=== PATIENT | male | born 1965 | race Caucasian/White ===

== ENCOUNTER 2021-03-10 23:58 | Inpatient (IN) ==
[2021-03-11] MEDS ORDERED: NOREPINEPHRINE 4 MG/4 ML VIAL IV ONE (00:10)
[2021-03-11] MEDS: fentaNYL INJ 2,500 MCG in SODIUM CHLORIDE 0.9% 75 ML IV PRN ×2 (00:15→15:50)
[2021-03-11] MEDS: NOREPINEPHRINE 8 MG in SODIUM CHLORIDE 0.9% 242 ML IV PRN ×4 (00:15→21:15)
[2021-03-11] MEDS: MIDAZOLAM 100 MG in SODIUM CHLORIDE 0.9% 80 ML IV PRN ×2 (00:15→21:20)
[2021-03-11 01:26] LABS: Albumin 3.1 G/DL (3.4-5.0); Basophils # 0.1 10*3/uL (0.0-0.2); Basophils % 0.2 % (0.0-0.8); Bilirubin,Total 0.7 MG/DL (0.20-1.00); Calcium 8.5 MG/DL (8.5-10.1); Hematocrit 46.8 VOL% (42.0-52.0); Hemoglobin 15.8 GM/DL (14.0-18.0); Immature Granulocytes % 1.6 %; Immature Granulocytes Absolute 0.63 #; Lymphocytes # 1.3 10*3/uL (1.4-4.0); Lymphocytes % 3.3 % (21.2-54.2); Mean Corpuscular HGB Conc 33.8 GM/DL (32-36); Mean Corpuscular Volume 88.6 FL (87-102); Mean Platelet Volume 9.8 FL (9.6-12.0); Monocytes % 8.3 % (1.7-12.7); Neutrophils % 86.6 % (38.7-73.9); Osmolality,Calculated 290.2 MOS/KG (273-304); Platelet Count 369 T/CUMM (130-400); Potassium 5.1 MMOL/L (3.5-5.1); Red Blood Count 5.28 MC/CUMM (3.8-5.5); Red Cell Distribution Width 12.5 % (9.3-17.3); Total Protein 6.3 G/DL (6.4-8.2); White Blood Count 38.6 T/CUMM (4-12)
[2021-03-11 02:20] LABS: Band Neutrophils 2 % (0-10); Lymphocytes 3 % (20-55); Segmented Neutrophils 84 % (50-85); Total Cells Counted 100
[2021-03-11 02:22] LABS: Platelet Estimate Normal
[2021-03-11 02:23] LABS: Reactive Lymphocytes 1+
[2021-03-11] MEDS ORDERED: SODIUM CHLORIDE 0.9% 2,700 ML IV ONE (02:25)
[2021-03-11] MEDS ORDERED: VANCOMYCIN INJ 1,250 MG in SODIUM CHLORIDE 0.9% 250 ML IV SCH (02:30)
[2021-03-11] MEDS ORDERED: VANCOMYCIN INJ 2,250 MG in SODIUM CHLORIDE 0.9% 500 ML IV ONE (03:00)
[2021-03-11] MEDS: PIPERACILLIN/TAZOBACTAM 3,375 MG in SODIUM CHLORIDE 0.9% 100 ML IV SCH ×3 (03:25→17:33)
[2021-03-11 04:48] LABS: ABG HCO3 18.9 MMOL/L (20-26); ABG Oxygen Saturation 91.5 % (95-100); ABG PCO2 35.5 MM HG (35-48); ABG PH 7.345 (7.35-7.45); ABG PO2 69.4 MM HG (80-95)
[2021-03-11 04:50] LABS: Bilirubin,Urine Negative (Negative); Blood, Urine Moderate mg/dL (Negative); Glucose,Urine (UA) Negative (Negative); Hyaline Casts,Urine 130 /LPF (0-3); Ketones,Urine Negative (Negative); Mucus,Urine Many /LPF (Occasional); Nitrite,Urine Negative (Negative); Protein,Urine 30 MG/DL; RBC,Urine 9 /HPF (0-4); Urine Appearance CLOUDY (Clear); Urine Color Amber (Yellow); Urine Urobilinogen < 2.0 EU/DL (0.2-1.0)
[2021-03-11] MEDS ORDERED: SODIUM CHLORIDE 0.9% 1,000 ML IV SCH (05:30)
[2021-03-11] MEDS ORDERED: DOCUSATE SODIUM 100 MG CAPSULE PO PRN (05:30)
[2021-03-11 06:09] LABS: INR 1.2; PT Patient Result 12.9 SECS (10.5-12.0)
[2021-03-11 06:28] LABS: Ferritin 2750.6 ng/mL (26-388)
[2021-03-11] MEDS: FAMOTIDINE 20 MG/2 ML VIAL IV SCH ×2 (06:32→17:35)
[2021-03-11] MEDS: DEXAMETHASONE 4 MG/1 ML VIAL IV SCH (08:45)
[2021-03-11] MEDS: ASCORBIC ACID 500 MG TABLET PO SCH ×2 (11:27→21:48)
[2021-03-11] MEDS: ZINC GLUCONATE 50 MG TABLET PO SCH (11:27)
[2021-03-11] MEDS: CHOLECALCIFEROL 1,000 UNIT TABLET PO SCH (11:27)
[2021-03-11] MEDS: VANCOMYCIN INJ 1,250 MG in SODIUM CHLORIDE 0.9% 250 ML IV SCH (16:18)
[2021-03-11] MEDS ORDERED: SODIUM CHLORIDE 0.9% 1,000 ML IV ONE (21:13)
[2021-03-11] MEDS ORDERED: SODIUM BICARBONATE 50 MEQ/50 ML VIAL IV ONE (21:13)
[2021-03-12] MEDS: PIPERACILLIN/TAZOBACTAM 3,375 MG in SODIUM CHLORIDE 0.9% 100 ML IV SCH (03:03)
[2021-03-12 04:45] LABS: ABG Base Excess -1.8 MMOL/L (-2.5-2.5); ABG HCO3 22.9 MMOL/L (20-26); ABG Oxygen Saturation 99.1 % (95-100); ABG PCO2 45.2 MM HG (35-48); ABG PH 7.337 (7.35-7.45); ABG TCO2 21.7 MMOL/L (23-27)
[2021-03-12] MEDS: fentaNYL INJ 2,500 MCG in SODIUM CHLORIDE 0.9% 75 ML IV PRN ×2 (04:45→15:39)
[2021-03-12] MEDS: NOREPINEPHRINE 8 MG in SODIUM CHLORIDE 0.9% 242 ML IV PRN ×5 (05:05→20:10)
[2021-03-12] MEDS: VANCOMYCIN INJ 1,250 MG in SODIUM CHLORIDE 0.9% 250 ML IV SCH (05:07)
[2021-03-12 05:10] LABS: INR 1.1; PT Patient Result 12.4 SECS (10.5-12.0)
[2021-03-12 05:20] LABS: Albumin 2.3 G/DL (3.4-5.0); Bilirubin,Total 0.8 MG/DL (0.20-1.00); Calcium 7.7 MG/DL (8.5-10.1); Osmolality,Calculated 299.3 MOS/KG (273-304); Potassium 4.6 MMOL/L (3.5-5.1)
[2021-03-12 05:30] LABS: Basophils # 0.1 10*3/uL (0.0-0.2); Basophils % 0.2 % (0.0-0.8); Immature Granulocytes % 2.1 %; Immature Granulocytes Absolute 0.53 #; Lymphocytes # 1.6 10*3/uL (1.4-4.0); Lymphocytes % 6.2 % (21.2-54.2); Mean Corpuscular HGB Conc 34.2 GM/DL (32-36); Mean Corpuscular Volume 89.2 FL (87-102); Mean Platelet Volume 10.4 FL (9.6-12.0); Monocytes % 9.4 % (1.7-12.7); Neutrophils % 82.1 % (38.7-73.9); Red Cell Distribution Width 12.8 % (9.3-17.3)
[2021-03-12 05:32] LABS: Hemoglobin 11.3 GM/DL (14.0-18.0); White Blood Count 25.8 T/CUMM (4-12)
[2021-03-12 05:33] LABS: Ferritin 2046.8 ng/mL (26-388); Platelet Count 215 T/CUMM (130-400)
[2021-03-12 05:35] LABS: Band Neutrophils 1 % (0-10); Lymphocytes 4 % (20-55); Platelet Estimate Adequate; Segmented Neutrophils 88 % (50-85); Total Cells Counted 100
[2021-03-12] MEDS: FAMOTIDINE 20 MG/2 ML VIAL IV SCH ×2 (05:50→17:30)
[2021-03-12] MEDS: ASCORBIC ACID 500 MG TABLET PO SCH ×2 (10:20→21:06)
[2021-03-12] MEDS: CHOLECALCIFEROL 1,000 UNIT TABLET PO SCH (10:20)
[2021-03-12] MEDS: ZINC GLUCONATE 50 MG TABLET PO SCH (10:20)
[2021-03-12] MEDS: DEXAMETHASONE 4 MG/1 ML VIAL IV SCH (10:21)
[2021-03-12] MEDS: MEROPENEM 500 MG in SODIUM CHLORIDE 0.9% 100 ML IV SCH ×3 (16:21→22:05)
[2021-03-12] MEDS: INSULIN REGULAR 100 UNIT/ML SUBCUT SCH ×2 (18:27→20:22)
[2021-03-12] MEDS: ACETAMINOPHEN 325 MG TABLET PO PRN (21:06)
[2021-03-12] MEDS: MIDAZOLAM 100 MG in SODIUM CHLORIDE 0.9% 80 ML IV PRN (21:06)
[2021-03-13] MEDS ORDERED: SODIUM CHLORIDE 0.9% 250 ML IV ONE (00:42)
[2021-03-13] MEDS ORDERED: KETOROLAC 30 MG/1 ML VIAL IV ONE (00:44)
[2021-03-13] MEDS: INSULIN REGULAR 100 UNIT/ML SUBCUT SCH ×4 (01:30→18:23)
[2021-03-13] MEDS: SODIUM CHLORIDE 0.9% 1,000 ML IV SCH ×2 (01:31→17:48)
[2021-03-13] MEDS: fentaNYL INJ 2,500 MCG in SODIUM CHLORIDE 0.9% 75 ML IV PRN ×3 (03:20→17:17)
[2021-03-13 03:32] LABS: ABG Base Excess 1.4 MMOL/L (-2.5-2.5); ABG HCO3 25.7 MMOL/L (20-26); ABG Oxygen Saturation 99.4 % (95-100); ABG PH 7.375 (7.35-7.45); ABG TCO2 24.8 MMOL/L (23-27)
[2021-03-13 04:32] LABS: Basophils % 0.1 % (0.0-0.8); Eosinophils % 0.1 % (0.00-10.9); Hematocrit 26.7 VOL% (42.0-52.0); Immature Granulocytes Absolute 0.38 #; Lymphocytes # 1.5 10*3/uL (1.4-4.0); Lymphocytes % 8.1 % (21.2-54.2); Mean Corpuscular Volume 92.7 FL (87-102); Mean Platelet Volume 10.3 FL (9.6-12.0); Monocytes % 8.5 % (1.7-12.7); NRBC # 0.02 10*3/uL; Neutrophils % 81.2 % (38.7-73.9); White Blood Count 18.6 T/CUMM (4-12)
[2021-03-13 04:34] LABS: Hemoglobin 8.8 GM/DL (14.0-18.0); Red Blood Count 2.88 MC/CUMM (3.8-5.5)
[2021-03-13 04:35] LABS: Platelet Count 120 T/CUMM (130-400)
[2021-03-13 04:37] LABS: INR 1.1; PT Patient Result 12.6 SECS (10.5-12.0)
[2021-03-13] MEDS: MEROPENEM 500 MG in SODIUM CHLORIDE 0.9% 100 ML IV SCH ×4 (04:45→21:39)
[2021-03-13 04:59] LABS: Albumin 2.1 G/DL (3.4-5.0); Bilirubin,Total 0.5 MG/DL (0.20-1.00); Calcium 7.8 MG/DL (8.5-10.1); Ferritin 1093.6 ng/mL (26-388); Osmolality,Calculated 307.8 MOS/KG (273-304); Potassium 4.7 MMOL/L (3.5-5.1); Total Protein 4.9 G/DL (6.4-8.2)
[2021-03-13] MEDS: FAMOTIDINE 20 MG/2 ML VIAL IV SCH ×2 (06:29→17:48)
[2021-03-13] MEDS: DEXAMETHASONE 4 MG/1 ML VIAL IV SCH (08:28)
[2021-03-13] MEDS: ASCORBIC ACID 500 MG TABLET PO SCH ×2 (08:29→21:17)
[2021-03-13] MEDS: ZINC GLUCONATE 50 MG TABLET PO SCH (08:29)
[2021-03-13] MEDS: CHOLECALCIFEROL 1,000 UNIT TABLET PO SCH (08:29)
[2021-03-13] MEDS ORDERED: DOCUSATE SODIUM 100 MG/10 ML UDCUP PO PRN (09:30)
[2021-03-13] MEDS: MIDAZOLAM 100 MG in SODIUM CHLORIDE 0.9% 80 ML IV PRN (21:10)
[2021-03-14] MEDS: INSULIN REGULAR 100 UNIT/ML SUBCUT SCH ×4 (00:01→18:19)
[2021-03-14] MEDS: fentaNYL INJ 2,500 MCG in SODIUM CHLORIDE 0.9% 75 ML IV PRN ×2 (01:33→14:13)
[2021-03-14 03:33] LABS: Basophils % 0.2 % (0.0-0.8); Hemoglobin 7.4 GM/DL (14.0-18.0); Immature Granulocytes % 2.8 %; Immature Granulocytes Absolute 0.35 #; Lymphocytes # 0.9 10*3/uL (1.4-4.0); Lymphocytes % 7.3 % (21.2-54.2); Mean Corpuscular HGB Conc 32.2 GM/DL (32-36); Mean Corpuscular Volume 93.1 FL (87-102); Mean Platelet Volume 11.3 FL (9.6-12.0); Monocytes % 5.5 % (1.7-12.7); NRBC # 0.04 10*3/uL; Neutrophils % 84.2 % (38.7-73.9); Platelet Count 104 T/CUMM (130-400); Red Blood Count 2.47 MC/CUMM (3.8-5.5); Red Cell Distribution Width 13.2 % (9.3-17.3); White Blood Count 12.7 T/CUMM (4-12)
[2021-03-14] MEDS: MEROPENEM 500 MG in SODIUM CHLORIDE 0.9% 100 ML IV SCH ×4 (03:33→22:13)
[2021-03-14 03:36] LABS: ABG Base Excess -0.5 MMOL/L (-2.5-2.5); ABG Oxygen Saturation 97.4 % (95-100); ABG PCO2 40.2 MM HG (35-48); ABG PH 7.391 (7.35-7.45); ABG PO2 90.1 MM HG (80-95); ABG TCO2 23.1 MMOL/L (23-27)
[2021-03-14 03:42] LABS: PT Patient Result 11.5 SECS (10.5-12.0)
[2021-03-14 03:58] LABS: Bilirubin,Total 0.5 MG/DL (0.20-1.00); Calcium 8.2 MG/DL (8.5-10.1); Ferritin 777.3 ng/mL (26-388); Osmolality,Calculated 310.6 MOS/KG (273-304); Potassium 5.1 MMOL/L (3.5-5.1); Total Protein 4.8 G/DL (6.4-8.2)
[2021-03-14] MEDS: FAMOTIDINE 20 MG/2 ML VIAL IV SCH (04:39)
[2021-03-14] MEDS: ZINC GLUCONATE 50 MG TABLET PO SCH (08:10)
[2021-03-14] MEDS: CHOLECALCIFEROL 1,000 UNIT TABLET PO SCH (08:10)
[2021-03-14] MEDS: DEXAMETHASONE 4 MG/1 ML VIAL IV SCH (08:10)
[2021-03-14] MEDS: ASCORBIC ACID 500 MG TABLET PO SCH ×2 (08:10→20:00)
[2021-03-14] MEDS: MIDAZOLAM 100 MG in SODIUM CHLORIDE 0.9% 80 ML IV PRN (14:30)
[2021-03-15] MEDS: INSULIN REGULAR 100 UNIT/ML SUBCUT SCH ×4 (00:19→18:10)
[2021-03-15] MEDS: fentaNYL INJ 2,500 MCG in SODIUM CHLORIDE 0.9% 75 ML IV PRN ×3 (00:19→18:23)
[2021-03-15] MEDS: MEROPENEM 500 MG in SODIUM CHLORIDE 0.9% 100 ML IV SCH ×4 (03:50→22:00)
[2021-03-15 05:25] LABS: ABG Base Excess 6.6 MMOL/L (-2.5-2.5); ABG HCO3 30.3 MMOL/L (20-26); ABG Oxygen Saturation 91.5 % (95-100); ABG PH 7.444 (7.35-7.45); ABG PO2 60.6 MM HG (80-95); ABG TCO2 28.5 MMOL/L (23-27); Basophils % 0.1 % (0.0-0.8); Hematocrit 21.5 VOL% (42.0-52.0); Immature Granulocytes % 5.3 %; Immature Granulocytes Absolute 0.59 #; Lymphocytes # 0.6 10*3/uL (1.4-4.0); Lymphocytes % 5.6 % (21.2-54.2); Mean Corpuscular HGB Conc 32.6 GM/DL (32-36); Mean Corpuscular Volume 93.1 FL (87-102); Mean Platelet Volume 10.8 FL (9.6-12.0); Monocytes % 5.2 % (1.7-12.7); NRBC # 0.06 10*3/uL; Neutrophils % 83.8 % (38.7-73.9); Platelet Count 101 T/CUMM (130-400); Red Blood Count 2.31 MC/CUMM (3.8-5.5); Red Cell Distribution Width 13.4 % (9.3-17.3)
[2021-03-15 05:45] LABS: Band Neutrophils 1 % (0-10); Hypochromia 1+; Lymphocytes 5 % (20-55); Microcytosis 1+; Nucleated Red Blood Cells 1 (0-5); Platelet Estimate Decreased; Segmented Neutrophils 92 % (50-85); Total Cells Counted 100
[2021-03-15 05:48] LABS: Calcium 8.3 MG/DL (8.5-10.1); Osmolality,Calculated 311.4 MOS/KG (273-304); Potassium 4.6 MMOL/L (3.5-5.1)
[2021-03-15] MEDS: ASCORBIC ACID 500 MG TABLET PO SCH ×2 (09:20→21:50)
[2021-03-15] MEDS: DEXAMETHASONE 4 MG/1 ML VIAL IV SCH (09:20)
[2021-03-15] MEDS: CHOLECALCIFEROL 1,000 UNIT TABLET PO SCH (09:20)
[2021-03-15] MEDS: FUROSEMIDE 40 MG/4 ML VIAL IV SCH ×2 (09:20→17:10)
[2021-03-15] MEDS: PANTOPRAZOLE 40 MG VIAL IV SCH (09:20)
[2021-03-15] MEDS: ZINC GLUCONATE 50 MG TABLET PO SCH (09:21)
[2021-03-15] MEDS ORDERED: MORPHINE 2 MG/1 ML SYRINGE ONE (11:25)
[2021-03-15] MEDS ORDERED: MORPHINE 2 MG/1 ML SYRINGE IV ONE (11:35)
[2021-03-15] MEDS: MIDAZOLAM 100 MG in SODIUM CHLORIDE 0.9% 80 ML IV PRN (11:44)
[2021-03-16] MEDS: INSULIN REGULAR 100 UNIT/ML SUBCUT SCH ×4 (00:19→17:17)
[2021-03-16 03:12] LABS: ABG HCO3 36.1 MMOL/L (20-26); ABG Oxygen Saturation 91.9 % (95-100); ABG PCO2 50.5 MM HG (35-48); ABG PH 7.472 (7.35-7.45); ABG PO2 61.6 MM HG (80-95); ABG TCO2 37.6 MMOL/L (23-27)
[2021-03-16 04:53] LABS: Basophils % 0.3 % (0.0-0.8); Hematocrit 30.2 VOL% (42.0-52.0); Immature Granulocytes % 5.3 %; Immature Granulocytes Absolute 0.62 #; Lymphocytes # 0.6 10*3/uL (1.4-4.0); Lymphocytes % 5.3 % (21.2-54.2); Mean Corpuscular HGB Conc 32.1 GM/DL (32-36); Mean Corpuscular Volume 90.7 FL (87-102); Mean Platelet Volume 10.8 FL (9.6-12.0); NRBC # 0.12 10*3/uL; Neutrophils % 84.1 % (38.7-73.9); Red Cell Distribution Width 14.6 % (9.3-17.3); White Blood Count 11.7 T/CUMM (4-12)
[2021-03-16 04:58] LABS: Hemoglobin 9.7 GM/DL (14.0-18.0); Platelet Count 97 T/CUMM (130-400); Red Blood Count 3.33 MC/CUMM (3.8-5.5)
[2021-03-16 05:15] LABS: Calcium 8.6 MG/DL (8.5-10.1); Osmolality,Calculated 304.1 MOS/KG (273-304); Potassium 4.5 MMOL/L (3.5-5.1)
[2021-03-16 05:19] LABS: Band Neutrophils 2 % (0-10); Lymphocytes 5 % (20-55); Platelet Estimate Decreased; Segmented Neutrophils 90 % (50-85); Total Cells Counted 100
[2021-03-16] MEDS: MEROPENEM 500 MG in SODIUM CHLORIDE 0.9% 100 ML IV SCH ×4 (05:28→23:18)
[2021-03-16] MEDS: fentaNYL INJ 2,500 MCG in SODIUM CHLORIDE 0.9% 75 ML IV PRN ×3 (06:13→23:49)
[2021-03-16] MEDS: MIDAZOLAM 100 MG in SODIUM CHLORIDE 0.9% 80 ML IV PRN (06:58)
[2021-03-16] MEDS: ZINC GLUCONATE 50 MG TABLET PO SCH (08:55)
[2021-03-16] MEDS: CHOLECALCIFEROL 1,000 UNIT TABLET PO SCH (08:55)
[2021-03-16] MEDS: ASCORBIC ACID 500 MG TABLET PO SCH ×2 (08:55→21:22)
[2021-03-16] MEDS: DEXAMETHASONE 4 MG/1 ML VIAL IV SCH (08:57)
[2021-03-16] MEDS: PANTOPRAZOLE 40 MG VIAL IV SCH (08:59)
[2021-03-16] MEDS: FUROSEMIDE 40 MG/4 ML VIAL IV SCH (09:01)
[2021-03-16] MEDS: INSULIN GLARGINE 100 UNIT/ML SUBCUT SCH (12:36)
[2021-03-17] MEDS: INSULIN REGULAR 100 UNIT/ML SUBCUT SCH ×5 (00:37→19:39)
[2021-03-17] MEDS: MIDAZOLAM 100 MG in SODIUM CHLORIDE 0.9% 80 ML IV PRN ×2 (03:32→18:05)
[2021-03-17] MEDS: MEROPENEM 500 MG in SODIUM CHLORIDE 0.9% 100 ML IV SCH ×4 (04:31→22:15)
[2021-03-17 04:54] LABS: ABG Base Excess 6.3 MMOL/L (-2.5-2.5); ABG HCO3 30.1 MMOL/L (20-26); ABG Oxygen Saturation 96.6 % (95-100); ABG PCO2 53.3 MM HG (35-48); ABG PH 7.393 (7.35-7.45); ABG PO2 88.4 MM HG (80-95); ABG TCO2 29.5 MMOL/L (23-27); Basophils % 0.3 % (0.0-0.8); Hematocrit 29.9 VOL% (42.0-52.0); Immature Granulocytes % 5.1 %; Immature Granulocytes Absolute 0.57 #; Lymphocytes # 0.5 10*3/uL (1.4-4.0); Lymphocytes % 4.4 % (21.2-54.2); Mean Corpuscular HGB Conc 33.4 GM/DL (32-36); Mean Corpuscular Volume 90.3 FL (87-102); Mean Platelet Volume 10.8 FL (9.6-12.0); Monocytes % 4.5 % (1.7-12.7); NRBC # 0.08 10*3/uL; Neutrophils % 85.7 % (38.7-73.9); Platelet Count 109 T/CUMM (130-400); Red Blood Count 3.31 MC/CUMM (3.8-5.5); Red Cell Distribution Width 14.4 % (9.3-17.3); White Blood Count 11.3 T/CUMM (4-12)
[2021-03-17 05:07] LABS: Calcium 8.3 MG/DL (8.5-10.1); Osmolality,Calculated 294.4 MOS/KG (273-304); Potassium 3.9 MMOL/L (3.5-5.1)
[2021-03-17 07:07] LABS: Hypochromia Slight; Lymphocytes 7 % (20-55); Platelet Estimate Adequate; Segmented Neutrophils 91 % (50-85); Total Cells Counted 100
[2021-03-17] MEDS: ZINC GLUCONATE 50 MG TABLET PO SCH (08:58)
[2021-03-17] MEDS: ASCORBIC ACID 500 MG TABLET PO SCH ×2 (08:58→21:54)
[2021-03-17] MEDS: INSULIN GLARGINE 100 UNIT/ML SUBCUT SCH (08:58)
[2021-03-17] MEDS: PANTOPRAZOLE 40 MG VIAL IV SCH (09:01)
[2021-03-17] MEDS: DEXAMETHASONE 4 MG/1 ML VIAL IV SCH (09:03)
[2021-03-17] MEDS: CHOLECALCIFEROL 1,000 UNIT TABLET PO SCH (09:11)
[2021-03-17] MEDS: fentaNYL INJ 2,500 MCG in SODIUM CHLORIDE 0.9% 75 ML IV PRN ×2 (09:46→18:06)
[2021-03-17] MEDS: HEPARIN/NACL 0.9% 2 UNITS/ML 1,000 UNIT/500 ML BAG IV SCH (11:10)
[2021-03-18] MEDS: INSULIN REGULAR 100 UNIT/ML SUBCUT SCH ×4 (00:09→18:50)
[2021-03-18] MEDS: fentaNYL INJ 2,500 MCG in SODIUM CHLORIDE 0.9% 75 ML IV PRN ×4 (02:04→23:16)
[2021-03-18] MEDS: MEROPENEM 500 MG in SODIUM CHLORIDE 0.9% 100 ML IV SCH ×4 (04:54→23:17)
[2021-03-18 04:56] LABS: Basophils % 0.3 % (0.0-0.8); Hemoglobin 10.4 GM/DL (14.0-18.0); Immature Granulocytes % 2.5 %; Immature Granulocytes Absolute 0.25 #; Lymphocytes # 0.4 10*3/uL (1.4-4.0); Lymphocytes % 3.7 % (21.2-54.2); Mean Corpuscular HGB Conc 32.5 GM/DL (32-36); Mean Corpuscular Volume 92.5 FL (87-102); Mean Platelet Volume 10.2 FL (9.6-12.0); Monocytes % 3.7 % (1.7-12.7); NRBC # 0.04 10*3/uL; Neutrophils % 89.8 % (38.7-73.9); Platelet Count 116 T/CUMM (130-400); Red Blood Count 3.46 MC/CUMM (3.8-5.5); Red Cell Distribution Width 14.4 % (9.3-17.3); White Blood Count 10.2 T/CUMM (4-12)
[2021-03-18 05:17] LABS: Calcium 8.3 MG/DL (8.5-10.1); Osmolality,Calculated 284.4 MOS/KG (273-304); Potassium 4.2 MMOL/L (3.5-5.1)
[2021-03-18 05:31] LABS: Lymphocytes 7 % (20-55); Platelet Estimate Normal; Segmented Neutrophils 89 % (50-85); Total Cells Counted 100
[2021-03-18 07:51] LABS: ABG Base Excess 3.9 MMOL/L (-2.5-2.5); ABG HCO3 27.9 MMOL/L (20-26); ABG Oxygen Saturation 99.2 % (95-100); ABG PCO2 55.8 MM HG (35-48); ABG PH 7.349 (7.35-7.45); Allen Test Positive; Pt O2 Delivery Device Ventilator
[2021-03-18] MEDS ORDERED: INSULIN GLARGINE 100 UNIT/ML SUBCUT SCH (09:00)
[2021-03-18] MEDS: MIDAZOLAM 100 MG in SODIUM CHLORIDE 0.9% 80 ML IV PRN ×2 (09:24→23:26)
[2021-03-18] MEDS: ASCORBIC ACID 500 MG TABLET PO SCH ×2 (10:00→21:00)
[2021-03-18] MEDS: ZINC GLUCONATE 50 MG TABLET PO SCH (10:00)
[2021-03-18] MEDS: CHOLECALCIFEROL 1,000 UNIT TABLET PO SCH (10:01)
[2021-03-18] MEDS: PANTOPRAZOLE 40 MG VIAL IV SCH (10:03)
[2021-03-18] MEDS: DEXAMETHASONE 4 MG/1 ML VIAL IV SCH (10:05)
[2021-03-18] MEDS: HEPARIN/NACL 0.9% 2 UNITS/ML 1,000 UNIT/500 ML BAG IV SCH (12:53)
[2021-03-19] MEDS: INSULIN REGULAR 100 UNIT/ML SUBCUT SCH ×4 (00:58→17:39)
[2021-03-19 03:49] LABS: ABG Base Excess 4.7 MMOL/L (-2.5-2.5); ABG HCO3 28.7 MMOL/L (20-26); ABG Oxygen Saturation 97.1 % (95-100); ABG PCO2 52.9 MM HG (35-48); ABG PH 7.376 (7.35-7.45); ABG TCO2 28.3 MMOL/L (23-27)
[2021-03-19] MEDS: MEROPENEM 500 MG in SODIUM CHLORIDE 0.9% 100 ML IV SCH ×4 (04:30→22:10)
[2021-03-19 04:33] LABS: Basophils % 0.1 % (0.0-0.8); Hematocrit 32.2 VOL% (42.0-52.0); Hemoglobin 10.5 GM/DL (14.0-18.0); Immature Granulocytes % 2.1 %; Immature Granulocytes Absolute 0.19 #; Lymphocytes # 0.4 10*3/uL (1.4-4.0); Lymphocytes % 4.8 % (21.2-54.2); Mean Corpuscular HGB Conc 32.6 GM/DL (32-36); Mean Corpuscular Volume 90.4 FL (87-102); Mean Platelet Volume 10.6 FL (9.6-12.0); Monocytes % 5.8 % (1.7-12.7); NRBC # 0.04 10*3/uL; Neutrophils % 87.2 % (38.7-73.9); Platelet Count 136 T/CUMM (130-400); Red Blood Count 3.56 MC/CUMM (3.8-5.5); Red Cell Distribution Width 14.4 % (9.3-17.3)
[2021-03-19 04:51] LABS: Calcium 8.4 MG/DL (8.5-10.1); Osmolality,Calculated 288.4 MOS/KG (273-304)
[2021-03-19 05:34] LABS: Lymphocytes 7 % (20-55); Segmented Neutrophils 89 % (50-85); Total Cells Counted 100
[2021-03-19 05:35] LABS: Microcytosis 1+; Ovalocytes Slight; Platelet Estimate Adequate; Tear Drop Cells Slight
[2021-03-19] MEDS: ASCORBIC ACID 500 MG TABLET PO SCH ×2 (08:37→21:12)
[2021-03-19] MEDS: INSULIN GLARGINE 100 UNIT/ML SUBCUT SCH (08:37)
[2021-03-19] MEDS: CHOLECALCIFEROL 1,000 UNIT TABLET PO SCH (08:37)
[2021-03-19] MEDS: ZINC GLUCONATE 50 MG TABLET PO SCH (08:37)
[2021-03-19] MEDS: PANTOPRAZOLE 40 MG VIAL IV SCH (08:38)
[2021-03-19] MEDS: DEXAMETHASONE 4 MG/1 ML VIAL IV SCH (08:38)
[2021-03-19] MEDS: fentaNYL INJ 2,500 MCG in SODIUM CHLORIDE 0.9% 75 ML IV PRN (09:29)
[2021-03-19] MEDS: fentaNYL INJ 5,000 MCG in SODIUM CHLORIDE 0.9% 150 ML IV PRN (17:10)
[2021-03-19] MEDS: MIDAZOLAM 100 MG in SODIUM CHLORIDE 0.9% 80 ML IV PRN (17:11)
[2021-03-19] MEDS: FAMOTIDINE 20 MG TABLET PO SCH (21:12)
[2021-03-20] MEDS: INSULIN REGULAR 100 UNIT/ML SUBCUT SCH ×4 (00:38→17:13)
[2021-03-20] MEDS: fentaNYL INJ 5,000 MCG in SODIUM CHLORIDE 0.9% 150 ML IV PRN ×3 (01:57→21:55)
[2021-03-20 03:04] LABS: ABG Base Excess 5.2 MMOL/L (-2.5-2.5); ABG HCO3 29.1 MMOL/L (20-26); ABG Oxygen Saturation 98.3 % (95-100); ABG PCO2 51.4 MM HG (35-48); ABG PH 7.392 (7.35-7.45); ABG TCO2 28.3 MMOL/L (23-27)
[2021-03-20 04:57] LABS: Basophils % 0.1 % (0.0-0.8); Eosinophils % 0.3 % (0.00-10.9); Hematocrit 32.4 VOL% (42.0-52.0); Hemoglobin 10.5 GM/DL (14.0-18.0); Immature Granulocytes % 0.8 %; Immature Granulocytes Absolute 0.06 #; Lymphocytes # 0.5 10*3/uL (1.4-4.0); Lymphocytes % 6.5 % (21.2-54.2); Mean Corpuscular HGB Conc 32.4 GM/DL (32-36); Mean Corpuscular Volume 91.3 FL (87-102); Mean Platelet Volume 10.3 FL (9.6-12.0); Monocytes % 7.1 % (1.7-12.7); NRBC # 0.02 10*3/uL; Neutrophils % 85.2 % (38.7-73.9); Platelet Count 160 T/CUMM (130-400); Red Blood Count 3.55 MC/CUMM (3.8-5.5); Red Cell Distribution Width 14.3 % (9.3-17.3); White Blood Count 7.1 T/CUMM (4-12)
[2021-03-20 05:16] LABS: Calcium 8.2 MG/DL (8.5-10.1); Osmolality,Calculated 287.1 MOS/KG (273-304); Potassium 3.7 MMOL/L (3.5-5.1)
[2021-03-20] MEDS: MEROPENEM 500 MG in SODIUM CHLORIDE 0.9% 100 ML IV SCH ×4 (05:30→22:05)
[2021-03-20] MEDS: MIDAZOLAM 100 MG in SODIUM CHLORIDE 0.9% 80 ML IV PRN (06:40)
[2021-03-20] MEDS: INSULIN GLARGINE 100 UNIT/ML SUBCUT SCH (08:01)
[2021-03-20] MEDS: ZINC GLUCONATE 50 MG TABLET PO SCH (08:02)
[2021-03-20] MEDS: CHOLECALCIFEROL 1,000 UNIT TABLET PO SCH (08:02)
[2021-03-20] MEDS: ASCORBIC ACID 500 MG TABLET PO SCH ×2 (08:02→21:23)
[2021-03-20] MEDS: FAMOTIDINE 20 MG TABLET PO SCH ×2 (08:03→21:22)
[2021-03-20] MEDS: DEXAMETHASONE 4 MG/1 ML VIAL IV SCH (08:03)
[2021-03-20] MEDS: methylPREDNISolone SOD SUC 40 MG/1 ML VIAL IV SCH (15:17)
[2021-03-20] MEDS ORDERED: LORazepam 2 MG/1 ML VIAL ONE (16:59)
[2021-03-20] MEDS: LORazepam 2 MG/1 ML VIAL IV PRN (17:05)
[2021-03-21] MEDS: INSULIN REGULAR 100 UNIT/ML SUBCUT SCH ×5 (00:13→23:59)
[2021-03-21] MEDS: methylPREDNISolone SOD SUC 40 MG/1 ML VIAL IV SCH ×2 (03:55→14:55)
[2021-03-21] MEDS: fentaNYL INJ 5,000 MCG in SODIUM CHLORIDE 0.9% 150 ML IV PRN ×4 (03:57→22:21)
[2021-03-21] MEDS: MEROPENEM 500 MG in SODIUM CHLORIDE 0.9% 100 ML IV SCH ×4 (03:58→23:59)
[2021-03-21 04:01] LABS: ABG Base Excess 5.1 MMOL/L (-2.5-2.5); ABG HCO3 32.7 MMOL/L (20-26); ABG Oxygen Saturation 63.5 % (95-100); ABG PCO2 64.1 MM HG (35-48); ABG PH 7.326 (7.35-7.45); ABG TCO2 34.7 MMOL/L (23-27)
[2021-03-21 04:04] LABS: ABG PO2 34.4 MM HG (80-95)
[2021-03-21 04:29] LABS: ABG Base Excess 5.2 MMOL/L (-2.5-2.5); ABG Oxygen Saturation 96.1 % (95-100); ABG PCO2 49.2 MM HG (35-48); ABG PH 7.406 (7.35-7.45); ABG TCO2 27.5 MMOL/L (23-27)
[2021-03-21 04:52] LABS: Eosinophils % 0.1 % (0.00-10.9); Hematocrit 34.5 VOL% (42.0-52.0); Hemoglobin 11.3 GM/DL (14.0-18.0); Immature Granulocytes Absolute 0.07 #; Lymphocytes # 0.5 10*3/uL (1.4-4.0); Lymphocytes % 7.4 % (21.2-54.2); Mean Corpuscular HGB Conc 32.8 GM/DL (32-36); Mean Corpuscular Volume 89.6 FL (87-102); Mean Platelet Volume 10.1 FL (9.6-12.0); Monocytes % 7.5 % (1.7-12.7); Platelet Count 184 T/CUMM (130-400); Red Blood Count 3.85 MC/CUMM (3.8-5.5); Red Cell Distribution Width 14.5 % (9.3-17.3); White Blood Count 6.9 T/CUMM (4-12)
[2021-03-21 05:06] LABS: Calcium 8.1 MG/DL (8.5-10.1); Osmolality,Calculated 290.1 MOS/KG (273-304); Potassium 4.2 MMOL/L (3.5-5.1)
[2021-03-21] MEDS: FAMOTIDINE 20 MG TABLET PO SCH ×2 (08:16→20:09)
[2021-03-21] MEDS: CHOLECALCIFEROL 1,000 UNIT TABLET PO SCH (08:16)
[2021-03-21] MEDS: ZINC GLUCONATE 50 MG TABLET PO SCH (08:16)
[2021-03-21] MEDS: ASCORBIC ACID 500 MG TABLET PO SCH ×2 (08:16→20:10)
[2021-03-21] MEDS: INSULIN GLARGINE 100 UNIT/ML SUBCUT SCH (08:18)
[2021-03-21] MEDS: MIDAZOLAM 100 MG in SODIUM CHLORIDE 0.9% 80 ML IV PRN (12:26)
[2021-03-21] MEDS ORDERED: FUROSEMIDE 20 MG/2 ML VIAL IV ONE (15:54)
[2021-03-22 02:47] LABS: ABG Base Excess 9.1 MMOL/L (-2.5-2.5); ABG HCO3 32.9 MMOL/L (20-26); ABG Oxygen Saturation 99.5 % (95-100); ABG PCO2 60.3 MM HG (35-48); ABG PH 7.388 (7.35-7.45); ABG TCO2 32.4 MMOL/L (23-27)
[2021-03-22] MEDS: methylPREDNISolone SOD SUC 40 MG/1 ML VIAL IV SCH ×2 (04:00→15:06)
[2021-03-22] MEDS: fentaNYL INJ 5,000 MCG in SODIUM CHLORIDE 0.9% 150 ML IV PRN ×2 (04:01→18:29)
[2021-03-22 04:34] LABS: Basophils % 0.1 % (0.0-0.8); Eosinophils % 0.1 % (0.00-10.9); Hematocrit 35.2 VOL% (42.0-52.0); Hemoglobin 11.1 GM/DL (14.0-18.0); Immature Granulocytes % 0.5 %; Immature Granulocytes Absolute 0.05 #; Lymphocytes # 0.8 10*3/uL (1.4-4.0); Lymphocytes % 8.7 % (21.2-54.2); Mean Corpuscular HGB Conc 31.5 GM/DL (32-36); Mean Corpuscular Volume 91.2 FL (87-102); Mean Platelet Volume 9.7 FL (9.6-12.0); Monocytes % 8.4 % (1.7-12.7); Neutrophils % 82.2 % (38.7-73.9); Platelet Count 199 T/CUMM (130-400); Red Blood Count 3.86 MC/CUMM (3.8-5.5); Red Cell Distribution Width 14.5 % (9.3-17.3); White Blood Count 9.7 T/CUMM (4-12)
[2021-03-22 04:47] LABS: Osmolality,Calculated 287.3 MOS/KG (273-304); Potassium 4.3 MMOL/L (3.5-5.1)
[2021-03-22] MEDS: MEROPENEM 500 MG in SODIUM CHLORIDE 0.9% 100 ML IV SCH ×2 (04:48→10:23)
[2021-03-22] MEDS: MIDAZOLAM 100 MG in SODIUM CHLORIDE 0.9% 80 ML IV PRN (05:15)
[2021-03-22] MEDS: INSULIN REGULAR 100 UNIT/ML SUBCUT SCH ×3 (05:55→17:46)
[2021-03-22] MEDS: FAMOTIDINE 20 MG TABLET PO SCH ×2 (08:56→20:06)
[2021-03-22] MEDS: PANTOPRAZOLE 40 MG VIAL IV SCH (08:56)
[2021-03-22] MEDS: INSULIN GLARGINE 100 UNIT/ML SUBCUT SCH (08:56)
[2021-03-22] MEDS: CHOLECALCIFEROL 1,000 UNIT TABLET PO SCH (08:56)
[2021-03-22] MEDS: ASCORBIC ACID 500 MG TABLET PO SCH ×2 (08:56→20:06)
[2021-03-22] MEDS: ZINC GLUCONATE 50 MG TABLET PO SCH (08:56)
[2021-03-22] MEDS ORDERED: DEXMEDETOMIDINE 200 MCG in SODIUM CHLORIDE 0.9% 48 ML IV PRN (09:00)
[2021-03-22] MEDS: hydrALAZINE 20 MG/1 ML VIAL IV PRN (09:36)
[2021-03-22] MEDS: LORazepam 2 MG/1 ML VIAL IV PRN ×3 (10:23→21:41)
[2021-03-22] MEDS ORDERED: METOCLOPRAMIDE 10 MG/2 ML VIAL IV SCH (10:30)
[2021-03-22] MEDS: DEXMEDETOMIDINE 400 MCG in SODIUM CHLORIDE 0.9% 96 ML IV PRN (12:20)
[2021-03-22] MEDS ORDERED: MORPHINE 2 MG/1 ML SYRINGE IV ONE (12:56)
[2021-03-22] MEDS ORDERED: LABETALOL 20 MG/4 ML SYRINGE IV ONE ×2 (13:27→15:20)
[2021-03-22] MEDS: METOCLOPRAMIDE 10 MG/2 ML VIAL IV SCH ×2 (13:47→21:08)
[2021-03-22] MEDS: fentaNYL 100 MCG/HR PATCH TRANSDERM SCH (14:00)
[2021-03-22] MEDS: ENOXAPARIN 40 MG/0.4 ML SYRINGE SUBCUT SCH (17:47)
[2021-03-22] MEDS: METOPROLOL TARTRATE 25 MG TABLET PO SCH (21:08)
[2021-03-23] MEDS: INSULIN REGULAR 100 UNIT/ML SUBCUT SCH ×4 (00:13→17:45)
[2021-03-23] MEDS: fentaNYL INJ 5,000 MCG in SODIUM CHLORIDE 0.9% 150 ML IV PRN ×3 (00:45→18:56)
[2021-03-23] MEDS: DEXMEDETOMIDINE 400 MCG in SODIUM CHLORIDE 0.9% 96 ML IV PRN ×4 (00:48→21:15)
[2021-03-23] MEDS: methylPREDNISolone SOD SUC 40 MG/1 ML VIAL IV SCH ×2 (03:12→14:56)
[2021-03-23 03:53] LABS: Basophils % 0.2 % (0.0-0.8); Eosinophils % 0.2 % (0.00-10.9); Hematocrit 33.6 VOL% (42.0-52.0); Hemoglobin 10.8 GM/DL (14.0-18.0); Immature Granulocytes % 0.9 %; Immature Granulocytes Absolute 0.09 #; Lymphocytes # 0.7 10*3/uL (1.4-4.0); Lymphocytes % 6.8 % (21.2-54.2); Mean Corpuscular HGB Conc 32.1 GM/DL (32-36); Mean Corpuscular Volume 88.7 FL (87-102); Mean Platelet Volume 9.3 FL (9.6-12.0); Monocytes % 6.7 % (1.7-12.7); Neutrophils % 85.2 % (38.7-73.9); Platelet Count 208 T/CUMM (130-400); Red Blood Count 3.79 MC/CUMM (3.8-5.5); Red Cell Distribution Width 14.5 % (9.3-17.3); White Blood Count 9.8 T/CUMM (4-12)
[2021-03-23 04:10] LABS: Calcium 7.7 MG/DL (8.5-10.1); Osmolality,Calculated 282.5 MOS/KG (273-304); Potassium 4.4 MMOL/L (3.5-5.1)
[2021-03-23] MEDS: LORazepam 2 MG/1 ML VIAL IV PRN ×5 (04:19→21:43)
[2021-03-23 04:25] LABS: ABG Base Excess 10.3 MMOL/L (-2.5-2.5); ABG HCO3 35.7 MMOL/L (20-26); ABG Oxygen Saturation 97.2 % (95-100); ABG PCO2 51.4 MM HG (35-48); ABG PH 7.459 (7.35-7.45); ABG PO2 97.3 MM HG (80-95); ABG TCO2 37.2 MMOL/L (23-27)
[2021-03-23] MEDS: METOCLOPRAMIDE 10 MG/2 ML VIAL IV SCH ×3 (05:57→21:14)
[2021-03-23] MEDS: INSULIN GLARGINE 100 UNIT/ML SUBCUT SCH (08:58)
[2021-03-23] MEDS: METOPROLOL TARTRATE 25 MG TABLET PO SCH ×2 (08:59→21:15)
[2021-03-23] MEDS: CHOLECALCIFEROL 1,000 UNIT TABLET PO SCH (08:59)
[2021-03-23] MEDS: FAMOTIDINE 20 MG TABLET PO SCH ×2 (08:59→21:14)
[2021-03-23] MEDS: ASCORBIC ACID 500 MG TABLET PO SCH ×2 (08:59→21:15)
[2021-03-23] MEDS: ZINC GLUCONATE 50 MG TABLET PO SCH (08:59)
[2021-03-23] MEDS: PANTOPRAZOLE 40 MG VIAL IV SCH (08:59)
[2021-03-23] MEDS: ENOXAPARIN 40 MG/0.4 ML SYRINGE SUBCUT SCH (17:36)
[2021-03-24] MEDS: INSULIN REGULAR 100 UNIT/ML SUBCUT SCH ×5 (00:10→23:40)
[2021-03-24] MEDS: methylPREDNISolone SOD SUC 40 MG/1 ML VIAL IV SCH ×3 (03:30→16:16)
[2021-03-24 03:42] LABS: Basophils % 0.1 % (0.0-0.8); Eosinophils % 0.2 % (0.00-10.9); Hematocrit 34.9 VOL% (42.0-52.0); Hemoglobin 11.4 GM/DL (14.0-18.0); Immature Granulocytes % 0.9 %; Immature Granulocytes Absolute 0.09 #; Lymphocytes % 9.5 % (21.2-54.2); Mean Corpuscular HGB Conc 32.7 GM/DL (32-36); Mean Corpuscular Volume 87.3 FL (87-102); Mean Platelet Volume 9.2 FL (9.6-12.0); Monocytes % 7.5 % (1.7-12.7); Neutrophils % 81.8 % (38.7-73.9); Platelet Count 231 T/CUMM (130-400); Red Cell Distribution Width 14.3 % (9.3-17.3); White Blood Count 10.4 T/CUMM (4-12)
[2021-03-24 03:56] LABS: Calcium 8.1 MG/DL (8.5-10.1); Osmolality,Calculated 272.1 MOS/KG (273-304); Potassium 3.6 MMOL/L (3.5-5.1)
[2021-03-24] MEDS: DEXMEDETOMIDINE 400 MCG in SODIUM CHLORIDE 0.9% 96 ML IV PRN ×3 (04:15→20:10)
[2021-03-24 04:33] LABS: ABG Base Excess 3.8 MMOL/L (-2.5-2.5); ABG HCO3 27.7 MMOL/L (20-26); ABG Oxygen Saturation 95.7 % (95-100); ABG PCO2 44.1 MM HG (35-48); ABG PH 7.422 (7.35-7.45); ABG PO2 77.6 MM HG (80-95); ABG TCO2 25.2 MMOL/L (23-27)
[2021-03-24] MEDS: LORazepam 2 MG/1 ML VIAL IV PRN ×2 (05:55→11:10)
[2021-03-24] MEDS: METOCLOPRAMIDE 10 MG/2 ML VIAL IV SCH ×3 (06:00→21:24)
[2021-03-24] MEDS: fentaNYL INJ 5,000 MCG in SODIUM CHLORIDE 0.9% 150 ML IV PRN ×2 (07:30→21:45)
[2021-03-24] MEDS: METOPROLOL TARTRATE 25 MG TABLET PO SCH ×2 (10:02→21:24)
[2021-03-24] MEDS: POTASSIUM PHOS/SOD PHOS POWDER 250 MG PACK PO SCH ×4 (10:02→21:24)
[2021-03-24] MEDS: INSULIN GLARGINE 100 UNIT/ML SUBCUT SCH (10:02)
[2021-03-24] MEDS: PANTOPRAZOLE 40 MG VIAL IV SCH (10:03)
[2021-03-24] MEDS: FAMOTIDINE 20 MG TABLET PO SCH ×2 (10:03→21:24)
[2021-03-24] MEDS: CHOLECALCIFEROL 1,000 UNIT TABLET PO SCH (10:04)
[2021-03-24] MEDS: ASCORBIC ACID 500 MG TABLET PO SCH ×2 (10:04→21:24)
[2021-03-24] MEDS: ZINC GLUCONATE 50 MG TABLET PO SCH (10:04)
[2021-03-24] MEDS ORDERED: FLUCONAZOLE INJ 200 MG/100 ML PREMIX IV ONE (14:59)
[2021-03-24] MEDS: ENOXAPARIN 40 MG/0.4 ML SYRINGE SUBCUT SCH (18:22)
[2021-03-25] MEDS: methylPREDNISolone SOD SUC 40 MG/1 ML VIAL IV SCH ×2 (02:10→15:50)
[2021-03-25] MEDS: DEXMEDETOMIDINE 400 MCG in SODIUM CHLORIDE 0.9% 96 ML IV PRN ×3 (03:02→18:37)
[2021-03-25] MEDS: LORazepam 2 MG/1 ML VIAL IV PRN ×4 (03:30→22:30)
[2021-03-25 03:48] LABS: Basophils % 0.1 % (0.0-0.8); Hematocrit 35.5 VOL% (42.0-52.0); Hemoglobin 11.9 GM/DL (14.0-18.0); Immature Granulocytes % 1.1 %; Lymphocytes # 0.4 10*3/uL (1.4-4.0); Lymphocytes % 4.1 % (21.2-54.2); Mean Corpuscular HGB Conc 33.5 GM/DL (32-36); Mean Corpuscular Volume 85.5 FL (87-102); Mean Platelet Volume 9.1 FL (9.6-12.0); Monocytes % 4.7 % (1.7-12.7); Platelet Count 263 T/CUMM (130-400); Red Blood Count 4.15 MC/CUMM (3.8-5.5); Red Cell Distribution Width 14.4 % (9.3-17.3); White Blood Count 9.4 T/CUMM (4-12)
[2021-03-25 04:04] LABS: Calcium 7.8 MG/DL (8.5-10.1); Osmolality,Calculated 272.4 MOS/KG (273-304); Potassium 4.2 MMOL/L (3.5-5.1)
[2021-03-25 04:08] LABS: Alanine Aminotransferase 81 U/L (16-61); Albumin 2.6 G/DL (3.4-5.0); Alkaline Phosphatase 70 U/L (45-117); Aspartate Amino Transferase 26 U/L (0-37); Bilirubin,Indirect 1.3 MG/DL (0.0-1.0); Ferritin 519.5 ng/mL (26-388)
[2021-03-25 04:36] LABS: ABG Base Excess 5.5 MMOL/L (-2.5-2.5); ABG HCO3 29.3 MMOL/L (20-26); ABG Oxygen Saturation 96.8 % (95-100); ABG PCO2 41.9 MM HG (35-48); ABG PO2 83.5 MM HG (80-95); ABG TCO2 26.6 MMOL/L (23-27); Allen Test Positive; Pt O2 Delivery Device Ventilator
[2021-03-25 04:42] LABS: Lymphocytes 4 % (20-55); Segmented Neutrophils 93 % (50-85); Total Cells Counted 100
[2021-03-25 04:43] LABS: Microcytosis 1+; Platelet Estimate Normal
[2021-03-25 04:45] LABS: Ovalocytes Slight; Tear Drop Cells Slight
[2021-03-25] MEDS: METOCLOPRAMIDE 10 MG/2 ML VIAL IV SCH ×3 (06:15→22:27)
[2021-03-25] MEDS: INSULIN REGULAR 100 UNIT/ML SUBCUT SCH ×3 (06:33→18:03)
[2021-03-25] MEDS: FAMOTIDINE 20 MG TABLET PO SCH ×2 (08:18→20:42)
[2021-03-25] MEDS: ZINC GLUCONATE 50 MG TABLET PO SCH (08:18)
[2021-03-25] MEDS: INSULIN GLARGINE 100 UNIT/ML SUBCUT SCH (08:18)
[2021-03-25] MEDS: CHOLECALCIFEROL 1,000 UNIT TABLET PO SCH (08:18)
[2021-03-25] MEDS: ASCORBIC ACID 500 MG TABLET PO SCH ×2 (08:19→20:42)
[2021-03-25] MEDS: POTASSIUM PHOS/SOD PHOS POWDER 250 MG PACK PO SCH ×3 (08:19→20:41)
[2021-03-25] MEDS: PANTOPRAZOLE 40 MG VIAL IV SCH (08:20)
[2021-03-25] MEDS: METOPROLOL TARTRATE 25 MG TABLET PO SCH ×2 (08:20→20:41)
[2021-03-25] MEDS: hydrALAZINE 20 MG/1 ML VIAL IV PRN (11:15)
[2021-03-25] MEDS: fentaNYL 100 MCG/HR PATCH TRANSDERM SCH (11:40)
[2021-03-25] MEDS: fentaNYL INJ 5,000 MCG in SODIUM CHLORIDE 0.9% 150 ML IV PRN (14:30)
[2021-03-25] MEDS ORDERED: ALBUMIN 25% 25 GM/100 ML VIAL IV ONE (16:17)
[2021-03-25] MEDS ORDERED: SODIUM CHLORIDE 0.9% 1,000 ML IV ONE (16:35)
[2021-03-25] MEDS: ENOXAPARIN 40 MG/0.4 ML SYRINGE SUBCUT SCH (18:39)
[2021-03-26] MEDS: INSULIN REGULAR 100 UNIT/ML SUBCUT SCH ×4 (00:50→17:43)
[2021-03-26] MEDS: DEXMEDETOMIDINE 400 MCG in SODIUM CHLORIDE 0.9% 96 ML IV PRN ×4 (00:50→23:10)
[2021-03-26] MEDS: methylPREDNISolone SOD SUC 40 MG/1 ML VIAL IV SCH ×2 (03:58→15:02)
[2021-03-26 04:09] LABS: ABG Base Excess 6.8 MMOL/L (-2.5-2.5); ABG HCO3 30.3 MMOL/L (20-26); ABG Oxygen Saturation 96.8 % (95-100); ABG PCO2 38.6 MM HG (35-48); ABG PH 7.512 (7.35-7.45); ABG PO2 86.3 MM HG (80-95); ABG TCO2 31.4 MMOL/L (23-27)
[2021-03-26 05:14] LABS: Albumin 2.8 G/DL (3.4-5.0); Bilirubin,Direct 0.28 MG/DL (0.0-0.20); Bilirubin,Indirect 0.6 MG/DL (0.0-1.0); Bilirubin,Total 0.9 MG/DL (0.20-1.00); Calcium 7.9 MG/DL (8.5-10.1); Ferritin 539.2 ng/mL (26-388); Osmolality,Calculated 266.5 MOS/KG (273-304); Potassium 3.7 MMOL/L (3.5-5.1); Total Protein 5.6 G/DL (6.4-8.2)
[2021-03-26] MEDS: LORazepam 2 MG/1 ML VIAL IV PRN ×3 (06:10→19:40)
[2021-03-26] MEDS: METOCLOPRAMIDE 10 MG/2 ML VIAL IV SCH ×3 (06:16→21:37)
[2021-03-26] MEDS: CHOLECALCIFEROL 1,000 UNIT TABLET PO SCH (09:28)
[2021-03-26] MEDS: ZINC GLUCONATE 50 MG TABLET PO SCH (09:28)
[2021-03-26] MEDS: ASCORBIC ACID 500 MG TABLET PO SCH ×2 (09:29→21:38)
[2021-03-26] MEDS: FAMOTIDINE 20 MG TABLET PO SCH ×2 (09:29→21:38)
[2021-03-26] MEDS: METOPROLOL TARTRATE 25 MG TABLET PO SCH ×2 (09:32→21:38)
[2021-03-26] MEDS: PANTOPRAZOLE 40 MG VIAL IV SCH (09:33)
[2021-03-26] MEDS: INSULIN GLARGINE 100 UNIT/ML SUBCUT SCH (09:34)
[2021-03-26] MEDS: FUROSEMIDE 40 MG/4 ML VIAL IV SCH (15:51)
[2021-03-26] MEDS: ENOXAPARIN 40 MG/0.4 ML SYRINGE SUBCUT SCH (17:43)
[2021-03-26] MEDS ORDERED: SODIUM CHLORIDE 0.9% 500 ML IV ONE ×2 (21:18→22:55)
[2021-03-26 23:43] LABS: Basophils % 0.1 % (0.0-0.8); Eosinophils % 0.1 % (0.00-10.9); Hematocrit 30.9 VOL% (42.0-52.0); Hemoglobin 10.3 GM/DL (14.0-18.0); Lymphocytes # 0.7 10*3/uL (1.4-4.0); Lymphocytes % 6.8 % (21.2-54.2); Mean Corpuscular HGB Conc 33.3 GM/DL (32-36); Mean Corpuscular Volume 86.6 FL (87-102); Mean Platelet Volume 8.7 FL (9.6-12.0); Monocytes % 6.4 % (1.7-12.7); Neutrophils % 85.6 % (38.7-73.9); Platelet Count 173 T/CUMM (130-400); Red Blood Count 3.57 MC/CUMM (3.8-5.5); Red Cell Distribution Width 14.6 % (9.3-17.3); White Blood Count 10.2 T/CUMM (4-12)
[2021-03-27 00:27] LABS: Albumin 2.6 G/DL (3.4-5.0); Bilirubin,Total 0.7 MG/DL (0.20-1.00); Calcium 7.5 MG/DL (8.5-10.1); Osmolality,Calculated 268.4 MOS/KG (273-304); Potassium 3.6 MMOL/L (3.5-5.1); Total Protein 5.4 G/DL (6.4-8.2)
[2021-03-27] MEDS: LORazepam 2 MG/1 ML VIAL IV PRN ×3 (00:50→12:44)
[2021-03-27] MEDS: INSULIN REGULAR 100 UNIT/ML SUBCUT SCH ×4 (01:07→18:05)
[2021-03-27] MEDS ORDERED: SODIUM CHLORIDE 0.9% 500 ML IV ONE (02:47)
[2021-03-27] MEDS: methylPREDNISolone SOD SUC 40 MG/1 ML VIAL IV SCH ×2 (03:15→15:09)
[2021-03-27 03:56] LABS: ABG Base Excess 5.8 MMOL/L (-2.5-2.5); ABG HCO3 29.7 MMOL/L (20-26); ABG Oxygen Saturation 98.5 % (95-100); ABG PCO2 42.6 MM HG (35-48); ABG PH 7.459 (7.35-7.45); ABG TCO2 27.3 MMOL/L (23-27)
[2021-03-27 04:14] LABS: Basophils % 0.1 % (0.0-0.8); Eosinophils % 0.2 % (0.00-10.9); Hematocrit 29.9 VOL% (42.0-52.0); Hemoglobin 9.8 GM/DL (14.0-18.0); Immature Granulocytes % 0.8 %; Immature Granulocytes Absolute 0.08 #; Lymphocytes # 0.8 10*3/uL (1.4-4.0); Lymphocytes % 8.2 % (21.2-54.2); Mean Corpuscular HGB Conc 32.8 GM/DL (32-36); Mean Corpuscular Volume 87.9 FL (87-102); Mean Platelet Volume 9.4 FL (9.6-12.0); Monocytes % 6.8 % (1.7-12.7); Neutrophils % 83.9 % (38.7-73.9); Platelet Count 189 T/CUMM (130-400); Red Cell Distribution Width 14.6 % (9.3-17.3); White Blood Count 10.2 T/CUMM (4-12)
[2021-03-27 04:37] LABS: Calcium 7.4 MG/DL (8.5-10.1); Osmolality,Calculated 273.1 MOS/KG (273-304); Potassium 3.6 MMOL/L (3.5-5.1)
[2021-03-27] MEDS: DEXMEDETOMIDINE 400 MCG in SODIUM CHLORIDE 0.9% 96 ML IV PRN ×3 (06:15→20:02)
[2021-03-27] MEDS: METOCLOPRAMIDE 10 MG/2 ML VIAL IV SCH ×3 (06:20→21:39)
[2021-03-27] MEDS: FUROSEMIDE 40 MG/4 ML VIAL IV SCH ×2 (08:41→08:43)
[2021-03-27] MEDS: LEVOFLOXACIN INJ 750 MG/150 ML PREMIX IV SCH (08:43)
[2021-03-27] MEDS: ZINC GLUCONATE 50 MG TABLET PO SCH (09:30)
[2021-03-27] MEDS: CHOLECALCIFEROL 1,000 UNIT TABLET PO SCH (09:30)
[2021-03-27] MEDS: INSULIN GLARGINE 100 UNIT/ML SUBCUT SCH (09:30)
[2021-03-27] MEDS: ASCORBIC ACID 500 MG TABLET PO SCH ×2 (09:30→20:28)
[2021-03-27] MEDS: PANTOPRAZOLE 40 MG VIAL IV SCH (09:32)
[2021-03-27] MEDS: METOPROLOL TARTRATE 25 MG TABLET PO SCH ×2 (10:59→20:28)
[2021-03-27] MEDS ORDERED: DIAZEPAM 10 MG/2 ML SYRINGE IV PRN (16:50)
[2021-03-27] MEDS: DIAZEPAM 10 MG/2 ML SYRINGE IV PRN (17:00)
[2021-03-27] MEDS: ENOXAPARIN 40 MG/0.4 ML SYRINGE SUBCUT SCH (17:20)
[2021-03-28] MEDS: INSULIN REGULAR 100 UNIT/ML SUBCUT SCH ×5 (00:59→23:34)
[2021-03-28] MEDS: DEXMEDETOMIDINE 400 MCG in SODIUM CHLORIDE 0.9% 96 ML IV PRN ×3 (02:40→22:40)
[2021-03-28] MEDS: fentaNYL INJ 5,000 MCG in SODIUM CHLORIDE 0.9% 150 ML IV PRN (02:45)
[2021-03-28 02:50] LABS: ABG Base Excess 7.4 MMOL/L (-2.5-2.5); ABG HCO3 31.1 MMOL/L (20-26); ABG Oxygen Saturation 94.4 % (95-100); ABG PCO2 40.3 MM HG (35-48); ABG PH 7.497 (7.35-7.45); ABG TCO2 27.9 MMOL/L (23-27)
[2021-03-28] MEDS: methylPREDNISolone SOD SUC 40 MG/1 ML VIAL IV SCH ×2 (03:55→14:52)
[2021-03-28 04:07] LABS: Basophils % 0.1 % (0.0-0.8); Eosinophils % 0.5 % (0.00-10.9); Hematocrit 32.4 VOL% (42.0-52.0); Hemoglobin 10.8 GM/DL (14.0-18.0); Immature Granulocytes Absolute 0.09 #; Lymphocytes # 0.9 10*3/uL (1.4-4.0); Lymphocytes % 9.7 % (21.2-54.2); Mean Corpuscular HGB Conc 33.3 GM/DL (32-36); Mean Corpuscular Volume 87.1 FL (87-102); Mean Platelet Volume 9.2 FL (9.6-12.0); Monocytes % 5.9 % (1.7-12.7); Neutrophils % 82.8 % (38.7-73.9); Platelet Count 182 T/CUMM (130-400); Red Blood Count 3.72 MC/CUMM (3.8-5.5); Red Cell Distribution Width 14.8 % (9.3-17.3); White Blood Count 8.8 T/CUMM (4-12)
[2021-03-28 04:20] LABS: Osmolality,Calculated 272.1 MOS/KG (273-304); Potassium 3.9 MMOL/L (3.5-5.1)
[2021-03-28 05:39] LABS: ABG Base Excess 8.2 MMOL/L (-2.5-2.5); ABG Oxygen Saturation 97.6 % (95-100); ABG PCO2 44.2 MM HG (35-48); ABG PH 7.478 (7.35-7.45); ABG PO2 91.2 MM HG (80-95); ABG TCO2 29.3 MMOL/L (23-27)
[2021-03-28] MEDS: METOCLOPRAMIDE 10 MG/2 ML VIAL IV SCH ×3 (05:50→21:39)
[2021-03-28] MEDS: METOPROLOL TARTRATE 25 MG TABLET PO SCH ×2 (08:25→20:24)
[2021-03-28] MEDS: INSULIN GLARGINE 100 UNIT/ML SUBCUT SCH (08:25)
[2021-03-28] MEDS: LEVOFLOXACIN INJ 750 MG/150 ML PREMIX IV SCH (08:25)
[2021-03-28] MEDS: ASCORBIC ACID 500 MG TABLET PO SCH ×2 (08:25→20:24)
[2021-03-28] MEDS: CHOLECALCIFEROL 1,000 UNIT TABLET PO SCH (08:25)
[2021-03-28] MEDS: ZINC GLUCONATE 50 MG TABLET PO SCH (08:25)
[2021-03-28] MEDS: FUROSEMIDE 40 MG/4 ML VIAL IV SCH (08:26)
[2021-03-28] MEDS: PANTOPRAZOLE 40 MG VIAL IV SCH (08:28)
[2021-03-28] MEDS: fentaNYL 100 MCG/HR PATCH TRANSDERM SCH (13:31)
[2021-03-28] MEDS: DEXTROSE 50% 25 GM/50 ML VIAL IV PRN ×2 (18:15→23:35)
[2021-03-28] MEDS: ENOXAPARIN 40 MG/0.4 ML SYRINGE SUBCUT SCH (18:24)
[2021-03-29] MEDS: ALBUTEROL 2.5 MG/3 ML NEB RESP TX PRN (01:20)
[2021-03-29] MEDS: methylPREDNISolone SOD SUC 40 MG/1 ML VIAL IV SCH ×2 (03:51→18:41)
[2021-03-29 04:34] LABS: Basophils % 0.1 % (0.0-0.8); Eosinophils # 0.1 10*3/uL (0.0-0.87); Eosinophils % 0.3 % (0.00-10.9); Hemoglobin 12.5 GM/DL (14.0-18.0); Immature Granulocytes % 1.4 %; Immature Granulocytes Absolute 0.22 #; Lymphocytes # 1.2 10*3/uL (1.4-4.0); Lymphocytes % 7.5 % (21.2-54.2); Mean Corpuscular HGB Conc 32.9 GM/DL (32-36); Mean Platelet Volume 9.3 FL (9.6-12.0); Monocytes % 6.5 % (1.7-12.7); Neutrophils % 84.2 % (38.7-73.9); Platelet Count 245 T/CUMM (130-400); Red Blood Count 4.32 MC/CUMM (3.8-5.5); Red Cell Distribution Width 14.8 % (9.3-17.3); White Blood Count 16.1 T/CUMM (4-12)
[2021-03-29 04:45] LABS: Calcium 8.8 MG/DL (8.5-10.1); Osmolality,Calculated 273.8 MOS/KG (273-304); Potassium 3.3 MMOL/L (3.5-5.1)
[2021-03-29] MEDS: DEXTROSE 50% 25 GM/50 ML VIAL IV PRN (04:53)
[2021-03-29 05:05] LABS: ABG Base Excess 8.9 MMOL/L (-2.5-2.5); ABG HCO3 32.7 MMOL/L (20-26); ABG Oxygen Saturation 97.9 % (95-100); ABG PCO2 48.4 MM HG (35-48); ABG PH 7.459 (7.35-7.45); ABG TCO2 29.9 MMOL/L (23-27)
[2021-03-29] MEDS: INSULIN REGULAR 100 UNIT/ML SUBCUT SCH ×4 (05:10→23:34)
[2021-03-29] MEDS: METOCLOPRAMIDE 10 MG/2 ML VIAL IV SCH (06:01)
[2021-03-29] MEDS: INSULIN GLARGINE 100 UNIT/ML SUBCUT SCH (08:01)
[2021-03-29] MEDS: CHOLECALCIFEROL 1,000 UNIT TABLET PO SCH (08:57)
[2021-03-29] MEDS: ASCORBIC ACID 500 MG TABLET PO SCH ×2 (08:57→21:19)
[2021-03-29] MEDS: ZINC GLUCONATE 50 MG TABLET PO SCH (08:57)
[2021-03-29] MEDS: LEVOFLOXACIN INJ 750 MG/150 ML PREMIX IV SCH (09:20)
[2021-03-29] MEDS: PANTOPRAZOLE 40 MG VIAL IV SCH (09:21)
[2021-03-29] MEDS: METOPROLOL TARTRATE 25 MG TABLET PO SCH ×2 (09:21→21:11)
[2021-03-29] MEDS: POTASSIUM CHLORIDE 20 MEQ TABLET PO SCH ×3 (12:10→21:14)
[2021-03-29] MEDS: hydrALAZINE 20 MG/1 ML VIAL IV PRN (16:10)
[2021-03-29] MEDS: DIAZEPAM 10 MG/2 ML SYRINGE IV PRN (16:35)
[2021-03-29] MEDS ORDERED: DEXMEDETOMIDINE 200 MCG in SODIUM CHLORIDE 0.9% 48 ML IV PRN (16:39)
[2021-03-29] MEDS ORDERED: MORPHINE 2 MG/1 ML SYRINGE ONE (17:03)
[2021-03-29] MEDS: MORPHINE 2 MG/1 ML SYRINGE IV PRN (17:05)
[2021-03-29] MEDS: DEXMEDETOMIDINE 400 MCG in SODIUM CHLORIDE 0.9% 96 ML IV PRN ×2 (17:17→22:46)
[2021-03-29] MEDS ORDERED: ETOMIDATE 20 MG/10 ML VIAL IV ONE ×2 (17:19→17:38)
[2021-03-29] MEDS ORDERED: SUCCINYLCHOLINE 200 MG/10 ML VIAL ONE (17:20)
[2021-03-29] MEDS ORDERED: SUCCINYLCHOLINE 200 MG/10 ML VIAL IV ONE (17:39)
[2021-03-29] MEDS ORDERED: OLANZapine 10 MG VIAL IM ONE (18:26)
[2021-03-29] MEDS ORDERED: fentaNYL INJ 1,250 MCG in SODIUM CHLORIDE 0.9% 225 ML IV PRN (18:29)
[2021-03-29] MEDS ORDERED: LACTATED RINGERS 500 ML IV ONE (18:33)
[2021-03-29] MEDS ORDERED: PHENYLEPHRINE DRIP 40 MG/250 ML PREMIX IV ONE (18:42)
[2021-03-29] MEDS: PHENYLEPHRINE DRIP 40 MG/250 ML PREMIX IV PRN ×2 (18:45→23:47)
[2021-03-29] MEDS: ENOXAPARIN 40 MG/0.4 ML SYRINGE SUBCUT SCH (18:50)
[2021-03-29 19:33] LABS: ABG Base Excess 4.4 MMOL/L (-2.5-2.5); ABG HCO3 28.4 MMOL/L (20-26); ABG Oxygen Saturation 98.8 % (95-100); ABG PCO2 49.5 MM HG (35-48); ABG PH 7.396 (7.35-7.45); ABG TCO2 26.5 MMOL/L (23-27)
[2021-03-29] MEDS ORDERED: POTASSIUM CHLORIDE 20 MEQ TABLET PO ONE (21:14)
[2021-03-30] MEDS: MORPHINE 2 MG/1 ML SYRINGE IV PRN ×3 (01:21→15:01)
[2021-03-30] MEDS: methylPREDNISolone SOD SUC 40 MG/1 ML VIAL IV SCH ×3 (03:31→18:35)
[2021-03-30 04:49] LABS: ABG Base Excess 5.2 MMOL/L (-2.5-2.5); ABG HCO3 29.1 MMOL/L (20-26); ABG Oxygen Saturation 98.9 % (95-100); ABG PH 7.443 (7.35-7.45); ABG TCO2 26.2 MMOL/L (23-27)
[2021-03-30 05:03] LABS: Basophils # 0.1 10*3/uL (0.0-0.2); Basophils % 0.3 % (0.0-0.8); Eosinophils # 0.1 10*3/uL (0.0-0.87); Eosinophils % 0.3 % (0.00-10.9); Hematocrit 38.2 VOL% (42.0-52.0); Hemoglobin 12.5 GM/DL (14.0-18.0); Immature Granulocytes Absolute 0.18 #; Lymphocytes # 1.8 10*3/uL (1.4-4.0); Lymphocytes % 10.2 % (21.2-54.2); Mean Corpuscular HGB Conc 32.7 GM/DL (32-36); Mean Corpuscular Volume 88.4 FL (87-102); Neutrophils % 82.2 % (38.7-73.9); Platelet Count 258 T/CUMM (130-400); Red Blood Count 4.32 MC/CUMM (3.8-5.5); Red Cell Distribution Width 14.8 % (9.3-17.3); White Blood Count 17.4 T/CUMM (4-12)
[2021-03-30] MEDS: DEXMEDETOMIDINE 400 MCG in SODIUM CHLORIDE 0.9% 96 ML IV PRN ×3 (05:23→18:45)
[2021-03-30 05:28] LABS: Calcium 8.9 MG/DL (8.5-10.1); Osmolality,Calculated 277.7 MOS/KG (273-304); Potassium 4.1 MMOL/L (3.5-5.1)
[2021-03-30] MEDS: INSULIN REGULAR 100 UNIT/ML SUBCUT SCH ×3 (05:39→18:35)
[2021-03-30] MEDS: LEVOFLOXACIN INJ 750 MG/150 ML PREMIX IV SCH (07:34)
[2021-03-30] MEDS: INSULIN GLARGINE 100 UNIT/ML SUBCUT SCH (08:30)
[2021-03-30] MEDS: METOPROLOL TARTRATE 25 MG TABLET PO SCH ×2 (08:40→20:47)
[2021-03-30] MEDS: PANTOPRAZOLE 40 MG VIAL IV SCH (08:42)
[2021-03-30] MEDS: ASCORBIC ACID 500 MG TABLET PO SCH ×2 (08:42→20:55)
[2021-03-30] MEDS: ZINC GLUCONATE 50 MG TABLET PO SCH (08:43)
[2021-03-30] MEDS: CHOLECALCIFEROL 1,000 UNIT TABLET PO SCH (08:43)
[2021-03-30] MEDS: PHENYLEPHRINE DRIP 40 MG/250 ML PREMIX IV PRN ×2 (09:15→19:13)
[2021-03-30] MEDS: ENOXAPARIN 40 MG/0.4 ML SYRINGE SUBCUT SCH (17:25)
[2021-03-31] MEDS: INSULIN REGULAR 100 UNIT/ML SUBCUT SCH ×5 (00:13→23:51)
[2021-03-31] MEDS: MORPHINE 2 MG/1 ML SYRINGE IV PRN ×2 (00:36→06:39)
[2021-03-31] MEDS: DEXMEDETOMIDINE 400 MCG in SODIUM CHLORIDE 0.9% 96 ML IV PRN ×5 (01:23→23:41)
[2021-03-31] MEDS: methylPREDNISolone SOD SUC 40 MG/1 ML VIAL IV SCH ×3 (03:20→18:15)
[2021-03-31 03:58] LABS: Calcium 8.9 MG/DL (8.5-10.1); Osmolality,Calculated 282.8 MOS/KG (273-304)
[2021-03-31 03:58] LABS: ABG Base Excess 4.7 MMOL/L (-2.5-2.5); ABG HCO3 28.6 MMOL/L (20-26); ABG Oxygen Saturation 98.7 % (95-100); ABG PCO2 45.9 MM HG (35-48); ABG PH 7.422 (7.35-7.45); ABG TCO2 26.4 MMOL/L (23-27); Allen Test Positive; Pt O2 Delivery Device Ventilator
[2021-03-31 04:04] LABS: Basophils % 0.2 % (0.0-0.8); Hematocrit 36.7 VOL% (42.0-52.0); Hemoglobin 11.7 GM/DL (14.0-18.0); Immature Granulocytes % 1.5 %; Immature Granulocytes Absolute 0.16 #; Lymphocytes # 1.1 10*3/uL (1.4-4.0); Lymphocytes % 9.8 % (21.2-54.2); Mean Corpuscular HGB Conc 31.9 GM/DL (32-36); Mean Corpuscular Volume 88.9 FL (87-102); Mean Platelet Volume 9.5 FL (9.6-12.0); Monocytes % 5.3 % (1.7-12.7); Neutrophils % 83.2 % (38.7-73.9); Platelet Count 268 T/CUMM (130-400); Red Blood Count 4.13 MC/CUMM (3.8-5.5); Red Cell Distribution Width 14.6 % (9.3-17.3); White Blood Count 10.7 T/CUMM (4-12)
[2021-03-31] MEDS: PHENYLEPHRINE DRIP 40 MG/250 ML PREMIX IV PRN ×2 (05:55→17:05)
[2021-03-31] MEDS: INSULIN GLARGINE 100 UNIT/ML SUBCUT SCH (08:40)
[2021-03-31] MEDS: LEVOFLOXACIN INJ 750 MG/150 ML PREMIX IV SCH (08:40)
[2021-03-31] MEDS: PANTOPRAZOLE 40 MG VIAL IV SCH (08:40)
[2021-03-31] MEDS: CHOLECALCIFEROL 1,000 UNIT TABLET PO SCH (08:45)
[2021-03-31] MEDS: ZINC GLUCONATE 50 MG TABLET PO SCH (08:45)
[2021-03-31] MEDS: ASCORBIC ACID 500 MG TABLET PO SCH ×2 (08:45→20:49)
[2021-03-31] MEDS: METOPROLOL TARTRATE 25 MG TABLET PO SCH ×2 (09:00→20:31)
[2021-03-31] MEDS: fentaNYL 100 MCG/HR PATCH TRANSDERM SCH (14:00)
[2021-03-31] MEDS: ENOXAPARIN 40 MG/0.4 ML SYRINGE SUBCUT SCH (17:15)
[2021-04-01] MEDS: methylPREDNISolone SOD SUC 40 MG/1 ML VIAL IV SCH ×3 (02:52→18:36)
[2021-04-01 02:57] LABS: ABG Base Excess 5.6 MMOL/L (-2.5-2.5); ABG HCO3 29.5 MMOL/L (20-26); ABG Oxygen Saturation 99.4 % (95-100); ABG PCO2 47.4 MM HG (35-48); ABG PH 7.423 (7.35-7.45); ABG TCO2 27.6 MMOL/L (23-27)
[2021-04-01 04:51] LABS: Basophils % 0.2 % (0.0-0.8); Hematocrit 33.3 VOL% (42.0-52.0); Hemoglobin 10.8 GM/DL (14.0-18.0); Immature Granulocytes % 2.2 %; Immature Granulocytes Absolute 0.23 #; Lymphocytes % 9.6 % (21.2-54.2); Mean Corpuscular HGB Conc 32.4 GM/DL (32-36); Mean Platelet Volume 8.8 FL (9.6-12.0); Monocytes % 5.7 % (1.7-12.7); Neutrophils % 82.3 % (38.7-73.9); Platelet Count 228 T/CUMM (130-400); Red Cell Distribution Width 14.6 % (9.3-17.3); White Blood Count 10.3 T/CUMM (4-12)
[2021-04-01 05:16] LABS: Calcium 8.4 MG/DL (8.5-10.1); Osmolality,Calculated 282.7 MOS/KG (273-304); Potassium 4.2 MMOL/L (3.5-5.1)
[2021-04-01] MEDS: INSULIN REGULAR 100 UNIT/ML SUBCUT SCH ×3 (05:38→18:37)
[2021-04-01] MEDS: DEXMEDETOMIDINE 400 MCG in SODIUM CHLORIDE 0.9% 96 ML IV PRN ×3 (06:01→18:49)
[2021-04-01 06:06] LABS: Hypochromia 1+; Lymphocytes 6 % (20-55); Microcytosis 1+; Platelet Estimate Adequate; Segmented Neutrophils 85 % (50-85); Total Cells Counted 100
[2021-04-01] MEDS: METOPROLOL TARTRATE 25 MG TABLET PO SCH ×2 (08:46→21:02)
[2021-04-01] MEDS: CHOLECALCIFEROL 1,000 UNIT TABLET PO SCH (08:46)
[2021-04-01] MEDS: ASCORBIC ACID 500 MG TABLET PO SCH ×2 (08:46→21:05)
[2021-04-01] MEDS: ZINC GLUCONATE 50 MG TABLET PO SCH (08:46)
[2021-04-01] MEDS: LEVOFLOXACIN INJ 750 MG/150 ML PREMIX IV SCH (08:46)
[2021-04-01] MEDS: INSULIN GLARGINE 100 UNIT/ML SUBCUT SCH (08:47)
[2021-04-01] MEDS: PANTOPRAZOLE 40 MG VIAL IV SCH (08:49)
[2021-04-01] MEDS: PHENYLEPHRINE DRIP 40 MG/250 ML PREMIX IV PRN (13:54)
[2021-04-01] MEDS: ENOXAPARIN 40 MG/0.4 ML SYRINGE SUBCUT SCH (16:47)
[2021-04-02] MEDS: INSULIN REGULAR 100 UNIT/ML SUBCUT SCH ×5 (01:10→23:33)
[2021-04-02] MEDS: DEXMEDETOMIDINE 400 MCG in SODIUM CHLORIDE 0.9% 96 ML IV PRN ×4 (01:11→22:24)
[2021-04-02] MEDS: methylPREDNISolone SOD SUC 40 MG/1 ML VIAL IV SCH ×3 (03:32→19:52)
[2021-04-02 03:41] LABS: ABG Base Excess 8.1 MMOL/L (-2.5-2.5); ABG HCO3 33.2 MMOL/L (20-26); ABG Oxygen Saturation 97.9 % (95-100); ABG PCO2 48.9 MM HG (35-48); ABG TCO2 34.7 MMOL/L (23-27)
[2021-04-02 04:18] LABS: Basophils % 0.2 % (0.0-0.8); Eosinophils % 0.1 % (0.00-10.9); Hematocrit 35.2 VOL% (42.0-52.0); Hemoglobin 11.3 GM/DL (14.0-18.0); Immature Granulocytes % 4.1 %; Lymphocytes # 1.2 10*3/uL (1.4-4.0); Lymphocytes % 12.7 % (21.2-54.2); Mean Corpuscular HGB Conc 32.1 GM/DL (32-36); Mean Corpuscular Volume 90.3 FL (87-102); Mean Platelet Volume 9.1 FL (9.6-12.0); Monocytes % 7.5 % (1.7-12.7); Neutrophils % 75.4 % (38.7-73.9); Platelet Count 249 T/CUMM (130-400); Red Cell Distribution Width 14.6 % (9.3-17.3); White Blood Count 9.7 T/CUMM (4-12)
[2021-04-02 04:41] LABS: Calcium 8.6 MG/DL (8.5-10.1); Osmolality,Calculated 282.4 MOS/KG (273-304); Potassium 4.1 MMOL/L (3.5-5.1)
[2021-04-02] MEDS ORDERED: SODIUM CHLORIDE 0.9% 1,000 ML IV ONE (06:05)
[2021-04-02] MEDS: LEVOFLOXACIN INJ 750 MG/150 ML PREMIX IV SCH (08:03)
[2021-04-02] MEDS: MORPHINE 2 MG/1 ML SYRINGE IV PRN (08:04)
[2021-04-02] MEDS: PANTOPRAZOLE 40 MG VIAL IV SCH (08:04)
[2021-04-02] MEDS: INSULIN GLARGINE 100 UNIT/ML SUBCUT SCH (08:05)
[2021-04-02] MEDS: ASCORBIC ACID 500 MG TABLET PO SCH ×2 (08:06→20:01)
[2021-04-02] MEDS: METOPROLOL TARTRATE 25 MG TABLET PO SCH ×2 (08:06→20:00)
[2021-04-02] MEDS: ZINC GLUCONATE 50 MG TABLET PO SCH (08:06)
[2021-04-02] MEDS: CHOLECALCIFEROL 1,000 UNIT TABLET PO SCH (08:06)
[2021-04-02] MEDS: DIAZEPAM 10 MG/2 ML SYRINGE IV PRN (09:53)
[2021-04-02] MEDS: PHENYLEPHRINE DRIP 40 MG/250 ML PREMIX IV PRN (16:11)
[2021-04-02] MEDS: ENOXAPARIN 40 MG/0.4 ML SYRINGE SUBCUT SCH (17:20)
[2021-04-02] MEDS: ALBUTEROL/IPRATROPIUM 3 ML NEB RESP TX SCH ×2 (19:11→23:55)
[2021-04-03] MEDS: ALBUTEROL/IPRATROPIUM 3 ML NEB RESP TX SCH ×6 (02:30→23:20)
[2021-04-03] MEDS: methylPREDNISolone SOD SUC 40 MG/1 ML VIAL IV SCH ×3 (03:48→18:02)
[2021-04-03 04:07] LABS: Basophils % 0.3 % (0.0-0.8); Hematocrit 35.1 VOL% (42.0-52.0); Hemoglobin 11.3 GM/DL (14.0-18.0); Immature Granulocytes % 4.9 %; Immature Granulocytes Absolute 0.45 #; Lymphocytes % 10.7 % (21.2-54.2); Mean Corpuscular HGB Conc 32.2 GM/DL (32-36); Mean Corpuscular Volume 89.8 FL (87-102); Mean Platelet Volume 9.4 FL (9.6-12.0); Monocytes % 6.7 % (1.7-12.7); Neutrophils % 77.4 % (38.7-73.9); Platelet Count 225 T/CUMM (130-400); Red Blood Count 3.91 MC/CUMM (3.8-5.5); Red Cell Distribution Width 14.8 % (9.3-17.3); White Blood Count 9.1 T/CUMM (4-12)
[2021-04-03 04:23] LABS: Calcium 8.3 MG/DL (8.5-10.1); Osmolality,Calculated 280.8 MOS/KG (273-304); Potassium 4.4 MMOL/L (3.5-5.1)
[2021-04-03 05:17] LABS: Allen Test Positive; Pt O2 Delivery Device Ventilator
[2021-04-03 05:21] LABS: ABG Base Excess 7.5 MMOL/L (-2.5-2.5); ABG HCO3 31.3 MMOL/L (20-26); ABG Oxygen Saturation 96.9 % (95-100); ABG PCO2 42.1 MM HG (35-48); ABG PH 7.485 (7.35-7.45); ABG PO2 79.6 MM HG (80-95)
[2021-04-03] MEDS: INSULIN REGULAR 100 UNIT/ML SUBCUT SCH ×4 (05:41→23:51)
[2021-04-03] MEDS: DEXMEDETOMIDINE 400 MCG in SODIUM CHLORIDE 0.9% 96 ML IV PRN ×3 (05:42→18:15)
[2021-04-03] MEDS: DIAZEPAM 10 MG/2 ML SYRINGE IV PRN (07:50)
[2021-04-03] MEDS: ASCORBIC ACID 500 MG TABLET PO SCH ×2 (09:55→21:10)
[2021-04-03] MEDS: LEVOFLOXACIN INJ 750 MG/150 ML PREMIX IV SCH (09:55)
[2021-04-03] MEDS: CHOLECALCIFEROL 1,000 UNIT TABLET PO SCH (09:55)
[2021-04-03] MEDS: ZINC GLUCONATE 50 MG TABLET PO SCH (09:55)
[2021-04-03] MEDS: INSULIN GLARGINE 100 UNIT/ML SUBCUT SCH (09:56)
[2021-04-03] MEDS: guaiFENesin 200 MG/10 ML UDCUP PER TUBE SCH ×3 (09:58→21:09)
[2021-04-03] MEDS: OLANZapine 5 MG TABLET PO PRN (10:06)
[2021-04-03] MEDS: PANTOPRAZOLE 40 MG VIAL IV SCH (10:32)
[2021-04-03] MEDS: METOPROLOL TARTRATE 25 MG TABLET PO SCH ×2 (12:27→21:10)
[2021-04-03] MEDS: HALOPERIDOL 5 MG/ML AMP IM PRN (12:29)
[2021-04-03] MEDS: fentaNYL 100 MCG/HR PATCH TRANSDERM SCH (13:53)
[2021-04-03] MEDS: ENOXAPARIN 40 MG/0.4 ML SYRINGE SUBCUT SCH (17:58)
[2021-04-04] MEDS: DEXMEDETOMIDINE 400 MCG in SODIUM CHLORIDE 0.9% 96 ML IV PRN ×3 (01:23→16:50)
[2021-04-04] MEDS: ALBUTEROL/IPRATROPIUM 3 ML NEB RESP TX SCH ×6 (03:47→22:15)
[2021-04-04] MEDS: methylPREDNISolone SOD SUC 40 MG/1 ML VIAL IV SCH ×3 (03:54→18:55)
[2021-04-04 04:24] LABS: Basophils % 0.2 % (0.0-0.8); Eosinophils % 0.4 % (0.00-10.9); Hemoglobin 10.5 GM/DL (14.0-18.0); Immature Granulocytes % 11.3 %; Immature Granulocytes Absolute 1.08 #; Lymphocytes # 1.6 10*3/uL (1.4-4.0); Lymphocytes % 16.8 % (21.2-54.2); Mean Corpuscular HGB Conc 31.8 GM/DL (32-36); Mean Corpuscular Volume 91.9 FL (87-102); Mean Platelet Volume 9.4 FL (9.6-12.0); Monocytes % 7.9 % (1.7-12.7); Neutrophils % 63.4 % (38.7-73.9); Platelet Count 249 T/CUMM (130-400); Red Blood Count 3.59 MC/CUMM (3.8-5.5); Red Cell Distribution Width 14.8 % (9.3-17.3); White Blood Count 9.6 T/CUMM (4-12)
[2021-04-04 04:24] LABS: ABG Base Excess 8.8 MMOL/L (-2.5-2.5); ABG HCO3 34.4 MMOL/L (20-26); ABG Oxygen Saturation 96.7 % (95-100); ABG PCO2 52.1 MM HG (35-48); ABG PH 7.437 (7.35-7.45); ABG PO2 93.7 MM HG (80-95); Allen Test Positive; Pt O2 Delivery Device Ventilator
[2021-04-04 04:48] LABS: Atypical Lymphocytes Few; Band Neutrophils 1 % (0-10); Hypochromia 1+; Lymphocytes 17 % (20-55); Microcytosis 1+; Ovalocytes Slight; Promyelocytes 1 %; Segmented Neutrophils 75 % (50-85); Total Cells Counted 100
[2021-04-04 04:49] LABS: Platelet Estimate Normal
[2021-04-04 04:56] LABS: Calcium 8.4 MG/DL (8.5-10.1); Osmolality,Calculated 285.4 MOS/KG (273-304); Potassium 4.4 MMOL/L (3.5-5.1)
[2021-04-04] MEDS: INSULIN REGULAR 100 UNIT/ML SUBCUT SCH ×3 (05:27→18:00)
[2021-04-04] MEDS: guaiFENesin 200 MG/10 ML UDCUP PER TUBE SCH ×3 (08:35→20:27)
[2021-04-04] MEDS: CHOLECALCIFEROL 1,000 UNIT TABLET PO SCH (08:35)
[2021-04-04] MEDS: METOPROLOL TARTRATE 25 MG TABLET PO SCH ×2 (08:35→20:26)
[2021-04-04] MEDS: ASCORBIC ACID 500 MG TABLET PO SCH ×2 (08:35→20:27)
[2021-04-04] MEDS: ZINC GLUCONATE 50 MG TABLET PO SCH (08:35)
[2021-04-04] MEDS: INSULIN GLARGINE 100 UNIT/ML SUBCUT SCH (08:35)
[2021-04-04] MEDS: PANTOPRAZOLE 40 MG VIAL IV SCH (08:40)
[2021-04-04] MEDS: MORPHINE 2 MG/1 ML SYRINGE IV PRN (13:10)
[2021-04-04] MEDS: OLANZapine 5 MG TABLET PO PRN (13:10)
[2021-04-04] MEDS: ENOXAPARIN 40 MG/0.4 ML SYRINGE SUBCUT SCH (16:20)
[2021-04-04] MEDS: HALOPERIDOL 5 MG/ML AMP IM PRN (17:25)
[2021-04-04] MEDS: LORazepam 2 MG/1 ML VIAL IV PRN (18:05)
[2021-04-04] MEDS ORDERED: LABETALOL 20 MG/4 ML SYRINGE IV ONE (19:03)
[2021-04-04] MEDS ORDERED: QUEtiapine 25 MG TABLET PO SCH (21:00)
[2021-04-05] MEDS: DEXMEDETOMIDINE 400 MCG in SODIUM CHLORIDE 0.9% 96 ML IV PRN ×3 (00:22→17:45)
[2021-04-05] MEDS: INSULIN REGULAR 100 UNIT/ML SUBCUT SCH ×4 (00:26→18:00)
[2021-04-05] MEDS: PHENYLEPHRINE DRIP 40 MG/250 ML PREMIX IV PRN (02:40)
[2021-04-05] MEDS: ALBUTEROL/IPRATROPIUM 3 ML NEB RESP TX SCH ×6 (03:30→23:42)
[2021-04-05] MEDS: methylPREDNISolone SOD SUC 40 MG/1 ML VIAL IV SCH ×3 (03:48→17:45)
[2021-04-05 04:27] LABS: ABG Base Excess 3.9 MMOL/L (-2.5-2.5); ABG HCO3 27.9 MMOL/L (20-26); ABG Oxygen Saturation 98.3 % (95-100); ABG PCO2 49.8 MM HG (35-48); ABG PH 7.386 (7.35-7.45); ABG TCO2 26.8 MMOL/L (23-27)
[2021-04-05 04:44] LABS: Basophils # 0.1 10*3/uL (0.0-0.2); Basophils % 0.4 % (0.0-0.8); Hematocrit 35.1 VOL% (42.0-52.0); Hemoglobin 10.9 GM/DL (14.0-18.0); Immature Granulocytes % 4.5 %; Immature Granulocytes Absolute 0.77 #; Lymphocytes # 1.8 10*3/uL (1.4-4.0); Lymphocytes % 10.2 % (21.2-54.2); Mean Corpuscular HGB Conc 31.1 GM/DL (32-36); Mean Corpuscular Volume 91.9 FL (87-102); Mean Platelet Volume 9.4 FL (9.6-12.0); Monocytes % 4.5 % (1.7-12.7); Neutrophils % 80.4 % (38.7-73.9); Platelet Count 328 T/CUMM (130-400); Red Blood Count 3.82 MC/CUMM (3.8-5.5); Red Cell Distribution Width 15.1 % (9.3-17.3); White Blood Count 17.2 T/CUMM (4-12)
[2021-04-05 05:02] LABS: Calcium 8.6 MG/DL (8.5-10.1); Osmolality,Calculated 298.4 MOS/KG (273-304); Potassium 4.2 MMOL/L (3.5-5.1)
[2021-04-05 05:27] LABS: Lymphocytes 6 % (20-55); Platelet Estimate Normal; Segmented Neutrophils 93 % (50-85); Total Cells Counted 100
[2021-04-05] MEDS: QUEtiapine 25 MG TABLET PO SCH ×2 (06:00→22:00)
[2021-04-05] MEDS: LORazepam 2 MG/1 ML VIAL IV PRN ×2 (06:04→20:40)
[2021-04-05] MEDS: PANTOPRAZOLE 40 MG VIAL IV SCH (08:35)
[2021-04-05] MEDS: ZINC GLUCONATE 50 MG TABLET PO SCH (09:00)
[2021-04-05] MEDS: METOPROLOL TARTRATE 25 MG TABLET PO SCH ×2 (09:00→20:40)
[2021-04-05] MEDS: CHOLECALCIFEROL 1,000 UNIT TABLET PO SCH (09:00)
[2021-04-05] MEDS: ASCORBIC ACID 500 MG TABLET PO SCH ×2 (09:00→20:40)
[2021-04-05] MEDS: guaiFENesin 200 MG/10 ML UDCUP PER TUBE SCH ×3 (09:00→20:40)
[2021-04-05] MEDS: INSULIN GLARGINE 100 UNIT/ML SUBCUT SCH (09:00)
[2021-04-05] MEDS: LACTATED RINGERS 1,000 ML IV SCH ×2 (10:35→22:02)
[2021-04-05] MEDS: ENOXAPARIN 40 MG/0.4 ML SYRINGE SUBCUT SCH (17:45)
[2021-04-06] MEDS: INSULIN REGULAR 100 UNIT/ML SUBCUT SCH ×4 (00:30→17:57)
[2021-04-06] MEDS: DEXMEDETOMIDINE 400 MCG in SODIUM CHLORIDE 0.9% 96 ML IV PRN ×3 (01:38→16:21)
[2021-04-06 03:15] LABS: ABG Base Excess 2.8 MMOL/L (-2.5-2.5); ABG HCO3 26.9 MMOL/L (20-26); ABG Oxygen Saturation 95.3 % (95-100); ABG PCO2 41.9 MM HG (35-48); ABG PH 7.425 (7.35-7.45); ABG PO2 79.4 MM HG (80-95); ABG TCO2 24.8 MMOL/L (23-27)
[2021-04-06] MEDS: ALBUTEROL/IPRATROPIUM 3 ML NEB RESP TX SCH ×6 (03:17→23:40)
[2021-04-06] MEDS: methylPREDNISolone SOD SUC 40 MG/1 ML VIAL IV SCH ×3 (03:42→18:19)
[2021-04-06 03:59] LABS: Basophils # 0.1 10*3/uL (0.0-0.2); Basophils % 0.5 % (0.0-0.8); Eosinophils % 0.1 % (0.00-10.9); Hematocrit 33.2 VOL% (42.0-52.0); Hemoglobin 10.6 GM/DL (14.0-18.0); Immature Granulocytes % 4.9 %; Immature Granulocytes Absolute 0.51 #; Lymphocytes # 1.2 10*3/uL (1.4-4.0); Lymphocytes % 11.9 % (21.2-54.2); Mean Corpuscular HGB Conc 31.9 GM/DL (32-36); Mean Platelet Volume 9.3 FL (9.6-12.0); Monocytes % 4.7 % (1.7-12.7); Neutrophils % 77.9 % (38.7-73.9); Platelet Count 266 T/CUMM (130-400); Red Blood Count 3.65 MC/CUMM (3.8-5.5); Red Cell Distribution Width 14.8 % (9.3-17.3); White Blood Count 10.3 T/CUMM (4-12)
[2021-04-06 04:03] LABS: Calcium 8.7 MG/DL (8.5-10.1); Osmolality,Calculated 285.5 MOS/KG (273-304); Potassium 3.5 MMOL/L (3.5-5.1)
[2021-04-06 04:43] LABS: Hypochromia 1+; Lymphocytes 7 % (20-55); Microcytosis 1+; Ovalocytes Slight; Segmented Neutrophils 83 % (50-85); Tear Drop Cells Slight; Total Cells Counted 100
[2021-04-06] MEDS: LACTATED RINGERS 1,000 ML IV SCH ×3 (05:42→15:03)
[2021-04-06] MEDS: LORazepam 2 MG/1 ML VIAL IV PRN ×2 (06:31→06:48)
[2021-04-06 08:25] LABS: ABG Base Excess 2.6 MMOL/L (-2.5-2.5); ABG Oxygen Saturation 88.1 % (95-100); ABG PH 7.477 (7.35-7.45); ABG PO2 53.4 MM HG (80-95); ABG TCO2 27.1 MMOL/L (23-27)
[2021-04-06] MEDS ORDERED: FUROSEMIDE 40 MG/4 ML VIAL IV ONE (09:05)
[2021-04-06] MEDS: PANTOPRAZOLE 40 MG VIAL IV SCH (09:27)
[2021-04-06] MEDS: INSULIN GLARGINE 100 UNIT/ML SUBCUT SCH (09:27)
[2021-04-06] MEDS: ASCORBIC ACID 500 MG TABLET PO SCH ×2 (09:40→22:18)
[2021-04-06] MEDS: METOPROLOL TARTRATE 25 MG TABLET PO SCH ×2 (09:40→22:17)
[2021-04-06] MEDS: CHOLECALCIFEROL 1,000 UNIT TABLET PO SCH (09:40)
[2021-04-06] MEDS: ZINC GLUCONATE 50 MG TABLET PO SCH (09:40)
[2021-04-06] MEDS: guaiFENesin 200 MG/10 ML UDCUP PER TUBE SCH ×3 (09:40→22:17)
[2021-04-06] MEDS: QUEtiapine 25 MG TABLET PO SCH ×2 (09:40→22:18)
[2021-04-06] MEDS: POTASSIUM CHLORIDE RIDER 20 MEQ/100 ML PREMIX IV PRN (11:50)
[2021-04-06] MEDS ORDERED: METOPROLOL TARTRATE 5 MG/5 ML VIAL IV ONE ×2 (13:10→13:13)
[2021-04-06] MEDS: POTASSIUM CHLORIDE RIDER 10 MEQ/100 ML PREMIX IV PRN (13:55)
[2021-04-06 15:05] LABS: ABG Base Excess 2.7 MMOL/L (-2.5-2.5); ABG HCO3 26.8 MMOL/L (20-26); ABG Oxygen Saturation 97.1 % (95-100); ABG PCO2 37.5 MM HG (35-48); ABG PH 7.457 (7.35-7.45); ABG PO2 92.8 MM HG (80-95); ABG TCO2 23.2 MMOL/L (23-27)
[2021-04-06] MEDS: DEXTROSE 50% 25 GM/50 ML VIAL IV PRN (17:50)
[2021-04-06] MEDS: ENOXAPARIN 40 MG/0.4 ML SYRINGE SUBCUT SCH (18:19)
[2021-04-06] MEDS: MORPHINE 2 MG/1 ML SYRINGE IV PRN (20:15)
[2021-04-07] MEDS: DEXTROSE 50% 25 GM/50 ML VIAL IV PRN ×3 (00:17→08:17)
[2021-04-07] MEDS: MORPHINE 2 MG/1 ML SYRINGE IV PRN ×2 (00:19→20:08)
[2021-04-07] MEDS: INSULIN REGULAR 100 UNIT/ML SUBCUT SCH ×4 (00:35→17:41)
[2021-04-07] MEDS: DEXMEDETOMIDINE 400 MCG in SODIUM CHLORIDE 0.9% 96 ML IV PRN ×4 (01:09→22:30)
[2021-04-07] MEDS: methylPREDNISolone SOD SUC 40 MG/1 ML VIAL IV SCH ×3 (01:56→18:10)
[2021-04-07] MEDS: ALBUTEROL/IPRATROPIUM 3 ML NEB RESP TX SCH ×6 (03:03→23:55)
[2021-04-07 03:49] LABS: ABG Base Excess 2.1 MMOL/L (-2.5-2.5); ABG HCO3 26.2 MMOL/L (20-26); ABG Oxygen Saturation 95.9 % (95-100); ABG PCO2 41.9 MM HG (35-48); ABG PH 7.415 (7.35-7.45); ABG PO2 85.3 MM HG (80-95); ABG TCO2 23.7 MMOL/L (23-27)
[2021-04-07 03:49] LABS: Basophils % 0.3 % (0.0-0.8); Eosinophils % 0.1 % (0.00-10.9); Hematocrit 35.6 VOL% (42.0-52.0); Hemoglobin 11.6 GM/DL (14.0-18.0); Immature Granulocytes % 4.4 %; Immature Granulocytes Absolute 0.52 #; Lymphocytes % 8.4 % (21.2-54.2); Mean Corpuscular HGB Conc 32.6 GM/DL (32-36); Mean Corpuscular Volume 88.3 FL (87-102); Mean Platelet Volume 8.8 FL (9.6-12.0); Monocytes % 4.8 % (1.7-12.7); Platelet Count 300 T/CUMM (130-400); Red Blood Count 4.03 MC/CUMM (3.8-5.5); Red Cell Distribution Width 14.7 % (9.3-17.3); White Blood Count 11.8 T/CUMM (4-12)
[2021-04-07 04:07] LABS: Calcium 8.4 MG/DL (8.5-10.1); Osmolality,Calculated 280.5 MOS/KG (273-304); Potassium 3.2 MMOL/L (3.5-5.1)
[2021-04-07] MEDS: POTASSIUM CHLORIDE RIDER 20 MEQ/100 ML PREMIX IV PRN ×2 (04:23→06:25)
[2021-04-07 07:11] LABS: Anisocytosis 1+; Band Neutrophils 11 % (0-10); Lymphocytes 13 % (20-55); Myelocytes 1 %; Platelet Estimate Normal; Segmented Neutrophils 71 % (50-85); Smudge Cells Few; Spherocytes Few; Total Cells Counted 100
[2021-04-07 07:12] LABS: Ovalocytes Few; Tear Drop Cells Few
[2021-04-07] MEDS: INSULIN GLARGINE 100 UNIT/ML SUBCUT SCH (08:35)
[2021-04-07] MEDS: METOPROLOL TARTRATE 25 MG TABLET PO SCH ×2 (08:35→22:52)
[2021-04-07] MEDS: ZINC GLUCONATE 50 MG TABLET PO SCH (08:36)
[2021-04-07] MEDS: QUEtiapine 25 MG TABLET PO SCH ×2 (08:36→22:52)
[2021-04-07] MEDS: ASCORBIC ACID 500 MG TABLET PO SCH ×2 (08:36→22:52)
[2021-04-07] MEDS: guaiFENesin 200 MG/10 ML UDCUP PER TUBE SCH ×3 (08:36→22:52)
[2021-04-07] MEDS: CHOLECALCIFEROL 1,000 UNIT TABLET PO SCH (08:36)
[2021-04-07] MEDS: PANTOPRAZOLE 40 MG VIAL IV SCH (09:24)
[2021-04-07] MEDS: DEXTROSE 5% 1,000 ML IV SCH (12:46)
[2021-04-07] MEDS ORDERED: LIDOCAINE 1% 20 ML VIAL RESP TX ONE (14:09)
[2021-04-07] MEDS ORDERED: AMINO ACIDS/DEXT/LYTES 5-20% 2,000 ML IV SCH (18:00)
[2021-04-07] MEDS: ENOXAPARIN 40 MG/0.4 ML SYRINGE SUBCUT SCH (18:10)
[2021-04-07] MEDS: DEXT IV SCH (20:07)
[2021-04-07] MEDS: AMINO ACIDS IV SCH (20:07)
[2021-04-07] MEDS: LYTES IV SCH (20:07)
[2021-04-08] MEDS: ALBUTEROL/IPRATROPIUM 3 ML NEB RESP TX SCH ×6 (00:48→23:07)
[2021-04-08] MEDS: INSULIN REGULAR 100 UNIT/ML SUBCUT SCH ×2 (01:05→05:27)
[2021-04-08] MEDS: DEXTROSE 5% 1,000 ML IV SCH (03:05)
[2021-04-08] MEDS: methylPREDNISolone SOD SUC 40 MG/1 ML VIAL IV SCH ×3 (03:10→18:12)
[2021-04-08 03:41] LABS: Basophils % 0.5 % (0.0-0.8); Eosinophils % 0.1 % (0.00-10.9); Hematocrit 30.7 VOL% (42.0-52.0); Hemoglobin 9.9 GM/DL (14.0-18.0); Immature Granulocytes % 5.2 %; Immature Granulocytes Absolute 0.39 #; Lymphocytes % 12.7 % (21.2-54.2); Mean Corpuscular HGB Conc 32.2 GM/DL (32-36); Mean Corpuscular Volume 89.5 FL (87-102); Neutrophils % 76.5 % (38.7-73.9); Platelet Count 268 T/CUMM (130-400); Red Blood Count 3.43 MC/CUMM (3.8-5.5); Red Cell Distribution Width 14.6 % (9.3-17.3); White Blood Count 7.6 T/CUMM (4-12)
[2021-04-08 03:55] LABS: Calcium 8.2 MG/DL (8.5-10.1); Potassium 3.7 MMOL/L (3.5-5.1)
[2021-04-08 03:58] LABS: ABG Base Excess 1.7 MMOL/L (-2.5-2.5); ABG Oxygen Saturation 99.7 % (95-100); ABG PCO2 44.2 MM HG (35-48); ABG PH 7.393 (7.35-7.45); ABG TCO2 24.2 MMOL/L (23-27)
[2021-04-08 04:08] LABS: Anisocytosis 2+; Band Neutrophils 10 % (0-10); Lymphocytes 11 % (20-55); Metamyelocytes 2 %; Platelet Estimate Normal; Segmented Neutrophils 71 % (50-85); Tear Drop Cells Few; Total Cells Counted 100
[2021-04-08 04:09] LABS: Burr Cells Few
[2021-04-08] MEDS: DEXMEDETOMIDINE 400 MCG in SODIUM CHLORIDE 0.9% 96 ML IV PRN ×3 (04:55→20:59)
[2021-04-08] MEDS: POTASSIUM CHLORIDE RIDER 20 MEQ/100 ML PREMIX IV PRN (06:30)
[2021-04-08] MEDS ORDERED: LACTATED RINGERS 1,000 ML IV SCH (07:30)
[2021-04-08] MEDS ORDERED: INSULIN REGULAR 100 UNIT/ML SUBCUT SCH (08:30)
[2021-04-08] MEDS: QUEtiapine 25 MG TABLET PO SCH ×2 (09:00→21:00)
[2021-04-08] MEDS: METOPROLOL TARTRATE 25 MG TABLET PO SCH ×2 (09:00→22:17)
[2021-04-08] MEDS: ZINC GLUCONATE 50 MG TABLET PO SCH (09:00)
[2021-04-08] MEDS: ASCORBIC ACID 500 MG TABLET PO SCH ×2 (09:00→22:17)
[2021-04-08] MEDS: guaiFENesin 200 MG/10 ML UDCUP PER TUBE SCH ×3 (09:00→22:17)
[2021-04-08] MEDS: CHOLECALCIFEROL 1,000 UNIT TABLET PO SCH (09:00)
[2021-04-08] MEDS: PANTOPRAZOLE 40 MG VIAL IV SCH (09:45)
[2021-04-08] MEDS: INSULIN GLARGINE 100 UNIT/ML SUBCUT SCH (09:45)
[2021-04-08] MEDS: MORPHINE 2 MG/1 ML SYRINGE IV PRN ×2 (11:11→22:57)
[2021-04-08] MEDS ORDERED: METOPROLOL TARTRATE 5 MG/5 ML VIAL IV ONE (11:54)
[2021-04-08] MEDS: METOPROLOL TARTRATE 5 MG/5 ML VIAL IV SCH ×2 (11:56→18:12)
[2021-04-08] MEDS ORDERED: FUROSEMIDE 40 MG/4 ML VIAL ONE (12:58)
[2021-04-08] MEDS ORDERED: FUROSEMIDE 40 MG/4 ML VIAL IV ONE (13:04)
[2021-04-08] MEDS: INSULIN LISPRO 100 UNIT/ML SUBCUT SCH ×3 (13:04→20:59)
[2021-04-08] MEDS: ENOXAPARIN 40 MG/0.4 ML SYRINGE SUBCUT SCH (16:31)
[2021-04-08] MEDS: DEXT IV SCH (18:13)
[2021-04-08] MEDS: LYTES IV SCH (18:13)
[2021-04-08] MEDS: AMINO ACIDS IV SCH (18:13)
[2021-04-08] MEDS: LORazepam 2 MG/1 ML VIAL IV PRN (21:00)
[2021-04-09] MEDS: INSULIN LISPRO 100 UNIT/ML SUBCUT SCH ×6 (00:11→20:50)
[2021-04-09] MEDS: METOPROLOL TARTRATE 5 MG/5 ML VIAL IV SCH ×5 (00:23→18:03)
[2021-04-09] MEDS: methylPREDNISolone SOD SUC 40 MG/1 ML VIAL IV SCH ×3 (02:10→17:58)
[2021-04-09] MEDS: DEXMEDETOMIDINE 400 MCG in SODIUM CHLORIDE 0.9% 96 ML IV PRN ×4 (02:45→22:10)
[2021-04-09] MEDS: ALBUTEROL/IPRATROPIUM 3 ML NEB RESP TX SCH ×6 (03:07→23:28)
[2021-04-09 04:09] LABS: ABG Base Excess 3.9 MMOL/L (-2.5-2.5); ABG HCO3 28.3 MMOL/L (20-26); ABG Oxygen Saturation 98.7 % (95-100); ABG PCO2 41.5 MM HG (35-48); ABG PH 7.451 (7.35-7.45); ABG PO2 167.5 MM HG (80-95); ABG TCO2 29.5 MMOL/L (23-27)
[2021-04-09 04:32] LABS: Basophils # 0.1 10*3/uL (0.0-0.2); Basophils % 0.5 % (0.0-0.8); Eosinophils % 0.1 % (0.00-10.9); Hematocrit 35.1 VOL% (42.0-52.0); Immature Granulocytes % 6.3 %; Immature Granulocytes Absolute 0.63 #; Lymphocytes # 0.9 10*3/uL (1.4-4.0); Lymphocytes % 8.8 % (21.2-54.2); Mean Corpuscular HGB Conc 31.3 GM/DL (32-36); Mean Corpuscular Volume 89.5 FL (87-102); Mean Platelet Volume 9.1 FL (9.6-12.0); Monocytes % 4.8 % (1.7-12.7); Neutrophils % 79.5 % (38.7-73.9); Platelet Count 340 T/CUMM (130-400); Red Blood Count 3.92 MC/CUMM (3.8-5.5)
[2021-04-09 04:54] LABS: Calcium 8.7 MG/DL (8.5-10.1); Osmolality,Calculated 291.5 MOS/KG (273-304); Potassium 3.4 MMOL/L (3.5-5.1)
[2021-04-09 04:57] LABS: Hypochromia Slight; Lymphocytes 7 % (20-55); Microcytosis Slight; Platelet Estimate Adequate; Segmented Neutrophils 87 % (50-85); Total Cells Counted 100
[2021-04-09] MEDS: POTASSIUM CHLORIDE RIDER 20 MEQ/100 ML PREMIX IV PRN (06:24)
[2021-04-09] MEDS: POTASSIUM CHLORIDE RIDER 10 MEQ/100 ML PREMIX IV PRN (08:36)
[2021-04-09] MEDS ORDERED: INSULIN GLARGINE 100 UNIT/ML SUBCUT SCH (09:02)
[2021-04-09] MEDS: METOPROLOL TARTRATE 25 MG TABLET PO SCH ×2 (09:07→21:52)
[2021-04-09] MEDS: INSULIN GLARGINE 100 UNIT/ML SUBCUT SCH (09:29)
[2021-04-09] MEDS: PANTOPRAZOLE 40 MG VIAL IV SCH (09:36)
[2021-04-09] MEDS: CHOLECALCIFEROL 1,000 UNIT TABLET PO SCH (10:38)
[2021-04-09] MEDS: guaiFENesin 200 MG/10 ML UDCUP PER TUBE SCH ×3 (10:38→21:52)
[2021-04-09] MEDS: ASCORBIC ACID 500 MG TABLET PO SCH ×2 (10:38→20:51)
[2021-04-09] MEDS: QUEtiapine 25 MG TABLET PO SCH ×2 (10:38→20:51)
[2021-04-09] MEDS: ZINC GLUCONATE 50 MG TABLET PO SCH (10:38)
[2021-04-09] MEDS: ACETAMINOPHEN 325 MG TABLET PO PRN (12:56)
[2021-04-09] MEDS: MENTHOL/ZINC OXIDE OINT 71 GM JAR TOP SCH ×2 (13:50→21:52)
[2021-04-09] MEDS ORDERED: DEXTROSE 10% 1,000 ML IV PRN (17:00)
[2021-04-09] MEDS: SELENIUM IV SCH (17:53)
[2021-04-09] MEDS: [UNRECOGNIZED DRUG - OTHER] IV SCH (17:53)
[2021-04-09] MEDS: COPPER IV SCH (17:53)
[2021-04-09] MEDS: MANGANESE IV SCH (17:53)
[2021-04-09] MEDS: INSULIN REGULAR IV SCH (17:53)
[2021-04-09] MEDS: MULTIVITAMIN IV SCH (17:53)
[2021-04-09] MEDS: ZINC IV SCH (17:53)
[2021-04-09] MEDS: ENOXAPARIN 40 MG/0.4 ML SYRINGE SUBCUT SCH (17:58)
[2021-04-10] MEDS: METOPROLOL TARTRATE 5 MG/5 ML VIAL IV SCH ×4 (00:22→17:03)
[2021-04-10] MEDS: INSULIN LISPRO 100 UNIT/ML SUBCUT SCH ×6 (00:27→20:48)
[2021-04-10] MEDS: methylPREDNISolone SOD SUC 40 MG/1 ML VIAL IV SCH ×3 (02:43→17:05)
[2021-04-10] MEDS: ALBUTEROL/IPRATROPIUM 3 ML NEB RESP TX SCH ×5 (03:49→18:11)
[2021-04-10 05:34] LABS: Basophils # 0.1 10*3/uL (0.0-0.2); Basophils % 1.1 % (0.0-0.8); Eosinophils % 0.1 % (0.00-10.9); Hematocrit 33.1 VOL% (42.0-52.0); Hemoglobin 10.5 GM/DL (14.0-18.0); Immature Granulocytes % 6.2 %; Immature Granulocytes Absolute 0.62 #; Lymphocytes # 0.9 10*3/uL (1.4-4.0); Lymphocytes % 8.7 % (21.2-54.2); Mean Corpuscular HGB Conc 31.7 GM/DL (32-36); Mean Corpuscular Volume 90.4 FL (87-102); Mean Platelet Volume 9.4 FL (9.6-12.0); Monocytes % 4.6 % (1.7-12.7); Neutrophils % 79.3 % (38.7-73.9); Platelet Count 298 T/CUMM (130-400); Red Blood Count 3.66 MC/CUMM (3.8-5.5); Red Cell Distribution Width 14.6 % (9.3-17.3)
[2021-04-10] MEDS: MORPHINE 2 MG/1 ML SYRINGE IV PRN ×2 (05:50→20:49)
[2021-04-10 05:57] LABS: Calcium 8.5 MG/DL (8.5-10.1); Osmolality,Calculated 287.5 MOS/KG (273-304); Potassium 3.7 MMOL/L (3.5-5.1)
[2021-04-10 06:05] LABS: Band Neutrophils 3 % (0-10); Hypochromia 1+; Lymphocytes 3 % (20-55); Microcytosis 1+; Ovalocytes Slight; Platelet Estimate Adequate; Segmented Neutrophils 89 % (50-85); Total Cells Counted 100
[2021-04-10] MEDS: DEXMEDETOMIDINE 400 MCG in SODIUM CHLORIDE 0.9% 96 ML IV PRN ×3 (06:10→19:45)
[2021-04-10] MEDS: guaiFENesin 200 MG/10 ML UDCUP PER TUBE SCH ×3 (08:58→21:29)
[2021-04-10] MEDS: ZINC GLUCONATE 50 MG TABLET PO SCH (08:59)
[2021-04-10] MEDS: ASCORBIC ACID 500 MG TABLET PO SCH ×2 (08:59→20:48)
[2021-04-10] MEDS: CHOLECALCIFEROL 1,000 UNIT TABLET PO SCH (08:59)
[2021-04-10] MEDS: METOPROLOL TARTRATE 25 MG TABLET PO SCH ×2 (09:00→21:29)
[2021-04-10] MEDS: QUEtiapine 25 MG TABLET PO SCH ×2 (09:00→20:48)
[2021-04-10] MEDS: PANTOPRAZOLE 40 MG VIAL IV SCH (09:11)
[2021-04-10] MEDS: POTASSIUM CHLORIDE RIDER 20 MEQ/100 ML PREMIX IV PRN (09:19)
[2021-04-10] MEDS: MENTHOL/ZINC OXIDE OINT 71 GM JAR TOP SCH ×2 (11:33→21:29)
[2021-04-10] MEDS: ACETAMINOPHEN 325 MG TABLET PO PRN (15:48)
[2021-04-10] MEDS: ENOXAPARIN 40 MG/0.4 ML SYRINGE SUBCUT SCH (16:58)
[2021-04-10] MEDS: ZINC IV SCH (17:21)
[2021-04-10] MEDS: MANGANESE IV SCH (17:21)
[2021-04-10] MEDS: [UNRECOGNIZED DRUG - OTHER] IV SCH (17:21)
[2021-04-10] MEDS: MULTIVITAMIN IV SCH (17:21)
[2021-04-10] MEDS: SELENIUM IV SCH (17:21)
[2021-04-10] MEDS: COPPER IV SCH (17:21)
[2021-04-10] MEDS: INSULIN REGULAR IV SCH (17:21)
[2021-04-10] MEDS: LORazepam 2 MG/1 ML VIAL IV PRN (20:49)
[2021-04-11] MEDS: ALBUTEROL/IPRATROPIUM 3 ML NEB RESP TX SCH ×6 (00:04→19:30)
[2021-04-11] MEDS: INSULIN LISPRO 100 UNIT/ML SUBCUT SCH ×6 (00:47→21:03)
[2021-04-11] MEDS: METOPROLOL TARTRATE 5 MG/5 ML VIAL IV SCH ×2 (00:48→06:46)
[2021-04-11] MEDS: DEXMEDETOMIDINE 400 MCG in SODIUM CHLORIDE 0.9% 96 ML IV PRN (02:26)
[2021-04-11] MEDS: methylPREDNISolone SOD SUC 40 MG/1 ML VIAL IV SCH ×3 (02:55→17:53)
[2021-04-11 04:06] LABS: Basophils # 0.1 10*3/uL (0.0-0.2); Basophils % 0.5 % (0.0-0.8); Eosinophils % 0.2 % (0.00-10.9); Hematocrit 32.3 VOL% (42.0-52.0); Hemoglobin 10.4 GM/DL (14.0-18.0); Immature Granulocytes % 7.2 %; Immature Granulocytes Absolute 0.98 #; Lymphocytes # 2.3 10*3/uL (1.4-4.0); Lymphocytes % 17.1 % (21.2-54.2); Mean Corpuscular HGB Conc 32.2 GM/DL (32-36); Mean Corpuscular Volume 91.5 FL (87-102); Mean Platelet Volume 9.1 FL (9.6-12.0); Monocytes % 5.8 % (1.7-12.7); Neutrophils % 69.2 % (38.7-73.9); Platelet Count 279 T/CUMM (130-400); Red Blood Count 3.53 MC/CUMM (3.8-5.5); Red Cell Distribution Width 15.2 % (9.3-17.3); White Blood Count 13.5 T/CUMM (4-12)
[2021-04-11 04:18] LABS: Calcium 8.4 MG/DL (8.5-10.1); Osmolality,Calculated 282.4 MOS/KG (273-304); Potassium 3.7 MMOL/L (3.5-5.1)
[2021-04-11 04:36] LABS: Band Neutrophils 1 % (0-10); Lymphocytes 12 % (20-55); Segmented Neutrophils 84 % (50-85); Total Cells Counted 100
[2021-04-11 04:37] LABS: Platelet Estimate Normal
[2021-04-11] MEDS ORDERED: INSULIN GLARGINE 100 UNIT/ML SUBCUT SCH (09:00)
[2021-04-11] MEDS: guaiFENesin 200 MG/10 ML UDCUP PO SCH ×3 (09:39→20:30)
[2021-04-11] MEDS: CHOLECALCIFEROL 1,000 UNIT TABLET PO SCH (09:39)
[2021-04-11] MEDS: acetaZOLAMIDE 250 MG TABLET PO SCH ×2 (09:39→20:30)
[2021-04-11] MEDS: PANTOPRAZOLE 40 MG VIAL IV SCH (09:40)
[2021-04-11] MEDS: ZINC GLUCONATE 50 MG TABLET PO SCH (09:40)
[2021-04-11] MEDS: METOPROLOL TARTRATE 50 MG TABLET PO SCH ×2 (09:40→20:30)
[2021-04-11] MEDS: ASCORBIC ACID 500 MG TABLET PO SCH ×2 (09:40→20:30)
[2021-04-11] MEDS: MENTHOL/ZINC OXIDE OINT 71 GM JAR TOP SCH ×2 (09:53→20:30)
[2021-04-11] MEDS: ACETAMINOPHEN 325 MG TABLET PO PRN (11:25)
[2021-04-11] MEDS ORDERED: FAT EMULSION 20% 250 ML IV SCH (14:00)
[2021-04-11] MEDS: OLANZapine 5 MG TABLET PO PRN (16:10)
[2021-04-11] MEDS: DEXTROSE 50% 25 GM/50 ML VIAL IV PRN ×2 (17:51→23:40)
[2021-04-11] MEDS: MORPHINE 2 MG/1 ML SYRINGE IV PRN (17:57)
[2021-04-11] MEDS: ENOXAPARIN 40 MG/0.4 ML SYRINGE SUBCUT SCH (17:57)
[2021-04-11] MEDS: DEXMEDETOMIDINE 200 MCG in SODIUM CHLORIDE 0.9% 48 ML IV PRN ×2 (18:36→21:30)
[2021-04-11] MEDS: QUEtiapine 25 MG TABLET PO SCH (20:30)
[2021-04-12] MEDS: ALBUTEROL/IPRATROPIUM 3 ML NEB RESP TX SCH ×7 (00:05→22:50)
[2021-04-12] MEDS: PHENYLEPHRINE DRIP 40 MG/250 ML PREMIX IV PRN ×3 (00:07→19:21)
[2021-04-12] MEDS ORDERED: diphenhydrAMINE CAP 25 MG CAPSULE PO PRN (01:36)
[2021-04-12 01:54] LABS: Bilirubin,Urine Negative (Negative); Blood, Urine Negative (Negative); Glucose,Urine (UA) 50 mg/dL (Negative); Ketones,Urine Negative (Negative); Nitrite,Urine Negative (Negative); Protein,Urine Negative; RBC,Urine 15 /HPF (0-4); Squamous Epithelial Cell,Urine Occasional /HPF (0-10); Urine Appearance CLEAR (Clear); Urine Color Yellow (Yellow); Urine Specific Gravity 1.014 (1.001-1.035)
[2021-04-12] MEDS: methylPREDNISolone SOD SUC 40 MG/1 ML VIAL IV SCH ×4 (03:45→20:20)
[2021-04-12 04:08] LABS: Basophils % 0.1 % (0.0-0.8); Eosinophils % 0.1 % (0.00-10.9); Hematocrit 36.5 VOL% (42.0-52.0); Hemoglobin 11.7 GM/DL (14.0-18.0); Immature Granulocytes Absolute 2.37 #; Lymphocytes # 3.9 10*3/uL (1.4-4.0); Lymphocytes % 11.5 % (21.2-54.2); Mean Corpuscular HGB Conc 32.1 GM/DL (32-36); Mean Corpuscular Volume 88.8 FL (87-102); Monocytes % 5.3 % (1.7-12.7); Platelet Count 467 T/CUMM (130-400); Red Blood Count 4.11 MC/CUMM (3.8-5.5); Red Cell Distribution Width 15.5 % (9.3-17.3); White Blood Count 33.7 T/CUMM (4-12)
[2021-04-12 04:24] LABS: Calcium 8.4 MG/DL (8.5-10.1); Potassium 3.5 MMOL/L (3.5-5.1)
[2021-04-12 04:28] LABS: Band Neutrophils 2 % (0-10); Hypochromia 1+; Lymphocytes 11 % (20-55); Microcytosis 1+; Ovalocytes Slight; Segmented Neutrophils 79 % (50-85); Total Cells Counted 100
[2021-04-12 04:29] LABS: Platelet Estimate Increased; Tear Drop Cells Slight
[2021-04-12] MEDS: DEXMEDETOMIDINE 200 MCG in SODIUM CHLORIDE 0.9% 48 ML IV PRN ×3 (04:42→20:03)
[2021-04-12] MEDS ORDERED: LORazepam 1 MG TABLET PO ONE (07:17)
[2021-04-12] MEDS: INSULIN LISPRO 100 UNIT/ML SUBCUT SCH ×4 (07:57→20:20)
[2021-04-12] MEDS ORDERED: TADALAFIL 5 MG PO SCH (09:00)
[2021-04-12 10:46] LABS: Bilirubin,Urine Negative (Negative); Blood, Urine Large mg/dL (Negative); Calcium Oxalate Crystals,Urine Moderate /HPF (Few); Glucose,Urine (UA) Negative (Negative); Ketones,Urine Negative (Negative); Mucus,Urine Many /LPF (Occasional); Nitrite,Urine Negative (Negative); Protein,Urine 30 MG/DL; RBC,Urine 402 /HPF (0-4); Urine Appearance CLOUDY (Clear); Urine Color Yellow (Yellow); Urine Specific Gravity 1.018 (1.001-1.035); Urine Urobilinogen < 2.0 EU/DL (0.2-1.0)
[2021-04-12] MEDS: acetaZOLAMIDE 250 MG TABLET PO SCH ×2 (11:13→20:17)
[2021-04-12] MEDS: CHOLECALCIFEROL 1,000 UNIT TABLET PO SCH (11:14)
[2021-04-12] MEDS: ROSUVASTATIN 20 MG TABLET PO SCH (11:14)
[2021-04-12] MEDS: METOPROLOL TARTRATE 50 MG TABLET PO SCH ×2 (11:14→20:18)
[2021-04-12] MEDS: ZINC GLUCONATE 50 MG TABLET PO SCH (11:14)
[2021-04-12] MEDS: OLANZapine 5 MG TABLET PO SCH ×2 (11:14→20:19)
[2021-04-12] MEDS: INSULIN GLARGINE 100 UNIT/ML SUBCUT SCH (11:15)
[2021-04-12] MEDS: guaiFENesin 200 MG/10 ML UDCUP PO SCH ×3 (11:15→20:20)
[2021-04-12] MEDS: MENTHOL/ZINC OXIDE OINT 71 GM JAR TOP SCH (11:16)
[2021-04-12] MEDS: PANTOPRAZOLE 40 MG VIAL IV SCH (11:16)
[2021-04-12] MEDS: TAMSULOSIN 0.4 MG CAPSULE PO SCH (11:20)
[2021-04-12] MEDS: ASCORBIC ACID 500 MG TABLET PO SCH ×2 (11:22→20:17)
[2021-04-12] MEDS: LORazepam 1 MG TABLET PO SCH ×3 (12:28→22:17)
[2021-04-12] MEDS: ENOXAPARIN 40 MG/0.4 ML SYRINGE SUBCUT SCH (17:10)
[2021-04-12] MEDS: ACETAMINOPHEN 325 MG TABLET PO PRN (18:03)
[2021-04-12] MEDS: QUEtiapine 25 MG TABLET PO SCH (20:19)
[2021-04-13] MEDS: DEXMEDETOMIDINE 400 MCG in SODIUM CHLORIDE 0.9% 96 ML IV PRN ×3 (02:52→20:29)
[2021-04-13] MEDS: ALBUTEROL/IPRATROPIUM 3 ML NEB RESP TX SCH ×5 (03:25→18:20)
[2021-04-13] MEDS: MENTHOL/ZINC OXIDE OINT 71 GM JAR TOP SCH ×3 (04:54→20:19)
[2021-04-13] MEDS: methylPREDNISolone SOD SUC 40 MG/1 ML VIAL IV SCH ×3 (04:56→20:19)
[2021-04-13] MEDS: PHENYLEPHRINE DRIP 40 MG/250 ML PREMIX IV PRN (04:56)
[2021-04-13 05:01] LABS: Calcium 8.7 MG/DL (8.5-10.1); Osmolality,Calculated 286.3 MOS/KG (273-304); Potassium 3.5 MMOL/L (3.5-5.1)
[2021-04-13] MEDS: INSULIN LISPRO 100 UNIT/ML SUBCUT SCH ×4 (07:35→20:19)
[2021-04-13] MEDS: FUROSEMIDE 40 MG TABLET PO SCH (09:56)
[2021-04-13] MEDS: LORazepam 1 MG TABLET PO SCH ×3 (09:56→20:19)
[2021-04-13] MEDS: ASCORBIC ACID 500 MG TABLET PO SCH ×2 (09:57→20:20)
[2021-04-13] MEDS: ROSUVASTATIN 20 MG TABLET PO SCH (09:57)
[2021-04-13] MEDS: OLANZapine 5 MG TABLET PO SCH ×2 (09:57→20:20)
[2021-04-13] MEDS: ZINC GLUCONATE 50 MG TABLET PO SCH (09:57)
[2021-04-13] MEDS: POTASSIUM CHLORIDE 20 MEQ TABLET PO SCH (09:57)
[2021-04-13] MEDS: METOPROLOL TARTRATE 50 MG TABLET PO SCH ×2 (09:57→20:20)
[2021-04-13] MEDS: TAMSULOSIN 0.4 MG CAPSULE PO SCH (09:57)
[2021-04-13] MEDS: CITALOPRAM 20 MG TABLET PO SCH (09:58)
[2021-04-13] MEDS: guaiFENesin 200 MG/10 ML UDCUP PO SCH ×3 (09:58→20:20)
[2021-04-13] MEDS: CHOLECALCIFEROL 1,000 UNIT TABLET PO SCH (09:58)
[2021-04-13] MEDS: acetaZOLAMIDE 250 MG TABLET PO SCH ×2 (09:58→20:19)
[2021-04-13] MEDS: INSULIN GLARGINE 100 UNIT/ML SUBCUT SCH (09:59)
[2021-04-13] MEDS: PANTOPRAZOLE 40 MG VIAL IV SCH (09:59)
[2021-04-13] MEDS: ACETAMINOPHEN 325 MG TABLET PO PRN (11:38)
[2021-04-13] MEDS: ENOXAPARIN 40 MG/0.4 ML SYRINGE SUBCUT SCH (17:31)
[2021-04-13] MEDS: MORPHINE 2 MG/1 ML SYRINGE IV PRN (19:01)
[2021-04-14] MEDS: ALBUTEROL/IPRATROPIUM 3 ML NEB RESP TX SCH ×7 (00:30→20:15)
[2021-04-14] MEDS: DEXMEDETOMIDINE 400 MCG in SODIUM CHLORIDE 0.9% 96 ML IV PRN ×3 (03:00→20:15)
[2021-04-14] MEDS: methylPREDNISolone SOD SUC 40 MG/1 ML VIAL IV SCH ×3 (03:22→21:15)
[2021-04-14 05:00] LABS: Calcium 8.9 MG/DL (8.5-10.1); Osmolality,Calculated 288.3 MOS/KG (273-304); Potassium 3.6 MMOL/L (3.5-5.1)
[2021-04-14] MEDS: MORPHINE 2 MG/1 ML SYRINGE IV PRN (07:59)
[2021-04-14] MEDS: INSULIN LISPRO 100 UNIT/ML SUBCUT SCH ×4 (08:01→21:15)
[2021-04-14] MEDS: INSULIN GLARGINE 100 UNIT/ML SUBCUT SCH (09:18)
[2021-04-14] MEDS: PANTOPRAZOLE 40 MG VIAL IV SCH (09:19)
[2021-04-14] MEDS: MEROPENEM 500 MG in SODIUM CHLORIDE 0.9% 100 ML IV SCH ×3 (09:37→21:15)
[2021-04-14] MEDS: LORazepam 1 MG TABLET PO SCH ×3 (10:56→21:29)
[2021-04-14] MEDS: FUROSEMIDE 40 MG TABLET PO SCH (10:58)
[2021-04-14] MEDS: guaiFENesin 200 MG/10 ML UDCUP PO SCH ×3 (10:58→21:30)
[2021-04-14] MEDS: CITALOPRAM 20 MG TABLET PO SCH (10:58)
[2021-04-14] MEDS: acetaZOLAMIDE 250 MG TABLET PO SCH ×2 (10:58→21:13)
[2021-04-14] MEDS: TAMSULOSIN 0.4 MG CAPSULE PO SCH (10:58)
[2021-04-14] MEDS: ASCORBIC ACID 500 MG TABLET PO SCH ×2 (10:58→21:14)
[2021-04-14] MEDS: MENTHOL/ZINC OXIDE OINT 71 GM JAR TOP SCH ×2 (10:58→21:29)
[2021-04-14] MEDS: METOPROLOL TARTRATE 50 MG TABLET PO SCH ×2 (10:58→21:14)
[2021-04-14] MEDS: POTASSIUM CHLORIDE 20 MEQ TABLET PO SCH (10:58)
[2021-04-14] MEDS: ROSUVASTATIN 20 MG TABLET PO SCH (10:58)
[2021-04-14] MEDS: CHOLECALCIFEROL 1,000 UNIT TABLET PO SCH (10:59)
[2021-04-14] MEDS: OLANZapine 5 MG TABLET PO SCH ×2 (10:59→21:13)
[2021-04-14] MEDS: ZINC GLUCONATE 50 MG TABLET PO SCH (10:59)
[2021-04-14] MEDS: ENOXAPARIN 40 MG/0.4 ML SYRINGE SUBCUT SCH (17:08)
[2021-04-15] MEDS: ALBUTEROL/IPRATROPIUM 3 ML NEB RESP TX SCH ×7 (00:15→23:30)
[2021-04-15] MEDS: MEROPENEM 500 MG in SODIUM CHLORIDE 0.9% 100 ML IV SCH ×4 (03:44→20:37)
[2021-04-15] MEDS: methylPREDNISolone SOD SUC 40 MG/1 ML VIAL IV SCH ×3 (03:44→22:24)
[2021-04-15 04:45] LABS: Basophils % 0.2 % (0.0-0.8); Hemoglobin 10.4 GM/DL (14.0-18.0); Immature Granulocytes % 1.5 %; Immature Granulocytes Absolute 0.17 #; Lymphocytes % 8.8 % (21.2-54.2); Mean Corpuscular HGB Conc 32.5 GM/DL (32-36); Mean Corpuscular Volume 88.4 FL (87-102); Mean Platelet Volume 9.8 FL (9.6-12.0); Monocytes % 1.8 % (1.7-12.7); Neutrophils % 87.7 % (38.7-73.9); Platelet Count 226 T/CUMM (130-400); Red Blood Count 3.62 MC/CUMM (3.8-5.5); Red Cell Distribution Width 15.5 % (9.3-17.3); White Blood Count 11.7 T/CUMM (4-12)
[2021-04-15 05:10] LABS: Calcium 9.3 MG/DL (8.5-10.1); Osmolality,Calculated 294.1 MOS/KG (273-304); Potassium 3.4 MMOL/L (3.5-5.1)
[2021-04-15 05:20] LABS: Band Neutrophils 4 % (0-10); Hypochromia 1+; Lymphocytes 6 % (20-55); Microcytosis 1+; Ovalocytes Slight; Segmented Neutrophils 87 % (50-85); Tear Drop Cells Slight; Total Cells Counted 100
[2021-04-15] MEDS: DEXMEDETOMIDINE 400 MCG in SODIUM CHLORIDE 0.9% 96 ML IV PRN ×2 (05:41→21:13)
[2021-04-15] MEDS: ZINC GLUCONATE 50 MG TABLET PO SCH (08:39)
[2021-04-15] MEDS: CHOLECALCIFEROL 1,000 UNIT TABLET PO SCH (08:39)
[2021-04-15] MEDS: ROSUVASTATIN 20 MG TABLET PO SCH (08:39)
[2021-04-15] MEDS: POTASSIUM CHLORIDE 20 MEQ TABLET PO SCH (08:40)
[2021-04-15] MEDS: acetaZOLAMIDE 250 MG TABLET PO SCH ×2 (08:40→20:42)
[2021-04-15] MEDS: guaiFENesin 200 MG/10 ML UDCUP PO SCH ×3 (08:40→21:14)
[2021-04-15] MEDS: CITALOPRAM 20 MG TABLET PO SCH (08:40)
[2021-04-15] MEDS: PANTOPRAZOLE 40 MG VIAL IV SCH (08:40)
[2021-04-15] MEDS: FUROSEMIDE 40 MG TABLET PO SCH (08:40)
[2021-04-15] MEDS: ASCORBIC ACID 500 MG TABLET PO SCH ×2 (08:40→20:42)
[2021-04-15] MEDS: MENTHOL/ZINC OXIDE OINT 71 GM JAR TOP SCH ×2 (08:41→21:12)
[2021-04-15] MEDS: INSULIN GLARGINE 100 UNIT/ML SUBCUT SCH (08:41)
[2021-04-15] MEDS: INSULIN LISPRO 100 UNIT/ML SUBCUT SCH ×4 (08:41→21:18)
[2021-04-15] MEDS: TAMSULOSIN 0.4 MG CAPSULE PO SCH (08:42)
[2021-04-15] MEDS: LORazepam 1 MG TABLET PO SCH ×3 (08:43→20:42)
[2021-04-15] MEDS: METOPROLOL TARTRATE 50 MG TABLET PO SCH ×2 (08:44→20:42)
[2021-04-15] MEDS: OLANZapine 5 MG TABLET PO SCH ×2 (08:44→20:42)
[2021-04-15] MEDS: ENOXAPARIN 40 MG/0.4 ML SYRINGE SUBCUT SCH (17:10)
[2021-04-15] MEDS: MORPHINE 2 MG/1 ML SYRINGE IV PRN ×2 (17:10→20:51)
[2021-04-16] MEDS ORDERED: SODIUM CHLORIDE 0.9% 500 ML IV ONE (01:14)
[2021-04-16] MEDS: ALBUTEROL/IPRATROPIUM 3 ML NEB RESP TX SCH ×6 (03:11→19:12)
[2021-04-16 05:44] LABS: Calcium 8.6 MG/DL (8.5-10.1); Osmolality,Calculated 303.8 MOS/KG (273-304); Potassium 3.5 MMOL/L (3.5-5.1)
[2021-04-16] MEDS: MEROPENEM 500 MG in SODIUM CHLORIDE 0.9% 100 ML IV SCH ×4 (06:35→20:30)
[2021-04-16] MEDS: INSULIN LISPRO 100 UNIT/ML SUBCUT SCH ×4 (08:27→22:39)
[2021-04-16] MEDS: LORazepam 1 MG TABLET PO SCH ×3 (09:33→20:24)
[2021-04-16] MEDS: guaiFENesin 200 MG/10 ML UDCUP PO SCH ×4 (09:33→20:26)
[2021-04-16] MEDS: OLANZapine 5 MG TABLET PO SCH ×2 (09:34→20:24)
[2021-04-16] MEDS: methylPREDNISolone SOD SUC 40 MG/1 ML VIAL IV SCH ×2 (09:40→22:48)
[2021-04-16] MEDS: PANTOPRAZOLE 40 MG VIAL IV SCH (09:41)
[2021-04-16] MEDS: acetaZOLAMIDE 250 MG TABLET PO SCH ×2 (09:41→20:24)
[2021-04-16] MEDS: INSULIN GLARGINE 100 UNIT/ML SUBCUT SCH (09:41)
[2021-04-16] MEDS: ROSUVASTATIN 20 MG TABLET PO SCH (09:41)
[2021-04-16] MEDS: ASCORBIC ACID 500 MG TABLET PO SCH ×2 (09:42→20:24)
[2021-04-16] MEDS: TAMSULOSIN 0.4 MG CAPSULE PO SCH (09:42)
[2021-04-16] MEDS: METOPROLOL TARTRATE 50 MG TABLET PO SCH ×2 (09:42→20:24)
[2021-04-16] MEDS: POTASSIUM CHLORIDE 20 MEQ TABLET PO SCH (09:42)
[2021-04-16] MEDS: CITALOPRAM 20 MG TABLET PO SCH (09:42)
[2021-04-16] MEDS: CHOLECALCIFEROL 1,000 UNIT TABLET PO SCH (09:42)
[2021-04-16] MEDS: ZINC GLUCONATE 50 MG TABLET PO SCH (09:42)
[2021-04-16] MEDS: MENTHOL/ZINC OXIDE OINT 71 GM JAR TOP SCH ×2 (09:43→20:56)
[2021-04-16] MEDS: FUROSEMIDE 40 MG TABLET PO SCH (09:45)
[2021-04-16] MEDS: DEXMEDETOMIDINE 400 MCG in SODIUM CHLORIDE 0.9% 96 ML IV PRN (12:34)
[2021-04-16] MEDS: DOCUSATE SODIUM 100 MG/10 ML UDCUP PO SCH ×2 (13:41→20:26)
[2021-04-16] MEDS: ENOXAPARIN 40 MG/0.4 ML SYRINGE SUBCUT SCH (16:27)
[2021-04-16] MEDS ORDERED: METOPROLOL TARTRATE 5 MG/5 ML VIAL IV ONE (17:39)
[2021-04-16] MEDS ORDERED: LORazepam 2 MG/1 ML VIAL IV ONE (18:45)
[2021-04-16] MEDS ORDERED: MORPHINE 2 MG/1 ML SYRINGE IV ONE (18:45)
[2021-04-16] MEDS ORDERED: LORazepam 2 MG/1 ML VIAL ONE (18:48)
[2021-04-17] MEDS: ALBUTEROL/IPRATROPIUM 3 ML NEB RESP TX SCH ×3 (00:08→09:31)
[2021-04-17] MEDS: MORPHINE 2 MG/1 ML SYRINGE IV PRN ×3 (02:05→17:24)
[2021-04-17] MEDS: MEROPENEM 500 MG in SODIUM CHLORIDE 0.9% 100 ML IV SCH ×4 (03:09→20:32)
[2021-04-17 04:28] LABS: Basophils % 0.2 % (0.0-0.8); Hematocrit 32.5 VOL% (42.0-52.0); Hemoglobin 10.5 GM/DL (14.0-18.0); Immature Granulocytes % 2.5 %; Immature Granulocytes Absolute 0.41 #; Lymphocytes # 0.8 10*3/uL (1.4-4.0); Mean Corpuscular HGB Conc 32.3 GM/DL (32-36); Mean Platelet Volume 9.8 FL (9.6-12.0); Monocytes % 2.4 % (1.7-12.7); Neutrophils % 89.9 % (38.7-73.9); Platelet Count 251 T/CUMM (130-400); Red Blood Count 3.65 MC/CUMM (3.8-5.5); Red Cell Distribution Width 15.8 % (9.3-17.3); White Blood Count 16.6 T/CUMM (4-12)
[2021-04-17 04:56] LABS: Calcium 8.8 MG/DL (8.5-10.1); Osmolality,Calculated 299.7 MOS/KG (273-304); Potassium 3.4 MMOL/L (3.5-5.1)
[2021-04-17] MEDS: INSULIN LISPRO 100 UNIT/ML SUBCUT SCH ×4 (08:00→21:10)
[2021-04-17] MEDS ORDERED: ALBUTEROL 2.5 MG/3 ML NEB RESP TX SCH (08:13)
[2021-04-17] MEDS ORDERED: LEVALBUTEROL 1.25 MG/3 ML NEB RESP TX ONE (08:13)
[2021-04-17] MEDS: LEVALBUTEROL 1.25 MG/3 ML NEB RESP TX SCH ×4 (08:16→20:03)
[2021-04-17] MEDS ORDERED: METOPROLOL TARTRATE 100 MG TABLET PO SCH (09:00)
[2021-04-17] MEDS ORDERED: POTASSIUM CHLORIDE 20 MEQ TABLET PO ONE (09:00)
[2021-04-17] MEDS: TAMSULOSIN 0.4 MG CAPSULE PO SCH (09:50)
[2021-04-17] MEDS: methylPREDNISolone SOD SUC 40 MG/1 ML VIAL IV SCH ×2 (09:51→21:42)
[2021-04-17] MEDS: fentaNYL 25 MCG/HR PATCH TRANSDERM SCH (09:51)
[2021-04-17] MEDS: INSULIN GLARGINE 100 UNIT/ML SUBCUT SCH (09:51)
[2021-04-17] MEDS: DOCUSATE SODIUM 100 MG/10 ML UDCUP PO SCH ×3 (09:51→20:27)
[2021-04-17] MEDS: POTASSIUM CHLORIDE 20 MEQ TABLET PO SCH (09:52)
[2021-04-17] MEDS: FUROSEMIDE 40 MG TABLET PO SCH (09:52)
[2021-04-17] MEDS: METOPROLOL TARTRATE 50 MG TABLET PO SCH ×2 (09:52→20:27)
[2021-04-17] MEDS: CHOLECALCIFEROL 1,000 UNIT TABLET PO SCH (09:52)
[2021-04-17] MEDS: ASCORBIC ACID 500 MG TABLET PO SCH ×2 (09:52→20:26)
[2021-04-17] MEDS: ZINC GLUCONATE 50 MG TABLET PO SCH (09:53)
[2021-04-17] MEDS: OLANZapine 5 MG TABLET PO SCH ×2 (09:53→21:13)
[2021-04-17] MEDS: ROSUVASTATIN 20 MG TABLET PO SCH (09:53)
[2021-04-17] MEDS: CITALOPRAM 20 MG TABLET PO SCH (09:53)
[2021-04-17] MEDS: PANTOPRAZOLE 40 MG TABLET PO SCH (09:53)
[2021-04-17] MEDS: acetaZOLAMIDE 250 MG TABLET PO SCH ×2 (09:53→20:27)
[2021-04-17] MEDS: LORazepam 1 MG TABLET PO SCH ×3 (09:53→20:27)
[2021-04-17] MEDS: MENTHOL/ZINC OXIDE OINT 71 GM JAR TOP SCH ×2 (09:54→20:28)
[2021-04-17] MEDS: guaiFENesin 200 MG/10 ML UDCUP PO SCH ×4 (09:54→21:11)
[2021-04-17] MEDS ORDERED: LEVALBUTEROL 1.25 MG/3 ML NEB RESP TX SCH ×2 (10:25→11:00)
[2021-04-17] MEDS: ENOXAPARIN 40 MG/0.4 ML SYRINGE SUBCUT SCH (16:30)
[2021-04-18] MEDS: LEVALBUTEROL 1.25 MG/3 ML NEB RESP TX SCH ×6 (00:26→19:50)
[2021-04-18] MEDS: MEROPENEM 500 MG in SODIUM CHLORIDE 0.9% 100 ML IV SCH ×4 (02:57→22:30)
[2021-04-18 04:16] LABS: ABG Base Excess 6.3 MMOL/L (-2.5-2.5); ABG HCO3 30.1 MMOL/L (20-26); ABG Oxygen Saturation 95.8 % (95-100); ABG PCO2 51.7 MM HG (35-48); ABG PH 7.405 (7.35-7.45); ABG PO2 81.5 MM HG (80-95); ABG TCO2 28.6 MMOL/L (23-27)
[2021-04-18 05:25] LABS: Basophils # 0.1 10*3/uL (0.0-0.2); Basophils % 0.2 % (0.0-0.8); Hematocrit 38.7 VOL% (42.0-52.0); Hemoglobin 12.3 GM/DL (14.0-18.0); Immature Granulocytes % 1.7 %; Immature Granulocytes Absolute 0.46 #; Lymphocytes # 1.9 10*3/uL (1.4-4.0); Lymphocytes % 6.7 % (21.2-54.2); Mean Corpuscular HGB Conc 31.8 GM/DL (32-36); Mean Corpuscular Volume 90.8 FL (87-102); Mean Platelet Volume 9.8 FL (9.6-12.0); Monocytes % 3.7 % (1.7-12.7); Neutrophils % 87.7 % (38.7-73.9); Platelet Count 288 T/CUMM (130-400); Red Blood Count 4.26 MC/CUMM (3.8-5.5); Red Cell Distribution Width 15.9 % (9.3-17.3); White Blood Count 27.7 T/CUMM (4-12)
[2021-04-18 05:37] LABS: Calcium 9.7 MG/DL (8.5-10.1); Potassium 3.8 MMOL/L (3.5-5.1)
[2021-04-18 05:53] LABS: Hypochromia 1+; Microcytosis 1+; Platelet Estimate Normal; Target Cells Slight
[2021-04-18] MEDS: MORPHINE 2 MG/1 ML SYRINGE IV PRN ×4 (08:08→22:15)
[2021-04-18] MEDS: FUROSEMIDE 40 MG TABLET PO SCH (08:20)
[2021-04-18] MEDS: ROSUVASTATIN 20 MG TABLET PO SCH (08:20)
[2021-04-18] MEDS: INSULIN LISPRO 100 UNIT/ML SUBCUT SCH ×4 (08:20→21:12)
[2021-04-18] MEDS: INSULIN GLARGINE 100 UNIT/ML SUBCUT SCH (08:20)
[2021-04-18] MEDS: CITALOPRAM 20 MG TABLET PO SCH (08:20)
[2021-04-18] MEDS: TAMSULOSIN 0.4 MG CAPSULE PO SCH (08:20)
[2021-04-18] MEDS: POTASSIUM CHLORIDE 20 MEQ TABLET PO SCH (08:20)
[2021-04-18] MEDS: acetaZOLAMIDE 250 MG TABLET PO SCH (08:20)
[2021-04-18] MEDS: PANTOPRAZOLE 40 MG TABLET PO SCH (08:21)
[2021-04-18] MEDS: ASCORBIC ACID 500 MG TABLET PO SCH ×2 (08:22→21:13)
[2021-04-18] MEDS: ZINC GLUCONATE 50 MG TABLET PO SCH (08:22)
[2021-04-18] MEDS: OLANZapine 5 MG TABLET PO SCH ×2 (08:22→21:13)
[2021-04-18] MEDS: CHOLECALCIFEROL 1,000 UNIT TABLET PO SCH (08:22)
[2021-04-18] MEDS: MENTHOL/ZINC OXIDE OINT 71 GM JAR TOP SCH ×2 (08:40→21:12)
[2021-04-18] MEDS: guaiFENesin 200 MG/10 ML UDCUP PO SCH ×3 (08:42→21:13)
[2021-04-18] MEDS ORDERED: DILTIAZEM 25 MG/5 ML VIAL IV ONE (09:00)
[2021-04-18] MEDS: METOPROLOL TARTRATE 50 MG TABLET PO SCH ×2 (09:21→21:12)
[2021-04-18] MEDS: DOCUSATE SODIUM 100 MG/10 ML UDCUP PO SCH ×2 (09:53→21:12)
[2021-04-18] MEDS: LORazepam 1 MG TABLET PO SCH ×3 (09:53→21:12)
[2021-04-18] MEDS: methylPREDNISolone SOD SUC 40 MG/1 ML VIAL IV SCH ×2 (10:51→22:30)
[2021-04-18] MEDS ORDERED: DIGOXIN 0.5 MG/2 ML AMP ONE (13:34)
[2021-04-18] MEDS ORDERED: DIGOXIN 0.5 MG/2 ML AMP IV ONE ×2 (13:37→18:45)
[2021-04-18] MEDS ORDERED: METOPROLOL TARTRATE 5 MG/5 ML VIAL IV ONE ×3 (14:47→20:49)
[2021-04-18] MEDS: ENOXAPARIN 40 MG/0.4 ML SYRINGE SUBCUT SCH (17:03)
[2021-04-18 22:40] LABS: ABG Base Excess 6.7 MMOL/L (-2.5-2.5); ABG HCO3 30.1 MMOL/L (20-26); ABG Oxygen Saturation 88.9 % (95-100); ABG PCO2 38.8 MM HG (35-48); ABG PH 7.508 (7.35-7.45); ABG PO2 52.2 MM HG (80-95); ABG TCO2 31.3 MMOL/L (23-27)
[2021-04-18] MEDS: ALBUTEROL 2.5 MG/3 ML NEB RESP TX PRN (23:20)
[2021-04-19] MEDS: LEVALBUTEROL 1.25 MG/3 ML NEB RESP TX SCH ×7 (01:00→23:30)
[2021-04-19] MEDS: MEROPENEM 500 MG in SODIUM CHLORIDE 0.9% 100 ML IV SCH ×4 (03:40→22:50)
[2021-04-19 03:41] LABS: Basophils % 0.2 % (0.0-0.8); Eosinophils % 0.1 % (0.00-10.9); Hematocrit 38.6 VOL% (42.0-52.0); Hemoglobin 12.2 GM/DL (14.0-18.0); Immature Granulocytes % 1.4 %; Immature Granulocytes Absolute 0.28 #; Lymphocytes % 4.9 % (21.2-54.2); Mean Corpuscular HGB Conc 31.6 GM/DL (32-36); Mean Corpuscular Volume 90.2 FL (87-102); Mean Platelet Volume 9.5 FL (9.6-12.0); Monocytes % 2.2 % (1.7-12.7); Neutrophils % 91.2 % (38.7-73.9); Platelet Count 230 T/CUMM (130-400); Red Blood Count 4.28 MC/CUMM (3.8-5.5); Red Cell Distribution Width 15.7 % (9.3-17.3); White Blood Count 20.7 T/CUMM (4-12)
[2021-04-19 03:47] LABS: ABG Base Excess 5.5 MMOL/L (-2.5-2.5); ABG HCO3 29.3 MMOL/L (20-26); ABG Oxygen Saturation 96.2 % (95-100); ABG PCO2 41.7 MM HG (35-48); ABG PH 7.462 (7.35-7.45); ABG PO2 81.6 MM HG (80-95); ABG TCO2 26.1 MMOL/L (23-27)
[2021-04-19 03:58] LABS: Osmolality,Calculated 298.8 MOS/KG (273-304); Potassium 3.5 MMOL/L (3.5-5.1)
[2021-04-19 04:03] LABS: Lymphocytes 7 % (20-55); Platelet Estimate Adequate; Segmented Neutrophils 92 % (50-85); Total Cells Counted 100
[2021-04-19 04:04] LABS: Hypochromia 1+; Microcytosis 1+
[2021-04-19] MEDS: INSULIN LISPRO 100 UNIT/ML SUBCUT SCH ×4 (07:30→21:00)
[2021-04-19] MEDS ORDERED: METOPROLOL TARTRATE 5 MG/5 ML VIAL IV ONE ×5 (08:12→21:29)
[2021-04-19] MEDS: OLANZapine 5 MG TABLET PO SCH ×2 (08:28→22:00)
[2021-04-19] MEDS: MENTHOL/ZINC OXIDE OINT 71 GM JAR TOP SCH ×2 (08:28→22:23)
[2021-04-19] MEDS: CHOLECALCIFEROL 1,000 UNIT TABLET PO SCH (08:28)
[2021-04-19] MEDS: DOCUSATE SODIUM 100 MG/10 ML UDCUP PO SCH ×2 (08:28→22:00)
[2021-04-19] MEDS: ZINC GLUCONATE 50 MG TABLET PO SCH (08:28)
[2021-04-19] MEDS: CITALOPRAM 20 MG TABLET PO SCH (08:28)
[2021-04-19] MEDS: TAMSULOSIN 0.4 MG CAPSULE PO SCH (08:28)
[2021-04-19] MEDS: POTASSIUM CHLORIDE 20 MEQ TABLET PO SCH (08:28)
[2021-04-19] MEDS: METOPROLOL TARTRATE 50 MG TABLET PO SCH ×2 (08:28→22:00)
[2021-04-19] MEDS: ROSUVASTATIN 20 MG TABLET PO SCH (08:28)
[2021-04-19] MEDS: LORazepam 1 MG TABLET PO SCH (08:28)
[2021-04-19] MEDS: ASCORBIC ACID 500 MG TABLET PO SCH ×2 (08:30→22:00)
[2021-04-19] MEDS: PANTOPRAZOLE 40 MG TABLET PO SCH (08:30)
[2021-04-19] MEDS: INSULIN GLARGINE 100 UNIT/ML SUBCUT SCH (08:33)
[2021-04-19] MEDS: FUROSEMIDE 40 MG TABLET PO SCH (08:43)
[2021-04-19] MEDS: guaiFENesin 200 MG/10 ML UDCUP PO SCH ×3 (08:45→22:00)
[2021-04-19] MEDS: methylPREDNISolone SOD SUC 40 MG/1 ML VIAL IV SCH ×2 (09:16→23:00)
[2021-04-19] MEDS ORDERED: LORazepam 1 MG TABLET PO PRN (09:30)
[2021-04-19] MEDS: DIGOXIN 0.125 MG TABLET PO SCH (13:28)
[2021-04-19] MEDS: ENOXAPARIN 40 MG/0.4 ML SYRINGE SUBCUT SCH (17:52)
[2021-04-19] MEDS: MORPHINE 2 MG/1 ML SYRINGE IV PRN (18:50)
[2021-04-19] MEDS: LORazepam 2 MG/1 ML VIAL IV ONE ×2 (20:05→22:00)
[2021-04-19] MEDS ORDERED: SUCCINYLCHOLINE 200 MG/10 ML VIAL ONE (20:24)
[2021-04-19] MEDS ORDERED: ETOMIDATE 20 MG/10 ML VIAL IV ONE ×3 (20:24→20:36)
[2021-04-19] MEDS ORDERED: SUCCINYLCHOLINE 200 MG/10 ML VIAL IV ONE (20:36)
[2021-04-19 22:24] LABS: ABG Base Excess 3.4 MMOL/L (-2.5-2.5); ABG HCO3 27.2 MMOL/L (20-26); ABG Oxygen Saturation 86.7 % (95-100); ABG PCO2 41.4 MM HG (35-48); ABG PH 7.437 (7.35-7.45); ABG PO2 55.3 MM HG (80-95); ABG TCO2 24.4 MMOL/L (23-27)
[2021-04-19] MEDS: PHENYLEPHRINE DRIP 40 MG/250 ML PREMIX IV PRN (22:37)
[2021-04-19] MEDS ORDERED: ENOXAPARIN 40 MG/0.4 ML SYRINGE SUBCUT ONE (23:20)
[2021-04-20] MEDS: LEVALBUTEROL 1.25 MG/3 ML NEB RESP TX SCH ×6 (02:54→23:30)
[2021-04-20] MEDS: MEROPENEM 500 MG in SODIUM CHLORIDE 0.9% 100 ML IV SCH ×4 (03:55→21:33)
[2021-04-20 04:02] LABS: Basophils # 0.1 10*3/uL (0.0-0.2); Basophils % 0.2 % (0.0-0.8); Hematocrit 38.3 VOL% (42.0-52.0); Hemoglobin 12.3 GM/DL (14.0-18.0); Immature Granulocytes % 4.3 %; Immature Granulocytes Absolute 1.18 #; Lymphocytes # 1.3 10*3/uL (1.4-4.0); Lymphocytes % 4.6 % (21.2-54.2); Mean Corpuscular HGB Conc 32.1 GM/DL (32-36); Mean Corpuscular Volume 88.9 FL (87-102); Mean Platelet Volume 10.1 FL (9.6-12.0); Monocytes % 2.4 % (1.7-12.7); Neutrophils % 88.5 % (38.7-73.9); Platelet Count 341 T/CUMM (130-400); Red Blood Count 4.31 MC/CUMM (3.8-5.5); Red Cell Distribution Width 15.7 % (9.3-17.3); White Blood Count 27.2 T/CUMM (4-12)
[2021-04-20 04:14] LABS: Calcium 9.6 MG/DL (8.5-10.1); Osmolality,Calculated 306.6 MOS/KG (273-304); Potassium 3.5 MMOL/L (3.5-5.1)
[2021-04-20 04:21] LABS: Band Neutrophils 2 % (0-10); Hypochromia 1+; Lymphocytes 2 % (20-55); Microcytosis 1+; Platelet Estimate Adequate; Segmented Neutrophils 94 % (50-85); Total Cells Counted 100
[2021-04-20 04:28] LABS: ABG Base Excess 4.3 MMOL/L (-2.5-2.5); ABG HCO3 28.2 MMOL/L (20-26); ABG Oxygen Saturation 96.5 % (95-100); ABG PCO2 36.4 MM HG (35-48); ABG PH 7.488 (7.35-7.45); ABG PO2 83.6 MM HG (80-95); ABG TCO2 24.2 MMOL/L (23-27)
[2021-04-20] MEDS: PHENYLEPHRINE DRIP 40 MG/250 ML PREMIX IV PRN ×2 (05:50→13:30)
[2021-04-20] MEDS: INSULIN LISPRO 100 UNIT/ML SUBCUT SCH ×4 (08:43→20:14)
[2021-04-20] MEDS: INSULIN GLARGINE 100 UNIT/ML SUBCUT SCH (08:44)
[2021-04-20] MEDS: MENTHOL/ZINC OXIDE OINT 71 GM JAR TOP SCH ×2 (08:44→22:17)
[2021-04-20] MEDS: CHOLECALCIFEROL 1,000 UNIT TABLET PO SCH (08:45)
[2021-04-20] MEDS: ASCORBIC ACID 500 MG TABLET PO SCH ×2 (08:46→20:12)
[2021-04-20] MEDS: ZINC GLUCONATE 50 MG TABLET PO SCH (08:46)
[2021-04-20] MEDS: OLANZapine 5 MG TABLET PO SCH ×2 (08:46→20:12)
[2021-04-20] MEDS: PANTOPRAZOLE 40 MG TABLET PO SCH (08:46)
[2021-04-20] MEDS: METOPROLOL TARTRATE 50 MG TABLET PO SCH ×2 (08:46→20:12)
[2021-04-20] MEDS: CITALOPRAM 20 MG TABLET PO SCH (08:46)
[2021-04-20] MEDS: TAMSULOSIN 0.4 MG CAPSULE PO SCH (08:47)
[2021-04-20] MEDS: DOCUSATE SODIUM 100 MG/10 ML UDCUP PO SCH ×2 (08:47→20:13)
[2021-04-20] MEDS: POTASSIUM CHLORIDE 20 MEQ TABLET PO SCH (08:47)
[2021-04-20] MEDS: ROSUVASTATIN 20 MG TABLET PO SCH (08:47)
[2021-04-20] MEDS: guaiFENesin 200 MG/10 ML UDCUP PO SCH ×3 (08:50→20:13)
[2021-04-20] MEDS: fentaNYL 25 MCG/HR PATCH TRANSDERM SCH (09:06)
[2021-04-20] MEDS: methylPREDNISolone SOD SUC 40 MG/1 ML VIAL IV SCH ×2 (09:30→21:34)
[2021-04-20] MEDS ORDERED: LACTATED RINGERS 1,000 ML IV ONE ×3 (09:30→13:12)
[2021-04-20] MEDS: DIGOXIN 0.125 MG TABLET PO SCH (12:10)
[2021-04-20] MEDS: ENOXAPARIN 40 MG/0.4 ML SYRINGE SUBCUT SCH (17:21)
[2021-04-21 00:15] LABS: Bilirubin,Total 0.7 MG/DL (0.20-1.00); Calcium 8.9 MG/DL (8.5-10.1); Potassium 3.3 MMOL/L (3.5-5.1); Total Protein 5.3 G/DL (6.4-8.2)
[2021-04-21] MEDS: PHENYLEPHRINE DRIP 40 MG/250 ML PREMIX IV PRN ×4 (00:45→22:38)
[2021-04-21] MEDS ORDERED: LACTATED RINGERS 1,000 ML IV ONE (01:13)
[2021-04-21] MEDS: MEROPENEM 500 MG in SODIUM CHLORIDE 0.9% 100 ML IV SCH ×3 (02:56→15:33)
[2021-04-21] MEDS: LEVALBUTEROL 1.25 MG/3 ML NEB RESP TX SCH ×5 (03:25→19:20)
[2021-04-21 03:47] LABS: ABG Base Excess 5.7 MMOL/L (-2.5-2.5); ABG HCO3 29.4 MMOL/L (20-26); ABG Oxygen Saturation 96.9 % (95-100); ABG PCO2 39.6 MM HG (35-48); ABG PH 7.489 (7.35-7.45); ABG PO2 91.3 MM HG (80-95); ABG TCO2 30.6 MMOL/L (23-27)
[2021-04-21 04:19] LABS: Basophils % 0.1 % (0.0-0.8); Eosinophils % 0.1 % (0.00-10.9); Hematocrit 28.4 VOL% (42.0-52.0); Immature Granulocytes Absolute 0.39 #; Lymphocytes # 0.7 10*3/uL (1.4-4.0); Lymphocytes % 3.8 % (21.2-54.2); Mean Corpuscular HGB Conc 31.7 GM/DL (32-36); Mean Platelet Volume 10.5 FL (9.6-12.0); Monocytes % 1.7 % (1.7-12.7); NRBC # 0.02 10*3/uL; Neutrophils % 92.3 % (38.7-73.9); Red Cell Distribution Width 15.9 % (9.3-17.3)
[2021-04-21 04:21] LABS: Calcium 8.7 MG/DL (8.5-10.1); Osmolality,Calculated 301.3 MOS/KG (273-304); Potassium 3.4 MMOL/L (3.5-5.1)
[2021-04-21 04:29] LABS: Platelet Count 234 T/CUMM (130-400); Red Blood Count 3.12 MC/CUMM (3.8-5.5)
[2021-04-21] MEDS ORDERED: MAGNESIUM SULF RIDER 2 GM/50 ML PREMIX IV ONE (08:22)
[2021-04-21] MEDS: DOCUSATE SODIUM 100 MG/10 ML UDCUP PO SCH ×2 (09:38→20:55)
[2021-04-21] MEDS: guaiFENesin 200 MG/10 ML UDCUP PO SCH ×3 (09:38→20:55)
[2021-04-21] MEDS: methylPREDNISolone SOD SUC 40 MG/1 ML VIAL IV SCH ×2 (09:38→22:26)
[2021-04-21] MEDS: INSULIN LISPRO 100 UNIT/ML SUBCUT SCH ×4 (09:39→20:56)
[2021-04-21] MEDS: POTASSIUM CHLORIDE 20 MEQ TABLET PO SCH (09:39)
[2021-04-21] MEDS: INSULIN GLARGINE 100 UNIT/ML SUBCUT SCH (09:39)
[2021-04-21] MEDS: ASCORBIC ACID 500 MG TABLET PO SCH ×2 (09:39→20:55)
[2021-04-21] MEDS: ROSUVASTATIN 20 MG TABLET PO SCH (09:40)
[2021-04-21] MEDS: METOPROLOL TARTRATE 50 MG TABLET PO SCH ×2 (09:40→22:23)
[2021-04-21] MEDS: CITALOPRAM 20 MG TABLET PO SCH (09:40)
[2021-04-21] MEDS: OLANZapine 5 MG TABLET PO SCH ×2 (09:40→20:55)
[2021-04-21] MEDS: TAMSULOSIN 0.4 MG CAPSULE PO SCH (09:40)
[2021-04-21] MEDS: ZINC GLUCONATE 50 MG TABLET PO SCH (09:40)
[2021-04-21] MEDS: CHOLECALCIFEROL 1,000 UNIT TABLET PO SCH (09:40)
[2021-04-21] MEDS: PANTOPRAZOLE 40 MG TABLET PO SCH (09:41)
[2021-04-21] MEDS: MENTHOL/ZINC OXIDE OINT 71 GM JAR TOP SCH ×2 (10:56→20:56)
[2021-04-21] MEDS: DIGOXIN 0.125 MG TABLET PO SCH (14:45)
[2021-04-21] MEDS: ENOXAPARIN 40 MG/0.4 ML SYRINGE SUBCUT SCH (18:11)
[2021-04-22] MEDS: LEVALBUTEROL 1.25 MG/3 ML NEB RESP TX SCH ×6 (00:20→19:15)
[2021-04-22 04:01] LABS: ABG HCO3 29.8 MMOL/L (20-26); ABG Oxygen Saturation 97.8 % (95-100); ABG PCO2 45.2 MM HG (35-48); ABG PH 7.437 (7.35-7.45); ABG PO2 111.1 MM HG (80-95); ABG TCO2 31.2 MMOL/L (23-27)
[2021-04-22 04:04] LABS: Basophils % 0.2 % (0.0-0.8); Eosinophils % 0.1 % (0.00-10.9); Hematocrit 25.7 VOL% (42.0-52.0); Hemoglobin 8.2 GM/DL (14.0-18.0); Immature Granulocytes Absolute 0.28 #; Lymphocytes # 0.4 10*3/uL (1.4-4.0); Mean Corpuscular HGB Conc 31.9 GM/DL (32-36); Mean Corpuscular Volume 91.5 FL (87-102); Monocytes % 1.8 % (1.7-12.7); NRBC # 0.02 10*3/uL; Neutrophils % 92.9 % (38.7-73.9); Platelet Count 169 T/CUMM (130-400); Red Blood Count 2.81 MC/CUMM (3.8-5.5); White Blood Count 14.2 T/CUMM (4-12)
[2021-04-22 04:26] LABS: Band Neutrophils 1 % (0-10); Hypochromia 1+; Lymphocytes 1 % (20-55); Microcytosis 1+; Platelet Estimate Adequate; Segmented Neutrophils 95 % (50-85); Total Cells Counted 100
[2021-04-22 04:29] LABS: Calcium 8.1 MG/DL (8.5-10.1); Osmolality,Calculated 288.5 MOS/KG (273-304); Potassium 4.4 MMOL/L (3.5-5.1)
[2021-04-22] MEDS: guaiFENesin 200 MG/10 ML UDCUP PO SCH ×3 (08:33→20:05)
[2021-04-22] MEDS: INSULIN LISPRO 100 UNIT/ML SUBCUT SCH ×4 (08:33→21:17)
[2021-04-22] MEDS: DOCUSATE SODIUM 100 MG/10 ML UDCUP PO SCH ×2 (08:33→20:05)
[2021-04-22] MEDS: methylPREDNISolone SOD SUC 40 MG/1 ML VIAL IV SCH ×3 (08:34→23:19)
[2021-04-22] MEDS: INSULIN GLARGINE 100 UNIT/ML SUBCUT SCH (08:34)
[2021-04-22] MEDS: CITALOPRAM 20 MG TABLET PO SCH (08:35)
[2021-04-22] MEDS: OLANZapine 5 MG TABLET PO SCH ×2 (08:35→20:06)
[2021-04-22] MEDS: ZINC GLUCONATE 50 MG TABLET PO SCH (08:35)
[2021-04-22] MEDS: CHOLECALCIFEROL 1,000 UNIT TABLET PO SCH (08:35)
[2021-04-22] MEDS: POTASSIUM CHLORIDE 20 MEQ TABLET PO SCH (08:35)
[2021-04-22] MEDS: ROSUVASTATIN 20 MG TABLET PO SCH (08:35)
[2021-04-22] MEDS: ASCORBIC ACID 500 MG TABLET PO SCH ×2 (08:35→20:05)
[2021-04-22] MEDS: METOPROLOL TARTRATE 50 MG TABLET PO SCH ×2 (08:35→20:06)
[2021-04-22] MEDS: MENTHOL/ZINC OXIDE OINT 71 GM JAR TOP SCH ×2 (08:36→21:17)
[2021-04-22] MEDS: PANTOPRAZOLE 40 MG TABLET PO SCH (08:36)
[2021-04-22] MEDS: TAMSULOSIN 0.4 MG CAPSULE PO SCH (08:36)
[2021-04-22] MEDS ORDERED: FUROSEMIDE 40 MG/4 ML VIAL IV ONE (08:46)
[2021-04-22] MEDS: DIGOXIN 0.125 MG TABLET PO SCH (12:45)
[2021-04-22] MEDS: ENOXAPARIN 40 MG/0.4 ML SYRINGE SUBCUT SCH (16:33)
[2021-04-23] MEDS: LEVALBUTEROL 1.25 MG/3 ML NEB RESP TX SCH ×7 (00:05→22:55)
[2021-04-23] MEDS: ACETAMINOPHEN 325 MG TABLET PO PRN (01:49)
[2021-04-23 02:57] LABS: ABG Base Excess 8.2 MMOL/L (-2.5-2.5); ABG HCO3 31.9 MMOL/L (20-26); ABG Oxygen Saturation 92.6 % (95-100); ABG PCO2 54.7 MM HG (35-48); ABG PH 7.408 (7.35-7.45); ABG PO2 67.4 MM HG (80-95); ABG TCO2 31.3 MMOL/L (23-27)
[2021-04-23 04:52] LABS: ABG Base Excess 8.3 MMOL/L (-2.5-2.5); ABG HCO3 31.9 MMOL/L (20-26); ABG Oxygen Saturation 93.6 % (95-100); ABG PCO2 52.6 MM HG (35-48); ABG PH 7.421 (7.35-7.45); ABG PO2 68.4 MM HG (80-95)
[2021-04-23] MEDS: guaiFENesin 200 MG/10 ML UDCUP PO SCH ×3 (09:07→20:44)
[2021-04-23] MEDS: DOCUSATE SODIUM 100 MG/10 ML UDCUP PO SCH ×2 (09:07→20:44)
[2021-04-23] MEDS: INSULIN LISPRO 100 UNIT/ML SUBCUT SCH ×4 (09:08→21:17)
[2021-04-23] MEDS: MENTHOL/ZINC OXIDE OINT 71 GM JAR TOP SCH ×2 (09:08→20:54)
[2021-04-23] MEDS: INSULIN GLARGINE 100 UNIT/ML SUBCUT SCH (09:08)
[2021-04-23] MEDS: METOPROLOL TARTRATE 50 MG TABLET PO SCH ×2 (09:09→23:36)
[2021-04-23] MEDS: OLANZapine 5 MG TABLET PO SCH ×2 (09:09→20:44)
[2021-04-23] MEDS: POTASSIUM CHLORIDE 20 MEQ TABLET PO SCH (09:10)
[2021-04-23] MEDS: CITALOPRAM 20 MG TABLET PO SCH (09:10)
[2021-04-23] MEDS: ROSUVASTATIN 20 MG TABLET PO SCH (09:10)
[2021-04-23] MEDS: CHOLECALCIFEROL 1,000 UNIT TABLET PO SCH (09:10)
[2021-04-23] MEDS: ZINC GLUCONATE 50 MG TABLET PO SCH (09:11)
[2021-04-23] MEDS: ASCORBIC ACID 500 MG TABLET PO SCH ×2 (09:11→20:44)
[2021-04-23] MEDS: PANTOPRAZOLE 40 MG VIAL IV SCH (09:11)
[2021-04-23] MEDS: TAMSULOSIN 0.4 MG CAPSULE PO SCH (09:11)
[2021-04-23] MEDS: fentaNYL 25 MCG/HR PATCH TRANSDERM SCH (09:52)
[2021-04-23] MEDS: methylPREDNISolone SOD SUC 40 MG/1 ML VIAL IV SCH ×2 (10:00→22:22)
[2021-04-23] MEDS: DIGOXIN 0.125 MG TABLET PO SCH (13:30)
[2021-04-23] MEDS: MEROPENEM 500 MG in SODIUM CHLORIDE 0.9% 100 ML IV SCH ×3 (13:31→23:41)
[2021-04-23] MEDS: MAGNESIUM HYDROXIDE SUSP 30 ML UDCUP PO PRN (16:20)
[2021-04-23] MEDS: ENOXAPARIN 40 MG/0.4 ML SYRINGE SUBCUT SCH (16:34)
[2021-04-23] MEDS: PHENYLEPHRINE DRIP 40 MG/250 ML PREMIX IV PRN (21:59)
[2021-04-24] MEDS: MORPHINE 2 MG/1 ML SYRINGE IV PRN (02:11)
[2021-04-24] MEDS ORDERED: fentaNYL 100 MCG/2 ML VIAL IV ONE (02:30)
[2021-04-24] MEDS ORDERED: METOPROLOL TARTRATE 5 MG/5 ML VIAL IV ONE (03:12)
[2021-04-24 03:51] LABS: ABG Base Excess 12.1 MMOL/L (-2.5-2.5); ABG Oxygen Saturation 94.3 % (95-100); ABG PCO2 65.4 MM HG (35-48); ABG PH 7.393 (7.35-7.45); ABG PO2 72.9 MM HG (80-95); Allen Test Positive; Pt O2 Delivery Device Ventilator
[2021-04-24] MEDS: LEVALBUTEROL 1.25 MG/3 ML NEB RESP TX SCH ×5 (04:17→18:29)
[2021-04-24 04:25] LABS: Calcium 8.6 MG/DL (8.5-10.1); Osmolality,Calculated 289.5 MOS/KG (273-304); Potassium 5.1 MMOL/L (3.5-5.1)
[2021-04-24] MEDS: MAGNESIUM HYDROXIDE SUSP 30 ML UDCUP PO PRN ×2 (05:08→17:34)
[2021-04-24] MEDS: MEROPENEM 500 MG in SODIUM CHLORIDE 0.9% 100 ML IV SCH ×4 (05:10→23:14)
[2021-04-24 05:35] LABS: Basophils % 0.2 % (0.0-0.8); Eosinophils % 0.1 % (0.00-10.9); Hematocrit 28.5 VOL% (42.0-52.0); Hemoglobin 8.8 GM/DL (14.0-18.0); Immature Granulocytes % 6.4 %; Immature Granulocytes Absolute 1.07 #; Lymphocytes # 0.6 10*3/uL (1.4-4.0); Lymphocytes % 3.4 % (21.2-54.2); Mean Corpuscular HGB Conc 30.9 GM/DL (32-36); Mean Corpuscular Volume 93.4 FL (87-102); Mean Platelet Volume 11.1 FL (9.6-12.0); Monocytes % 2.4 % (1.7-12.7); Neutrophils % 87.5 % (38.7-73.9); Platelet Count 144 T/CUMM (130-400); Red Blood Count 3.05 MC/CUMM (3.8-5.5); Red Cell Distribution Width 16.1 % (9.3-17.3); White Blood Count 16.7 T/CUMM (4-12)
[2021-04-24 05:55] LABS: Band Neutrophils 4 % (0-10); Hypochromia 1+; Lymphocytes 2 % (20-55); Microcytosis 1+; Platelet Estimate Adequate; Segmented Neutrophils 93 % (50-85); Total Cells Counted 100
[2021-04-24] MEDS: INSULIN GLARGINE 100 UNIT/ML SUBCUT SCH ×2 (08:06→09:25)
[2021-04-24] MEDS: PHENYLEPHRINE DRIP 40 MG/250 ML PREMIX IV PRN (08:06)
[2021-04-24] MEDS: INSULIN LISPRO 100 UNIT/ML SUBCUT SCH ×4 (08:06→20:49)
[2021-04-24] MEDS: OLANZapine 5 MG TABLET PO SCH (09:23)
[2021-04-24] MEDS: CITALOPRAM 20 MG TABLET PO SCH (09:23)
[2021-04-24] MEDS: ASCORBIC ACID 500 MG TABLET PO SCH ×2 (09:23→20:05)
[2021-04-24] MEDS: TAMSULOSIN 0.4 MG CAPSULE PO SCH (09:23)
[2021-04-24] MEDS: CHOLECALCIFEROL 1,000 UNIT TABLET PO SCH (09:23)
[2021-04-24] MEDS: POTASSIUM CHLORIDE 20 MEQ TABLET PO SCH (09:23)
[2021-04-24] MEDS: DOCUSATE SODIUM 100 MG/10 ML UDCUP PO SCH ×2 (09:24→20:05)
[2021-04-24] MEDS: MENTHOL/ZINC OXIDE OINT 71 GM JAR TOP SCH ×2 (09:24→20:06)
[2021-04-24] MEDS: METOPROLOL TARTRATE 50 MG TABLET PO SCH ×2 (09:24→20:05)
[2021-04-24] MEDS: ZINC GLUCONATE 50 MG TABLET PO SCH (09:24)
[2021-04-24] MEDS: ROSUVASTATIN 20 MG TABLET PO SCH (09:24)
[2021-04-24] MEDS: guaiFENesin 200 MG/10 ML UDCUP PO SCH ×3 (09:24→20:05)
[2021-04-24] MEDS: PANTOPRAZOLE 40 MG VIAL IV SCH (09:25)
[2021-04-24] MEDS ORDERED: QUEtiapine 100 MG TABLET PO SCH (10:21)
[2021-04-24] MEDS: methylPREDNISolone SOD SUC 40 MG/1 ML VIAL IV SCH ×2 (10:40→21:57)
[2021-04-24] MEDS: DIGOXIN 0.125 MG TABLET PO SCH (13:53)
[2021-04-24] MEDS: ENOXAPARIN 40 MG/0.4 ML SYRINGE SUBCUT SCH (16:30)
[2021-04-24] MEDS: QUEtiapine 100 MG TABLET PER TUBE SCH (20:05)
[2021-04-25] MEDS: LEVALBUTEROL 1.25 MG/3 ML NEB RESP TX SCH ×7 (00:01→23:35)
[2021-04-25 04:13] LABS: Basophils % 0.1 % (0.0-0.8); Eosinophils % 0.1 % (0.00-10.9); Hematocrit 26.5 VOL% (42.0-52.0); Hemoglobin 7.9 GM/DL (14.0-18.0); Immature Granulocytes % 8.3 %; Immature Granulocytes Absolute 1.11 #; Lymphocytes # 0.7 10*3/uL (1.4-4.0); Lymphocytes % 5.1 % (21.2-54.2); Mean Corpuscular HGB Conc 29.8 GM/DL (32-36); Mean Corpuscular Volume 95.3 FL (87-102); Mean Platelet Volume 10.7 FL (9.6-12.0); Monocytes % 2.7 % (1.7-12.7); NRBC # 0.02 10*3/uL; Neutrophils % 83.7 % (38.7-73.9); Platelet Count 136 T/CUMM (130-400); Red Blood Count 2.78 MC/CUMM (3.8-5.5); Red Cell Distribution Width 15.7 % (9.3-17.3); White Blood Count 13.4 T/CUMM (4-12)
[2021-04-25 04:31] LABS: Band Neutrophils 1 % (0-10); Lymphocytes 3 % (20-55); Segmented Neutrophils 91 % (50-85); Total Cells Counted 100
[2021-04-25 04:32] LABS: Hypochromia 1+; Microcytosis 1+; Platelet Estimate Normal
[2021-04-25 04:39] LABS: Calcium 8.2 MG/DL (8.5-10.1); Osmolality,Calculated 287.4 MOS/KG (273-304); Potassium 5.1 MMOL/L (3.5-5.1)
[2021-04-25] MEDS: MEROPENEM 500 MG in SODIUM CHLORIDE 0.9% 100 ML IV SCH ×3 (05:01→17:40)
[2021-04-25 05:11] LABS: ABG Base Excess 16.2 MMOL/L (-2.5-2.5); ABG HCO3 43.9 MMOL/L (20-26); ABG Oxygen Saturation 90.8 % (95-100); ABG PH 7.363 (7.35-7.45); ABG PO2 59.4 MM HG (80-95); ABG TCO2 46.4 MMOL/L (23-27)
[2021-04-25 05:38] LABS: ABG Base Excess 16.1 MMOL/L (-2.5-2.5); ABG Oxygen Saturation 91.7 % (95-100); ABG PH 7.359 (7.35-7.45); ABG PO2 61.8 MM HG (80-95); ABG TCO2 41.8 MMOL/L (23-27)
[2021-04-25 05:41] LABS: ABG PCO2 79.3 MM HG (35-48)
[2021-04-25] MEDS: MAGNESIUM HYDROXIDE SUSP 30 ML UDCUP PO PRN ×2 (05:55→17:10)
[2021-04-25] MEDS: INSULIN LISPRO 100 UNIT/ML SUBCUT SCH ×4 (08:53→20:26)
[2021-04-25] MEDS: INSULIN GLARGINE 100 UNIT/ML SUBCUT SCH (08:53)
[2021-04-25] MEDS: MENTHOL/ZINC OXIDE OINT 71 GM JAR TOP SCH ×2 (08:53→20:17)
[2021-04-25] MEDS: CITALOPRAM 20 MG TABLET PO SCH (08:54)
[2021-04-25] MEDS: DOCUSATE SODIUM 100 MG/10 ML UDCUP PO SCH ×2 (08:54→20:15)
[2021-04-25] MEDS: TAMSULOSIN 0.4 MG CAPSULE PO SCH (08:54)
[2021-04-25] MEDS: CHOLECALCIFEROL 1,000 UNIT TABLET PO SCH (08:54)
[2021-04-25] MEDS: QUEtiapine 100 MG TABLET PER TUBE SCH ×2 (08:54→20:16)
[2021-04-25] MEDS: guaiFENesin 200 MG/10 ML UDCUP PO SCH ×3 (08:54→20:15)
[2021-04-25] MEDS: ASCORBIC ACID 500 MG TABLET PO SCH ×2 (08:54→20:16)
[2021-04-25] MEDS: ROSUVASTATIN 20 MG TABLET PO SCH (08:54)
[2021-04-25] MEDS: METOPROLOL TARTRATE 50 MG TABLET PO SCH ×2 (08:55→20:16)
[2021-04-25] MEDS: ZINC GLUCONATE 50 MG TABLET PO SCH (08:55)
[2021-04-25] MEDS: POTASSIUM CHLORIDE 20 MEQ TABLET PO SCH (08:55)
[2021-04-25] MEDS: PANTOPRAZOLE 40 MG VIAL IV SCH (08:55)
[2021-04-25] MEDS: methylPREDNISolone SOD SUC 40 MG/1 ML VIAL IV SCH ×2 (10:40→21:25)
[2021-04-25] MEDS: MICAFUNGIN 100 MG in SODIUM CHLORIDE 0.9% 100 ML IV SCH (10:42)
[2021-04-25] MEDS: DIGOXIN 0.125 MG TABLET PO SCH (14:14)
[2021-04-25] MEDS: ENOXAPARIN 40 MG/0.4 ML SYRINGE SUBCUT SCH (17:09)
[2021-04-26] MEDS: MEROPENEM 500 MG in SODIUM CHLORIDE 0.9% 100 ML IV SCH ×5 (00:28→23:19)
[2021-04-26] MEDS: LEVALBUTEROL 1.25 MG/3 ML NEB RESP TX SCH ×6 (03:36→23:03)
[2021-04-26 03:38] LABS: ABG Base Excess 23.3 MMOL/L (-2.5-2.5); ABG Oxygen Saturation 98.2 % (95-100); ABG PCO2 63.6 MM HG (35-48); ABG PH 7.505 (7.35-7.45); ABG PO2 112.5 MM HG (80-95)
[2021-04-26 04:24] LABS: Basophils % 0.2 % (0.0-0.8); Eosinophils % 0.1 % (0.00-10.9); Hematocrit 24.9 VOL% (42.0-52.0); Hemoglobin 7.5 GM/DL (14.0-18.0); Immature Granulocytes % 8.3 %; Lymphocytes # 1.2 10*3/uL (1.4-4.0); Lymphocytes % 9.2 % (21.2-54.2); Mean Corpuscular HGB Conc 30.1 GM/DL (32-36); Mean Corpuscular Volume 94.7 FL (87-102); Monocytes % 3.2 % (1.7-12.7); NRBC # 0.03 10*3/uL; Platelet Count 150 T/CUMM (130-400); Red Blood Count 2.63 MC/CUMM (3.8-5.5); Red Cell Distribution Width 15.4 % (9.3-17.3); White Blood Count 13.3 T/CUMM (4-12)
[2021-04-26 04:53] LABS: Band Neutrophils 9 % (0-10); Lymphocytes 4 % (20-55); Platelet Estimate Adequate; Segmented Neutrophils 85 % (50-85); Total Cells Counted 100
[2021-04-26 04:54] LABS: Anisocytosis Slight; Elliptocytes Few; Hypochromia 2+
[2021-04-26 05:04] LABS: Blood Urea Nitrogen 22 MG/DL (7-18); Calcium 8.4 MG/DL (8.5-10.1); Estimated Glom Filtration Rate 203 ML/MIN; Glucose 92 MG/DL (74-106); Potassium 4.8 MMOL/L (3.5-5.1)
[2021-04-26 05:38] LABS: Carbon Dioxide 44 MMOL/L (21-32); Osmolality,Calculated 279.5 MOS/KG (273-304); Sodium 139 MMOL/L (136-145)
[2021-04-26] MEDS ORDERED: POTASSIUM PHOSPHATE 30 MMOL in SODIUM CHLORIDE 0.9% 250 ML IV ONE (08:00)
[2021-04-26] MEDS: INSULIN LISPRO 100 UNIT/ML SUBCUT SCH ×4 (08:18→20:49)
[2021-04-26] MEDS: MICAFUNGIN 100 MG in SODIUM CHLORIDE 0.9% 100 ML IV SCH (08:43)
[2021-04-26] MEDS: fentaNYL 25 MCG/HR PATCH TRANSDERM SCH (08:45)
[2021-04-26] MEDS: PANTOPRAZOLE 40 MG VIAL IV SCH (08:46)
[2021-04-26] MEDS: INSULIN GLARGINE 100 UNIT/ML SUBCUT SCH (08:47)
[2021-04-26] MEDS: DOCUSATE SODIUM 100 MG/10 ML UDCUP PO SCH ×2 (08:47→20:49)
[2021-04-26] MEDS: guaiFENesin 200 MG/10 ML UDCUP PO SCH ×3 (08:47→20:49)
[2021-04-26] MEDS: CHOLECALCIFEROL 1,000 UNIT TABLET PO SCH (08:48)
[2021-04-26] MEDS: ASCORBIC ACID 500 MG TABLET PO SCH ×2 (08:48→20:50)
[2021-04-26] MEDS: POTASSIUM CHLORIDE 20 MEQ TABLET PO SCH (08:48)
[2021-04-26] MEDS: ZINC GLUCONATE 50 MG TABLET PO SCH (08:48)
[2021-04-26] MEDS: ROSUVASTATIN 20 MG TABLET PO SCH (08:48)
[2021-04-26] MEDS: METOPROLOL TARTRATE 50 MG TABLET PO SCH (08:49)
[2021-04-26] MEDS: TAMSULOSIN 0.4 MG CAPSULE PO SCH (08:50)
[2021-04-26] MEDS: CITALOPRAM 20 MG TABLET PO SCH (08:50)
[2021-04-26] MEDS: QUEtiapine 100 MG TABLET PER TUBE SCH ×2 (08:50→20:51)
[2021-04-26] MEDS: MENTHOL/ZINC OXIDE OINT 71 GM JAR TOP SCH ×2 (09:23→20:51)
[2021-04-26] MEDS: methylPREDNISolone SOD SUC 40 MG/1 ML VIAL IV SCH ×2 (09:32→21:33)
[2021-04-26] MEDS: DIGOXIN 0.125 MG TABLET PO SCH (14:27)
[2021-04-26] MEDS: ENOXAPARIN 40 MG/0.4 ML SYRINGE SUBCUT SCH (18:30)
[2021-04-26] MEDS: METOPROLOL TARTRATE 25 MG TABLET PO SCH (20:51)
[2021-04-26] MEDS ORDERED: PHENYLEPHRINE INJ 160 MG in SODIUM CHLORIDE 0.9% 234 ML IV PRN (23:49)
[2021-04-27] MEDS: LEVALBUTEROL 1.25 MG/3 ML NEB RESP TX SCH ×6 (02:58→22:52)
[2021-04-27 04:04] LABS: ABG Base Excess 16.5 MMOL/L (-2.5-2.5); ABG HCO3 43.6 MMOL/L (20-26); ABG Oxygen Saturation 98.5 % (95-100); ABG PH 7.405 (7.35-7.45); ABG PO2 123.1 MM HG (80-95); ABG TCO2 45.7 MMOL/L (23-27)
[2021-04-27 04:52] LABS: Basophils # 0.1 10*3/uL (0.0-0.2); Basophils % 0.5 % (0.0-0.8); Eosinophils % 0.1 % (0.00-10.9); Hematocrit 27.7 VOL% (42.0-52.0); Hemoglobin 8.2 GM/DL (14.0-18.0); Immature Granulocytes % 9.5 %; Immature Granulocytes Absolute 1.62 #; Lymphocytes % 6.1 % (21.2-54.2); Mean Corpuscular HGB Conc 29.6 GM/DL (32-36); Mean Corpuscular Volume 95.5 FL (87-102); Mean Platelet Volume 10.5 FL (9.6-12.0); Monocytes % 2.8 % (1.7-12.7); NRBC # 0.09 10*3/uL; Platelet Count 172 T/CUMM (130-400); Red Cell Distribution Width 15.5 % (9.3-17.3)
[2021-04-27 05:09] LABS: Blood Urea Nitrogen 24 MG/DL (7-18); Calcium 8.4 MG/DL (8.5-10.1); Carbon Dioxide 43 MMOL/L (21-32); Estimated Glom Filtration Rate 206 ML/MIN; Glucose 88 MG/DL (74-106); Osmolality,Calculated 281.4 MOS/KG (273-304); Sodium 140 MMOL/L (136-145)
[2021-04-27 05:39] LABS: Band Neutrophils 12 % (0-10); Lymphocytes 8 % (20-55); Platelet Estimate Normal; Segmented Neutrophils 77 % (50-85); Smudge Cells Few; Total Cells Counted 100
[2021-04-27 05:40] LABS: Anisocytosis 1+; Basophilic Stippling Slight
[2021-04-27] MEDS: MEROPENEM 500 MG in SODIUM CHLORIDE 0.9% 100 ML IV SCH ×3 (06:13→18:51)
[2021-04-27] MEDS: INSULIN LISPRO 100 UNIT/ML SUBCUT SCH ×4 (08:44→20:58)
[2021-04-27] MEDS: guaiFENesin 200 MG/10 ML UDCUP PO SCH ×3 (09:04→20:56)
[2021-04-27] MEDS: DOCUSATE SODIUM 100 MG/10 ML UDCUP PO SCH ×2 (09:04→20:57)
[2021-04-27] MEDS: CHOLECALCIFEROL 1,000 UNIT TABLET PO SCH (09:04)
[2021-04-27] MEDS: POTASSIUM CHLORIDE 20 MEQ TABLET PO SCH (09:05)
[2021-04-27] MEDS: ROSUVASTATIN 20 MG TABLET PO SCH (09:05)
[2021-04-27] MEDS: ZINC GLUCONATE 50 MG TABLET PO SCH (09:05)
[2021-04-27] MEDS: QUEtiapine 100 MG TABLET PER TUBE SCH ×2 (09:05→20:55)
[2021-04-27] MEDS: ASCORBIC ACID 500 MG TABLET PO SCH ×2 (09:05→20:56)
[2021-04-27] MEDS: METOPROLOL TARTRATE 25 MG TABLET PO SCH ×2 (09:06→20:57)
[2021-04-27] MEDS: CITALOPRAM 20 MG TABLET PO SCH (09:06)
[2021-04-27] MEDS: TAMSULOSIN 0.4 MG CAPSULE PO SCH (09:06)
[2021-04-27] MEDS: PANTOPRAZOLE 40 MG VIAL IV SCH (09:07)
[2021-04-27] MEDS: INSULIN GLARGINE 100 UNIT/ML SUBCUT SCH (09:07)
[2021-04-27] MEDS: MENTHOL/ZINC OXIDE OINT 71 GM JAR TOP SCH (09:10)
[2021-04-27] MEDS: MICAFUNGIN 100 MG in SODIUM CHLORIDE 0.9% 100 ML IV SCH (10:37)
[2021-04-27] MEDS: methylPREDNISolone SOD SUC 40 MG/1 ML VIAL IV SCH ×2 (10:45→21:36)
[2021-04-27] MEDS: DIGOXIN 0.125 MG TABLET PO SCH (16:00)
[2021-04-27] MEDS: ENOXAPARIN 40 MG/0.4 ML SYRINGE SUBCUT SCH (18:51)
[2021-04-28] MEDS: MEROPENEM 500 MG in SODIUM CHLORIDE 0.9% 100 ML IV SCH ×4 (00:07→18:27)
[2021-04-28] MEDS: MENTHOL/ZINC OXIDE OINT 71 GM JAR TOP SCH ×2 (01:37→09:25)
[2021-04-28] MEDS: LEVALBUTEROL 1.25 MG/3 ML NEB RESP TX SCH ×6 (03:25→22:45)
[2021-04-28 03:54] LABS: ABG Base Excess 13.9 MMOL/L (-2.5-2.5); ABG HCO3 37.7 MMOL/L (20-26); ABG Oxygen Saturation 96.3 % (95-100); ABG PH 7.294 (7.35-7.45); ABG PO2 87.4 MM HG (80-95)
[2021-04-28 03:56] LABS: ABG PCO2 89.8 MM HG (35-48)
[2021-04-28 04:18] LABS: Basophils % 0.1 % (0.0-0.8); Hemoglobin 7.6 GM/DL (14.0-18.0); Immature Granulocytes % 5.4 %; Lymphocytes # 0.4 10*3/uL (1.4-4.0); Lymphocytes % 2.9 % (21.2-54.2); Mean Corpuscular HGB Conc 29.2 GM/DL (32-36); Mean Corpuscular Volume 97.7 FL (87-102); Mean Platelet Volume 10.7 FL (9.6-12.0); Monocytes % 1.8 % (1.7-12.7); NRBC # 0.04 10*3/uL; Neutrophils % 89.8 % (38.7-73.9); Platelet Count 144 T/CUMM (130-400); Red Blood Count 2.66 MC/CUMM (3.8-5.5); Red Cell Distribution Width 15.7 % (9.3-17.3); White Blood Count 14.8 T/CUMM (4-12)
[2021-04-28 04:35] LABS: Calcium 8.4 MG/DL (8.5-10.1); Osmolality,Calculated 295.7 MOS/KG (273-304); Potassium 4.4 MMOL/L (3.5-5.1)
[2021-04-28 04:38] LABS: Band Neutrophils 1 % (0-10); Hypochromia 2+; Lymphocytes 2 % (20-55); Microcytosis 1+; Nucleated Red Blood Cells 2 (0-5); Platelet Estimate Normal; Segmented Neutrophils 96 % (50-85); Total Cells Counted 100
[2021-04-28 05:43] LABS: ABG PCO2 71.1 MM HG (35-48)
[2021-04-28] MEDS: PANTOPRAZOLE 40 MG VIAL IV SCH (09:18)
[2021-04-28] MEDS: INSULIN LISPRO 100 UNIT/ML SUBCUT SCH ×4 (09:20→20:53)
[2021-04-28] MEDS: INSULIN GLARGINE 100 UNIT/ML SUBCUT SCH (09:20)
[2021-04-28] MEDS: MICAFUNGIN 100 MG in SODIUM CHLORIDE 0.9% 100 ML IV SCH (09:22)
[2021-04-28] MEDS: ASCORBIC ACID 500 MG TABLET PO SCH ×2 (09:23→20:52)
[2021-04-28] MEDS: CITALOPRAM 20 MG TABLET PO SCH (09:23)
[2021-04-28] MEDS: METOPROLOL TARTRATE 25 MG TABLET PO SCH ×2 (09:23→20:52)
[2021-04-28] MEDS: ZINC GLUCONATE 50 MG TABLET PO SCH (09:24)
[2021-04-28] MEDS: guaiFENesin 200 MG/10 ML UDCUP PO SCH ×3 (09:24→20:51)
[2021-04-28] MEDS: POTASSIUM CHLORIDE 20 MEQ TABLET PO SCH (09:24)
[2021-04-28] MEDS: CHOLECALCIFEROL 1,000 UNIT TABLET PO SCH (09:24)
[2021-04-28] MEDS: DOCUSATE SODIUM 100 MG/10 ML UDCUP PO SCH ×2 (09:24→20:51)
[2021-04-28] MEDS: TAMSULOSIN 0.4 MG CAPSULE PO SCH (09:24)
[2021-04-28] MEDS: QUEtiapine 100 MG TABLET PER TUBE SCH ×2 (09:24→20:52)
[2021-04-28] MEDS: ROSUVASTATIN 20 MG TABLET PO SCH (09:24)
[2021-04-28] MEDS: methylPREDNISolone SOD SUC 40 MG/1 ML VIAL IV SCH ×2 (10:48→21:38)
[2021-04-28] MEDS: DIGOXIN 0.125 MG TABLET PO SCH (13:01)
[2021-04-28] MEDS: ENOXAPARIN 40 MG/0.4 ML SYRINGE SUBCUT SCH (18:26)
[2021-04-29] MEDS: MEROPENEM 500 MG in SODIUM CHLORIDE 0.9% 100 ML IV SCH ×4 (00:48→18:19)
[2021-04-29] MEDS: LEVALBUTEROL 1.25 MG/3 ML NEB RESP TX SCH ×6 (03:10→22:45)
[2021-04-29 03:39] LABS: ABG Base Excess 14.3 MMOL/L (-2.5-2.5); ABG HCO3 43.3 MMOL/L (20-26); ABG PH 7.273 (7.35-7.45); ABG PO2 88.4 MM HG (80-95); ABG TCO2 46.3 MMOL/L (23-27)
[2021-04-29 03:40] LABS: ABG PCO2 95.9 MM HG (35-48)
[2021-04-29] MEDS: MENTHOL/ZINC OXIDE OINT 71 GM JAR TOP SCH ×3 (03:57→20:33)
[2021-04-29 04:39] LABS: Basophils % 0.2 % (0.0-0.8); Eosinophils % 0.1 % (0.00-10.9); Hematocrit 24.8 VOL% (42.0-52.0); Hemoglobin 7.2 GM/DL (14.0-18.0); Immature Granulocytes % 7.2 %; Lymphocytes # 0.4 10*3/uL (1.4-4.0); Mean Corpuscular Volume 98.8 FL (87-102); Mean Platelet Volume 10.6 FL (9.6-12.0); Monocytes % 2.6 % (1.7-12.7); NRBC # 0.07 10*3/uL; Neutrophils % 86.9 % (38.7-73.9); Platelet Count 143 T/CUMM (130-400); Red Blood Count 2.51 MC/CUMM (3.8-5.5); Red Cell Distribution Width 15.4 % (9.3-17.3); White Blood Count 12.5 T/CUMM (4-12)
[2021-04-29 04:58] LABS: Band Neutrophils 1 % (0-10); Lymphocytes 4 % (20-55); Nucleated Red Blood Cells 2 (0-5); Segmented Neutrophils 90 % (50-85); Total Cells Counted 100
[2021-04-29 04:59] LABS: Hypochromia 1+; Microcytosis 1+; Platelet Estimate Adequate
[2021-04-29 05:36] LABS: Calcium 8.8 MG/DL (8.5-10.1); Osmolality,Calculated 291.4 MOS/KG (273-304); Potassium 4.3 MMOL/L (3.5-5.1)
[2021-04-29] MEDS: ASCORBIC ACID 500 MG TABLET PO SCH ×2 (08:26→20:34)
[2021-04-29] MEDS: ZINC GLUCONATE 50 MG TABLET PO SCH (08:26)
[2021-04-29] MEDS: CITALOPRAM 20 MG TABLET PO SCH (08:26)
[2021-04-29] MEDS: POTASSIUM CHLORIDE 20 MEQ TABLET PO SCH (08:26)
[2021-04-29] MEDS: QUEtiapine 100 MG TABLET PER TUBE SCH ×2 (08:27→20:34)
[2021-04-29] MEDS: METOPROLOL TARTRATE 25 MG TABLET PO SCH ×2 (08:27→20:34)
[2021-04-29] MEDS: ROSUVASTATIN 20 MG TABLET PO SCH (08:27)
[2021-04-29] MEDS: CHOLECALCIFEROL 1,000 UNIT TABLET PO SCH (08:27)
[2021-04-29] MEDS: TAMSULOSIN 0.4 MG CAPSULE PO SCH (08:28)
[2021-04-29] MEDS: guaiFENesin 200 MG/10 ML UDCUP PO SCH ×3 (08:28→20:34)
[2021-04-29] MEDS: DOCUSATE SODIUM 100 MG/10 ML UDCUP PO SCH ×2 (08:28→20:33)
[2021-04-29] MEDS: fentaNYL 25 MCG/HR PATCH TRANSDERM SCH (08:29)
[2021-04-29] MEDS: PANTOPRAZOLE 40 MG VIAL IV SCH (08:29)
[2021-04-29] MEDS: INSULIN GLARGINE 100 UNIT/ML SUBCUT SCH (08:30)
[2021-04-29] MEDS: INSULIN LISPRO 100 UNIT/ML SUBCUT SCH ×4 (08:30→20:33)
[2021-04-29] MEDS: methylPREDNISolone SOD SUC 40 MG/1 ML VIAL IV SCH ×3 (08:34→21:01)
[2021-04-29] MEDS: MICAFUNGIN 100 MG in SODIUM CHLORIDE 0.9% 100 ML IV SCH (09:57)
[2021-04-29 11:08] LABS: ABG Base Excess 17.1 MMOL/L (-2.5-2.5); ABG Oxygen Saturation 93.4 % (95-100); ABG PH 7.242 (7.35-7.45); ABG PO2 70.6 MM HG (80-95); ABG TCO2 45.8 MMOL/L (23-27); Allen Test Positive; Pt O2 Delivery Device Ventilator
[2021-04-29] MEDS: DIGOXIN 0.125 MG TABLET PO SCH (12:01)
[2021-04-29] MEDS: ENOXAPARIN 40 MG/0.4 ML SYRINGE SUBCUT SCH (16:35)
[2021-04-30] MEDS: MEROPENEM 500 MG in SODIUM CHLORIDE 0.9% 100 ML IV SCH ×4 (02:32→17:34)
[2021-04-30] MEDS: LEVALBUTEROL 1.25 MG/3 ML NEB RESP TX SCH ×6 (02:52→23:30)
[2021-04-30 03:28] LABS: ABG Base Excess 20.8 MMOL/L (-2.5-2.5); ABG HCO3 45.1 MMOL/L (20-26); ABG Oxygen Saturation 95.5 % (95-100); ABG PH 7.241 (7.35-7.45); ABG PO2 82.5 MM HG (80-95); ABG TCO2 49.9 MMOL/L (23-27)
[2021-04-30 05:16] LABS: Basophils % 0.2 % (0.0-0.8); Eosinophils % 0.1 % (0.00-10.9); Hematocrit 24.5 VOL% (42.0-52.0); Hemoglobin 6.9 GM/DL (14.0-18.0); Immature Granulocytes % 5.9 %; Lymphocytes # 0.8 10*3/uL (1.4-4.0); Lymphocytes % 5.3 % (21.2-54.2); Mean Corpuscular HGB Conc 28.2 GM/DL (32-36); Mean Corpuscular Volume 101.2 FL (87-102); Mean Platelet Volume 11.1 FL (9.6-12.0); Monocytes % 3.3 % (1.7-12.7); NRBC # 0.09 10*3/uL; Neutrophils % 85.2 % (38.7-73.9); Platelet Count 157 T/CUMM (130-400); Red Blood Count 2.42 MC/CUMM (3.8-5.5); Red Cell Distribution Width 15.7 % (9.3-17.3); White Blood Count 15.1 T/CUMM (4-12)
[2021-04-30 05:42] LABS: Band Neutrophils 1 % (0-10); Hypochromia 1+; Lymphocytes 6 % (20-55); Microcytosis 1+; Polychromasia Slight; Promyelocytes 1 %; Segmented Neutrophils 90 % (50-85); Stomatocytes Few; Total Cells Counted 100
[2021-04-30 05:43] LABS: Platelet Estimate Adequate
[2021-04-30 08:02] LABS: Calcium 8.3 MG/DL (8.5-10.1)
[2021-04-30 08:20] LABS: Osmolality,Calculated 293.4 MOS/KG (273-304); Potassium 4.8 MMOL/L (3.5-5.1)
[2021-04-30] MEDS: PANTOPRAZOLE 40 MG VIAL IV SCH (09:32)
[2021-04-30] MEDS: methylPREDNISolone SOD SUC 40 MG/1 ML VIAL IV SCH ×2 (09:32→21:51)
[2021-04-30] MEDS: INSULIN GLARGINE 100 UNIT/ML SUBCUT SCH (09:32)
[2021-04-30] MEDS: CHOLECALCIFEROL 1,000 UNIT TABLET PO SCH (09:33)
[2021-04-30] MEDS: DOCUSATE SODIUM 100 MG/10 ML UDCUP PO SCH ×2 (09:33→20:02)
[2021-04-30] MEDS: QUEtiapine 100 MG TABLET PER TUBE SCH ×2 (09:33→20:02)
[2021-04-30] MEDS: ASCORBIC ACID 500 MG TABLET PO SCH ×2 (09:33→20:02)
[2021-04-30] MEDS: METOPROLOL TARTRATE 25 MG TABLET PO SCH ×2 (09:33→20:02)
[2021-04-30] MEDS: INSULIN LISPRO 100 UNIT/ML SUBCUT SCH ×4 (09:33→20:02)
[2021-04-30] MEDS: ZINC GLUCONATE 50 MG TABLET PO SCH (09:33)
[2021-04-30] MEDS: guaiFENesin 200 MG/10 ML UDCUP PO SCH ×3 (09:33→20:02)
[2021-04-30] MEDS: ROSUVASTATIN 20 MG TABLET PO SCH (09:34)
[2021-04-30] MEDS: MENTHOL/ZINC OXIDE OINT 71 GM JAR TOP SCH ×2 (09:35→21:52)
[2021-04-30] MEDS: MICAFUNGIN 100 MG in SODIUM CHLORIDE 0.9% 100 ML IV SCH (09:37)
[2021-04-30] MEDS: CITALOPRAM 20 MG TABLET PO SCH (09:42)
[2021-04-30] MEDS: TAMSULOSIN 0.4 MG CAPSULE PO SCH (09:42)
[2021-04-30] MEDS: POTASSIUM CHLORIDE 20 MEQ TABLET PO SCH (10:32)
[2021-04-30] MEDS ORDERED: SODIUM CHLORIDE 0.9% 1,000 ML IV PRN (12:01)
[2021-04-30] MEDS: DIGOXIN 0.125 MG TABLET PO SCH (12:25)
[2021-04-30] MEDS: ENOXAPARIN 40 MG/0.4 ML SYRINGE SUBCUT SCH (17:33)
[2021-05-01] MEDS: ACETAMINOPHEN 325 MG TABLET PO PRN (02:09)
[2021-05-01] MEDS: LEVALBUTEROL 1.25 MG/3 ML NEB RESP TX SCH ×4 (03:02→15:29)
[2021-05-01 03:51] LABS: Basophils # 0.1 10*3/uL (0.0-0.2); Basophils % 0.3 % (0.0-0.8); Eosinophils % 0.1 % (0.00-10.9); Hematocrit 29.8 VOL% (42.0-52.0); Immature Granulocytes % 6.1 %; Immature Granulocytes Absolute 0.89 #; Lymphocytes % 6.6 % (21.2-54.2); Mean Corpuscular HGB Conc 29.5 GM/DL (32-36); Mean Corpuscular Volume 97.4 FL (87-102); Mean Platelet Volume 10.7 FL (9.6-12.0); NRBC # 0.12 10*3/uL; Neutrophils % 83.9 % (38.7-73.9); Platelet Count 147 T/CUMM (130-400); Red Cell Distribution Width 15.3 % (9.3-17.3); White Blood Count 14.6 T/CUMM (4-12)
[2021-05-01 03:54] LABS: Hemoglobin 8.8 GM/DL (14.0-18.0); Red Blood Count 3.06 MC/CUMM (3.8-5.5)
[2021-05-01 04:11] LABS: Band Neutrophils 2 % (0-10); Hypochromia 1+; Lymphocytes 5 % (20-55); Microcytosis 1+; Platelet Estimate Adequate; Segmented Neutrophils 91 % (50-85); Total Cells Counted 100
[2021-05-01 05:04] LABS: ABG Base Excess 21.4 MMOL/L (-2.5-2.5); ABG HCO3 45.9 MMOL/L (20-26); ABG Oxygen Saturation 94.1 % (95-100); ABG PH 7.306 (7.35-7.45); ABG TCO2 48.7 MMOL/L (23-27)
[2021-05-01 06:13] LABS: Blood Urea Nitrogen 31 MG/DL (7-18); Calcium 8.2 MG/DL (8.5-10.1); Carbon Dioxide 51 MMOL/L (21-32); Estimated Glom Filtration Rate 207 ML/MIN; Glucose 194 MG/DL (74-106); Osmolality,Calculated 294.1 MOS/KG (273-304); Sodium 142 MMOL/L (136-145)
[2021-05-01 06:19] LABS: Potassium 4.6 MMOL/L (3.5-5.1)
[2021-05-01 08:29] LABS: ABG Base Excess 20.6 MMOL/L (-2.5-2.5); ABG Oxygen Saturation 91.3 % (95-100); ABG PH 7.387 (7.35-7.45); ABG PO2 58.5 MM HG (80-95); ABG TCO2 51.5 MMOL/L (23-27); Allen Test Positive; Pt O2 Delivery Device Ventilator
[2021-05-01 08:30] LABS: ABG PCO2 83.3 MM HG (35-48)
[2021-05-01] MEDS: METOPROLOL TARTRATE 25 MG TABLET PO SCH ×2 (09:10→20:14)
[2021-05-01] MEDS: ZINC GLUCONATE 50 MG TABLET PO SCH (09:11)
[2021-05-01] MEDS: QUEtiapine 100 MG TABLET PER TUBE SCH ×2 (09:11→20:13)
[2021-05-01] MEDS: CHOLECALCIFEROL 1,000 UNIT TABLET PO SCH (09:11)
[2021-05-01] MEDS: TAMSULOSIN 0.4 MG CAPSULE PO SCH (09:11)
[2021-05-01] MEDS: ROSUVASTATIN 20 MG TABLET PO SCH (09:11)
[2021-05-01] MEDS: ASCORBIC ACID 500 MG TABLET PO SCH ×2 (09:11→20:13)
[2021-05-01] MEDS: INSULIN GLARGINE 100 UNIT/ML SUBCUT SCH (09:12)
[2021-05-01] MEDS: CITALOPRAM 20 MG TABLET PO SCH (09:12)
[2021-05-01] MEDS: INSULIN LISPRO 100 UNIT/ML SUBCUT SCH ×4 (09:12→20:30)
[2021-05-01] MEDS: methylPREDNISolone SOD SUC 40 MG/1 ML VIAL IV SCH ×2 (09:13→22:28)
[2021-05-01] MEDS: guaiFENesin 200 MG/10 ML UDCUP PO SCH ×3 (09:13→20:13)
[2021-05-01] MEDS: DOCUSATE SODIUM 100 MG/10 ML UDCUP PO SCH ×2 (09:13→20:13)
[2021-05-01] MEDS: PANTOPRAZOLE 40 MG VIAL IV SCH (09:17)
[2021-05-01] MEDS: MENTHOL/ZINC OXIDE OINT 71 GM JAR TOP SCH ×2 (09:18→21:22)
[2021-05-01] MEDS: MICAFUNGIN 100 MG in SODIUM CHLORIDE 0.9% 100 ML IV SCH (10:10)
[2021-05-01] MEDS: DIGOXIN 0.125 MG TABLET PO SCH (12:55)
[2021-05-01] MEDS: ENOXAPARIN 40 MG/0.4 ML SYRINGE SUBCUT SCH (16:31)
[2021-05-01] MEDS: MAGNESIUM HYDROXIDE SUSP 30 ML UDCUP PO PRN (16:32)
[2021-05-02 03:38] LABS: ABG Base Excess 23.5 MMOL/L (-2.5-2.5); ABG HCO3 48.3 MMOL/L (20-26); ABG Oxygen Saturation 93.3 % (95-100); ABG PO2 66.5 MM HG (80-95); ABG TCO2 49.1 MMOL/L (23-27); Allen Test Positive; Pt O2 Delivery Device Ventilator
[2021-05-02 03:42] LABS: ABG PCO2 87.5 MM HG (35-48)
[2021-05-02 04:04] LABS: Basophils # 0.1 10*3/uL (0.0-0.2); Basophils % 0.4 % (0.0-0.8); Eosinophils % 0.2 % (0.00-10.9); Hematocrit 29.1 VOL% (42.0-52.0); Hemoglobin 8.5 GM/DL (14.0-18.0); Immature Granulocytes % 6.2 %; Immature Granulocytes Absolute 0.83 #; Lymphocytes # 0.9 10*3/uL (1.4-4.0); Lymphocytes % 6.3 % (21.2-54.2); Mean Corpuscular HGB Conc 29.2 GM/DL (32-36); Mean Corpuscular Volume 99.7 FL (87-102); Mean Platelet Volume 10.4 FL (9.6-12.0); Monocytes % 2.8 % (1.7-12.7); NRBC # 0.09 10*3/uL; Neutrophils % 84.1 % (38.7-73.9); Platelet Count 138 T/CUMM (130-400); Red Blood Count 2.92 MC/CUMM (3.8-5.5); Red Cell Distribution Width 15.9 % (9.3-17.3); White Blood Count 13.4 T/CUMM (4-12)
[2021-05-02 04:31] LABS: Band Neutrophils 1 % (0-10); Eosinophils 1 % (0-10); Hypochromia 1+; Lymphocytes 8 % (20-55); Microcytosis 1+; Platelet Estimate Normal; Segmented Neutrophils 88 % (50-85); Total Cells Counted 100
[2021-05-02 04:38] LABS: Alanine Aminotransferase 47 U/L (16-61); Albumin 1.9 G/DL (3.4-5.0); Alkaline Phosphatase 124 U/L (45-117); Aspartate Amino Transferase 32 U/L (0-37); Blood Urea Nitrogen 27 MG/DL (7-18); Calcium 8.1 MG/DL (8.5-10.1); Carbon Dioxide 64 MMOL/L (21-32); Estimated Glom Filtration Rate 233 ML/MIN; Glucose 182 MG/DL (74-106); Osmolality,Calculated 284.7 MOS/KG (273-304); Potassium 4.9 MMOL/L (3.5-5.1); Sodium 138 MMOL/L (136-145); Total Protein 5.3 G/DL (6.4-8.2)
[2021-05-02] MEDS: INSULIN LISPRO 100 UNIT/ML SUBCUT SCH ×3 (07:53→17:38)
[2021-05-02] MEDS: INSULIN GLARGINE 100 UNIT/ML SUBCUT SCH (09:28)
[2021-05-02] MEDS: ROSUVASTATIN 20 MG TABLET PO SCH (09:29)
[2021-05-02] MEDS: PANTOPRAZOLE 40 MG VIAL IV SCH (09:29)
[2021-05-02] MEDS: MAGNESIUM HYDROXIDE SUSP 30 ML UDCUP PO PRN (09:29)
[2021-05-02] MEDS: DOCUSATE SODIUM 100 MG/10 ML UDCUP PO SCH ×2 (09:29→20:53)
[2021-05-02] MEDS: methylPREDNISolone SOD SUC 40 MG/1 ML VIAL IV SCH ×2 (09:29→21:21)
[2021-05-02] MEDS: CHOLECALCIFEROL 1,000 UNIT TABLET PO SCH (09:30)
[2021-05-02] MEDS: ASCORBIC ACID 500 MG TABLET PO SCH ×2 (09:30→20:52)
[2021-05-02] MEDS: ZINC GLUCONATE 50 MG TABLET PO SCH (09:30)
[2021-05-02] MEDS: METOPROLOL TARTRATE 25 MG TABLET PO SCH ×2 (09:30→20:53)
[2021-05-02] MEDS: QUEtiapine 100 MG TABLET PER TUBE SCH ×2 (09:31→20:52)
[2021-05-02] MEDS: guaiFENesin 200 MG/10 ML UDCUP PO SCH ×3 (09:31→20:53)
[2021-05-02] MEDS: MENTHOL/ZINC OXIDE OINT 71 GM JAR TOP SCH ×2 (09:31→20:54)
[2021-05-02] MEDS: CITALOPRAM 20 MG TABLET PO SCH (09:31)
[2021-05-02] MEDS: fentaNYL 25 MCG/HR PATCH TRANSDERM SCH (09:31)
[2021-05-02] MEDS: TAMSULOSIN 0.4 MG CAPSULE PO SCH (09:31)
[2021-05-02] MEDS: METOCLOPRAMIDE 10 MG/2 ML VIAL IV SCH ×3 (10:44→21:25)
[2021-05-02] MEDS: MICAFUNGIN 100 MG in SODIUM CHLORIDE 0.9% 100 ML IV SCH (10:46)
[2021-05-02] MEDS: LEVOFLOXACIN INJ 750 MG/150 ML PREMIX IV SCH (10:48)
[2021-05-02 11:18] LABS: ABG Base Excess 23.4 MMOL/L (-2.5-2.5); ABG HCO3 48.1 MMOL/L (20-26); ABG Oxygen Saturation 93.6 % (95-100); ABG PH 7.381 (7.35-7.45); ABG PO2 68.1 MM HG (80-95); ABG TCO2 49.1 MMOL/L (23-27); Allen Test Positive; Pt O2 Delivery Device Ventilator
[2021-05-02 11:20] LABS: ABG PCO2 89.4 MM HG (35-48)
[2021-05-02] MEDS: DIGOXIN 0.125 MG TABLET PO SCH (12:40)
[2021-05-02] MEDS: ENOXAPARIN 40 MG/0.4 ML SYRINGE SUBCUT SCH (18:20)
[2021-05-03] MEDS: INSULIN LISPRO 100 UNIT/ML SUBCUT SCH ×4 (00:09→17:27)
[2021-05-03 03:45] LABS: ABG HCO3 51.2 MMOL/L (20-26); ABG Oxygen Saturation 94.9 % (95-100); ABG PH 7.448 (7.35-7.45); ABG PO2 71.4 MM HG (80-95); ABG TCO2 53.5 MMOL/L (23-27)
[2021-05-03 03:49] LABS: ABG PCO2 75.7 MM HG (35-48)
[2021-05-03 04:19] LABS: Basophils % 0.3 % (0.0-0.8); Eosinophils % 0.2 % (0.00-10.9); Hematocrit 27.6 VOL% (42.0-52.0); Hemoglobin 7.9 GM/DL (14.0-18.0); Immature Granulocytes % 6.6 %; Immature Granulocytes Absolute 0.72 #; Lymphocytes # 1.1 10*3/uL (1.4-4.0); Lymphocytes % 10.2 % (21.2-54.2); Mean Corpuscular HGB Conc 28.6 GM/DL (32-36); Mean Platelet Volume 10.4 FL (9.6-12.0); Monocytes % 3.8 % (1.7-12.7); NRBC # 0.09 10*3/uL; Neutrophils % 78.9 % (38.7-73.9); Platelet Count 136 T/CUMM (130-400); Red Blood Count 2.76 MC/CUMM (3.8-5.5); Red Cell Distribution Width 15.9 % (9.3-17.3)
[2021-05-03] MEDS: METOCLOPRAMIDE 10 MG/2 ML VIAL IV SCH ×4 (04:19→21:29)
[2021-05-03 05:00] LABS: Hypochromia 1+; Lymphocytes 3 % (20-55); Microcytosis 1+; Platelet Estimate Adequate; Segmented Neutrophils 96 % (50-85); Total Cells Counted 100
[2021-05-03 05:22] LABS: Blood Urea Nitrogen 24 MG/DL (7-18); Calcium 8.1 MG/DL (8.5-10.1); Carbon Dioxide 52 MMOL/L (21-32); Estimated Glom Filtration Rate 208 ML/MIN; Glucose 202 MG/DL (74-106); Osmolality,Calculated 288.4 MOS/KG (273-304); Potassium 4.6 MMOL/L (3.5-5.1); Sodium 140 MMOL/L (136-145)
[2021-05-03] MEDS: MENTHOL/ZINC OXIDE OINT 71 GM JAR TOP SCH ×2 (08:06→21:29)
[2021-05-03] MEDS: INSULIN GLARGINE 100 UNIT/ML SUBCUT SCH (08:06)
[2021-05-03] MEDS: PANTOPRAZOLE 40 MG VIAL IV SCH (08:06)
[2021-05-03] MEDS: CHOLECALCIFEROL 1,000 UNIT TABLET PO SCH (08:07)
[2021-05-03] MEDS: ASCORBIC ACID 500 MG TABLET PO SCH ×2 (08:07→21:27)
[2021-05-03] MEDS: ZINC GLUCONATE 50 MG TABLET PO SCH (08:07)
[2021-05-03] MEDS: CITALOPRAM 20 MG TABLET PO SCH (08:08)
[2021-05-03] MEDS: TAMSULOSIN 0.4 MG CAPSULE PO SCH (08:08)
[2021-05-03] MEDS: DOCUSATE SODIUM 100 MG/10 ML UDCUP PO SCH ×2 (08:08→21:28)
[2021-05-03] MEDS: QUEtiapine 100 MG TABLET PER TUBE SCH ×2 (08:08→21:28)
[2021-05-03] MEDS: guaiFENesin 200 MG/10 ML UDCUP PO SCH ×3 (08:08→21:28)
[2021-05-03] MEDS: METOPROLOL TARTRATE 25 MG TABLET PO SCH ×2 (08:08→21:27)
[2021-05-03] MEDS: LEVOFLOXACIN INJ 750 MG/150 ML PREMIX IV SCH (09:41)
[2021-05-03] MEDS: methylPREDNISolone SOD SUC 40 MG/1 ML VIAL IV SCH ×2 (09:41→21:33)
[2021-05-03] MEDS: DIGOXIN 0.125 MG TABLET PO SCH (13:17)
[2021-05-03] MEDS: ENOXAPARIN 40 MG/0.4 ML SYRINGE SUBCUT SCH (16:32)
[2021-05-04] MEDS: INSULIN LISPRO 100 UNIT/ML SUBCUT SCH ×4 (00:29→18:12)
[2021-05-04 03:15] LABS: ABG Base Excess 23.2 MMOL/L (-2.5-2.5); ABG Oxygen Saturation 99.2 % (95-100); ABG PH 7.383 (7.35-7.45); Allen Test Positive; Pt O2 Delivery Device Ventilator
[2021-05-04 03:17] LABS: ABG PCO2 88.3 MM HG (35-48)
[2021-05-04] MEDS: METOCLOPRAMIDE 10 MG/2 ML VIAL IV SCH ×4 (04:02→22:26)
[2021-05-04 04:33] LABS: Basophils % 0.2 % (0.0-0.8); Eosinophils % 0.3 % (0.00-10.9); Hematocrit 27.8 VOL% (42.0-52.0); Hemoglobin 8.2 GM/DL (14.0-18.0); Immature Granulocytes % 6.6 %; Immature Granulocytes Absolute 0.62 #; Mean Corpuscular HGB Conc 29.5 GM/DL (32-36); Mean Corpuscular Volume 98.9 FL (87-102); Mean Platelet Volume 9.9 FL (9.6-12.0); Monocytes % 3.6 % (1.7-12.7); NRBC # 0.04 10*3/uL; Neutrophils % 78.3 % (38.7-73.9); Platelet Count 127 T/CUMM (130-400); Red Blood Count 2.81 MC/CUMM (3.8-5.5); Red Cell Distribution Width 16.3 % (9.3-17.3); White Blood Count 9.3 T/CUMM (4-12)
[2021-05-04 04:53] LABS: Band Neutrophils 3 % (0-10); Lymphocytes 8 % (20-55); Nucleated Red Blood Cells 1 (0-5); Platelet Estimate Normal; Segmented Neutrophils 86 % (50-85); Total Cells Counted 100
[2021-05-04 05:38] LABS: Blood Urea Nitrogen 21 MG/DL (7-18); Calcium 8.2 MG/DL (8.5-10.1); Glucose 131 MG/DL (74-106); Potassium 4.5 MMOL/L (3.5-5.1)
[2021-05-04 05:43] LABS: Osmolality,Calculated 274.1 MOS/KG (273-304); Sodium 135 MMOL/L (136-145)
[2021-05-04 06:06] LABS: Carbon Dioxide 57 MMOL/L (21-32); Estimated Glom Filtration Rate 236 ML/MIN
[2021-05-04] MEDS: ZINC GLUCONATE 50 MG TABLET PO SCH (08:37)
[2021-05-04] MEDS: DOCUSATE SODIUM 100 MG/10 ML UDCUP PO SCH ×2 (08:37→21:05)
[2021-05-04] MEDS: guaiFENesin 200 MG/10 ML UDCUP PO SCH ×3 (08:37→21:05)
[2021-05-04] MEDS: METOPROLOL TARTRATE 25 MG TABLET PO SCH ×2 (08:38→21:05)
[2021-05-04] MEDS: CHOLECALCIFEROL 1,000 UNIT TABLET PO SCH (08:39)
[2021-05-04] MEDS: ASCORBIC ACID 500 MG TABLET PO SCH ×2 (08:39→21:05)
[2021-05-04] MEDS: TAMSULOSIN 0.4 MG CAPSULE PO SCH (08:42)
[2021-05-04] MEDS: MENTHOL/ZINC OXIDE OINT 71 GM JAR TOP SCH ×2 (08:43→21:41)
[2021-05-04] MEDS: QUEtiapine 100 MG TABLET PER TUBE SCH (08:43)
[2021-05-04] MEDS: INSULIN GLARGINE 100 UNIT/ML SUBCUT SCH (08:43)
[2021-05-04] MEDS: PANTOPRAZOLE 40 MG VIAL IV SCH (08:44)
[2021-05-04] MEDS: CITALOPRAM 20 MG TABLET PO SCH (08:44)
[2021-05-04] MEDS: ALBUTEROL/IPRATROPIUM 3 ML NEB RESP TX SCH ×4 (09:50→19:20)
[2021-05-04] MEDS ORDERED: MIDAZOLAM 10 MG/2 ML VIAL ONE (10:18)
[2021-05-04] MEDS: LEVOFLOXACIN INJ 750 MG/150 ML PREMIX IV SCH (11:44)
[2021-05-04] MEDS: methylPREDNISolone SOD SUC 40 MG/1 ML VIAL IV SCH ×2 (11:55→18:13)
[2021-05-04] MEDS: DIGOXIN 0.125 MG TABLET PO SCH (14:25)
[2021-05-04] MEDS: ENOXAPARIN 40 MG/0.4 ML SYRINGE SUBCUT SCH (18:12)
[2021-05-04] MEDS: QUEtiapine 25 MG TABLET PER TUBE SCH (21:05)
[2021-05-05] MEDS: ALBUTEROL/IPRATROPIUM 3 ML NEB RESP TX SCH ×4 (02:30→19:14)
[2021-05-05] MEDS: methylPREDNISolone SOD SUC 40 MG/1 ML VIAL IV SCH ×3 (03:06→16:45)
[2021-05-05] MEDS: INSULIN LISPRO 100 UNIT/ML SUBCUT SCH ×4 (03:11→18:11)
[2021-05-05] MEDS: METOCLOPRAMIDE 10 MG/2 ML VIAL IV SCH ×4 (03:47→22:39)
[2021-05-05 05:25] LABS: ABG Base Excess 15.8 MMOL/L (-2.5-2.5); ABG HCO3 39.8 MMOL/L (20-26); ABG Oxygen Saturation 99.6 % (95-100); ABG PH 7.348 (7.35-7.45); ABG TCO2 41.6 MMOL/L (23-27)
[2021-05-05 05:27] LABS: ABG PCO2 81.1 MM HG (35-48)
[2021-05-05 05:38] LABS: Basophils # 0.1 10*3/uL (0.0-0.2); Basophils % 0.6 % (0.0-0.8); Hematocrit 26.6 VOL% (42.0-52.0); Immature Granulocytes % 6.5 %; Immature Granulocytes Absolute 0.56 #; Lymphocytes # 0.6 10*3/uL (1.4-4.0); Lymphocytes % 7.5 % (21.2-54.2); Mean Corpuscular HGB Conc 30.1 GM/DL (32-36); Mean Corpuscular Volume 97.8 FL (87-102); Mean Platelet Volume 10.5 FL (9.6-12.0); Monocytes % 4.1 % (1.7-12.7); NRBC # 0.03 10*3/uL; Neutrophils % 81.3 % (38.7-73.9); Platelet Count 154 T/CUMM (130-400); Red Blood Count 2.72 MC/CUMM (3.8-5.5); Red Cell Distribution Width 16.2 % (9.3-17.3); White Blood Count 8.6 T/CUMM (4-12)
[2021-05-05 06:03] LABS: Alanine Aminotransferase 53 U/L (16-61); Alkaline Phosphatase 102 U/L (45-117); Aspartate Amino Transferase 27 U/L (0-37); Bilirubin,Indirect 0.6 MG/DL (0.0-1.0); Blood Urea Nitrogen 19 MG/DL (7-18); Calcium 8.5 MG/DL (8.5-10.1); Carbon Dioxide 43 MMOL/L (21-32); Estimated Glom Filtration Rate 235 ML/MIN; Glucose 107 MG/DL (74-106); Osmolality,Calculated 282.3 MOS/KG (273-304); Potassium 3.5 MMOL/L (3.5-5.1); Sodium 141 MMOL/L (136-145); Total Protein 5.4 G/DL (6.4-8.2)
[2021-05-05 06:20] LABS: Anisocytosis 1+; Band Neutrophils 17 % (0-10); Lymphocytes 10 % (20-55); Myelocytes 2 %; Platelet Estimate Normal; Segmented Neutrophils 68 % (50-85); Tear Drop Cells Few; Total Cells Counted 100
[2021-05-05 06:21] LABS: Basophilic Stippling 1+; Macrocytosis Slight; Polychromasia Slight
[2021-05-05] MEDS ORDERED: FUROSEMIDE 40 MG/4 ML VIAL IV ONE (08:56)
[2021-05-05] MEDS: PANTOPRAZOLE 40 MG VIAL IV SCH (09:02)
[2021-05-05] MEDS: DOCUSATE SODIUM 100 MG/10 ML UDCUP PO SCH ×2 (09:03→20:22)
[2021-05-05] MEDS: guaiFENesin 200 MG/10 ML UDCUP PO SCH ×3 (09:03→20:22)
[2021-05-05] MEDS: TAMSULOSIN 0.4 MG CAPSULE PO SCH (09:03)
[2021-05-05] MEDS: ZINC GLUCONATE 50 MG TABLET PO SCH (09:03)
[2021-05-05] MEDS: LEVOFLOXACIN INJ 750 MG/150 ML PREMIX IV SCH (09:03)
[2021-05-05] MEDS: QUEtiapine 25 MG TABLET PER TUBE SCH ×2 (09:03→20:22)
[2021-05-05] MEDS: METOPROLOL TARTRATE 25 MG TABLET PO SCH ×2 (09:04→20:22)
[2021-05-05] MEDS: CHOLECALCIFEROL 1,000 UNIT TABLET PO SCH (09:04)
[2021-05-05] MEDS: CITALOPRAM 20 MG TABLET PO SCH (09:04)
[2021-05-05] MEDS: INSULIN GLARGINE 100 UNIT/ML SUBCUT SCH (09:05)
[2021-05-05] MEDS: ASCORBIC ACID 500 MG TABLET PO SCH ×2 (09:05→20:22)
[2021-05-05] MEDS: MENTHOL/ZINC OXIDE OINT 71 GM JAR TOP SCH ×2 (09:06→20:22)
[2021-05-05] MEDS: fentaNYL 25 MCG/HR PATCH TRANSDERM SCH (09:59)
[2021-05-05] MEDS: MICAFUNGIN 100 MG, MICAFUNGIN 50 MG in SODIUM CHLORIDE 0.9% 100 ML IV SCH (11:11)
[2021-05-05] MEDS: DIGOXIN 0.125 MG TABLET PO SCH (13:25)
[2021-05-05] MEDS: ENOXAPARIN 40 MG/0.4 ML SYRINGE SUBCUT SCH (16:46)
[2021-05-06] MEDS: ALBUTEROL/IPRATROPIUM 3 ML NEB RESP TX SCH ×4 (00:55→19:17)
[2021-05-06] MEDS: INSULIN LISPRO 100 UNIT/ML SUBCUT SCH ×4 (01:35→17:46)
[2021-05-06] MEDS: methylPREDNISolone SOD SUC 40 MG/1 ML VIAL IV SCH ×3 (01:36→21:09)
[2021-05-06] MEDS: METOCLOPRAMIDE 10 MG/2 ML VIAL IV SCH ×4 (03:43→22:01)
[2021-05-06 03:54] LABS: ABG Base Excess 13.7 MMOL/L (-2.5-2.5); ABG HCO3 37.6 MMOL/L (20-26); ABG Oxygen Saturation 97.4 % (95-100); ABG PH 7.358 (7.35-7.45)
[2021-05-06 03:56] LABS: ABG PCO2 74.9 MM HG (35-48)
[2021-05-06 04:40] LABS: Basophils # 0.1 10*3/uL (0.0-0.2); Basophils % 0.6 % (0.0-0.8); Eosinophils % 0.4 % (0.00-10.9); Hemoglobin 8.7 GM/DL (14.0-18.0); Immature Granulocytes % 5.4 %; Immature Granulocytes Absolute 0.53 #; Lymphocytes % 9.7 % (21.2-54.2); Mean Platelet Volume 10.1 FL (9.6-12.0); Monocytes % 5.5 % (1.7-12.7); NRBC # 0.02 10*3/uL; Neutrophils % 78.4 % (38.7-73.9); Platelet Count 201 T/CUMM (130-400); Red Blood Count 2.96 MC/CUMM (3.8-5.5); Red Cell Distribution Width 16.5 % (9.3-17.3); White Blood Count 9.9 T/CUMM (4-12)
[2021-05-06 05:08] LABS: Blood Urea Nitrogen 20 MG/DL (7-18); Calcium 8.5 MG/DL (8.5-10.1); Glucose 59 MG/DL (74-106)
[2021-05-06 05:15] LABS: Osmolality,Calculated 279.4 MOS/KG (273-304); Potassium 3.4 MMOL/L (3.5-5.1); Sodium 140 MMOL/L (136-145)
[2021-05-06 05:18] LABS: Carbon Dioxide 40 MMOL/L (21-32)
[2021-05-06 05:32] LABS: Estimated Glom Filtration Rate 235 ML/MIN
[2021-05-06 06:33] LABS: Lymphocytes 4 % (20-55); Nucleated Red Blood Cells 1 (0-5); Platelet Estimate Normal; Polychromasia Few; Segmented Neutrophils 93 % (50-85); Total Cells Counted 100
[2021-05-06 06:34] LABS: Anisocytosis Slight; Basophilic Stippling 1+; Microcytosis Slight
[2021-05-06 06:35] LABS: Stomatocytes Slight
[2021-05-06] MEDS: CHOLECALCIFEROL 1,000 UNIT TABLET PO SCH (08:26)
[2021-05-06] MEDS: guaiFENesin 200 MG/10 ML UDCUP PO SCH ×3 (08:26→21:08)
[2021-05-06] MEDS: CITALOPRAM 20 MG TABLET PO SCH (08:26)
[2021-05-06] MEDS: ZINC GLUCONATE 50 MG TABLET PO SCH (08:26)
[2021-05-06] MEDS: QUEtiapine 25 MG TABLET PER TUBE SCH ×2 (08:26→21:08)
[2021-05-06] MEDS: DOCUSATE SODIUM 100 MG/10 ML UDCUP PO SCH ×2 (08:26→21:08)
[2021-05-06] MEDS: ASCORBIC ACID 500 MG TABLET PO SCH ×2 (08:27→21:08)
[2021-05-06] MEDS: TAMSULOSIN 0.4 MG CAPSULE PO SCH (08:27)
[2021-05-06] MEDS: METOPROLOL TARTRATE 25 MG TABLET PO SCH ×2 (08:27→21:08)
[2021-05-06] MEDS: ACETAMINOPHEN 325 MG TABLET PO PRN (08:27)
[2021-05-06] MEDS: PANTOPRAZOLE 40 MG VIAL IV SCH (08:28)
[2021-05-06] MEDS: INSULIN GLARGINE 100 UNIT/ML SUBCUT SCH (08:30)
[2021-05-06] MEDS: MENTHOL/ZINC OXIDE OINT 71 GM JAR TOP SCH ×2 (08:30→21:55)
[2021-05-06] MEDS: LEVOFLOXACIN INJ 750 MG/150 ML PREMIX IV SCH (09:06)
[2021-05-06] MEDS: MICAFUNGIN 100 MG, MICAFUNGIN 50 MG in SODIUM CHLORIDE 0.9% 100 ML IV SCH (10:54)
[2021-05-06] MEDS: DIGOXIN 0.125 MG TABLET PO SCH (14:10)
[2021-05-06] MEDS: ENOXAPARIN 40 MG/0.4 ML SYRINGE SUBCUT SCH (17:46)
[2021-05-07] MEDS: INSULIN LISPRO 100 UNIT/ML SUBCUT SCH ×4 (00:33→18:00)
[2021-05-07] MEDS: ALBUTEROL/IPRATROPIUM 3 ML NEB RESP TX SCH ×4 (00:45→19:33)
[2021-05-07] MEDS: METOCLOPRAMIDE 10 MG/2 ML VIAL IV SCH ×4 (03:57→22:39)
[2021-05-07 04:08] LABS: Basophils % 0.2 % (0.0-0.8); Eosinophils % 0.2 % (0.00-10.9); Hematocrit 29.9 VOL% (42.0-52.0); Hemoglobin 8.8 GM/DL (14.0-18.0); Immature Granulocytes % 5.6 %; Immature Granulocytes Absolute 0.54 #; Lymphocytes # 0.8 10*3/uL (1.4-4.0); Lymphocytes % 7.9 % (21.2-54.2); Mean Corpuscular HGB Conc 29.4 GM/DL (32-36); Mean Corpuscular Volume 97.7 FL (87-102); Mean Platelet Volume 9.5 FL (9.6-12.0); Monocytes % 5.9 % (1.7-12.7); NRBC # 0.03 10*3/uL; Neutrophils % 80.2 % (38.7-73.9); Platelet Count 207 T/CUMM (130-400); Red Blood Count 3.06 MC/CUMM (3.8-5.5); Red Cell Distribution Width 16.8 % (9.3-17.3); White Blood Count 9.7 T/CUMM (4-12)
[2021-05-07 04:30] LABS: Band Neutrophils 1 % (0-10); Hypochromia 1+; Lymphocytes 4 % (20-55); Segmented Neutrophils 89 % (50-85); Total Cells Counted 100
[2021-05-07 04:31] LABS: Microcytosis 1+
[2021-05-07 04:31] LABS: ABG Base Excess 10.2 MMOL/L (-2.5-2.5); ABG HCO3 38.4 MMOL/L (20-26); ABG Oxygen Saturation 94.9 % (95-100); ABG PH 7.316 (7.35-7.45); ABG PO2 78.4 MM HG (80-95); ABG TCO2 40.7 MMOL/L (23-27); Allen Test Positive; Pt O2 Delivery Device Ventilator
[2021-05-07 04:37] LABS: ABG PCO2 76.9 MM HG (35-48)
[2021-05-07 04:54] LABS: Albumin 2.4 G/DL (3.4-5.0); Bilirubin,Direct 0.14 MG/DL (0.0-0.20); Bilirubin,Indirect 0.4 MG/DL (0.0-1.0); Bilirubin,Total 0.5 MG/DL (0.20-1.00); Calcium 8.6 MG/DL (8.5-10.1); Total Protein 5.9 G/DL (6.4-8.2)
[2021-05-07 05:18] LABS: Osmolality,Calculated 285.8 MOS/KG (273-304)
[2021-05-07] MEDS: DOCUSATE SODIUM 100 MG/10 ML UDCUP PO SCH ×2 (09:01→22:39)
[2021-05-07] MEDS: PANTOPRAZOLE 40 MG VIAL IV SCH (09:02)
[2021-05-07] MEDS: methylPREDNISolone SOD SUC 40 MG/1 ML VIAL IV SCH ×2 (09:02→21:26)
[2021-05-07] MEDS: QUEtiapine 25 MG TABLET PER TUBE SCH ×2 (09:02→21:25)
[2021-05-07] MEDS: TAMSULOSIN 0.4 MG CAPSULE PO SCH (09:03)
[2021-05-07] MEDS: CITALOPRAM 20 MG TABLET PO SCH (09:03)
[2021-05-07] MEDS: ASCORBIC ACID 500 MG TABLET PO SCH ×2 (09:03→21:26)
[2021-05-07] MEDS: ZINC GLUCONATE 50 MG TABLET PO SCH (09:03)
[2021-05-07] MEDS: METOPROLOL TARTRATE 25 MG TABLET PO SCH ×2 (09:03→21:25)
[2021-05-07] MEDS: MENTHOL/ZINC OXIDE OINT 71 GM JAR TOP SCH ×2 (09:03→21:25)
[2021-05-07] MEDS: CHOLECALCIFEROL 1,000 UNIT TABLET PO SCH (09:03)
[2021-05-07] MEDS: LEVOFLOXACIN INJ 750 MG/150 ML PREMIX IV SCH (09:04)
[2021-05-07] MEDS: guaiFENesin 200 MG/10 ML UDCUP PO SCH ×3 (09:04→21:25)
[2021-05-07] MEDS: MICAFUNGIN 100 MG, MICAFUNGIN 50 MG in SODIUM CHLORIDE 0.9% 100 ML IV SCH (10:55)
[2021-05-07] MEDS: DIGOXIN 0.125 MG TABLET PO SCH (12:54)
[2021-05-07] MEDS: ENOXAPARIN 40 MG/0.4 ML SYRINGE SUBCUT SCH (17:06)
[2021-05-08] MEDS: INSULIN LISPRO 100 UNIT/ML SUBCUT SCH ×4 (00:14→17:45)
[2021-05-08] MEDS: ALBUTEROL/IPRATROPIUM 3 ML NEB RESP TX SCH ×4 (01:05→18:46)
[2021-05-08] MEDS: METOCLOPRAMIDE 10 MG/2 ML VIAL IV SCH ×4 (03:04→21:17)
[2021-05-08 03:43] LABS: ABG Base Excess 10.8 MMOL/L (-2.5-2.5); ABG Oxygen Saturation 96.4 % (95-100); ABG PH 7.274 (7.35-7.45); ABG TCO2 42.7 MMOL/L (23-27)
[2021-05-08 03:49] LABS: ABG PCO2 88.3 MM HG (35-48)
[2021-05-08 04:18] LABS: Basophils % 0.4 % (0.0-0.8); Eosinophils % 0.1 % (0.00-10.9); Hematocrit 30.2 VOL% (42.0-52.0); Hemoglobin 8.8 GM/DL (14.0-18.0); Immature Granulocytes % 6.7 %; Immature Granulocytes Absolute 0.71 #; Lymphocytes % 9.3 % (21.2-54.2); Mean Corpuscular HGB Conc 29.1 GM/DL (32-36); Mean Platelet Volume 9.6 FL (9.6-12.0); Monocytes % 4.3 % (1.7-12.7); Neutrophils % 79.2 % (38.7-73.9); Platelet Count 241 T/CUMM (130-400); Red Blood Count 3.05 MC/CUMM (3.8-5.5); Red Cell Distribution Width 16.8 % (9.3-17.3); White Blood Count 10.6 T/CUMM (4-12)
[2021-05-08 04:31] LABS: Calcium 8.5 MG/DL (8.5-10.1); Potassium 4.4 MMOL/L (3.5-5.1)
[2021-05-08 04:34] LABS: Osmolality,Calculated 284.8 MOS/KG (273-304)
[2021-05-08 05:11] LABS: Atypical Lymphocytes Few; Band Neutrophils 3 % (0-10); Hypochromia 1+; Lymphocytes 13 % (20-55); Microcytosis 1+; Myelocytes 1 %; Nucleated Red Blood Cells 1 (0-5); Segmented Neutrophils 74 % (50-85); Total Cells Counted 100
[2021-05-08 05:12] LABS: Polychromasia Slight
[2021-05-08] MEDS: DOCUSATE SODIUM 100 MG/10 ML UDCUP PO SCH ×2 (08:02→21:16)
[2021-05-08] MEDS: methylPREDNISolone SOD SUC 40 MG/1 ML VIAL IV SCH ×2 (08:02→21:16)
[2021-05-08] MEDS: PANTOPRAZOLE 40 MG VIAL IV SCH (08:02)
[2021-05-08] MEDS: ZINC GLUCONATE 50 MG TABLET PO SCH (08:02)
[2021-05-08] MEDS: CITALOPRAM 20 MG TABLET PO SCH (08:03)
[2021-05-08] MEDS: CHOLECALCIFEROL 1,000 UNIT TABLET PO SCH (08:03)
[2021-05-08] MEDS: METOPROLOL TARTRATE 25 MG TABLET PO SCH ×2 (08:03→21:16)
[2021-05-08] MEDS: TAMSULOSIN 0.4 MG CAPSULE PO SCH (08:03)
[2021-05-08] MEDS: ASCORBIC ACID 500 MG TABLET PO SCH ×2 (08:03→21:17)
[2021-05-08] MEDS: guaiFENesin 200 MG/10 ML UDCUP PO SCH ×3 (08:04→21:16)
[2021-05-08] MEDS: QUEtiapine 25 MG TABLET PER TUBE SCH ×2 (08:05→21:16)
[2021-05-08] MEDS: MENTHOL/ZINC OXIDE OINT 71 GM JAR TOP SCH ×2 (08:06→21:16)
[2021-05-08] MEDS: fentaNYL 25 MCG/HR PATCH TRANSDERM SCH (08:16)
[2021-05-08] MEDS: LEVOFLOXACIN INJ 750 MG/150 ML PREMIX IV SCH (09:08)
[2021-05-08] MEDS: MICAFUNGIN 100 MG, MICAFUNGIN 50 MG in SODIUM CHLORIDE 0.9% 100 ML IV SCH (10:17)
[2021-05-08] MEDS: DIGOXIN 0.125 MG TABLET PO SCH (12:21)
[2021-05-08] MEDS: ENOXAPARIN 40 MG/0.4 ML SYRINGE SUBCUT SCH (17:06)
[2021-05-09] MEDS: ALBUTEROL/IPRATROPIUM 3 ML NEB RESP TX SCH ×4 (00:35→19:20)
[2021-05-09] MEDS: INSULIN LISPRO 100 UNIT/ML SUBCUT SCH ×4 (01:17→17:39)
[2021-05-09 03:26] LABS: ABG Base Excess 9.8 MMOL/L (-2.5-2.5); ABG HCO3 33.5 MMOL/L (20-26); ABG Oxygen Saturation 97.2 % (95-100); ABG PCO2 66.7 MM HG (35-48); ABG PH 7.356 (7.35-7.45); ABG PO2 90.3 MM HG (80-95); ABG TCO2 34.7 MMOL/L (23-27)
[2021-05-09] MEDS: METOCLOPRAMIDE 10 MG/2 ML VIAL IV SCH ×4 (03:52→21:52)
[2021-05-09 04:21] LABS: Basophils % 0.3 % (0.0-0.8); Eosinophils % 0.1 % (0.00-10.9); Hematocrit 28.5 VOL% (42.0-52.0); Hemoglobin 8.4 GM/DL (14.0-18.0); Immature Granulocytes % 6.3 %; Lymphocytes # 1.4 10*3/uL (1.4-4.0); Lymphocytes % 12.1 % (21.2-54.2); Mean Corpuscular HGB Conc 29.5 GM/DL (32-36); Mean Corpuscular Volume 97.6 FL (87-102); Mean Platelet Volume 9.8 FL (9.6-12.0); Monocytes % 4.7 % (1.7-12.7); NRBC # 0.03 10*3/uL; Neutrophils % 76.5 % (38.7-73.9); Platelet Count 266 T/CUMM (130-400); Red Blood Count 2.92 MC/CUMM (3.8-5.5); Red Cell Distribution Width 16.9 % (9.3-17.3); White Blood Count 11.2 T/CUMM (4-12)
[2021-05-09 04:41] LABS: Blood Urea Nitrogen 19 MG/DL (7-18); Calcium 8.4 MG/DL (8.5-10.1); Carbon Dioxide 38 MMOL/L (21-32); Estimated Glom Filtration Rate 197 ML/MIN; Glucose 225 MG/DL (74-106); Osmolality,Calculated 287.4 MOS/KG (273-304); Potassium 3.9 MMOL/L (3.5-5.1); Sodium 140 MMOL/L (136-145)
[2021-05-09 04:50] LABS: Hypochromia 1+; Polychromasia Slight; Tear Drop Cells Slight
[2021-05-09 04:51] LABS: Microcytosis 1+; Platelet Estimate Normal
[2021-05-09] MEDS: ASCORBIC ACID 500 MG TABLET PO SCH ×2 (09:03→20:34)
[2021-05-09] MEDS: ZINC GLUCONATE 50 MG TABLET PO SCH (09:03)
[2021-05-09] MEDS: METOPROLOL TARTRATE 25 MG TABLET PO SCH ×2 (09:04→20:34)
[2021-05-09] MEDS: ACETAMINOPHEN 325 MG TABLET PO PRN (09:04)
[2021-05-09] MEDS: CHOLECALCIFEROL 1,000 UNIT TABLET PO SCH (09:04)
[2021-05-09] MEDS: TAMSULOSIN 0.4 MG CAPSULE PO SCH (09:05)
[2021-05-09] MEDS: CITALOPRAM 20 MG TABLET PO SCH (09:05)
[2021-05-09] MEDS: MAGNESIUM HYDROXIDE SUSP 30 ML UDCUP PO PRN (09:06)
[2021-05-09] MEDS: PANTOPRAZOLE 40 MG VIAL IV SCH (09:06)
[2021-05-09] MEDS: DOCUSATE SODIUM 100 MG/10 ML UDCUP PO SCH ×2 (09:06→20:33)
[2021-05-09] MEDS: guaiFENesin 200 MG/10 ML UDCUP PO SCH ×3 (09:06→20:34)
[2021-05-09] MEDS: methylPREDNISolone SOD SUC 40 MG/1 ML VIAL IV SCH ×2 (09:07→21:50)
[2021-05-09] MEDS: MENTHOL/ZINC OXIDE OINT 71 GM JAR TOP SCH ×2 (09:09→20:33)
[2021-05-09] MEDS: QUEtiapine 25 MG TABLET PER TUBE SCH ×2 (09:11→20:34)
[2021-05-09] MEDS: LEVOFLOXACIN INJ 750 MG/150 ML PREMIX IV SCH (09:12)
[2021-05-09] MEDS: DIGOXIN 0.125 MG TABLET PO SCH (12:13)
[2021-05-09] MEDS: MICAFUNGIN 100 MG, MICAFUNGIN 50 MG in SODIUM CHLORIDE 0.9% 100 ML IV SCH (12:17)
[2021-05-09] MEDS: ENOXAPARIN 40 MG/0.4 ML SYRINGE SUBCUT SCH (17:39)
[2021-05-10] MEDS: INSULIN LISPRO 100 UNIT/ML SUBCUT SCH ×4 (00:05→17:06)
[2021-05-10] MEDS: ALBUTEROL/IPRATROPIUM 3 ML NEB RESP TX SCH ×4 (00:54→18:58)
[2021-05-10 04:00] LABS: ABG Base Excess 8.9 MMOL/L (-2.5-2.5); ABG HCO3 32.6 MMOL/L (20-26); ABG Oxygen Saturation 97.2 % (95-100); ABG PCO2 60.7 MM HG (35-48); ABG PH 7.378 (7.35-7.45); ABG PO2 89.1 MM HG (80-95); ABG TCO2 33.2 MMOL/L (23-27)
[2021-05-10] MEDS: METOCLOPRAMIDE 10 MG/2 ML VIAL IV SCH ×4 (04:00→21:30)
[2021-05-10 04:12] LABS: Basophils % 0.3 % (0.0-0.8); Eosinophils % 0.2 % (0.00-10.9); Hematocrit 27.2 VOL% (42.0-52.0); Hemoglobin 8.1 GM/DL (14.0-18.0); Immature Granulocytes Absolute 0.91 #; Lymphocytes # 1.2 10*3/uL (1.4-4.0); Lymphocytes % 10.8 % (21.2-54.2); Mean Corpuscular HGB Conc 29.8 GM/DL (32-36); Mean Corpuscular Volume 97.8 FL (87-102); Mean Platelet Volume 9.5 FL (9.6-12.0); Monocytes % 4.2 % (1.7-12.7); NRBC # 0.05 10*3/uL; Neutrophils % 76.5 % (38.7-73.9); Platelet Count 274 T/CUMM (130-400); Red Blood Count 2.78 MC/CUMM (3.8-5.5); Red Cell Distribution Width 17.2 % (9.3-17.3); White Blood Count 11.3 T/CUMM (4-12)
[2021-05-10 04:23] LABS: Band Neutrophils 5 % (0-10); Lymphocytes 11 % (20-55); Metamyelocytes 4 %; Platelet Estimate Adequate; Segmented Neutrophils 76 % (50-85); Total Cells Counted 100
[2021-05-10 04:24] LABS: Anisocytosis Slight; Hypochromia 2+; Microcytosis 1+
[2021-05-10 04:33] LABS: Calcium 8.3 MG/DL (8.5-10.1); Potassium 4.1 MMOL/L (3.5-5.1)
[2021-05-10 04:41] LABS: Osmolality,Calculated 284.5 MOS/KG (273-304)
[2021-05-10] MEDS: MENTHOL/ZINC OXIDE OINT 71 GM JAR TOP SCH ×2 (09:53→20:22)
[2021-05-10] MEDS: ZINC GLUCONATE 50 MG TABLET PO SCH (09:54)
[2021-05-10] MEDS: ASCORBIC ACID 500 MG TABLET PO SCH ×2 (09:54→20:22)
[2021-05-10] MEDS: CHOLECALCIFEROL 1,000 UNIT TABLET PO SCH (09:54)
[2021-05-10] MEDS: METOPROLOL TARTRATE 25 MG TABLET PO SCH ×2 (09:55→20:22)
[2021-05-10] MEDS: DOCUSATE SODIUM 100 MG/10 ML UDCUP PO SCH ×2 (09:55→20:22)
[2021-05-10] MEDS: QUEtiapine 25 MG TABLET PER TUBE SCH ×2 (09:55→20:22)
[2021-05-10] MEDS: TAMSULOSIN 0.4 MG CAPSULE PO SCH (09:55)
[2021-05-10] MEDS: CITALOPRAM 20 MG TABLET PO SCH (09:55)
[2021-05-10] MEDS: guaiFENesin 200 MG/10 ML UDCUP PO SCH ×3 (09:55→20:22)
[2021-05-10] MEDS: methylPREDNISolone SOD SUC 40 MG/1 ML VIAL IV SCH ×2 (10:00→21:18)
[2021-05-10] MEDS: PANTOPRAZOLE 40 MG VIAL IV SCH (10:05)
[2021-05-10] MEDS: DIGOXIN 0.125 MG TABLET PO SCH (12:02)
[2021-05-10] MEDS: MICAFUNGIN 100 MG, MICAFUNGIN 50 MG in SODIUM CHLORIDE 0.9% 100 ML IV SCH (12:02)
[2021-05-10] MEDS: ENOXAPARIN 40 MG/0.4 ML SYRINGE SUBCUT SCH (17:06)
[2021-05-11] MEDS: ALBUTEROL/IPRATROPIUM 3 ML NEB RESP TX SCH ×5 (01:09→19:35)
[2021-05-11 04:08] LABS: Allen Test Positive; Pt O2 Delivery Device Ventilator
[2021-05-11 04:09] LABS: ABG Base Excess 8.5 MMOL/L (-2.5-2.5); ABG HCO3 32.2 MMOL/L (20-26); ABG Oxygen Saturation 94.6 % (95-100); ABG PH 7.384 (7.35-7.45); ABG PO2 71.4 MM HG (80-95); ABG TCO2 32.4 MMOL/L (23-27)
[2021-05-11] MEDS: METOCLOPRAMIDE 10 MG/2 ML VIAL IV SCH ×4 (04:17→23:05)
[2021-05-11 04:57] LABS: Basophils # 0.1 10*3/uL (0.0-0.2); Basophils % 0.7 % (0.0-0.8); Eosinophils % 0.1 % (0.00-10.9); Hematocrit 30.2 VOL% (42.0-52.0); Immature Granulocytes % 8.9 %; Immature Granulocytes Absolute 1.03 #; Lymphocytes # 1.3 10*3/uL (1.4-4.0); Lymphocytes % 10.8 % (21.2-54.2); Mean Corpuscular HGB Conc 29.8 GM/DL (32-36); Mean Corpuscular Volume 98.1 FL (87-102); Mean Platelet Volume 9.7 FL (9.6-12.0); Monocytes % 3.8 % (1.7-12.7); NRBC # 0.05 10*3/uL; Neutrophils % 75.7 % (38.7-73.9); Platelet Count 304 T/CUMM (130-400); Red Blood Count 3.08 MC/CUMM (3.8-5.5); Red Cell Distribution Width 17.3 % (9.3-17.3); White Blood Count 11.6 T/CUMM (4-12)
[2021-05-11 05:21] LABS: Band Neutrophils 2 % (0-10); Lymphocytes 8 % (20-55); Platelet Estimate Normal; Segmented Neutrophils 87 % (50-85); Total Cells Counted 100
[2021-05-11 05:23] LABS: Blood Urea Nitrogen 21 MG/DL (7-18); Calcium 8.6 MG/DL (8.5-10.1); Carbon Dioxide 36 MMOL/L (21-32); Estimated Glom Filtration Rate 227 ML/MIN; Glucose 189 MG/DL (74-106); Osmolality,Calculated 288.3 MOS/KG (273-304); Potassium 3.8 MMOL/L (3.5-5.1); Sodium 141 MMOL/L (136-145)
[2021-05-11] MEDS: INSULIN LISPRO 100 UNIT/ML SUBCUT SCH ×4 (05:53→18:57)
[2021-05-11] MEDS ORDERED: MIDAZOLAM 2 MG/2 ML VIAL ONE ×2 (08:48→10:19)
[2021-05-11] MEDS ORDERED: ROCURONIUM 50 MG/5 ML VIAL IV ONE (08:48)
[2021-05-11] MEDS ORDERED: BUPIVACAINE MPF 0.25% 30 ML VIAL ONE (08:50)
[2021-05-11] MEDS: CHOLECALCIFEROL 1,000 UNIT TABLET PO SCH (09:00)
[2021-05-11] MEDS: ASCORBIC ACID 500 MG TABLET PO SCH ×2 (09:00→20:52)
[2021-05-11] MEDS: TAMSULOSIN 0.4 MG CAPSULE PO SCH (09:00)
[2021-05-11] MEDS: METOPROLOL TARTRATE 25 MG TABLET PO SCH ×2 (09:00→20:52)
[2021-05-11] MEDS: QUEtiapine 25 MG TABLET PER TUBE SCH ×2 (09:00→20:52)
[2021-05-11] MEDS: CITALOPRAM 20 MG TABLET PO SCH (09:01)
[2021-05-11] MEDS: guaiFENesin 200 MG/10 ML UDCUP PO SCH ×3 (09:01→20:52)
[2021-05-11] MEDS: DOCUSATE SODIUM 100 MG/10 ML UDCUP PO SCH ×2 (09:01→20:51)
[2021-05-11] MEDS: ZINC GLUCONATE 50 MG TABLET PO SCH (09:01)
[2021-05-11] MEDS: methylPREDNISolone SOD SUC 40 MG/1 ML VIAL IV SCH ×2 (09:02→20:52)
[2021-05-11] MEDS: PANTOPRAZOLE 40 MG VIAL IV SCH (09:02)
[2021-05-11] MEDS: fentaNYL 25 MCG/HR PATCH TRANSDERM SCH (09:24)
[2021-05-11] MEDS: MENTHOL/ZINC OXIDE OINT 71 GM JAR TOP SCH ×2 (09:24→20:51)
[2021-05-11] MEDS ORDERED: PHENYLEPHRINE 10 MG/1 ML VIAL IV ONE (09:47)
[2021-05-11] MEDS ORDERED: ONDANSETRON 4 MG/2 ML VIAL ONE (10:09)
[2021-05-11] MEDS ORDERED: SEVOFLURANE 1 UNIT/15 MINUTE INH ONE ×3 (10:09→10:21)
[2021-05-11] MEDS ORDERED: methylPREDNISolone SOD SUC 125 MG/2 ML VIAL ONE (10:21)
[2021-05-11] MEDS ORDERED: OXYMETAZOLINE 0.05% NASAL SPRAY 15 ML BOTTLE ONE (10:26)
[2021-05-11] MEDS: MICAFUNGIN 100 MG, MICAFUNGIN 50 MG in SODIUM CHLORIDE 0.9% 100 ML IV SCH (12:28)
[2021-05-11] MEDS: DIGOXIN 0.125 MG TABLET PO SCH (13:55)
[2021-05-11] MEDS: HYDROmorphone 2 MG/1 ML VIAL IV PRN (18:21)
[2021-05-12] MEDS: INSULIN LISPRO 100 UNIT/ML SUBCUT SCH ×4 (00:40→18:14)
[2021-05-12 03:48] LABS: ABG Base Excess 8.9 MMOL/L (-2.5-2.5); ABG HCO3 32.6 MMOL/L (20-26); ABG Oxygen Saturation 97.4 % (95-100); ABG PCO2 61.9 MM HG (35-48); ABG PH 7.371 (7.35-7.45); ABG PO2 92.7 MM HG (80-95); ABG TCO2 33.3 MMOL/L (23-27)
[2021-05-12] MEDS: METOCLOPRAMIDE 10 MG/2 ML VIAL IV SCH ×4 (04:00→23:40)
[2021-05-12 04:23] LABS: Basophils # 0.1 10*3/uL (0.0-0.2); Basophils % 0.7 % (0.0-0.8); Immature Granulocytes Absolute 0.99 #; Lymphocytes # 1.8 10*3/uL (1.4-4.0); Lymphocytes % 12.4 % (21.2-54.2); Mean Platelet Volume 9.2 FL (9.6-12.0); Monocytes % 5.2 % (1.7-12.7); NRBC # 0.06 10*3/uL; Neutrophils % 74.7 % (38.7-73.9); Platelet Count 316 T/CUMM (130-400); Red Blood Count 3.06 MC/CUMM (3.8-5.5); Red Cell Distribution Width 17.5 % (9.3-17.3); White Blood Count 14.2 T/CUMM (4-12)
[2021-05-12 04:39] LABS: Blood Urea Nitrogen 23 MG/DL (7-18); Calcium 8.6 MG/DL (8.5-10.1); Carbon Dioxide 36 MMOL/L (21-32); Estimated Glom Filtration Rate 201 ML/MIN; Glucose 161 MG/DL (74-106); Osmolality,Calculated 283.5 MOS/KG (273-304); Potassium 4.1 MMOL/L (3.5-5.1); Sodium 139 MMOL/L (136-145)
[2021-05-12 04:46] LABS: Band Neutrophils 3 % (0-10); Hypochromia 1+; Lymphocytes 16 % (20-55); Microcytosis 1+; Myelocytes 1 %; Polychromasia Slight; Segmented Neutrophils 74 % (50-85); Total Cells Counted 100
[2021-05-12 04:47] LABS: Atypical Lymphocytes Few; Platelet Estimate Normal
[2021-05-12] MEDS: ALBUTEROL/IPRATROPIUM 3 ML NEB RESP TX SCH ×3 (07:00→19:40)
[2021-05-12] MEDS: PANTOPRAZOLE 40 MG VIAL IV SCH (08:17)
[2021-05-12] MEDS: ZINC GLUCONATE 50 MG TABLET PO SCH (08:19)
[2021-05-12] MEDS: guaiFENesin 200 MG/10 ML UDCUP PO SCH ×3 (08:19→20:40)
[2021-05-12] MEDS: DOCUSATE SODIUM 100 MG/10 ML UDCUP PO SCH ×2 (08:19→20:40)
[2021-05-12] MEDS: ASCORBIC ACID 500 MG TABLET PO SCH ×2 (08:20→20:40)
[2021-05-12] MEDS: METOPROLOL TARTRATE 25 MG TABLET PO SCH ×2 (08:20→20:40)
[2021-05-12] MEDS: CHOLECALCIFEROL 1,000 UNIT TABLET PO SCH (08:20)
[2021-05-12] MEDS: CITALOPRAM 20 MG TABLET PO SCH (08:20)
[2021-05-12] MEDS: TAMSULOSIN 0.4 MG CAPSULE PO SCH (08:20)
[2021-05-12] MEDS: QUEtiapine 25 MG TABLET PER TUBE SCH ×2 (08:21→20:40)
[2021-05-12] MEDS: MENTHOL/ZINC OXIDE OINT 71 GM JAR TOP SCH ×2 (08:21→20:40)
[2021-05-12] MEDS: methylPREDNISolone SOD SUC 40 MG/1 ML VIAL IV SCH ×2 (08:21→20:40)
[2021-05-12] MEDS: MICAFUNGIN 100 MG, MICAFUNGIN 50 MG in SODIUM CHLORIDE 0.9% 100 ML IV SCH (11:11)
[2021-05-12] MEDS: HYDROmorphone 2 MG/1 ML VIAL IV PRN (12:09)
[2021-05-12 12:51] LABS: ABG Base Excess 6.8 MMOL/L (-2.5-2.5); ABG HCO3 30.6 MMOL/L (20-26); ABG Oxygen Saturation 92.9 % (95-100); ABG PCO2 66.3 MM HG (35-48); ABG PH 7.327 (7.35-7.45); ABG TCO2 32.1 MMOL/L (23-27)
[2021-05-12] MEDS: DIGOXIN 0.125 MG TABLET PO SCH (14:19)
[2021-05-12] MEDS: INSULIN GLARGINE 100 UNIT/ML SUBCUT SCH (15:50)
[2021-05-13] MEDS: INSULIN LISPRO 100 UNIT/ML SUBCUT SCH ×5 (00:17→23:44)
[2021-05-13] MEDS: ONDANSETRON 4 MG/2 ML VIAL IV PRN (01:26)
[2021-05-13] MEDS: ALBUTEROL/IPRATROPIUM 3 ML NEB RESP TX SCH ×4 (01:45→19:47)
[2021-05-13] MEDS: METOCLOPRAMIDE 10 MG/2 ML VIAL IV SCH ×4 (04:11→23:22)
[2021-05-13 04:25] LABS: Basophils # 0.1 10*3/uL (0.0-0.2); Basophils % 0.4 % (0.0-0.8); Eosinophils # 0.2 10*3/uL (0.0-0.87); Eosinophils % 1.3 % (0.00-10.9); Hematocrit 28.6 VOL% (42.0-52.0); Hemoglobin 8.6 GM/DL (14.0-18.0); Immature Granulocytes % 7.2 %; Immature Granulocytes Absolute 0.89 #; Lymphocytes # 1.8 10*3/uL (1.4-4.0); Lymphocytes % 14.7 % (21.2-54.2); Mean Corpuscular HGB Conc 30.1 GM/DL (32-36); Mean Corpuscular Volume 97.6 FL (87-102); Mean Platelet Volume 9.1 FL (9.6-12.0); Monocytes % 5.5 % (1.7-12.7); NRBC # 0.07 10*3/uL; Neutrophils % 70.9 % (38.7-73.9); Platelet Count 268 T/CUMM (130-400); Red Blood Count 2.93 MC/CUMM (3.8-5.5); Red Cell Distribution Width 17.5 % (9.3-17.3); White Blood Count 12.4 T/CUMM (4-12)
[2021-05-13 04:40] LABS: ABG Base Excess 9.7 MMOL/L (-2.5-2.5); ABG HCO3 36.1 MMOL/L (20-26); ABG Oxygen Saturation 91.5 % (95-100); ABG PCO2 60.3 MM HG (35-48); ABG PH 7.395 (7.35-7.45); ABG PO2 63.7 MM HG (80-95); ABG TCO2 37.9 MMOL/L (23-27)
[2021-05-13 04:42] LABS: Albumin 2.4 G/DL (3.4-5.0); Bilirubin,Total 0.4 MG/DL (0.20-1.00); Calcium 8.4 MG/DL (8.5-10.1); Osmolality,Calculated 290.3 MOS/KG (273-304); Potassium 3.9 MMOL/L (3.5-5.1); Total Protein 5.5 G/DL (6.4-8.2)
[2021-05-13 05:07] LABS: Hypochromia 1+; Lymphocytes 18 % (20-55); Microcytosis 1+; Nucleated Red Blood Cells 3 (0-5); Segmented Neutrophils 78 % (50-85); Total Cells Counted 100
[2021-05-13 05:08] LABS: Anisocytosis 1+; Platelet Estimate Normal; Polychromasia Slight; Tear Drop Cells Slight
[2021-05-13] MEDS: INSULIN GLARGINE 100 UNIT/ML SUBCUT SCH (08:28)
[2021-05-13] MEDS: DOCUSATE SODIUM 100 MG/10 ML UDCUP PO SCH ×2 (08:30→20:19)
[2021-05-13] MEDS: PANTOPRAZOLE 40 MG VIAL IV SCH (08:30)
[2021-05-13] MEDS: guaiFENesin 200 MG/10 ML UDCUP PO SCH ×3 (08:30→20:19)
[2021-05-13] MEDS: methylPREDNISolone SOD SUC 40 MG/1 ML VIAL IV SCH ×2 (08:30→20:19)
[2021-05-13] MEDS: MENTHOL/ZINC OXIDE OINT 71 GM JAR TOP SCH ×2 (08:31→20:19)
[2021-05-13] MEDS: CITALOPRAM 20 MG TABLET PO SCH (08:32)
[2021-05-13] MEDS: CHOLECALCIFEROL 1,000 UNIT TABLET PO SCH (08:32)
[2021-05-13] MEDS: QUEtiapine 25 MG TABLET PER TUBE SCH ×2 (08:32→20:19)
[2021-05-13] MEDS: ASCORBIC ACID 500 MG TABLET PO SCH ×2 (08:32→20:20)
[2021-05-13] MEDS: ZINC GLUCONATE 50 MG TABLET PO SCH (08:32)
[2021-05-13] MEDS: TAMSULOSIN 0.4 MG CAPSULE PO SCH (08:32)
[2021-05-13] MEDS: METOPROLOL TARTRATE 25 MG TABLET PO SCH ×2 (08:49→20:19)
[2021-05-13] MEDS: MICAFUNGIN 100 MG, MICAFUNGIN 50 MG in SODIUM CHLORIDE 0.9% 100 ML IV SCH (10:38)
[2021-05-13] MEDS: DEXMEDETOMIDINE 400 MCG in SODIUM CHLORIDE 0.9% 96 ML IV PRN (11:42)
[2021-05-13] MEDS: DIGOXIN 0.125 MG TABLET PO SCH (14:00)
[2021-05-13] MEDS: HYDROmorphone 2 MG/1 ML VIAL IV PRN (14:51)
[2021-05-13] MEDS: ENOXAPARIN 40 MG/0.4 ML SYRINGE SUBCUT SCH (17:27)
[2021-05-14] MEDS: ALBUTEROL/IPRATROPIUM 3 ML NEB RESP TX SCH ×4 (00:34→18:53)
[2021-05-14] MEDS: METOCLOPRAMIDE 10 MG/2 ML VIAL IV SCH ×4 (04:04→21:05)
[2021-05-14 04:22] LABS: Allen Test Positive; Pt O2 Delivery Device Ventilator
[2021-05-14 04:24] LABS: ABG Base Excess 8.9 MMOL/L (-2.5-2.5); ABG HCO3 32.6 MMOL/L (20-26); ABG Oxygen Saturation 96.1 % (95-100); ABG PCO2 67.1 MM HG (35-48); ABG PH 7.347 (7.35-7.45); ABG PO2 82.8 MM HG (80-95); ABG TCO2 33.7 MMOL/L (23-27)
[2021-05-14 04:45] LABS: Basophils # 0.1 10*3/uL (0.0-0.2); Basophils % 0.7 % (0.0-0.8); Eosinophils # 0.2 10*3/uL (0.0-0.87); Eosinophils % 1.9 % (0.00-10.9); Hematocrit 27.6 VOL% (42.0-52.0); Hemoglobin 8.4 GM/DL (14.0-18.0); Immature Granulocytes % 6.7 %; Immature Granulocytes Absolute 0.84 #; Lymphocytes # 1.7 10*3/uL (1.4-4.0); Lymphocytes % 13.9 % (21.2-54.2); Mean Corpuscular HGB Conc 30.4 GM/DL (32-36); Mean Corpuscular Volume 97.2 FL (87-102); Mean Platelet Volume 9.7 FL (9.6-12.0); Monocytes % 5.2 % (1.7-12.7); NRBC # 0.05 10*3/uL; Neutrophils % 71.6 % (38.7-73.9); Platelet Count 270 T/CUMM (130-400); Red Blood Count 2.84 MC/CUMM (3.8-5.5); Red Cell Distribution Width 17.2 % (9.3-17.3); White Blood Count 12.5 T/CUMM (4-12)
[2021-05-14 05:11] LABS: Band Neutrophils 1 % (0-10); Lymphocytes 16 % (20-55); Myelocytes 1 %; Nucleated Red Blood Cells 1 (0-5); Platelet Estimate Adequate; Segmented Neutrophils 77 % (50-85); Total Cells Counted 100
[2021-05-14 05:12] LABS: Hypochromia 1+; Microcytosis 1+
[2021-05-14 05:32] LABS: Alanine Aminotransferase 62 U/L (16-61); Albumin 2.3 G/DL (3.4-5.0); Alkaline Phosphatase 122 U/L (45-117); Aspartate Amino Transferase 20 U/L (0-37); Blood Urea Nitrogen 25 MG/DL (7-18); Calcium 8.6 MG/DL (8.5-10.1); Estimated Glom Filtration Rate 198 ML/MIN; Glucose 142 MG/DL (74-106); Osmolality,Calculated 280.7 MOS/KG (273-304); Potassium 3.6 MMOL/L (3.5-5.1); Sodium 138 MMOL/L (136-145); Total Protein 5.6 G/DL (6.4-8.2)
[2021-05-14] MEDS: INSULIN LISPRO 100 UNIT/ML SUBCUT SCH ×3 (05:44→19:31)
[2021-05-14 05:47] LABS: Carbon Dioxide 35 MMOL/L (21-32)
[2021-05-14] MEDS: DEXMEDETOMIDINE 400 MCG in SODIUM CHLORIDE 0.9% 96 ML IV PRN (09:10)
[2021-05-14] MEDS: CITALOPRAM 20 MG TABLET PO SCH (09:43)
[2021-05-14] MEDS: METOPROLOL TARTRATE 25 MG TABLET PO SCH ×2 (09:43→21:03)
[2021-05-14] MEDS: ZINC GLUCONATE 50 MG TABLET PO SCH (09:43)
[2021-05-14] MEDS: CHOLECALCIFEROL 1,000 UNIT TABLET PO SCH (09:43)
[2021-05-14] MEDS: ASCORBIC ACID 500 MG TABLET PO SCH ×2 (09:44→21:03)
[2021-05-14] MEDS: DOCUSATE SODIUM 100 MG/10 ML UDCUP PO SCH ×2 (09:45→21:03)
[2021-05-14] MEDS: methylPREDNISolone SOD SUC 40 MG/1 ML VIAL IV SCH ×2 (09:45→21:04)
[2021-05-14] MEDS: guaiFENesin 200 MG/10 ML UDCUP PO SCH ×3 (09:45→21:03)
[2021-05-14] MEDS: MENTHOL/ZINC OXIDE OINT 71 GM JAR TOP SCH ×2 (09:47→21:03)
[2021-05-14] MEDS: PANTOPRAZOLE 40 MG VIAL IV SCH (09:49)
[2021-05-14] MEDS: TAMSULOSIN 0.4 MG CAPSULE PO SCH (09:58)
[2021-05-14] MEDS: QUEtiapine 25 MG TABLET PER TUBE SCH ×2 (09:59→21:02)
[2021-05-14] MEDS: INSULIN GLARGINE 100 UNIT/ML SUBCUT SCH (09:59)
[2021-05-14] MEDS: MICAFUNGIN 100 MG, MICAFUNGIN 50 MG in SODIUM CHLORIDE 0.9% 100 ML IV SCH (12:37)
[2021-05-14] MEDS: DIGOXIN 0.125 MG TABLET PO SCH (12:38)
[2021-05-14] MEDS: fentaNYL 25 MCG/HR PATCH TRANSDERM SCH (15:48)
[2021-05-14] MEDS: SUCRALFATE 1 GM/10 ML UDCUP NG SCH ×2 (19:31→23:52)
[2021-05-15] MEDS: INSULIN LISPRO 100 UNIT/ML SUBCUT SCH ×5 (00:08→23:59)
[2021-05-15] MEDS: ALBUTEROL/IPRATROPIUM 3 ML NEB RESP TX SCH ×4 (00:25→18:49)
[2021-05-15 04:24] LABS: Allen Test Positive; Pt O2 Delivery Device Ventilator
[2021-05-15 04:25] LABS: ABG Base Excess 8.9 MMOL/L (-2.5-2.5); ABG HCO3 32.6 MMOL/L (20-26); ABG Oxygen Saturation 97.4 % (95-100); ABG PCO2 62.1 MM HG (35-48); ABG PH 7.369 (7.35-7.45); ABG PO2 91.8 MM HG (80-95); ABG TCO2 33.4 MMOL/L (23-27)
[2021-05-15] MEDS: METOCLOPRAMIDE 10 MG/2 ML VIAL IV SCH ×4 (04:48→21:19)
[2021-05-15 05:26] LABS: Basophils % 0.3 % (0.0-0.8); Hematocrit 26.6 VOL% (42.0-52.0); Hemoglobin 7.8 GM/DL (14.0-18.0); Immature Granulocytes % 5.6 %; Immature Granulocytes Absolute 0.59 #; Lymphocytes % 9.4 % (21.2-54.2); Mean Corpuscular HGB Conc 29.3 GM/DL (32-36); Mean Corpuscular Volume 97.8 FL (87-102); Mean Platelet Volume 9.8 FL (9.6-12.0); Monocytes % 2.9 % (1.7-12.7); NRBC # 0.03 10*3/uL; Neutrophils % 81.8 % (38.7-73.9); Platelet Count 265 T/CUMM (130-400); Red Blood Count 2.72 MC/CUMM (3.8-5.5); Red Cell Distribution Width 17.1 % (9.3-17.3); White Blood Count 10.6 T/CUMM (4-12)
[2021-05-15 05:36] LABS: INR 1.1; PT Patient Result 12.4 SECS (10.5-12.0)
[2021-05-15 05:45] LABS: Alanine Aminotransferase 52 U/L (16-61); Albumin 2.4 G/DL (3.4-5.0); Alkaline Phosphatase 102 U/L (45-117); Aspartate Amino Transferase 17 U/L (0-37); Bilirubin,Total < 0.39 MG/DL (0.20-1.00); Blood Urea Nitrogen 25 MG/DL (7-18); Calcium 8.6 MG/DL (8.5-10.1); Estimated Glom Filtration Rate 197 ML/MIN; Glucose 145 MG/DL (74-106); Total Protein 5.7 G/DL (6.4-8.2)
[2021-05-15 05:51] LABS: Osmolality,Calculated 285.4 MOS/KG (273-304); Potassium 3.3 MMOL/L (3.5-5.1); Sodium 140 MMOL/L (136-145)
[2021-05-15 05:54] LABS: Carbon Dioxide 34 MMOL/L (21-32)
[2021-05-15 05:55] LABS: Hypochromia Slight; Lymphocytes 10 % (20-55); Platelet Estimate Normal; Segmented Neutrophils 87 % (50-85); Total Cells Counted 100
[2021-05-15] MEDS: SUCRALFATE 1 GM/10 ML UDCUP NG SCH ×4 (06:18→23:49)
[2021-05-15] MEDS: LACTATED RINGERS 1,000 ML IV SCH (08:27)
[2021-05-15] MEDS: METOPROLOL TARTRATE 25 MG TABLET PO SCH ×2 (08:28→20:13)
[2021-05-15] MEDS: TAMSULOSIN 0.4 MG CAPSULE PO SCH (08:28)
[2021-05-15] MEDS: INSULIN GLARGINE 100 UNIT/ML SUBCUT SCH (08:28)
[2021-05-15] MEDS: guaiFENesin 200 MG/10 ML UDCUP PO SCH ×3 (08:28→20:12)
[2021-05-15] MEDS: MENTHOL/ZINC OXIDE OINT 71 GM JAR TOP SCH ×2 (08:28→20:13)
[2021-05-15] MEDS: PANTOPRAZOLE 40 MG VIAL IV SCH (08:28)
[2021-05-15] MEDS: DOCUSATE SODIUM 100 MG/10 ML UDCUP PO SCH ×2 (08:28→20:12)
[2021-05-15] MEDS: CITALOPRAM 20 MG TABLET PO SCH (08:28)
[2021-05-15] MEDS: QUEtiapine 25 MG TABLET PER TUBE SCH ×2 (08:28→20:13)
[2021-05-15] MEDS: methylPREDNISolone SOD SUC 40 MG/1 ML VIAL IV SCH ×2 (08:28→20:12)
[2021-05-15] MEDS: CHOLECALCIFEROL 1,000 UNIT TABLET PO SCH (08:29)
[2021-05-15] MEDS: ASCORBIC ACID 500 MG TABLET PO SCH ×2 (08:29→20:13)
[2021-05-15] MEDS: ZINC GLUCONATE 50 MG TABLET PO SCH (08:29)
[2021-05-15] MEDS ORDERED: LIDOCAINE 2% 5 ML VIAL ONE (09:00)
[2021-05-15] MEDS ORDERED: propofoL 200 MG/20 ML VIAL IV ONE (09:00)
[2021-05-15] MEDS ORDERED: MIDAZOLAM 2 MG/2 ML VIAL ONE (09:07)
[2021-05-15] MEDS ORDERED: SODIUM CHLORIDE 0.9% 100 ML IV ONE (09:08)
[2021-05-15] MEDS ORDERED: ROCURONIUM 50 MG/5 ML VIAL IV ONE (09:08)
[2021-05-15] MEDS ORDERED: PHENYLEPHRINE 1 MG/10 ML SYRINGE IV ONE (09:31)
[2021-05-15] MEDS: MICAFUNGIN 100 MG, MICAFUNGIN 50 MG in SODIUM CHLORIDE 0.9% 100 ML IV SCH (11:29)
[2021-05-15] MEDS: DIGOXIN 0.125 MG TABLET PO SCH (13:11)
[2021-05-16] MEDS: ALBUTEROL/IPRATROPIUM 3 ML NEB RESP TX SCH ×4 (01:34→19:52)
[2021-05-16] MEDS: METOCLOPRAMIDE 10 MG/2 ML VIAL IV SCH ×4 (03:24→21:38)
[2021-05-16] MEDS: SUCRALFATE 1 GM/10 ML UDCUP NG SCH ×3 (06:29→19:44)
[2021-05-16] MEDS: INSULIN LISPRO 100 UNIT/ML SUBCUT SCH ×4 (06:30→23:53)
[2021-05-16] MEDS: DEXMEDETOMIDINE 400 MCG in SODIUM CHLORIDE 0.9% 96 ML IV PRN ×2 (07:10→19:10)
[2021-05-16] MEDS: LACTATED RINGERS 1,000 ML IV SCH (08:39)
[2021-05-16] MEDS: DOCUSATE SODIUM 100 MG/10 ML UDCUP PO SCH ×2 (08:40→21:37)
[2021-05-16] MEDS: CITALOPRAM 20 MG TABLET PO SCH (08:40)
[2021-05-16] MEDS: CHOLECALCIFEROL 1,000 UNIT TABLET PO SCH (08:40)
[2021-05-16] MEDS: ZINC GLUCONATE 50 MG TABLET PO SCH (08:40)
[2021-05-16] MEDS: TAMSULOSIN 0.4 MG CAPSULE PO SCH (08:40)
[2021-05-16] MEDS: guaiFENesin 200 MG/10 ML UDCUP PO SCH ×3 (08:40→21:37)
[2021-05-16] MEDS: QUEtiapine 25 MG TABLET PER TUBE SCH ×2 (08:41→21:37)
[2021-05-16] MEDS: ASCORBIC ACID 500 MG TABLET PO SCH ×2 (08:41→21:36)
[2021-05-16] MEDS: MENTHOL/ZINC OXIDE OINT 71 GM JAR TOP SCH (08:44)
[2021-05-16] MEDS: METOPROLOL TARTRATE 25 MG TABLET PO SCH ×2 (08:51→21:38)
[2021-05-16] MEDS: PANTOPRAZOLE 40 MG VIAL IV SCH (08:52)
[2021-05-16] MEDS: INSULIN GLARGINE 100 UNIT/ML SUBCUT SCH (08:53)
[2021-05-16] MEDS: methylPREDNISolone SOD SUC 40 MG/1 ML VIAL IV SCH ×2 (08:53→21:39)
[2021-05-16] MEDS: MICAFUNGIN 100 MG, MICAFUNGIN 50 MG in SODIUM CHLORIDE 0.9% 100 ML IV SCH (12:06)
[2021-05-16] MEDS: DIGOXIN 0.125 MG TABLET PO SCH (14:52)
[2021-05-17] MEDS: MENTHOL/ZINC OXIDE OINT 71 GM JAR TOP SCH ×2 (00:06→08:41)
[2021-05-17] MEDS: SUCRALFATE 1 GM/10 ML UDCUP NG SCH ×5 (00:06→23:56)
[2021-05-17] MEDS: ALBUTEROL/IPRATROPIUM 3 ML NEB RESP TX SCH ×5 (00:21→18:45)
[2021-05-17] MEDS: METOCLOPRAMIDE 10 MG/2 ML VIAL IV SCH ×4 (04:01→21:48)
[2021-05-17 04:07] LABS: Basophils % 0.2 % (0.0-0.8); Eosinophils % 0.2 % (0.00-10.9); Hematocrit 26.2 VOL% (42.0-52.0); Hemoglobin 7.7 GM/DL (14.0-18.0); Immature Granulocytes % 5.5 %; Immature Granulocytes Absolute 0.45 #; Lymphocytes # 0.7 10*3/uL (1.4-4.0); Mean Corpuscular HGB Conc 29.4 GM/DL (32-36); Mean Corpuscular Volume 97.4 FL (87-102); Mean Platelet Volume 9.2 FL (9.6-12.0); Monocytes % 3.3 % (1.7-12.7); Neutrophils % 81.8 % (38.7-73.9); Platelet Count 208 T/CUMM (130-400); Red Blood Count 2.69 MC/CUMM (3.8-5.5); Red Cell Distribution Width 16.8 % (9.3-17.3); White Blood Count 8.2 T/CUMM (4-12)
[2021-05-17 04:14] LABS: ABG Base Excess 10.6 MMOL/L (-2.5-2.5); ABG HCO3 36.4 MMOL/L (20-26); ABG Oxygen Saturation 96.8 % (95-100); ABG PH 7.423 (7.35-7.45); ABG PO2 90.4 MM HG (80-95); ABG TCO2 38.1 MMOL/L (23-27)
[2021-05-17 04:29] LABS: Lymphocytes 14 % (20-55); Nucleated Red Blood Cells 1 (0-5); Platelet Estimate Adequate; Segmented Neutrophils 84 % (50-85); Total Cells Counted 100
[2021-05-17 04:30] LABS: Hypochromia 2+; Microcytosis 1+
[2021-05-17 04:42] LABS: Albumin 2.4 G/DL (3.4-5.0); Bilirubin,Total 0.6 MG/DL (0.20-1.00); Calcium 8.3 MG/DL (8.5-10.1); Potassium 4.1 MMOL/L (3.5-5.1); Total Protein 5.6 G/DL (6.4-8.2)
[2021-05-17] MEDS: INSULIN LISPRO 100 UNIT/ML SUBCUT SCH ×4 (06:00→23:56)
[2021-05-17] MEDS: ONDANSETRON 4 MG/2 ML VIAL IV PRN ×2 (06:01→12:11)
[2021-05-17] MEDS: fentaNYL 25 MCG/HR PATCH TRANSDERM SCH (08:44)
[2021-05-17] MEDS: DOCUSATE SODIUM 100 MG/10 ML UDCUP PO SCH ×2 (08:46→21:46)
[2021-05-17] MEDS: ZINC GLUCONATE 50 MG TABLET PO SCH (08:46)
[2021-05-17] MEDS: QUEtiapine 25 MG TABLET PER TUBE SCH ×2 (08:46→21:47)
[2021-05-17] MEDS: guaiFENesin 200 MG/10 ML UDCUP PO SCH ×3 (08:46→21:46)
[2021-05-17] MEDS: TAMSULOSIN 0.4 MG CAPSULE PO SCH (08:47)
[2021-05-17] MEDS: ASCORBIC ACID 500 MG TABLET PO SCH ×2 (08:47→21:46)
[2021-05-17] MEDS: METOPROLOL TARTRATE 25 MG TABLET PO SCH ×2 (08:47→21:47)
[2021-05-17] MEDS: CITALOPRAM 20 MG TABLET PO SCH (08:47)
[2021-05-17] MEDS: CHOLECALCIFEROL 1,000 UNIT TABLET PO SCH (08:47)
[2021-05-17] MEDS: PANTOPRAZOLE 40 MG VIAL IV SCH (08:48)
[2021-05-17] MEDS: INSULIN GLARGINE 100 UNIT/ML SUBCUT SCH (08:48)
[2021-05-17] MEDS: methylPREDNISolone SOD SUC 40 MG/1 ML VIAL IV SCH ×2 (08:49→21:49)
[2021-05-17] MEDS: MICAFUNGIN 100 MG, MICAFUNGIN 50 MG in SODIUM CHLORIDE 0.9% 100 ML IV SCH (11:34)
[2021-05-17] MEDS: DIGOXIN 0.125 MG TABLET PO SCH (14:13)
[2021-05-17] MEDS: DEXMEDETOMIDINE 400 MCG in SODIUM CHLORIDE 0.9% 96 ML IV PRN (20:36)
[2021-05-17] MEDS: LACTATED RINGERS 1,000 ML IV SCH (23:56)
[2021-05-18] MEDS: METOCLOPRAMIDE 10 MG/2 ML VIAL IV SCH ×4 (03:00→21:16)
[2021-05-18] MEDS: MENTHOL/ZINC OXIDE OINT 71 GM JAR TOP SCH ×3 (04:35→20:25)
[2021-05-18] MEDS: SUCRALFATE 1 GM/10 ML UDCUP NG SCH ×4 (06:19→23:53)
[2021-05-18] MEDS: INSULIN LISPRO 100 UNIT/ML SUBCUT SCH ×4 (06:19→23:53)
[2021-05-18] MEDS: ALBUTEROL/IPRATROPIUM 3 ML NEB RESP TX SCH ×3 (07:20→18:55)
[2021-05-18] MEDS: LACTATED RINGERS 1,000 ML IV SCH (08:39)
[2021-05-18] MEDS: methylPREDNISolone SOD SUC 40 MG/1 ML VIAL IV SCH ×2 (09:22→20:25)
[2021-05-18] MEDS: INSULIN GLARGINE 100 UNIT/ML SUBCUT SCH (09:22)
[2021-05-18] MEDS: PANTOPRAZOLE 40 MG VIAL IV SCH (09:22)
[2021-05-18] MEDS: guaiFENesin 200 MG/10 ML UDCUP PO SCH ×3 (09:23→20:23)
[2021-05-18] MEDS: ASCORBIC ACID 500 MG TABLET PO SCH ×2 (09:23→20:24)
[2021-05-18] MEDS: CITALOPRAM 20 MG TABLET PO SCH (09:23)
[2021-05-18] MEDS: DOCUSATE SODIUM 100 MG/10 ML UDCUP PO SCH ×2 (09:23→20:25)
[2021-05-18] MEDS: TAMSULOSIN 0.4 MG CAPSULE PO SCH (09:23)
[2021-05-18] MEDS: QUEtiapine 25 MG TABLET PER TUBE SCH ×2 (09:23→20:25)
[2021-05-18] MEDS: ZINC GLUCONATE 50 MG TABLET PO SCH (09:23)
[2021-05-18] MEDS: METOPROLOL TARTRATE 25 MG TABLET PO SCH ×2 (09:24→20:24)
[2021-05-18] MEDS: CHOLECALCIFEROL 1,000 UNIT TABLET PO SCH (09:24)
[2021-05-18] MEDS: ONDANSETRON 4 MG/2 ML VIAL IV PRN (09:39)
[2021-05-18] MEDS: DIGOXIN 0.125 MG TABLET PO SCH (13:40)
[2021-05-19] MEDS: DEXMEDETOMIDINE 400 MCG in SODIUM CHLORIDE 0.9% 96 ML IV PRN ×2 (00:01→16:38)
[2021-05-19] MEDS: ALBUTEROL/IPRATROPIUM 3 ML NEB RESP TX SCH ×4 (00:42→19:22)
[2021-05-19] MEDS: METOCLOPRAMIDE 10 MG/2 ML VIAL IV SCH ×3 (04:32→15:04)
[2021-05-19 04:41] LABS: Basophils % 0.4 % (0.0-0.8); Hematocrit 28.7 VOL% (42.0-52.0); Hemoglobin 8.8 GM/DL (14.0-18.0); Immature Granulocytes % 6.5 %; Immature Granulocytes Absolute 0.62 #; Lymphocytes # 1.3 10*3/uL (1.4-4.0); Lymphocytes % 13.6 % (21.2-54.2); Mean Corpuscular HGB Conc 30.7 GM/DL (32-36); Mean Corpuscular Volume 92.6 FL (87-102); Mean Platelet Volume 9.4 FL (9.6-12.0); Monocytes % 5.3 % (1.7-12.7); NRBC # 0.04 10*3/uL; Neutrophils % 74.2 % (38.7-73.9); Platelet Count 244 T/CUMM (130-400); Red Cell Distribution Width 16.2 % (9.3-17.3); White Blood Count 9.5 T/CUMM (4-12)
[2021-05-19 05:05] LABS: Albumin 2.6 G/DL (3.4-5.0); Calcium 8.6 MG/DL (8.5-10.1); Osmolality,Calculated 271.5 MOS/KG (273-304); Potassium 4.3 MMOL/L (3.5-5.1); Total Protein 5.9 G/DL (6.4-8.2)
[2021-05-19 06:09] LABS: Band Neutrophils 4 % (0-10); Hypochromia Slight; Lymphocytes 11 % (20-55); Metamyelocytes 3 %; Platelet Estimate Normal; Polychromasia Slight; Segmented Neutrophils 77 % (50-85); Total Cells Counted 100
[2021-05-19] MEDS: SUCRALFATE 1 GM/10 ML UDCUP NG SCH ×3 (06:30→18:15)
[2021-05-19] MEDS: INSULIN LISPRO 100 UNIT/ML SUBCUT SCH ×3 (06:30→18:15)
[2021-05-19] MEDS: MENTHOL/ZINC OXIDE OINT 71 GM JAR TOP SCH ×2 (09:43→20:00)
[2021-05-19] MEDS: PANTOPRAZOLE 40 MG VIAL IV SCH (09:43)
[2021-05-19] MEDS: TAMSULOSIN 0.4 MG CAPSULE PO SCH (09:44)
[2021-05-19] MEDS: QUEtiapine 25 MG TABLET PER TUBE SCH ×2 (09:44→20:00)
[2021-05-19] MEDS: ASCORBIC ACID 500 MG TABLET PO SCH ×2 (09:44→20:00)
[2021-05-19] MEDS: methylPREDNISolone SOD SUC 40 MG/1 ML VIAL IV SCH ×2 (09:44→20:00)
[2021-05-19] MEDS: DOCUSATE SODIUM 100 MG/10 ML UDCUP PO SCH ×2 (09:45→20:00)
[2021-05-19] MEDS: guaiFENesin 200 MG/10 ML UDCUP PO SCH ×3 (09:45→20:00)
[2021-05-19] MEDS: CHOLECALCIFEROL 1,000 UNIT TABLET PO SCH (09:45)
[2021-05-19] MEDS: CITALOPRAM 20 MG TABLET PO SCH (09:45)
[2021-05-19] MEDS: INSULIN GLARGINE 100 UNIT/ML SUBCUT SCH (09:45)
[2021-05-19] MEDS: METOPROLOL TARTRATE 25 MG TABLET PO SCH ×2 (09:45→20:00)
[2021-05-19] MEDS: ZINC GLUCONATE 50 MG TABLET PO SCH (09:45)
[2021-05-19] MEDS: DIGOXIN 0.125 MG TABLET PO SCH (12:54)
[2021-05-19] MEDS: HYDROmorphone 2 MG/1 ML VIAL IV PRN (13:10)
[2021-05-20] MEDS: METOCLOPRAMIDE 10 MG/2 ML VIAL IV SCH ×5 (00:08→21:11)
[2021-05-20] MEDS: INSULIN LISPRO 100 UNIT/ML SUBCUT SCH ×5 (00:08→23:33)
[2021-05-20] MEDS: SUCRALFATE 1 GM/10 ML UDCUP NG SCH ×5 (00:08→23:34)
[2021-05-20] MEDS: ALBUTEROL/IPRATROPIUM 3 ML NEB RESP TX SCH ×4 (00:59→20:04)
[2021-05-20] MEDS: DEXMEDETOMIDINE 400 MCG in SODIUM CHLORIDE 0.9% 96 ML IV PRN ×3 (01:14→18:27)
[2021-05-20 04:00] LABS: Basophils % 0.3 % (0.0-0.8); Hematocrit 28.4 VOL% (42.0-52.0); Hemoglobin 8.7 GM/DL (14.0-18.0); Immature Granulocytes % 6.4 %; Immature Granulocytes Absolute 0.68 #; Lymphocytes # 1.2 10*3/uL (1.4-4.0); Lymphocytes % 11.5 % (21.2-54.2); Mean Corpuscular HGB Conc 30.6 GM/DL (32-36); Mean Platelet Volume 9.7 FL (9.6-12.0); Monocytes % 4.6 % (1.7-12.7); NRBC # 0.03 10*3/uL; Neutrophils % 77.2 % (38.7-73.9); Platelet Count 230 T/CUMM (130-400); Red Blood Count 3.02 MC/CUMM (3.8-5.5); Red Cell Distribution Width 16.2 % (9.3-17.3); White Blood Count 10.7 T/CUMM (4-12)
[2021-05-20 04:04] LABS: ABG Base Excess 12.4 MMOL/L (-2.5-2.5); ABG HCO3 36.2 MMOL/L (20-26); ABG Oxygen Saturation 99.3 % (95-100); ABG PCO2 59.7 MM HG (35-48); ABG PH 7.424 (7.35-7.45); ABG TCO2 35.6 MMOL/L (23-27)
[2021-05-20 04:06] LABS: Calcium 8.6 MG/DL (8.5-10.1); Potassium 4.3 MMOL/L (3.5-5.1)
[2021-05-20 04:23] LABS: Osmolality,Calculated 272.2 MOS/KG (273-304)
[2021-05-20 04:43] LABS: Hypochromia 1+; Lymphocytes 13 % (20-55); Metamyelocytes 5 %; Nucleated Red Blood Cells 1 (0-5); Platelet Estimate Adequate; Promyelocytes 1 %; Segmented Neutrophils 74 % (50-85); Total Cells Counted 100
[2021-05-20 04:44] LABS: Anisocytosis Slight
[2021-05-20] MEDS: ZINC GLUCONATE 50 MG TABLET PO SCH (09:00)
[2021-05-20] MEDS: QUEtiapine 25 MG TABLET PER TUBE SCH ×2 (09:00→20:41)
[2021-05-20] MEDS: ASCORBIC ACID 500 MG TABLET PO SCH ×2 (09:00→20:41)
[2021-05-20] MEDS: TAMSULOSIN 0.4 MG CAPSULE PO SCH (09:00)
[2021-05-20] MEDS: methylPREDNISolone SOD SUC 40 MG/1 ML VIAL IV SCH ×2 (09:01→20:40)
[2021-05-20] MEDS: guaiFENesin 200 MG/10 ML UDCUP PO SCH ×3 (09:01→20:40)
[2021-05-20] MEDS: CHOLECALCIFEROL 1,000 UNIT TABLET PO SCH (09:01)
[2021-05-20] MEDS: DOCUSATE SODIUM 100 MG/10 ML UDCUP PO SCH ×2 (09:01→20:40)
[2021-05-20] MEDS: CITALOPRAM 20 MG TABLET PO SCH (09:01)
[2021-05-20] MEDS: fentaNYL 25 MCG/HR PATCH TRANSDERM SCH (09:02)
[2021-05-20] MEDS: METOPROLOL TARTRATE 25 MG TABLET PO SCH ×2 (09:02→20:42)
[2021-05-20] MEDS: INSULIN GLARGINE 100 UNIT/ML SUBCUT SCH (09:02)
[2021-05-20] MEDS: PANTOPRAZOLE 40 MG VIAL IV SCH (09:02)
[2021-05-20] MEDS: MENTHOL/ZINC OXIDE OINT 71 GM JAR TOP SCH ×2 (09:03→20:44)
[2021-05-20] MEDS: HYDROmorphone 2 MG/1 ML VIAL IV PRN (12:36)
[2021-05-20] MEDS: DIGOXIN 0.125 MG TABLET PO SCH (14:50)
[2021-05-20] MEDS ORDERED: MORPHINE 2 MG/1 ML SYRINGE ONE (15:23)
[2021-05-20] MEDS: MORPHINE 2 MG/1 ML SYRINGE IV PRN (15:25)
[2021-05-21] MEDS: ALBUTEROL/IPRATROPIUM 3 ML NEB RESP TX SCH ×4 (00:56→18:23)
[2021-05-21] MEDS: DEXMEDETOMIDINE 400 MCG in SODIUM CHLORIDE 0.9% 96 ML IV PRN ×3 (02:06→17:07)
[2021-05-21 04:14] LABS: ABG Base Excess 12.8 MMOL/L (-2.5-2.5); ABG HCO3 39.1 MMOL/L (20-26); ABG Oxygen Saturation 97.3 % (95-100); ABG PCO2 60.7 MM HG (35-48); ABG PH 7.427 (7.35-7.45); ABG PO2 94.9 MM HG (80-95)
[2021-05-21 04:15] LABS: Allen Test Positive; Pt O2 Delivery Device Ventilator
[2021-05-21] MEDS: METOCLOPRAMIDE 10 MG/2 ML VIAL IV SCH ×4 (04:26→21:20)
[2021-05-21 04:50] LABS: Basophils % 0.3 % (0.0-0.8); Hemoglobin 9.3 GM/DL (14.0-18.0); Immature Granulocytes % 6.1 %; Immature Granulocytes Absolute 0.67 #; Lymphocytes # 1.1 10*3/uL (1.4-4.0); Lymphocytes % 9.6 % (21.2-54.2); Mean Corpuscular Volume 93.5 FL (87-102); Mean Platelet Volume 9.6 FL (9.6-12.0); Monocytes % 4.2 % (1.7-12.7); NRBC # 0.04 10*3/uL; Neutrophils % 79.8 % (38.7-73.9); Platelet Count 215 T/CUMM (130-400); Red Blood Count 3.21 MC/CUMM (3.8-5.5); White Blood Count 10.9 T/CUMM (4-12)
[2021-05-21 05:09] LABS: Hypochromia 1+; Lymphocytes 13 % (20-55); Microcytosis 1+; Platelet Estimate Adequate; Segmented Neutrophils 83 % (50-85); Total Cells Counted 100
[2021-05-21 05:20] LABS: Calcium 8.7 MG/DL (8.5-10.1); Osmolality,Calculated 279.2 MOS/KG (273-304); Potassium 4.5 MMOL/L (3.5-5.1)
[2021-05-21] MEDS: INSULIN LISPRO 100 UNIT/ML SUBCUT SCH ×3 (06:38→18:27)
[2021-05-21] MEDS: SUCRALFATE 1 GM/10 ML UDCUP NG SCH ×3 (06:39→17:47)
[2021-05-21] MEDS: INSULIN GLARGINE 100 UNIT/ML SUBCUT SCH (08:19)
[2021-05-21] MEDS: ASCORBIC ACID 500 MG TABLET PO SCH ×2 (08:23→21:04)
[2021-05-21] MEDS: CHOLECALCIFEROL 1,000 UNIT TABLET PO SCH (08:24)
[2021-05-21] MEDS: TAMSULOSIN 0.4 MG CAPSULE PO SCH (08:24)
[2021-05-21] MEDS: CITALOPRAM 20 MG TABLET PO SCH (08:24)
[2021-05-21] MEDS: QUEtiapine 25 MG TABLET PER TUBE SCH ×2 (08:24→21:04)
[2021-05-21] MEDS: ZINC GLUCONATE 50 MG TABLET PO SCH (08:25)
[2021-05-21] MEDS: METOPROLOL TARTRATE 25 MG TABLET PO SCH ×2 (08:25→21:04)
[2021-05-21] MEDS: guaiFENesin 200 MG/10 ML UDCUP PO SCH ×3 (08:25→21:04)
[2021-05-21] MEDS: PANTOPRAZOLE 40 MG VIAL IV SCH (08:25)
[2021-05-21] MEDS: DOCUSATE SODIUM 100 MG/10 ML UDCUP PO SCH ×2 (08:25→21:04)
[2021-05-21] MEDS: methylPREDNISolone SOD SUC 40 MG/1 ML VIAL IV SCH ×2 (08:30→21:06)
[2021-05-21] MEDS: MENTHOL/ZINC OXIDE OINT 71 GM JAR TOP SCH ×2 (08:37→21:04)
[2021-05-21] MEDS ORDERED: INSULIN GLARGINE 100 UNIT/ML SUBCUT ONE (09:00)
[2021-05-21] MEDS ORDERED: INSULIN GLARGINE 100 UNIT/ML SUBCUT SCH (09:00)
[2021-05-21] MEDS: HYDROmorphone 2 MG/1 ML VIAL IV PRN ×3 (12:18→22:21)
[2021-05-21] MEDS: DIGOXIN 0.125 MG TABLET PO SCH (13:29)
[2021-05-21] MEDS: MORPHINE 2 MG/1 ML SYRINGE IV PRN (21:10)
[2021-05-22] MEDS: ALBUTEROL/IPRATROPIUM 3 ML NEB RESP TX SCH ×4 (00:45→18:26)
[2021-05-22] MEDS: DEXMEDETOMIDINE 400 MCG in SODIUM CHLORIDE 0.9% 96 ML IV PRN ×4 (00:59→23:35)
[2021-05-22] MEDS: SUCRALFATE 1 GM/10 ML UDCUP NG SCH ×5 (01:39→23:51)
[2021-05-22] MEDS: INSULIN LISPRO 100 UNIT/ML SUBCUT SCH ×5 (01:39→23:52)
[2021-05-22] MEDS ORDERED: CLORAZEPATE 3.75 MG TABLET PO ONE (02:13)
[2021-05-22] MEDS: METOCLOPRAMIDE 10 MG/2 ML VIAL IV SCH ×4 (05:11→22:03)
[2021-05-22 05:12] LABS: ABG Base Excess 14.3 MMOL/L (-2.5-2.5); ABG HCO3 40.5 MMOL/L (20-26); ABG Oxygen Saturation 97.1 % (95-100); ABG PCO2 60.7 MM HG (35-48); ABG PH 7.442 (7.35-7.45); ABG PO2 93.4 MM HG (80-95); ABG TCO2 42.4 MMOL/L (23-27); Allen Test Positive; Pt O2 Delivery Device Ventilator
[2021-05-22 05:45] LABS: Basophils # 0.1 10*3/uL (0.0-0.2); Basophils % 0.4 % (0.0-0.8); Hematocrit 30.6 VOL% (42.0-52.0); Hemoglobin 9.4 GM/DL (14.0-18.0); Immature Granulocytes Absolute 0.74 #; Lymphocytes # 1.3 10*3/uL (1.4-4.0); Lymphocytes % 10.7 % (21.2-54.2); Mean Corpuscular HGB Conc 30.7 GM/DL (32-36); Mean Corpuscular Volume 94.2 FL (87-102); Mean Platelet Volume 9.3 FL (9.6-12.0); Monocytes % 4.5 % (1.7-12.7); NRBC # 0.03 10*3/uL; Neutrophils % 78.4 % (38.7-73.9); Platelet Count 221 T/CUMM (130-400); Red Blood Count 3.25 MC/CUMM (3.8-5.5); White Blood Count 12.4 T/CUMM (4-12)
[2021-05-22 06:00] LABS: Calcium 8.8 MG/DL (8.5-10.1)
[2021-05-22 06:08] LABS: Osmolality,Calculated 271.8 MOS/KG (273-304); Potassium 4.3 MMOL/L (3.5-5.1)
[2021-05-22 06:17] LABS: Eosinophils 1 % (0-10); Hypochromia 1+; Lymphocytes 9 % (20-55); Microcytosis 1+; Platelet Estimate Adequate; Segmented Neutrophils 86 % (50-85); Total Cells Counted 100
[2021-05-22] MEDS: MENTHOL/ZINC OXIDE OINT 71 GM JAR TOP SCH ×2 (09:13→20:10)
[2021-05-22] MEDS: INSULIN GLARGINE 100 UNIT/ML SUBCUT SCH (09:14)
[2021-05-22] MEDS: ZINC GLUCONATE 50 MG TABLET PO SCH (09:18)
[2021-05-22] MEDS: ASCORBIC ACID 500 MG TABLET PO SCH ×2 (09:18→20:10)
[2021-05-22] MEDS: CHOLECALCIFEROL 1,000 UNIT TABLET PO SCH (09:18)
[2021-05-22] MEDS: guaiFENesin 200 MG/10 ML UDCUP PO SCH ×3 (09:19→20:10)
[2021-05-22] MEDS: DOCUSATE SODIUM 100 MG/10 ML UDCUP PO SCH ×2 (09:19→20:10)
[2021-05-22] MEDS: METOPROLOL TARTRATE 25 MG TABLET PO SCH ×2 (09:19→20:10)
[2021-05-22] MEDS: CITALOPRAM 20 MG TABLET PO SCH (09:19)
[2021-05-22] MEDS: QUEtiapine 25 MG TABLET PER TUBE SCH ×2 (09:19→20:10)
[2021-05-22] MEDS: TAMSULOSIN 0.4 MG CAPSULE PO SCH (09:19)
[2021-05-22] MEDS: PANTOPRAZOLE 40 MG VIAL IV SCH (09:20)
[2021-05-22] MEDS: HYDROmorphone 2 MG/1 ML VIAL IV PRN ×3 (09:27→19:03)
[2021-05-22] MEDS: methylPREDNISolone SOD SUC 40 MG/1 ML VIAL IV SCH ×2 (09:32→20:08)
[2021-05-22] MEDS: DIGOXIN 0.125 MG TABLET PO SCH (12:15)
[2021-05-22] MEDS: DIAZEPAM 5 MG TABLET PO PRN (18:37)
[2021-05-23] MEDS: ALBUTEROL/IPRATROPIUM 3 ML NEB RESP TX SCH ×4 (00:38→19:40)
[2021-05-23] MEDS: HYDROmorphone 2 MG/1 ML VIAL IV PRN ×4 (01:26→20:18)
[2021-05-23] MEDS: METOCLOPRAMIDE 10 MG/2 ML VIAL IV SCH (03:24)
[2021-05-23 03:48] LABS: Calcium 8.5 MG/DL (8.5-10.1)
[2021-05-23 03:54] LABS: Osmolality,Calculated 281.2 MOS/KG (273-304); Potassium 4.4 MMOL/L (3.5-5.1)
[2021-05-23] MEDS: INSULIN LISPRO 100 UNIT/ML SUBCUT SCH ×4 (05:46→23:34)
[2021-05-23] MEDS: SUCRALFATE 1 GM/10 ML UDCUP NG SCH ×3 (05:47→19:04)
[2021-05-23] MEDS: DEXMEDETOMIDINE 400 MCG in SODIUM CHLORIDE 0.9% 96 ML IV PRN ×3 (06:49→22:55)
[2021-05-23] MEDS: guaiFENesin 200 MG/10 ML UDCUP PO SCH ×3 (08:58→21:52)
[2021-05-23] MEDS: DOCUSATE SODIUM 100 MG/10 ML UDCUP PO SCH ×2 (08:58→21:52)
[2021-05-23] MEDS: ASCORBIC ACID 500 MG TABLET PO SCH ×2 (08:59→21:51)
[2021-05-23] MEDS: INSULIN GLARGINE 100 UNIT/ML SUBCUT SCH (08:59)
[2021-05-23] MEDS: METOCLOPRAMIDE 10 MG/10 ML UDCUP PEG SCH ×3 (08:59→21:52)
[2021-05-23] MEDS: METOPROLOL TARTRATE 25 MG TABLET PO SCH ×2 (09:00→21:51)
[2021-05-23] MEDS: CHOLECALCIFEROL 1,000 UNIT TABLET PO SCH (09:00)
[2021-05-23] MEDS: ZINC GLUCONATE 50 MG TABLET PO SCH (09:00)
[2021-05-23] MEDS: QUEtiapine 25 MG TABLET PER TUBE SCH ×2 (09:00→21:52)
[2021-05-23] MEDS: TAMSULOSIN 0.4 MG CAPSULE PO SCH (09:00)
[2021-05-23] MEDS: MENTHOL/ZINC OXIDE OINT 71 GM JAR TOP SCH ×2 (09:01→21:52)
[2021-05-23] MEDS: CITALOPRAM 20 MG TABLET PO SCH (09:01)
[2021-05-23] MEDS: methylPREDNISolone SOD SUC 40 MG/1 ML VIAL IV SCH ×2 (09:12→21:51)
[2021-05-23] MEDS: PANTOPRAZOLE 40 MG VIAL IV SCH (09:12)
[2021-05-23] MEDS: fentaNYL 25 MCG/HR PATCH TRANSDERM SCH (12:00)
[2021-05-23] MEDS: DIGOXIN 0.125 MG TABLET PO SCH (13:36)
[2021-05-23] MEDS: MORPHINE 2 MG/1 ML SYRINGE IV PRN (16:29)
[2021-05-24] MEDS: ALBUTEROL/IPRATROPIUM 3 ML NEB RESP TX SCH ×4 (00:51→18:57)
[2021-05-24] MEDS: SUCRALFATE 1 GM/10 ML UDCUP NG SCH ×4 (01:28→21:17)
[2021-05-24] MEDS: METOCLOPRAMIDE 10 MG/10 ML UDCUP PEG SCH ×4 (01:30→21:17)
[2021-05-24 04:59] LABS: Calcium 8.8 MG/DL (8.5-10.1); Osmolality,Calculated 273.5 MOS/KG (273-304); Potassium 4.2 MMOL/L (3.5-5.1)
[2021-05-24] MEDS: INSULIN LISPRO 100 UNIT/ML SUBCUT SCH ×4 (05:36→23:45)
[2021-05-24] MEDS: DEXMEDETOMIDINE 400 MCG in SODIUM CHLORIDE 0.9% 96 ML IV PRN ×3 (06:42→23:55)
[2021-05-24] MEDS: MORPHINE 2 MG/1 ML SYRINGE IV PRN ×3 (07:20→17:45)
[2021-05-24] MEDS: INSULIN GLARGINE 100 UNIT/ML SUBCUT SCH (09:09)
[2021-05-24] MEDS: methylPREDNISolone SOD SUC 40 MG/1 ML VIAL IV SCH ×2 (09:10→21:18)
[2021-05-24] MEDS: guaiFENesin 200 MG/10 ML UDCUP PO SCH ×3 (09:13→21:18)
[2021-05-24] MEDS: PANTOPRAZOLE 40 MG VIAL IV SCH (09:13)
[2021-05-24] MEDS: DOCUSATE SODIUM 100 MG/10 ML UDCUP PO SCH ×2 (09:13→21:18)
[2021-05-24] MEDS: QUEtiapine 25 MG TABLET PER TUBE SCH ×2 (09:14→21:18)
[2021-05-24] MEDS: TAMSULOSIN 0.4 MG CAPSULE PO SCH (09:14)
[2021-05-24] MEDS: ZINC GLUCONATE 50 MG TABLET PO SCH (09:14)
[2021-05-24] MEDS: CITALOPRAM 20 MG TABLET PO SCH (09:14)
[2021-05-24] MEDS: CHOLECALCIFEROL 1,000 UNIT TABLET PO SCH (09:14)
[2021-05-24] MEDS: METOPROLOL TARTRATE 25 MG TABLET PO SCH ×2 (09:16→21:18)
[2021-05-24] MEDS: ASCORBIC ACID 500 MG TABLET PO SCH ×2 (09:16→21:18)
[2021-05-24] MEDS: MENTHOL/ZINC OXIDE OINT 71 GM JAR TOP SCH ×2 (09:17→21:17)
[2021-05-24] MEDS: SODIUM CHLORIDE 1 GM TABLET PO SCH ×2 (09:22→21:17)
[2021-05-24] MEDS: DIGOXIN 0.125 MG TABLET PO SCH (13:23)
[2021-05-24] MEDS: HYDROmorphone 2 MG/1 ML VIAL IV PRN ×2 (14:09→19:16)
[2021-05-25] MEDS: ALBUTEROL/IPRATROPIUM 3 ML NEB RESP TX SCH ×4 (00:05→19:55)
[2021-05-25] MEDS: METOCLOPRAMIDE 10 MG/10 ML UDCUP PEG SCH ×4 (02:52→21:26)
[2021-05-25 04:11] LABS: Basophils % 0.3 % (0.0-0.8); Eosinophils # 0.1 10*3/uL (0.0-0.87); Eosinophils % 0.6 % (0.00-10.9); Hematocrit 31.7 VOL% (42.0-52.0); Hemoglobin 9.7 GM/DL (14.0-18.0); Immature Granulocytes % 4.8 %; Immature Granulocytes Absolute 0.56 #; Lymphocytes # 2.3 10*3/uL (1.4-4.0); Lymphocytes % 19.8 % (21.2-54.2); Mean Corpuscular HGB Conc 30.6 GM/DL (32-36); Mean Corpuscular Volume 93.5 FL (87-102); Mean Platelet Volume 9.5 FL (9.6-12.0); Monocytes % 7.2 % (1.7-12.7); NRBC # 0.02 10*3/uL; Neutrophils % 67.3 % (38.7-73.9); Platelet Count 183 T/CUMM (130-400); Red Blood Count 3.39 MC/CUMM (3.8-5.5); Red Cell Distribution Width 15.8 % (9.3-17.3); White Blood Count 11.8 T/CUMM (4-12)
[2021-05-25 04:36] LABS: Calcium 8.8 MG/DL (8.5-10.1); Potassium 3.9 MMOL/L (3.5-5.1)
[2021-05-25 04:40] LABS: Osmolality,Calculated 284.8 MOS/KG (273-304)
[2021-05-25 04:46] LABS: Eosinophils 1 % (0-10); Lymphocytes 23 % (20-55); Segmented Neutrophils 69 % (50-85); Total Cells Counted 100
[2021-05-25 04:49] LABS: Anisocytosis 1+; Hypochromia 1+; Microcytosis 1+; Platelet Estimate Normal
[2021-05-25] MEDS: INSULIN LISPRO 100 UNIT/ML SUBCUT SCH ×3 (06:00→18:39)
[2021-05-25] MEDS: DEXMEDETOMIDINE 400 MCG in SODIUM CHLORIDE 0.9% 96 ML IV PRN ×2 (07:18→14:46)
[2021-05-25] MEDS: MORPHINE 2 MG/1 ML SYRINGE IV PRN ×2 (08:08→19:07)
[2021-05-25] MEDS: CHOLECALCIFEROL 1,000 UNIT TABLET PO SCH (08:26)
[2021-05-25] MEDS: QUEtiapine 25 MG TABLET PER TUBE SCH ×2 (08:27→21:26)
[2021-05-25] MEDS: guaiFENesin 200 MG/10 ML UDCUP PO SCH ×3 (08:27→21:26)
[2021-05-25] MEDS: ZINC GLUCONATE 50 MG TABLET PO SCH (08:27)
[2021-05-25] MEDS: DOCUSATE SODIUM 100 MG/10 ML UDCUP PO SCH ×2 (08:27→21:26)
[2021-05-25] MEDS: SODIUM CHLORIDE 1 GM TABLET PO SCH ×2 (08:27→21:25)
[2021-05-25] MEDS: ASCORBIC ACID 500 MG TABLET PO SCH ×2 (08:27→21:25)
[2021-05-25] MEDS: TAMSULOSIN 0.4 MG CAPSULE PO SCH (08:28)
[2021-05-25] MEDS: METOPROLOL TARTRATE 25 MG TABLET PO SCH ×2 (08:28→21:26)
[2021-05-25] MEDS: CITALOPRAM 20 MG TABLET PO SCH (08:28)
[2021-05-25] MEDS: methylPREDNISolone SOD SUC 40 MG/1 ML VIAL IV SCH ×2 (08:28→21:25)
[2021-05-25] MEDS: SUCRALFATE 1 GM/10 ML UDCUP NG SCH ×2 (08:31→21:25)
[2021-05-25] MEDS: INSULIN GLARGINE 100 UNIT/ML SUBCUT SCH (08:31)
[2021-05-25] MEDS: PANTOPRAZOLE 40 MG VIAL IV SCH (08:33)
[2021-05-25] MEDS: MENTHOL/ZINC OXIDE OINT 71 GM JAR TOP SCH ×2 (08:33→21:25)
[2021-05-25] MEDS: DIAZEPAM 5 MG TABLET PO PRN (08:36)
[2021-05-25] MEDS: fentaNYL 25 MCG/HR PATCH TRANSDERM SCH (12:00)
[2021-05-25] MEDS: DIGOXIN 0.125 MG TABLET PO SCH (12:37)
[2021-05-26] MEDS: INSULIN LISPRO 100 UNIT/ML SUBCUT SCH ×2 (00:04→05:33)
[2021-05-26] MEDS: ALBUTEROL/IPRATROPIUM 3 ML NEB RESP TX SCH ×4 (00:50→18:23)
[2021-05-26] MEDS: DEXMEDETOMIDINE 400 MCG in SODIUM CHLORIDE 0.9% 96 ML IV PRN ×3 (01:10→16:37)
[2021-05-26] MEDS: METOCLOPRAMIDE 10 MG/10 ML UDCUP PEG SCH ×4 (02:38→21:55)
[2021-05-26 05:08] LABS: Calcium 8.7 MG/DL (8.5-10.1); Osmolality,Calculated 289.5 MOS/KG (273-304); Potassium 4.1 MMOL/L (3.5-5.1)
[2021-05-26] MEDS: guaiFENesin 200 MG/10 ML UDCUP PO SCH ×3 (08:41→21:55)
[2021-05-26] MEDS: DOCUSATE SODIUM 100 MG/10 ML UDCUP PO SCH ×2 (08:41→21:55)
[2021-05-26] MEDS: ZINC GLUCONATE 50 MG TABLET PO SCH (08:42)
[2021-05-26] MEDS: CITALOPRAM 20 MG TABLET PO SCH (08:42)
[2021-05-26] MEDS: QUEtiapine 25 MG TABLET PER TUBE SCH ×2 (08:42→21:55)
[2021-05-26] MEDS: METOPROLOL TARTRATE 25 MG TABLET PO SCH ×2 (08:42→21:56)
[2021-05-26] MEDS: ASCORBIC ACID 500 MG TABLET PO SCH ×2 (08:42→21:56)
[2021-05-26] MEDS: CHOLECALCIFEROL 1,000 UNIT TABLET PO SCH (08:42)
[2021-05-26] MEDS: TAMSULOSIN 0.4 MG CAPSULE PO SCH (08:42)
[2021-05-26] MEDS: SODIUM CHLORIDE 1 GM TABLET PO SCH (08:43)
[2021-05-26] MEDS: SUCRALFATE 1 GM/10 ML UDCUP NG SCH ×2 (08:43→21:55)
[2021-05-26] MEDS: INSULIN GLARGINE 100 UNIT/ML SUBCUT SCH (08:43)
[2021-05-26] MEDS: PANTOPRAZOLE 40 MG VIAL IV SCH (08:46)
[2021-05-26] MEDS: methylPREDNISolone SOD SUC 40 MG/1 ML VIAL IV SCH ×2 (08:51→21:55)
[2021-05-26] MEDS: MENTHOL/ZINC OXIDE OINT 71 GM JAR TOP SCH ×2 (08:55→21:56)
[2021-05-26] MEDS: MORPHINE 2 MG/1 ML SYRINGE IV PRN (11:54)
[2021-05-26] MEDS: DIGOXIN 0.125 MG TABLET PO SCH (13:06)
[2021-05-26] MEDS: HYDROmorphone 2 MG/1 ML VIAL IV PRN (18:39)
[2021-05-27] MEDS: DEXMEDETOMIDINE 400 MCG in SODIUM CHLORIDE 0.9% 96 ML IV PRN ×3 (00:01→16:36)
[2021-05-27] MEDS: ALBUTEROL/IPRATROPIUM 3 ML NEB RESP TX SCH ×4 (01:32→19:58)
[2021-05-27] MEDS: METOCLOPRAMIDE 10 MG/10 ML UDCUP PEG SCH ×4 (03:17→21:29)
[2021-05-27 05:18] LABS: Calcium 8.5 MG/DL (8.5-10.1); Potassium 4.1 MMOL/L (3.5-5.1)
[2021-05-27] MEDS: HYDROmorphone 2 MG/1 ML VIAL IV PRN ×3 (08:11→19:34)
[2021-05-27] MEDS: guaiFENesin 200 MG/10 ML UDCUP PO SCH ×3 (08:57→21:29)
[2021-05-27] MEDS: QUEtiapine 25 MG TABLET PER TUBE SCH ×2 (08:58→21:29)
[2021-05-27] MEDS: METOPROLOL TARTRATE 25 MG TABLET PO SCH ×2 (08:58→21:29)
[2021-05-27] MEDS: DOCUSATE SODIUM 100 MG/10 ML UDCUP PO SCH ×2 (08:58→21:29)
[2021-05-27] MEDS: ASCORBIC ACID 500 MG TABLET PO SCH ×2 (08:58→21:29)
[2021-05-27] MEDS: TAMSULOSIN 0.4 MG CAPSULE PO SCH (08:59)
[2021-05-27] MEDS: SUCRALFATE 1 GM/10 ML UDCUP NG SCH ×2 (08:59→21:30)
[2021-05-27] MEDS: CHOLECALCIFEROL 1,000 UNIT TABLET PO SCH (08:59)
[2021-05-27] MEDS: INSULIN GLARGINE 100 UNIT/ML SUBCUT SCH (08:59)
[2021-05-27] MEDS: ZINC GLUCONATE 50 MG TABLET PO SCH (08:59)
[2021-05-27] MEDS: CITALOPRAM 20 MG TABLET PO SCH (09:00)
[2021-05-27] MEDS: MENTHOL/ZINC OXIDE OINT 71 GM JAR TOP SCH ×2 (09:00→21:28)
[2021-05-27] MEDS: methylPREDNISolone SOD SUC 40 MG/1 ML VIAL IV SCH ×2 (09:02→21:30)
[2021-05-27] MEDS: PANTOPRAZOLE 40 MG VIAL IV SCH (09:04)
[2021-05-27] MEDS: DIGOXIN 0.125 MG TABLET PO SCH (12:29)
[2021-05-27] MEDS: LEVOFLOXACIN 750 MG TABLET PEG SCH (17:04)
[2021-05-27 17:16] LABS: Amorphous Crystals,Urine Occasional /HPF (Few); Bilirubin,Urine Negative (Negative); Blood, Urine Moderate mg/dL (Negative); Glucose,Urine (UA) Negative (Negative); Ketones,Urine Negative (Negative); Mucus,Urine Many /LPF (Occasional); Nitrite,Urine Negative (Negative); Protein,Urine 30 MG/DL; RBC,Urine 415 /HPF (0-4); Urine Appearance CLOUDY (Clear); Urine Color Yellow (Yellow); Urine Specific Gravity 1.023 (1.001-1.035); Urine Urobilinogen < 2.0 EU/DL (0.2-1.0)
[2021-05-28] MEDS: ALBUTEROL/IPRATROPIUM 3 ML NEB RESP TX SCH ×4 (01:20→19:25)
[2021-05-28] MEDS: HYDROmorphone 2 MG/1 ML VIAL IV PRN ×4 (01:39→19:08)
[2021-05-28] MEDS: DEXMEDETOMIDINE 400 MCG in SODIUM CHLORIDE 0.9% 96 ML IV PRN ×4 (01:58→23:28)
[2021-05-28] MEDS: METOCLOPRAMIDE 10 MG/10 ML UDCUP PEG SCH ×4 (03:49→21:19)
[2021-05-28 05:22] LABS: ABG Base Excess 10.7 MMOL/L (-2.5-2.5); ABG HCO3 34.5 MMOL/L (20-26); ABG Oxygen Saturation 99.3 % (95-100); ABG PCO2 58.4 MM HG (35-48); ABG PH 7.417 (7.35-7.45); ABG TCO2 33.5 MMOL/L (23-27)
[2021-05-28 05:38] LABS: Basophils % 0.2 % (0.0-0.8); Hematocrit 29.6 VOL% (42.0-52.0); Hemoglobin 8.9 GM/DL (14.0-18.0); Immature Granulocytes Absolute 0.29 #; Lymphocytes # 0.9 10*3/uL (1.4-4.0); Lymphocytes % 9.3 % (21.2-54.2); Mean Corpuscular HGB Conc 30.1 GM/DL (32-36); Mean Corpuscular Volume 94.6 FL (87-102); Mean Platelet Volume 9.9 FL (9.6-12.0); Monocytes % 3.3 % (1.7-12.7); Neutrophils % 84.2 % (38.7-73.9); Platelet Count 168 T/CUMM (130-400); Red Blood Count 3.13 MC/CUMM (3.8-5.5); White Blood Count 9.6 T/CUMM (4-12)
[2021-05-28 05:49] LABS: Calcium 8.5 MG/DL (8.5-10.1); Potassium 4.1 MMOL/L (3.5-5.1)
[2021-05-28] MEDS: SUCRALFATE 1 GM/10 ML UDCUP NG SCH ×2 (08:17→21:19)
[2021-05-28] MEDS: ZINC GLUCONATE 50 MG TABLET PO SCH (08:18)
[2021-05-28] MEDS: QUEtiapine 25 MG TABLET PER TUBE SCH ×2 (08:18→21:21)
[2021-05-28] MEDS: ASCORBIC ACID 500 MG TABLET PO SCH ×2 (08:18→21:20)
[2021-05-28] MEDS: METOPROLOL TARTRATE 25 MG TABLET PO SCH ×2 (08:18→21:20)
[2021-05-28] MEDS: TAMSULOSIN 0.4 MG CAPSULE PO SCH (08:18)
[2021-05-28] MEDS: CHOLECALCIFEROL 1,000 UNIT TABLET PO SCH (08:18)
[2021-05-28] MEDS: CITALOPRAM 20 MG TABLET PO SCH (08:19)
[2021-05-28] MEDS: guaiFENesin 200 MG/10 ML UDCUP PO SCH ×3 (08:19→21:20)
[2021-05-28] MEDS: PANTOPRAZOLE 40 MG VIAL IV SCH (08:22)
[2021-05-28] MEDS: methylPREDNISolone SOD SUC 40 MG/1 ML VIAL IV SCH ×2 (08:22→21:56)
[2021-05-28] MEDS: INSULIN GLARGINE 100 UNIT/ML SUBCUT SCH (08:27)
[2021-05-28] MEDS: MENTHOL/ZINC OXIDE OINT 71 GM JAR TOP SCH ×2 (08:30→21:21)
[2021-05-28] MEDS: DOCUSATE SODIUM 100 MG/10 ML UDCUP PO SCH ×2 (08:32→21:20)
[2021-05-28] MEDS: fentaNYL 25 MCG/HR PATCH TRANSDERM SCH (08:32)
[2021-05-28] MEDS: DIAZEPAM 5 MG TABLET PO PRN (13:15)
[2021-05-28] MEDS: DIGOXIN 0.125 MG TABLET PO SCH (13:16)
[2021-05-28] MEDS: LEVOFLOXACIN 750 MG TABLET PEG SCH (16:42)
[2021-05-29] MEDS: ALBUTEROL/IPRATROPIUM 3 ML NEB RESP TX SCH ×4 (01:41→19:04)
[2021-05-29] MEDS: METOCLOPRAMIDE 10 MG/10 ML UDCUP PEG SCH ×4 (03:10→21:08)
[2021-05-29 03:51] LABS: ABG Base Excess 11.3 MMOL/L (-2.5-2.5); ABG Oxygen Saturation 99.5 % (95-100); ABG PH 7.404 (7.35-7.45)
[2021-05-29 05:14] LABS: Calcium 8.4 MG/DL (8.5-10.1); Osmolality,Calculated 286.7 MOS/KG (273-304); Potassium 4.1 MMOL/L (3.5-5.1)
[2021-05-29 05:17] LABS: Basophils % 0.3 % (0.0-0.8); Hematocrit 28.4 VOL% (42.0-52.0); Hemoglobin 8.9 GM/DL (14.0-18.0); Immature Granulocytes % 4.2 %; Immature Granulocytes Absolute 0.36 #; Lymphocytes # 0.8 10*3/uL (1.4-4.0); Lymphocytes % 9.4 % (21.2-54.2); Mean Corpuscular HGB Conc 31.3 GM/DL (32-36); Mean Corpuscular Volume 93.4 FL (87-102); Mean Platelet Volume 9.9 FL (9.6-12.0); Monocytes % 3.7 % (1.7-12.7); Neutrophils % 82.4 % (38.7-73.9); Platelet Count 152 T/CUMM (130-400); Red Blood Count 3.04 MC/CUMM (3.8-5.5); Red Cell Distribution Width 14.6 % (9.3-17.3); White Blood Count 8.6 T/CUMM (4-12)
[2021-05-29] MEDS: DEXMEDETOMIDINE 400 MCG in SODIUM CHLORIDE 0.9% 96 ML IV PRN ×3 (07:30→22:43)
[2021-05-29] MEDS: HYDROmorphone 2 MG/1 ML VIAL IV PRN ×4 (07:46→21:13)
[2021-05-29] MEDS: DOCUSATE SODIUM 100 MG/10 ML UDCUP PO SCH ×2 (08:34→21:08)
[2021-05-29] MEDS: ZINC GLUCONATE 50 MG TABLET PO SCH (08:35)
[2021-05-29] MEDS: guaiFENesin 200 MG/10 ML UDCUP PO SCH ×3 (08:35→21:08)
[2021-05-29] MEDS: CHOLECALCIFEROL 1,000 UNIT TABLET PO SCH (08:35)
[2021-05-29] MEDS: METOPROLOL TARTRATE 25 MG TABLET PO SCH ×2 (08:35→21:08)
[2021-05-29] MEDS: TAMSULOSIN 0.4 MG CAPSULE PO SCH (08:35)
[2021-05-29] MEDS: ASCORBIC ACID 500 MG TABLET PO SCH ×2 (08:35→21:08)
[2021-05-29] MEDS: CITALOPRAM 20 MG TABLET PO SCH (08:36)
[2021-05-29] MEDS: QUEtiapine 25 MG TABLET PER TUBE SCH ×2 (08:36→21:08)
[2021-05-29] MEDS: PANTOPRAZOLE 40 MG VIAL IV SCH (08:37)
[2021-05-29] MEDS: methylPREDNISolone SOD SUC 40 MG/1 ML VIAL IV SCH ×2 (08:37→21:09)
[2021-05-29] MEDS: SUCRALFATE 1 GM/10 ML UDCUP NG SCH ×2 (08:37→21:08)
[2021-05-29] MEDS: INSULIN GLARGINE 100 UNIT/ML SUBCUT SCH (08:38)
[2021-05-29] MEDS: MENTHOL/ZINC OXIDE OINT 71 GM JAR TOP SCH ×2 (09:50→21:17)
[2021-05-29] MEDS: DIAZEPAM 5 MG TABLET PO PRN (11:22)
[2021-05-29] MEDS: DIGOXIN 0.125 MG TABLET PO SCH (12:49)
[2021-05-30] MEDS: ALBUTEROL/IPRATROPIUM 3 ML NEB RESP TX SCH ×4 (00:59→18:33)
[2021-05-30] MEDS: HYDROmorphone 2 MG/1 ML VIAL IV PRN ×5 (01:53→21:24)
[2021-05-30] MEDS: METOCLOPRAMIDE 10 MG/10 ML UDCUP PEG SCH ×4 (03:24→21:18)
[2021-05-30 05:11] LABS: Basophils % 0.2 % (0.0-0.8); Hematocrit 31.1 VOL% (42.0-52.0); Hemoglobin 9.4 GM/DL (14.0-18.0); Immature Granulocytes % 3.1 %; Lymphocytes # 1.1 10*3/uL (1.4-4.0); Lymphocytes % 11.3 % (21.2-54.2); Mean Corpuscular HGB Conc 30.2 GM/DL (32-36); Mean Corpuscular Volume 94.8 FL (87-102); Mean Platelet Volume 9.7 FL (9.6-12.0); Monocytes % 4.7 % (1.7-12.7); Neutrophils % 80.7 % (38.7-73.9); Platelet Count 171 T/CUMM (130-400); Red Blood Count 3.28 MC/CUMM (3.8-5.5); Red Cell Distribution Width 14.6 % (9.3-17.3); White Blood Count 9.6 T/CUMM (4-12)
[2021-05-30 05:23] LABS: Calcium 8.8 MG/DL (8.5-10.1); Osmolality,Calculated 279.1 MOS/KG (273-304); Potassium 4.1 MMOL/L (3.5-5.1)
[2021-05-30] MEDS: DEXMEDETOMIDINE 400 MCG in SODIUM CHLORIDE 0.9% 96 ML IV PRN ×3 (06:55→23:40)
[2021-05-30] MEDS: MENTHOL/ZINC OXIDE OINT 71 GM JAR TOP SCH ×2 (09:34→21:25)
[2021-05-30] MEDS: DOCUSATE SODIUM 100 MG/10 ML UDCUP PO SCH ×2 (09:35→21:18)
[2021-05-30] MEDS: methylPREDNISolone SOD SUC 40 MG/1 ML VIAL IV SCH ×2 (09:36→21:19)
[2021-05-30] MEDS: guaiFENesin 200 MG/10 ML UDCUP PO SCH ×3 (09:38→21:18)
[2021-05-30] MEDS: SUCRALFATE 1 GM/10 ML UDCUP NG SCH ×2 (09:42→21:18)
[2021-05-30] MEDS: AMPICILLIN INJ 1,000 MG in SODIUM CHLORIDE 0.9% 100 ML IV SCH ×3 (09:42→21:59)
[2021-05-30] MEDS: CITALOPRAM 20 MG TABLET PO SCH (09:42)
[2021-05-30] MEDS: METOPROLOL TARTRATE 25 MG TABLET PO SCH ×2 (09:43→21:18)
[2021-05-30] MEDS: TAMSULOSIN 0.4 MG CAPSULE PO SCH (09:43)
[2021-05-30] MEDS: INSULIN GLARGINE 100 UNIT/ML SUBCUT SCH (09:43)
[2021-05-30] MEDS: PANTOPRAZOLE 40 MG VIAL IV SCH (09:44)
[2021-05-30] MEDS: ASCORBIC ACID 500 MG TABLET PO SCH ×2 (09:46→21:18)
[2021-05-30] MEDS: QUEtiapine 25 MG TABLET PER TUBE SCH ×2 (09:46→21:18)
[2021-05-30] MEDS: CHOLECALCIFEROL 1,000 UNIT TABLET PO SCH (09:47)
[2021-05-30] MEDS: ZINC GLUCONATE 50 MG TABLET PO SCH (09:47)
[2021-05-30] MEDS: DIGOXIN 0.125 MG TABLET PO SCH (13:00)
[2021-05-30] MEDS: DIAZEPAM 5 MG TABLET PO PRN (15:06)
[2021-05-31] MEDS: ALBUTEROL/IPRATROPIUM 3 ML NEB RESP TX SCH ×4 (00:40→18:20)
[2021-05-31] MEDS: HYDROmorphone 2 MG/1 ML VIAL IV PRN ×4 (01:13→22:12)
[2021-05-31] MEDS: METOCLOPRAMIDE 10 MG/10 ML UDCUP PEG SCH ×4 (02:43→21:34)
[2021-05-31] MEDS: AMPICILLIN INJ 1,000 MG in SODIUM CHLORIDE 0.9% 100 ML IV SCH ×3 (02:45→18:45)
[2021-05-31 05:39] LABS: Basophils % 0.2 % (0.0-0.8); Eosinophils % 0.1 % (0.00-10.9); Hemoglobin 8.9 GM/DL (14.0-18.0); Immature Granulocytes % 4.4 %; Immature Granulocytes Absolute 0.38 #; Lymphocytes # 0.9 10*3/uL (1.4-4.0); Lymphocytes % 10.6 % (21.2-54.2); Mean Corpuscular HGB Conc 30.7 GM/DL (32-36); Mean Corpuscular Volume 94.5 FL (87-102); Mean Platelet Volume 9.8 FL (9.6-12.0); Monocytes % 3.5 % (1.7-12.7); Neutrophils % 81.2 % (38.7-73.9); Platelet Count 163 T/CUMM (130-400); Red Blood Count 3.07 MC/CUMM (3.8-5.5); Red Cell Distribution Width 14.5 % (9.3-17.3); White Blood Count 8.6 T/CUMM (4-12)
[2021-05-31 05:42] LABS: Blood Urea Nitrogen 16 MG/DL (7-18); Calcium 8.3 MG/DL (8.5-10.1); Carbon Dioxide 38 MMOL/L (21-32); Estimated Glom Filtration Rate 189 ML/MIN; Glucose 161 MG/DL (74-106); Osmolality,Calculated 278.7 MOS/KG (273-304); Sodium 138 MMOL/L (136-145)
[2021-05-31] MEDS: DEXMEDETOMIDINE 400 MCG in SODIUM CHLORIDE 0.9% 96 ML IV PRN ×3 (06:31→22:28)
[2021-05-31] MEDS: METOPROLOL TARTRATE 25 MG TABLET PO SCH ×2 (08:19→21:31)
[2021-05-31] MEDS: ZINC GLUCONATE 50 MG TABLET PO SCH (08:19)
[2021-05-31] MEDS: CHOLECALCIFEROL 1,000 UNIT TABLET PO SCH (08:19)
[2021-05-31] MEDS: ASCORBIC ACID 500 MG TABLET PO SCH ×2 (08:20→21:31)
[2021-05-31] MEDS: TAMSULOSIN 0.4 MG CAPSULE PO SCH (08:20)
[2021-05-31] MEDS: SUCRALFATE 1 GM/10 ML UDCUP NG SCH ×2 (08:20→21:30)
[2021-05-31] MEDS: CITALOPRAM 20 MG TABLET PO SCH (08:20)
[2021-05-31] MEDS: QUEtiapine 25 MG TABLET PER TUBE SCH ×2 (08:20→21:32)
[2021-05-31] MEDS: guaiFENesin 200 MG/10 ML UDCUP PO SCH ×3 (08:21→21:29)
[2021-05-31] MEDS: DOCUSATE SODIUM 100 MG/10 ML UDCUP PO SCH ×2 (08:21→21:33)
[2021-05-31] MEDS: MENTHOL/ZINC OXIDE OINT 71 GM JAR TOP SCH ×2 (08:22→20:30)
[2021-05-31] MEDS: methylPREDNISolone SOD SUC 40 MG/1 ML VIAL IV SCH ×2 (08:23→21:30)
[2021-05-31] MEDS: PANTOPRAZOLE 40 MG VIAL IV SCH (08:23)
[2021-05-31] MEDS: INSULIN GLARGINE 100 UNIT/ML SUBCUT SCH (08:30)
[2021-05-31] MEDS: DIGOXIN 0.125 MG TABLET PO SCH (12:45)
[2021-05-31] MEDS: fentaNYL 25 MCG/HR PATCH TRANSDERM SCH (13:23)
[2021-05-31] MEDS: DIAZEPAM 5 MG TABLET PO PRN (13:55)
[2021-06-01] MEDS: ALBUTEROL/IPRATROPIUM 3 ML NEB RESP TX SCH ×4 (00:45→19:00)
[2021-06-01] MEDS: AMPICILLIN INJ 1,000 MG in SODIUM CHLORIDE 0.9% 100 ML IV SCH ×4 (01:50→18:36)
[2021-06-01] MEDS: METOCLOPRAMIDE 10 MG/10 ML UDCUP PEG SCH ×4 (02:52→21:54)
[2021-06-01 05:00] LABS: Calcium 8.4 MG/DL (8.5-10.1); Osmolality,Calculated 287.7 MOS/KG (273-304); Potassium 4.3 MMOL/L (3.5-5.1)
[2021-06-01] MEDS: HYDROmorphone 2 MG/1 ML VIAL IV PRN ×5 (05:15→20:29)
[2021-06-01] MEDS: SUCRALFATE 1 GM/10 ML UDCUP NG SCH ×2 (08:25→20:28)
[2021-06-01] MEDS: PANTOPRAZOLE 40 MG VIAL IV SCH (08:26)
[2021-06-01] MEDS: methylPREDNISolone SOD SUC 40 MG/1 ML VIAL IV SCH ×2 (08:26→20:28)
[2021-06-01] MEDS: CHOLECALCIFEROL 1,000 UNIT TABLET PO SCH (08:26)
[2021-06-01] MEDS: ASCORBIC ACID 500 MG TABLET PO SCH ×2 (08:27→20:28)
[2021-06-01] MEDS: METOPROLOL TARTRATE 25 MG TABLET PO SCH ×2 (08:27→20:32)
[2021-06-01] MEDS: guaiFENesin 200 MG/10 ML UDCUP PO SCH ×3 (08:28→20:27)
[2021-06-01] MEDS: QUEtiapine 25 MG TABLET PER TUBE SCH ×2 (08:28→20:28)
[2021-06-01] MEDS: ZINC GLUCONATE 50 MG TABLET PO SCH (08:28)
[2021-06-01] MEDS: DOCUSATE SODIUM 100 MG/10 ML UDCUP PO SCH (08:28)
[2021-06-01] MEDS: CITALOPRAM 20 MG TABLET PO SCH (08:29)
[2021-06-01] MEDS: INSULIN GLARGINE 100 UNIT/ML SUBCUT SCH (08:30)
[2021-06-01] MEDS: MENTHOL/ZINC OXIDE OINT 71 GM JAR TOP SCH ×2 (08:58→21:25)
[2021-06-01] MEDS: TAMSULOSIN 0.4 MG CAPSULE PO SCH (09:00)
[2021-06-01] MEDS ORDERED: DEXTROSE 50% 25 GM/50 ML SYRINGE IV PRN (11:00)
[2021-06-01] MEDS: DIGOXIN 0.125 MG TABLET PO SCH (12:51)
[2021-06-01] MEDS: DEXMEDETOMIDINE 400 MCG in SODIUM CHLORIDE 0.9% 96 ML IV PRN ×2 (13:43→22:51)
[2021-06-02] MEDS: ALBUTEROL/IPRATROPIUM 3 ML NEB RESP TX SCH ×4 (01:00→19:55)
[2021-06-02] MEDS: DOCUSATE SODIUM 100 MG/10 ML UDCUP PO SCH ×3 (01:19→20:08)
[2021-06-02] MEDS: HYDROmorphone 2 MG/1 ML VIAL IV PRN ×6 (01:47→20:55)
[2021-06-02] MEDS: AMPICILLIN INJ 1,000 MG in SODIUM CHLORIDE 0.9% 100 ML IV SCH ×4 (01:47→18:44)
[2021-06-02] MEDS: METOCLOPRAMIDE 10 MG/10 ML UDCUP PEG SCH ×4 (01:52→20:08)
[2021-06-02 04:58] LABS: Basophils % 0.3 % (0.0-0.8); Eosinophils % 0.1 % (0.00-10.9); Hematocrit 32.8 VOL% (42.0-52.0); Immature Granulocytes Absolute 0.45 #; Lymphocytes # 1.3 10*3/uL (1.4-4.0); Lymphocytes % 11.4 % (21.2-54.2); Mean Corpuscular HGB Conc 30.5 GM/DL (32-36); Mean Corpuscular Volume 93.4 FL (87-102); Mean Platelet Volume 9.4 FL (9.6-12.0); Monocytes % 3.3 % (1.7-12.7); Neutrophils % 80.9 % (38.7-73.9); Platelet Count 178 T/CUMM (130-400); Red Blood Count 3.51 MC/CUMM (3.8-5.5); Red Cell Distribution Width 14.3 % (9.3-17.3); White Blood Count 11.3 T/CUMM (4-12)
[2021-06-02 05:16] LABS: Alanine Aminotransferase 71 U/L (16-61); Albumin 2.8 G/DL (3.4-5.0); Alkaline Phosphatase 110 U/L (45-117); Aspartate Amino Transferase 14 U/L (0-37); Bilirubin,Total < 0.39 MG/DL (0.20-1.00); Blood Urea Nitrogen 27 MG/DL (7-18); Calcium 8.4 MG/DL (8.5-10.1); Carbon Dioxide 39 MMOL/L (21-32); Estimated Glom Filtration Rate 189 ML/MIN; Glucose 231 MG/DL (74-106); Osmolality,Calculated 277.4 MOS/KG (273-304); Sodium 133 MMOL/L (136-145); Total Protein 5.8 G/DL (6.4-8.2)
[2021-06-02] MEDS: DEXMEDETOMIDINE 400 MCG in SODIUM CHLORIDE 0.9% 96 ML IV PRN ×3 (06:51→21:35)
[2021-06-02] MEDS: methylPREDNISolone SOD SUC 40 MG/1 ML VIAL IV SCH ×2 (08:54→20:09)
[2021-06-02] MEDS: ASCORBIC ACID 500 MG TABLET PO SCH ×2 (08:55→20:07)
[2021-06-02] MEDS: PANTOPRAZOLE 40 MG VIAL IV SCH (08:55)
[2021-06-02] MEDS: CHOLECALCIFEROL 1,000 UNIT TABLET PO SCH (08:56)
[2021-06-02] MEDS: QUEtiapine 25 MG TABLET PER TUBE SCH ×2 (08:56→20:07)
[2021-06-02] MEDS: CITALOPRAM 20 MG TABLET PO SCH (08:56)
[2021-06-02] MEDS: guaiFENesin 200 MG/10 ML UDCUP PO SCH ×3 (08:56→20:08)
[2021-06-02] MEDS: ZINC GLUCONATE 50 MG TABLET PO SCH (08:56)
[2021-06-02] MEDS: TAMSULOSIN 0.4 MG CAPSULE PO SCH (08:56)
[2021-06-02] MEDS: SUCRALFATE 1 GM/10 ML UDCUP NG SCH ×2 (08:57→20:08)
[2021-06-02] MEDS: INSULIN GLARGINE 100 UNIT/ML SUBCUT SCH (09:12)
[2021-06-02] MEDS: MENTHOL/ZINC OXIDE OINT 71 GM JAR TOP SCH ×2 (09:15→20:08)
[2021-06-02] MEDS: METOPROLOL TARTRATE 25 MG TABLET PO SCH ×2 (09:20→20:07)
[2021-06-02] MEDS: DIGOXIN 0.125 MG TABLET PO SCH (12:30)
[2021-06-02] MEDS: DIAZEPAM 5 MG TABLET PO PRN (13:14)
[2021-06-03] MEDS: ALBUTEROL/IPRATROPIUM 3 ML NEB RESP TX SCH ×4 (01:00→19:40)
[2021-06-03] MEDS: HYDROmorphone 2 MG/1 ML VIAL IV PRN ×4 (01:14→21:39)
[2021-06-03] MEDS: AMPICILLIN INJ 1,000 MG in SODIUM CHLORIDE 0.9% 100 ML IV SCH ×4 (01:17→18:14)
[2021-06-03] MEDS: METOCLOPRAMIDE 10 MG/10 ML UDCUP PEG SCH ×4 (01:55→20:04)
[2021-06-03 04:30] LABS: Basophils # 0.1 10*3/uL (0.0-0.2); Basophils % 0.6 % (0.0-0.8); Eosinophils % 0.1 % (0.00-10.9); Hematocrit 31.4 VOL% (42.0-52.0); Hemoglobin 9.9 GM/DL (14.0-18.0); Immature Granulocytes Absolute 0.43 #; Lymphocytes % 11.8 % (21.2-54.2); Mean Corpuscular HGB Conc 31.5 GM/DL (32-36); Mean Corpuscular Volume 92.9 FL (87-102); Mean Platelet Volume 9.2 FL (9.6-12.0); Monocytes % 3.4 % (1.7-12.7); NRBC # 0.02 10*3/uL; Neutrophils % 79.1 % (38.7-73.9); Platelet Count 165 T/CUMM (130-400); Red Blood Count 3.38 MC/CUMM (3.8-5.5); White Blood Count 8.6 T/CUMM (4-12)
[2021-06-03 04:42] LABS: Calcium 8.9 MG/DL (8.5-10.1); Osmolality,Calculated 277.2 MOS/KG (273-304); Potassium 4.1 MMOL/L (3.5-5.1)
[2021-06-03] MEDS: DIAZEPAM 5 MG TABLET PO PRN (04:52)
[2021-06-03] MEDS: DEXMEDETOMIDINE 400 MCG in SODIUM CHLORIDE 0.9% 96 ML IV PRN ×3 (04:55→20:27)
[2021-06-03] MEDS: INSULIN GLARGINE 100 UNIT/ML SUBCUT SCH (08:02)
[2021-06-03] MEDS: SUCRALFATE 1 GM/10 ML UDCUP NG SCH ×2 (08:02→20:02)
[2021-06-03] MEDS: PANTOPRAZOLE 40 MG VIAL IV SCH (08:04)
[2021-06-03] MEDS: methylPREDNISolone SOD SUC 40 MG/1 ML VIAL IV SCH ×2 (08:04→20:02)
[2021-06-03] MEDS: QUEtiapine 25 MG TABLET PER TUBE SCH ×2 (08:05→20:03)
[2021-06-03] MEDS: CHOLECALCIFEROL 1,000 UNIT TABLET PO SCH (08:05)
[2021-06-03] MEDS: METOPROLOL TARTRATE 25 MG TABLET PO SCH ×2 (08:05→20:03)
[2021-06-03] MEDS: ZINC GLUCONATE 50 MG TABLET PO SCH (08:05)
[2021-06-03] MEDS: ASCORBIC ACID 500 MG TABLET PO SCH ×2 (08:07→20:03)
[2021-06-03] MEDS: guaiFENesin 200 MG/10 ML UDCUP PO SCH ×3 (08:08→20:03)
[2021-06-03] MEDS: CITALOPRAM 20 MG TABLET PO SCH (08:08)
[2021-06-03] MEDS: TAMSULOSIN 0.4 MG CAPSULE PO SCH (08:09)
[2021-06-03] MEDS: DOCUSATE SODIUM 100 MG/10 ML UDCUP PO SCH ×2 (08:11→20:03)
[2021-06-03] MEDS: MENTHOL/ZINC OXIDE OINT 71 GM JAR TOP SCH ×2 (08:33→20:04)
[2021-06-03] MEDS: fentaNYL 25 MCG/HR PATCH TRANSDERM SCH (09:15)
[2021-06-03] MEDS: DIGOXIN 0.125 MG TABLET PO SCH (13:09)
[2021-06-04] MEDS: ALBUTEROL/IPRATROPIUM 3 ML NEB RESP TX SCH ×3 (00:20→15:15)
[2021-06-04] MEDS: HYDROmorphone 2 MG/1 ML VIAL IV PRN ×2 (01:13→09:51)
[2021-06-04] MEDS: AMPICILLIN INJ 1,000 MG in SODIUM CHLORIDE 0.9% 100 ML IV SCH ×4 (01:15→20:00)
[2021-06-04] MEDS: METOCLOPRAMIDE 10 MG/10 ML UDCUP PEG SCH ×4 (03:34→20:31)
[2021-06-04] MEDS: DEXMEDETOMIDINE 400 MCG in SODIUM CHLORIDE 0.9% 96 ML IV PRN ×3 (03:47→20:00)
[2021-06-04 04:08] LABS: Basophils % 0.3 % (0.0-0.8); Eosinophils % 0.1 % (0.00-10.9); Hemoglobin 9.9 GM/DL (14.0-18.0); Immature Granulocytes % 6.1 %; Immature Granulocytes Absolute 0.57 #; Lymphocytes % 10.9 % (21.2-54.2); Mean Corpuscular HGB Conc 30.9 GM/DL (32-36); Mean Corpuscular Volume 91.4 FL (87-102); Mean Platelet Volume 9.4 FL (9.6-12.0); Monocytes % 3.1 % (1.7-12.7); NRBC # 0.02 10*3/uL; Neutrophils % 79.5 % (38.7-73.9); Platelet Count 181 T/CUMM (130-400); Red Cell Distribution Width 14.2 % (9.3-17.3); White Blood Count 9.3 T/CUMM (4-12)
[2021-06-04 04:27] LABS: Calcium 8.5 MG/DL (8.5-10.1); Potassium 4.2 MMOL/L (3.5-5.1)
[2021-06-04 04:32] LABS: Eosinophils 1 % (0-10); Hypochromia 1+; Lymphocytes 12 % (20-55); Nucleated Red Blood Cells 1 (0-5); Ovalocytes Slight; Promyelocytes 1 %; Segmented Neutrophils 76 % (50-85); Tear Drop Cells Slight; Total Cells Counted 100
[2021-06-04 04:33] LABS: Microcytosis Slight; Platelet Estimate Adequate
[2021-06-04] MEDS: CITALOPRAM 20 MG TABLET PO SCH (09:16)
[2021-06-04] MEDS: guaiFENesin 200 MG/10 ML UDCUP PO SCH ×3 (09:16→20:31)
[2021-06-04] MEDS: METOPROLOL TARTRATE 25 MG TABLET PO SCH ×2 (09:17→20:30)
[2021-06-04] MEDS: DOCUSATE SODIUM 100 MG/10 ML UDCUP PO SCH ×2 (09:17→20:31)
[2021-06-04] MEDS: CHOLECALCIFEROL 1,000 UNIT TABLET PO SCH (09:17)
[2021-06-04] MEDS: QUEtiapine 25 MG TABLET PER TUBE SCH ×2 (09:17→20:30)
[2021-06-04] MEDS: TAMSULOSIN 0.4 MG CAPSULE PO SCH (09:17)
[2021-06-04] MEDS: ASCORBIC ACID 500 MG TABLET PO SCH ×2 (09:18→20:31)
[2021-06-04] MEDS: INSULIN GLARGINE 100 UNIT/ML SUBCUT SCH (09:18)
[2021-06-04] MEDS: ZINC GLUCONATE 50 MG TABLET PO SCH (09:18)
[2021-06-04] MEDS: FAMOTIDINE 8 MG/ML 50 ML/BOTTLE PEG SCH ×2 (09:19→20:31)
[2021-06-04] MEDS: MENTHOL/ZINC OXIDE OINT 71 GM JAR TOP SCH ×2 (09:20→20:31)
[2021-06-04] MEDS: methylPREDNISolone SOD SUC 40 MG/1 ML VIAL IV SCH ×2 (09:22→20:30)
[2021-06-04] MEDS: DIGOXIN 0.125 MG TABLET PO SCH (14:00)
[2021-06-04] MEDS: DIAZEPAM 5 MG TABLET PO PRN (20:30)
[2021-06-05] MEDS: ALBUTEROL/IPRATROPIUM 3 ML NEB RESP TX SCH ×5 (00:23→18:41)
[2021-06-05] MEDS: HYDROmorphone 2 MG/1 ML VIAL IV PRN ×5 (01:26→16:23)
[2021-06-05] MEDS: AMPICILLIN INJ 1,000 MG in SODIUM CHLORIDE 0.9% 100 ML IV SCH ×4 (01:33→19:12)
[2021-06-05] MEDS: METOCLOPRAMIDE 10 MG/10 ML UDCUP PEG SCH ×4 (01:56→19:50)
[2021-06-05] MEDS: DIAZEPAM 5 MG TABLET PO PRN ×2 (07:48→19:50)
[2021-06-05] MEDS: METOPROLOL TARTRATE 25 MG TABLET PO SCH ×2 (09:15→20:00)
[2021-06-05] MEDS: ASCORBIC ACID 500 MG TABLET PO SCH ×2 (09:15→20:00)
[2021-06-05] MEDS: CITALOPRAM 20 MG TABLET PO SCH (09:15)
[2021-06-05] MEDS: ZINC GLUCONATE 50 MG TABLET PO SCH (09:16)
[2021-06-05] MEDS: CHOLECALCIFEROL 1,000 UNIT TABLET PO SCH (09:16)
[2021-06-05] MEDS: QUEtiapine 25 MG TABLET PER TUBE SCH ×2 (09:16→20:00)
[2021-06-05] MEDS: TAMSULOSIN 0.4 MG CAPSULE PO SCH (09:16)
[2021-06-05] MEDS: methylPREDNISolone SOD SUC 40 MG/1 ML VIAL IV SCH ×2 (09:17→20:01)
[2021-06-05] MEDS: INSULIN GLARGINE 100 UNIT/ML SUBCUT SCH (09:18)
[2021-06-05] MEDS: guaiFENesin 200 MG/10 ML UDCUP PO SCH ×3 (09:18→20:00)
[2021-06-05] MEDS: DOCUSATE SODIUM 100 MG/10 ML UDCUP PO SCH ×2 (09:18→20:00)
[2021-06-05] MEDS: FAMOTIDINE 8 MG/ML 50 ML/BOTTLE PEG SCH ×2 (09:21→20:01)
[2021-06-05] MEDS: DEXMEDETOMIDINE 400 MCG in SODIUM CHLORIDE 0.9% 96 ML IV PRN (10:01)
[2021-06-05] MEDS: MENTHOL/ZINC OXIDE OINT 71 GM JAR TOP SCH ×2 (11:08→20:00)
[2021-06-05] MEDS: DIGOXIN 0.125 MG TABLET PO SCH (13:01)
[2021-06-06] MEDS: ALBUTEROL/IPRATROPIUM 3 ML NEB RESP TX SCH ×4 (01:15→19:35)
[2021-06-06] MEDS: AMPICILLIN INJ 1,000 MG in SODIUM CHLORIDE 0.9% 100 ML IV SCH ×4 (01:38→19:00)
[2021-06-06] MEDS: METOCLOPRAMIDE 10 MG/10 ML UDCUP PEG SCH ×3 (02:03→15:12)
[2021-06-06] MEDS: DEXMEDETOMIDINE 400 MCG in SODIUM CHLORIDE 0.9% 96 ML IV PRN (04:11)
[2021-06-06] MEDS: HYDROmorphone 2 MG/1 ML VIAL IV PRN ×3 (04:36→17:27)
[2021-06-06 05:32] LABS: Basophils # 0.1 10*3/uL (0.0-0.2); Basophils % 0.5 % (0.0-0.8); Eosinophils # 0.1 10*3/uL (0.0-0.87); Eosinophils % 1.3 % (0.00-10.9); Hematocrit 35.8 VOL% (42.0-52.0); Hemoglobin 10.8 GM/DL (14.0-18.0); Immature Granulocytes Absolute 0.56 #; Lymphocytes # 2.3 10*3/uL (1.4-4.0); Lymphocytes % 20.6 % (21.2-54.2); Mean Corpuscular HGB Conc 30.2 GM/DL (32-36); Mean Corpuscular Volume 92.3 FL (87-102); Mean Platelet Volume 8.9 FL (9.6-12.0); Monocytes % 6.3 % (1.7-12.7); NRBC # 0.02 10*3/uL; Neutrophils % 66.3 % (38.7-73.9); Platelet Count 215 T/CUMM (130-400); Red Blood Count 3.88 MC/CUMM (3.8-5.5); Red Cell Distribution Width 14.5 % (9.3-17.3); White Blood Count 11.2 T/CUMM (4-12)
[2021-06-06 05:43] LABS: Calcium 8.8 MG/DL (8.5-10.1); Osmolality,Calculated 278.5 MOS/KG (273-304); Potassium 4.1 MMOL/L (3.5-5.1)
[2021-06-06 06:02] LABS: Anisocytosis 1+; Atypical Lymphocytes Few; Band Neutrophils 2 % (0-10); Eosinophils 1 % (0-10); Lymphocytes 29 % (20-55); Platelet Estimate Normal; Segmented Neutrophils 62 % (50-85); Spherocytes Few; Tear Drop Cells Few; Total Cells Counted 100
[2021-06-06] MEDS: DOCUSATE SODIUM 100 MG/10 ML UDCUP PO SCH ×2 (08:49→21:05)
[2021-06-06] MEDS: guaiFENesin 200 MG/10 ML UDCUP PO SCH ×3 (08:49→21:05)
[2021-06-06] MEDS: methylPREDNISolone SOD SUC 40 MG/1 ML VIAL IV SCH ×2 (08:50→21:06)
[2021-06-06] MEDS: CITALOPRAM 20 MG TABLET PO SCH (08:52)
[2021-06-06] MEDS: QUEtiapine 25 MG TABLET PER TUBE SCH ×2 (08:52→21:06)
[2021-06-06] MEDS: CHOLECALCIFEROL 1,000 UNIT TABLET PO SCH (08:52)
[2021-06-06] MEDS: DIAZEPAM 5 MG TABLET PO PRN ×3 (08:52→21:05)
[2021-06-06] MEDS: ZINC GLUCONATE 50 MG TABLET PO SCH (08:52)
[2021-06-06] MEDS: METOPROLOL TARTRATE 25 MG TABLET PO SCH ×2 (08:52→21:05)
[2021-06-06] MEDS: ASCORBIC ACID 500 MG TABLET PO SCH ×2 (08:52→21:06)
[2021-06-06] MEDS: MENTHOL/ZINC OXIDE OINT 71 GM JAR TOP SCH ×2 (08:54→21:05)
[2021-06-06] MEDS: INSULIN GLARGINE 100 UNIT/ML SUBCUT SCH (08:54)
[2021-06-06] MEDS: TAMSULOSIN 0.4 MG CAPSULE PO SCH (09:43)
[2021-06-06] MEDS: FAMOTIDINE 8 MG/ML 50 ML/BOTTLE PEG SCH ×2 (09:43→21:05)
[2021-06-06] MEDS: fentaNYL 25 MCG/HR PATCH TRANSDERM SCH (09:43)
[2021-06-06] MEDS: DIGOXIN 0.125 MG TABLET PO SCH (12:46)
[2021-06-07] MEDS: ALBUTEROL/IPRATROPIUM 3 ML NEB RESP TX SCH ×4 (00:01→19:20)
[2021-06-07] MEDS: HYDROmorphone 2 MG/1 ML VIAL IV PRN ×5 (00:15→21:50)
[2021-06-07] MEDS ORDERED: traZODone 50 MG TABLET PO ONE (02:22)
[2021-06-07] MEDS: DIAZEPAM 5 MG TABLET PO PRN ×2 (05:29→12:06)
[2021-06-07] MEDS: DOCUSATE SODIUM 100 MG/10 ML UDCUP PO SCH ×2 (09:01→21:44)
[2021-06-07] MEDS: ZINC GLUCONATE 50 MG TABLET PO SCH (09:01)
[2021-06-07] MEDS: ASCORBIC ACID 500 MG TABLET PO SCH ×2 (09:01→21:59)
[2021-06-07] MEDS: CHOLECALCIFEROL 1,000 UNIT TABLET PO SCH (09:02)
[2021-06-07] MEDS: QUEtiapine 25 MG TABLET PER TUBE SCH ×2 (09:02→21:51)
[2021-06-07] MEDS: METOPROLOL TARTRATE 25 MG TABLET PO SCH ×2 (09:02→21:51)
[2021-06-07] MEDS: methylPREDNISolone SOD SUC 40 MG/1 ML VIAL IV SCH ×2 (09:03→21:56)
[2021-06-07] MEDS: MENTHOL/ZINC OXIDE OINT 71 GM JAR TOP SCH ×2 (09:03→21:52)
[2021-06-07] MEDS: TAMSULOSIN 0.4 MG CAPSULE PO SCH (09:03)
[2021-06-07] MEDS: INSULIN GLARGINE 100 UNIT/ML SUBCUT SCH (09:04)
[2021-06-07] MEDS: CITALOPRAM 20 MG TABLET PO SCH (09:04)
[2021-06-07] MEDS: FAMOTIDINE 8 MG/ML 50 ML/BOTTLE PEG SCH ×2 (09:04→21:59)
[2021-06-07] MEDS: guaiFENesin 200 MG/10 ML UDCUP PO SCH ×3 (09:08→21:44)
[2021-06-07] MEDS ORDERED: METOPROLOL TARTRATE 5 MG/5 ML VIAL IV ONE (09:24)
[2021-06-07] MEDS: DIGOXIN 0.125 MG TABLET PO SCH (12:06)
[2021-06-08] MEDS: ALBUTEROL/IPRATROPIUM 3 ML NEB RESP TX SCH ×4 (00:45→19:50)
[2021-06-08] MEDS: HYDROmorphone 2 MG/1 ML VIAL IV PRN ×3 (02:13→21:17)
[2021-06-08] MEDS: CHOLECALCIFEROL 1,000 UNIT TABLET PO SCH (09:00)
[2021-06-08] MEDS: CITALOPRAM 20 MG TABLET PO SCH (09:00)
[2021-06-08] MEDS: ZINC GLUCONATE 50 MG TABLET PO SCH (09:00)
[2021-06-08] MEDS: ASCORBIC ACID 500 MG TABLET PO SCH ×2 (09:01→21:19)
[2021-06-08] MEDS: QUEtiapine 25 MG TABLET PER TUBE SCH ×2 (09:01→21:19)
[2021-06-08] MEDS: TAMSULOSIN 0.4 MG CAPSULE PO SCH (09:02)
[2021-06-08] MEDS: METOPROLOL TARTRATE 25 MG TABLET PO SCH (09:03)
[2021-06-08] MEDS: guaiFENesin 200 MG/10 ML UDCUP PO SCH ×3 (09:04→21:18)
[2021-06-08] MEDS: DOCUSATE SODIUM 100 MG/10 ML UDCUP PO SCH ×2 (09:04→21:21)
[2021-06-08] MEDS: INSULIN GLARGINE 100 UNIT/ML SUBCUT SCH (09:05)
[2021-06-08] MEDS: FAMOTIDINE 8 MG/ML 50 ML/BOTTLE PEG SCH ×2 (09:05→21:22)
[2021-06-08] MEDS: methylPREDNISolone SOD SUC 40 MG/1 ML VIAL IV SCH ×2 (09:08→21:21)
[2021-06-08] MEDS ORDERED: METOPROLOL TARTRATE 25 MG TABLET PO ONE (09:54)
[2021-06-08] MEDS: DIAZEPAM 5 MG TABLET PO PRN ×2 (09:56→15:52)
[2021-06-08] MEDS: MENTHOL/ZINC OXIDE OINT 71 GM JAR TOP SCH ×2 (12:00→21:20)
[2021-06-08] MEDS: ONDANSETRON 4 MG/2 ML VIAL IV PRN (14:59)
[2021-06-08] MEDS: DIGOXIN 0.125 MG TABLET PO SCH (15:52)
[2021-06-08] MEDS: METOPROLOL TARTRATE 50 MG TABLET PO SCH (21:18)
[2021-06-09] MEDS: ALBUTEROL/IPRATROPIUM 3 ML NEB RESP TX SCH ×4 (00:05→20:00)
[2021-06-09] MEDS: DIAZEPAM 5 MG TABLET PO PRN ×2 (02:18→08:25)
[2021-06-09] MEDS: INSULIN GLARGINE 100 UNIT/ML SUBCUT SCH (08:25)
[2021-06-09] MEDS: CHOLECALCIFEROL 1,000 UNIT TABLET PO SCH (08:26)
[2021-06-09] MEDS: ASCORBIC ACID 500 MG TABLET PO SCH ×2 (08:26→21:08)
[2021-06-09] MEDS: METOPROLOL TARTRATE 50 MG TABLET PO SCH ×2 (08:26→21:07)
[2021-06-09] MEDS: DOCUSATE SODIUM 100 MG/10 ML UDCUP PO SCH ×2 (08:26→21:08)
[2021-06-09] MEDS: ZINC GLUCONATE 50 MG TABLET PO SCH (08:26)
[2021-06-09] MEDS: QUEtiapine 25 MG TABLET PER TUBE SCH ×2 (08:26→21:07)
[2021-06-09] MEDS: CITALOPRAM 20 MG TABLET PO SCH (08:26)
[2021-06-09] MEDS: TAMSULOSIN 0.4 MG CAPSULE PO SCH (08:26)
[2021-06-09] MEDS: guaiFENesin 200 MG/10 ML UDCUP PO SCH ×3 (08:27→21:08)
[2021-06-09] MEDS: methylPREDNISolone SOD SUC 40 MG/1 ML VIAL IV SCH ×2 (08:32→21:08)
[2021-06-09] MEDS: FAMOTIDINE 8 MG/ML 50 ML/BOTTLE PEG SCH ×2 (08:34→21:24)
[2021-06-09] MEDS: fentaNYL 25 MCG/HR PATCH TRANSDERM SCH (08:39)
[2021-06-09] MEDS: MENTHOL/ZINC OXIDE OINT 71 GM JAR TOP SCH (08:52)
[2021-06-09 10:52] LABS: Basophils % 0.2 % (0.0-0.8); Eosinophils # 0.1 10*3/uL (0.0-0.87); Eosinophils % 0.4 % (0.00-10.9); Hematocrit 38.4 VOL% (42.0-52.0); Hemoglobin 11.5 GM/DL (14.0-18.0); Immature Granulocytes % 2.2 %; Immature Granulocytes Absolute 0.34 #; Lymphocytes # 1.4 10*3/uL (1.4-4.0); Lymphocytes % 8.8 % (21.2-54.2); Mean Corpuscular HGB Conc 29.9 GM/DL (32-36); Mean Corpuscular Volume 93.9 FL (87-102); Mean Platelet Volume 8.8 FL (9.6-12.0); Monocytes % 4.4 % (1.7-12.7); Platelet Count 221 T/CUMM (130-400); Red Blood Count 4.09 MC/CUMM (3.8-5.5); Red Cell Distribution Width 14.1 % (9.3-17.3); White Blood Count 15.6 T/CUMM (4-12)
[2021-06-09 11:26] LABS: Calcium 9.3 MG/DL (8.5-10.1); Potassium 4.8 MMOL/L (3.5-5.1)
[2021-06-09 11:36] LABS: Osmolality,Calculated 293.4 MOS/KG (273-304)
[2021-06-09] MEDS ORDERED: MENTHOL/ZINC OXIDE OINT 71 GM JAR TOP PRN (12:02)
[2021-06-09] MEDS: DIGOXIN 0.125 MG TABLET PO SCH (15:06)
[2021-06-09] MEDS: HYDROmorphone 2 MG/1 ML VIAL IV PRN (17:25)
[2021-06-10] MEDS: ALBUTEROL/IPRATROPIUM 3 ML NEB RESP TX SCH ×4 (01:05→19:46)
[2021-06-10] MEDS: HYDROmorphone 2 MG/1 ML VIAL IV PRN ×3 (02:46→18:52)
[2021-06-10] MEDS: QUEtiapine 25 MG TABLET PER TUBE SCH ×2 (10:37→22:02)
[2021-06-10] MEDS: CHOLECALCIFEROL 1,000 UNIT TABLET PO SCH (10:38)
[2021-06-10] MEDS: ASCORBIC ACID 500 MG TABLET PO SCH ×2 (10:39→22:02)
[2021-06-10] MEDS: TAMSULOSIN 0.4 MG CAPSULE PO SCH (10:40)
[2021-06-10] MEDS: METOPROLOL TARTRATE 50 MG TABLET PO SCH ×2 (10:40→22:01)
[2021-06-10] MEDS: DOCUSATE SODIUM 100 MG/10 ML UDCUP PO SCH ×2 (10:41→22:03)
[2021-06-10] MEDS: CITALOPRAM 20 MG TABLET PO SCH (10:41)
[2021-06-10] MEDS: ZINC GLUCONATE 50 MG TABLET PO SCH (10:41)
[2021-06-10] MEDS: guaiFENesin 200 MG/10 ML UDCUP PO SCH ×3 (10:42→22:02)
[2021-06-10] MEDS: FAMOTIDINE 8 MG/ML 50 ML/BOTTLE PEG SCH ×2 (10:42→22:25)
[2021-06-10] MEDS: INSULIN GLARGINE 100 UNIT/ML SUBCUT SCH (10:43)
[2021-06-10] MEDS: methylPREDNISolone SOD SUC 40 MG/1 ML VIAL IV SCH ×2 (10:51→22:17)
[2021-06-10] MEDS: ONDANSETRON 4 MG/2 ML VIAL IV PRN (10:54)
[2021-06-10 14:47] LABS: % Iron Saturation 26.8 % (18-50); Ferritin 282.4 ng/mL (26-388)
[2021-06-10 14:54] LABS: Folate 15.32 NG/ML (5.38-24.0)
[2021-06-10] MEDS: DIGOXIN 0.125 MG TABLET PO SCH (16:00)
[2021-06-10] MEDS: DIAZEPAM 5 MG TABLET PO PRN (16:01)
[2021-06-10] MEDS: ACETYLCYSTEINE 20% 800 MG/4 ML VIAL RESP TX SCH (17:08)
[2021-06-11] MEDS: ALBUTEROL/IPRATROPIUM 3 ML NEB RESP TX SCH ×4 (01:14→19:18)
[2021-06-11] MEDS: ACETYLCYSTEINE 20% 800 MG/4 ML VIAL RESP TX SCH ×3 (01:14→13:47)
[2021-06-11] MEDS: HYDROmorphone 2 MG/1 ML VIAL IV PRN ×5 (03:12→19:49)
[2021-06-11 05:13] LABS: Calcium 9.7 MG/DL (8.5-10.1); Osmolality,Calculated 287.8 MOS/KG (273-304); Potassium 4.3 MMOL/L (3.5-5.1)
[2021-06-11 05:41] LABS: Basophils # 0.1 10*3/uL (0.0-0.2); Basophils % 0.6 % (0.0-0.8); Eosinophils % 0.1 % (0.00-10.9); Hematocrit 41.8 VOL% (42.0-52.0); Hemoglobin 12.4 GM/DL (14.0-18.0); Immature Granulocytes % 4.3 %; Immature Granulocytes Absolute 0.48 #; Lymphocytes # 1.2 10*3/uL (1.4-4.0); Lymphocytes % 10.2 % (21.2-54.2); Mean Corpuscular HGB Conc 29.7 GM/DL (32-36); Mean Corpuscular Volume 94.6 FL (87-102); Mean Platelet Volume 9.8 FL (9.6-12.0); Monocytes % 2.4 % (1.7-12.7); Neutrophils % 82.4 % (38.7-73.9); Platelet Count 217 T/CUMM (130-400); Red Blood Count 4.42 MC/CUMM (3.8-5.5); Red Cell Distribution Width 14.1 % (9.3-17.3); White Blood Count 11.3 T/CUMM (4-12)
[2021-06-11] MEDS: ZINC GLUCONATE 50 MG TABLET PO SCH (09:20)
[2021-06-11] MEDS: CHOLECALCIFEROL 1,000 UNIT TABLET PO SCH (09:20)
[2021-06-11] MEDS: CITALOPRAM 20 MG TABLET PO SCH (09:20)
[2021-06-11] MEDS: METOPROLOL TARTRATE 50 MG TABLET PO SCH ×2 (09:21→21:35)
[2021-06-11] MEDS: guaiFENesin 200 MG/10 ML UDCUP PO SCH ×3 (09:21→21:35)
[2021-06-11] MEDS: ASCORBIC ACID 500 MG TABLET PO SCH ×2 (09:21→21:37)
[2021-06-11] MEDS: QUEtiapine 25 MG TABLET PER TUBE SCH ×2 (09:21→21:37)
[2021-06-11] MEDS: TAMSULOSIN 0.4 MG CAPSULE PO SCH (09:21)
[2021-06-11] MEDS: DOCUSATE SODIUM 100 MG/10 ML UDCUP PO SCH ×2 (09:22→21:35)
[2021-06-11] MEDS: methylPREDNISolone SOD SUC 40 MG/1 ML VIAL IV SCH ×2 (09:49→21:34)
[2021-06-11] MEDS: INSULIN GLARGINE 100 UNIT/ML SUBCUT SCH (09:50)
[2021-06-11] MEDS: FAMOTIDINE 8 MG/ML 50 ML/BOTTLE PEG SCH (12:04)
[2021-06-11] MEDS: DIGOXIN 0.125 MG TABLET PO SCH (13:10)
[2021-06-12] MEDS: ALBUTEROL/IPRATROPIUM 3 ML NEB RESP TX SCH ×4 (00:28→20:05)
[2021-06-12] MEDS: ACETYLCYSTEINE 20% 800 MG/4 ML VIAL RESP TX SCH ×2 (00:28→07:20)
[2021-06-12] MEDS: FAMOTIDINE 8 MG/ML 50 ML/BOTTLE PEG SCH ×3 (01:47→21:39)
[2021-06-12] MEDS: HYDROmorphone 2 MG/1 ML VIAL IV PRN ×3 (05:04→17:59)
[2021-06-12 07:08] LABS: Calcium 9.2 MG/DL (8.5-10.1); Osmolality,Calculated 286.5 MOS/KG (273-304); Potassium 3.7 MMOL/L (3.5-5.1)
[2021-06-12 07:33] LABS: Basophils # 0.1 10*3/uL (0.0-0.2); Basophils % 0.8 % (0.0-0.8); Eosinophils # 0.1 10*3/uL (0.0-0.87); Eosinophils % 0.9 % (0.00-10.9); Hematocrit 38.5 VOL% (42.0-52.0); Immature Granulocytes % 5.6 %; Immature Granulocytes Absolute 0.65 #; Lymphocytes # 2.5 10*3/uL (1.4-4.0); Lymphocytes % 21.1 % (21.2-54.2); Mean Corpuscular HGB Conc 30.6 GM/DL (32-36); Mean Corpuscular Volume 93.4 FL (87-102); Mean Platelet Volume 9.6 FL (9.6-12.0); Monocytes % 7.3 % (1.7-12.7); Neutrophils % 64.3 % (38.7-73.9); Platelet Count 225 T/CUMM (130-400); Red Blood Count 4.12 MC/CUMM (3.8-5.5); Red Cell Distribution Width 14.1 % (9.3-17.3); White Blood Count 11.7 T/CUMM (4-12)
[2021-06-12 07:36] LABS: Hemoglobin 11.8 GM/DL (14.0-18.0)
[2021-06-12 07:40] LABS: Band Neutrophils 1 % (0-10); Eosinophils 3 % (0-10); Lymphocytes 25 % (20-55); Platelet Estimate Adequate; Segmented Neutrophils 67 % (50-85); Total Cells Counted 100
[2021-06-12 07:41] LABS: Atypical Lymphocytes Few; Hypochromia Slight; Microcytosis Slight
[2021-06-12] MEDS: CITALOPRAM 20 MG TABLET PO SCH (10:12)
[2021-06-12] MEDS: TAMSULOSIN 0.4 MG CAPSULE PO SCH (10:12)
[2021-06-12] MEDS: QUEtiapine 25 MG TABLET PER TUBE SCH ×2 (10:12→21:40)
[2021-06-12] MEDS: CHOLECALCIFEROL 1,000 UNIT TABLET PO SCH (10:12)
[2021-06-12] MEDS: METOPROLOL TARTRATE 50 MG TABLET PO SCH ×2 (10:12→21:38)
[2021-06-12] MEDS: DOCUSATE SODIUM 100 MG/10 ML UDCUP PO SCH ×2 (10:13→21:38)
[2021-06-12] MEDS: ZINC GLUCONATE 50 MG TABLET PO SCH (10:13)
[2021-06-12] MEDS: guaiFENesin 200 MG/10 ML UDCUP PO SCH ×3 (10:13→21:40)
[2021-06-12] MEDS: ASCORBIC ACID 500 MG TABLET PO SCH (10:13)
[2021-06-12] MEDS: fentaNYL 25 MCG/HR PATCH TRANSDERM SCH (10:13)
[2021-06-12] MEDS: methylPREDNISolone SOD SUC 40 MG/1 ML VIAL IV SCH ×2 (10:25→21:40)
[2021-06-12] MEDS: INSULIN GLARGINE 100 UNIT/ML SUBCUT SCH (10:25)
[2021-06-12] MEDS: DIGOXIN 0.125 MG TABLET PO SCH (13:47)
[2021-06-13] MEDS: ALBUTEROL/IPRATROPIUM 3 ML NEB RESP TX SCH ×4 (01:04→19:52)
[2021-06-13] MEDS: HYDROmorphone 2 MG/1 ML VIAL IV PRN ×4 (02:40→20:42)
[2021-06-13] MEDS: DOCUSATE SODIUM 100 MG/10 ML UDCUP PO SCH ×2 (09:34→20:44)
[2021-06-13] MEDS: guaiFENesin 200 MG/10 ML UDCUP PO SCH ×3 (09:34→20:44)
[2021-06-13] MEDS: QUEtiapine 25 MG TABLET PER TUBE SCH ×2 (09:34→20:44)
[2021-06-13] MEDS: METOPROLOL TARTRATE 50 MG TABLET PO SCH ×2 (09:34→20:44)
[2021-06-13] MEDS: CITALOPRAM 20 MG TABLET PO SCH (09:34)
[2021-06-13] MEDS: TAMSULOSIN 0.4 MG CAPSULE PO SCH (09:34)
[2021-06-13] MEDS: methylPREDNISolone SOD SUC 40 MG/1 ML VIAL IV SCH ×2 (09:35→20:43)
[2021-06-13] MEDS: FAMOTIDINE 8 MG/ML 50 ML/BOTTLE PEG SCH ×2 (09:36→20:43)
[2021-06-13] MEDS: INSULIN GLARGINE 100 UNIT/ML SUBCUT SCH (09:40)
[2021-06-13] MEDS: DIGOXIN 0.125 MG TABLET PO SCH (14:07)
[2021-06-14] MEDS: ALBUTEROL/IPRATROPIUM 3 ML NEB RESP TX SCH ×4 (00:33→20:15)
[2021-06-14] MEDS: HYDROmorphone 2 MG/1 ML VIAL IV PRN ×5 (02:22→20:48)
[2021-06-14] MEDS: DIAZEPAM 5 MG TABLET PO PRN (02:28)
[2021-06-14] MEDS: DOCUSATE SODIUM 100 MG/10 ML UDCUP PO SCH ×2 (10:16→22:15)
[2021-06-14] MEDS: TAMSULOSIN 0.4 MG CAPSULE PO SCH (10:16)
[2021-06-14] MEDS: methylPREDNISolone SOD SUC 40 MG/1 ML VIAL IV SCH ×2 (10:16→22:15)
[2021-06-14] MEDS: CITALOPRAM 20 MG TABLET PO SCH (10:16)
[2021-06-14] MEDS: QUEtiapine 25 MG TABLET PER TUBE SCH ×2 (10:16→22:15)
[2021-06-14] MEDS: METOPROLOL TARTRATE 50 MG TABLET PO SCH ×2 (10:16→22:15)
[2021-06-14] MEDS: INSULIN GLARGINE 100 UNIT/ML SUBCUT SCH (10:17)
[2021-06-14] MEDS: FAMOTIDINE 8 MG/ML 50 ML/BOTTLE PEG SCH ×2 (10:17→22:16)
[2021-06-14] MEDS: guaiFENesin 200 MG/10 ML UDCUP PO SCH ×3 (10:17→22:15)
[2021-06-14] MEDS: DIGOXIN 0.125 MG TABLET PO SCH (15:28)
[2021-06-14] MEDS ORDERED: DIAZEPAM 5 MG TABLET PO SCH (21:00)
[2021-06-15] MEDS: ALBUTEROL/IPRATROPIUM 3 ML NEB RESP TX SCH ×4 (00:43→19:09)
[2021-06-15] MEDS: HYDROmorphone 2 MG/1 ML VIAL IV PRN ×4 (02:12→21:24)
[2021-06-15] MEDS: ONDANSETRON 4 MG/2 ML VIAL IV PRN ×3 (05:31→21:26)
[2021-06-15] MEDS: METOPROLOL TARTRATE 50 MG TABLET PO SCH ×2 (08:59→21:23)
[2021-06-15] MEDS: QUEtiapine 25 MG TABLET PER TUBE SCH ×2 (08:59→21:23)
[2021-06-15] MEDS: CITALOPRAM 20 MG TABLET PO SCH (08:59)
[2021-06-15] MEDS: FAMOTIDINE 8 MG/ML 50 ML/BOTTLE PEG SCH ×2 (09:00→21:24)
[2021-06-15] MEDS: TAMSULOSIN 0.4 MG CAPSULE PO SCH (09:00)
[2021-06-15] MEDS: guaiFENesin 200 MG/10 ML UDCUP PO SCH ×3 (09:00→21:24)
[2021-06-15] MEDS: DOCUSATE SODIUM 100 MG/10 ML UDCUP PO SCH ×2 (09:00→21:24)
[2021-06-15] MEDS: methylPREDNISolone SOD SUC 40 MG/1 ML VIAL IV SCH ×2 (09:00→21:26)
[2021-06-15] MEDS: fentaNYL 25 MCG/HR PATCH TRANSDERM SCH (09:00)
[2021-06-15] MEDS: INSULIN GLARGINE 100 UNIT/ML SUBCUT SCH (09:01)
[2021-06-15] MEDS: DIGOXIN 0.125 MG TABLET PO SCH (13:26)
[2021-06-15] MEDS: DIAZEPAM 5 MG TABLET PO PRN ×2 (13:28→21:24)
[2021-06-15] MEDS: BUDESONIDE 0.5 MG/2 ML NEB RESP TX SCH (19:09)
[2021-06-15] MEDS: ARFORMOTEROL 15 MCG/2 ML NEB RESP TX SCH (19:09)
[2021-06-15] MEDS: ACETAMINOPHEN 325 MG TABLET PO PRN (21:27)
[2021-06-16] MEDS: ALBUTEROL/IPRATROPIUM 3 ML NEB RESP TX SCH ×4 (00:40→20:14)
[2021-06-16] MEDS: HYDROmorphone 2 MG/1 ML VIAL IV PRN ×5 (02:50→19:01)
[2021-06-16] MEDS: BUDESONIDE 0.5 MG/2 ML NEB RESP TX SCH ×2 (07:36→20:16)
[2021-06-16] MEDS: guaiFENesin 200 MG/10 ML UDCUP PO SCH ×3 (09:19→21:42)
[2021-06-16] MEDS: DOCUSATE SODIUM 100 MG/10 ML UDCUP PO SCH ×2 (09:20→21:42)
[2021-06-16] MEDS: QUEtiapine 25 MG TABLET PER TUBE SCH ×2 (09:20→21:44)
[2021-06-16] MEDS: CITALOPRAM 20 MG TABLET PO SCH (09:21)
[2021-06-16] MEDS: METOPROLOL TARTRATE 50 MG TABLET PO SCH ×2 (09:21→21:45)
[2021-06-16] MEDS: FAMOTIDINE 8 MG/ML 50 ML/BOTTLE PEG SCH ×2 (09:21→21:43)
[2021-06-16] MEDS: TAMSULOSIN 0.4 MG CAPSULE PO SCH (09:21)
[2021-06-16] MEDS: methylPREDNISolone SOD SUC 40 MG/1 ML VIAL IV SCH ×2 (09:22→21:45)
[2021-06-16] MEDS: ARFORMOTEROL 15 MCG/2 ML NEB RESP TX SCH ×2 (09:45→20:14)
[2021-06-16] MEDS: DIGOXIN 0.125 MG TABLET PO SCH (15:50)
[2021-06-16] MEDS: INSULIN GLARGINE 100 UNIT/ML SUBCUT SCH (17:50)
[2021-06-16] MEDS: DIAZEPAM 5 MG TABLET PO PRN (21:45)
[2021-06-17] MEDS: ALBUTEROL/IPRATROPIUM 3 ML NEB RESP TX SCH ×5 (00:30→19:30)
[2021-06-17] MEDS: BUDESONIDE 0.5 MG/2 ML NEB RESP TX SCH ×3 (07:21→19:30)
[2021-06-17] MEDS: ARFORMOTEROL 15 MCG/2 ML NEB RESP TX SCH ×3 (07:21→19:30)
[2021-06-17] MEDS: FAMOTIDINE 8 MG/ML 50 ML/BOTTLE PEG SCH ×2 (13:12→20:37)
[2021-06-17] MEDS: TAMSULOSIN 0.4 MG CAPSULE PO SCH (13:12)
[2021-06-17] MEDS: INSULIN GLARGINE 100 UNIT/ML SUBCUT SCH (13:12)
[2021-06-17] MEDS: DOCUSATE SODIUM 100 MG/10 ML UDCUP PO SCH ×2 (13:12→20:37)
[2021-06-17] MEDS: CITALOPRAM 20 MG TABLET PO SCH (13:12)
[2021-06-17] MEDS: METOPROLOL TARTRATE 50 MG TABLET PO SCH ×2 (13:12→20:35)
[2021-06-17] MEDS: guaiFENesin 200 MG/10 ML UDCUP PO SCH ×3 (13:13→20:37)
[2021-06-17] MEDS: DIGOXIN 0.125 MG TABLET PO SCH (13:13)
[2021-06-17] MEDS: QUEtiapine 25 MG TABLET PER TUBE SCH ×2 (13:13→20:34)
[2021-06-17] MEDS: methylPREDNISolone SOD SUC 40 MG/1 ML VIAL IV SCH ×2 (13:13→20:34)
[2021-06-17] MEDS: HYDROmorphone 2 MG/1 ML VIAL IV PRN ×2 (15:26→20:35)
[2021-06-17] MEDS: DIAZEPAM 5 MG TABLET PO PRN (20:35)
[2021-06-17] MEDS: ACETAMINOPHEN 325 MG TABLET PO PRN (20:35)
[2021-06-18] MEDS: ALBUTEROL/IPRATROPIUM 3 ML NEB RESP TX SCH ×4 (01:04→20:28)
[2021-06-18] MEDS: HYDROmorphone 2 MG/1 ML VIAL IV PRN ×6 (01:22→21:10)
[2021-06-18] MEDS: ARFORMOTEROL 15 MCG/2 ML NEB RESP TX SCH ×2 (07:17→20:28)
[2021-06-18] MEDS: BUDESONIDE 0.5 MG/2 ML NEB RESP TX SCH ×2 (07:17→20:28)
[2021-06-18] MEDS: methylPREDNISolone SOD SUC 40 MG/1 ML VIAL IV SCH ×2 (09:16→21:11)
[2021-06-18] MEDS: INSULIN GLARGINE 100 UNIT/ML SUBCUT SCH (09:16)
[2021-06-18] MEDS: TAMSULOSIN 0.4 MG CAPSULE PO SCH (09:17)
[2021-06-18] MEDS: CITALOPRAM 20 MG TABLET PO SCH (09:17)
[2021-06-18] MEDS: guaiFENesin 200 MG/10 ML UDCUP PO SCH ×3 (09:17→21:10)
[2021-06-18] MEDS: DOCUSATE SODIUM 100 MG/10 ML UDCUP PO SCH ×2 (09:17→21:10)
[2021-06-18] MEDS: DIAZEPAM 5 MG TABLET PO PRN ×2 (09:17→21:12)
[2021-06-18] MEDS: QUEtiapine 25 MG TABLET PER TUBE SCH ×2 (09:17→21:11)
[2021-06-18] MEDS: METOPROLOL TARTRATE 50 MG TABLET PO SCH ×2 (09:17→21:11)
[2021-06-18] MEDS: FAMOTIDINE 8 MG/ML 50 ML/BOTTLE PEG SCH ×2 (09:18→21:14)
[2021-06-18] MEDS: DIGOXIN 0.125 MG TABLET PO SCH (14:28)
[2021-06-18 15:56] LABS: Calcium 9.1 MG/DL (8.5-10.1); Osmolality,Calculated 286.5 MOS/KG (273-304); Potassium 4.3 MMOL/L (3.5-5.1)
[2021-06-19] MEDS: ALBUTEROL/IPRATROPIUM 3 ML NEB RESP TX SCH ×4 (00:50→20:00)
[2021-06-19] MEDS: HYDROmorphone 2 MG/1 ML VIAL IV PRN ×5 (02:06→21:35)
[2021-06-19 05:17] LABS: Basophils # 0.1 10*3/uL (0.0-0.2); Basophils % 0.8 % (0.0-0.8); Eosinophils % 0.1 % (0.00-10.9); Hematocrit 36.7 VOL% (42.0-52.0); Hemoglobin 11.1 GM/DL (14.0-18.0); Immature Granulocytes % 5.8 %; Immature Granulocytes Absolute 0.67 #; Lymphocytes # 1.4 10*3/uL (1.4-4.0); Lymphocytes % 12.3 % (21.2-54.2); Mean Corpuscular HGB Conc 30.2 GM/DL (32-36); Mean Corpuscular Volume 92.4 FL (87-102); Mean Platelet Volume 9.9 FL (9.6-12.0); Monocytes % 3.1 % (1.7-12.7); Neutrophils % 77.9 % (38.7-73.9); Platelet Count 225 T/CUMM (130-400); Red Blood Count 3.97 MC/CUMM (3.8-5.5); Red Cell Distribution Width 14.2 % (9.3-17.3); White Blood Count 11.6 T/CUMM (4-12)
[2021-06-19 05:32] LABS: Calcium 8.9 MG/DL (8.5-10.1); Osmolality,Calculated 288.4 MOS/KG (273-304); Potassium 4.1 MMOL/L (3.5-5.1)
[2021-06-19 05:53] LABS: Band Neutrophils 2 % (0-10); Hypochromia Slight; Lymphocytes 11 % (20-55); Microcytosis Slight; Platelet Estimate Adequate; Segmented Neutrophils 86 % (50-85); Total Cells Counted 100
[2021-06-19] MEDS: BUDESONIDE 0.5 MG/2 ML NEB RESP TX SCH ×2 (07:10→20:00)
[2021-06-19] MEDS: ARFORMOTEROL 15 MCG/2 ML NEB RESP TX SCH ×2 (07:10→20:00)
[2021-06-19] MEDS: TAMSULOSIN 0.4 MG CAPSULE PO SCH (09:47)
[2021-06-19] MEDS: DIAZEPAM 5 MG TABLET PO PRN ×2 (09:47→21:35)
[2021-06-19] MEDS: CITALOPRAM 20 MG TABLET PO SCH (09:47)
[2021-06-19] MEDS: guaiFENesin 200 MG/10 ML UDCUP PO SCH ×3 (09:48→21:35)
[2021-06-19] MEDS: QUEtiapine 25 MG TABLET PER TUBE SCH ×2 (09:48→21:36)
[2021-06-19] MEDS: DOCUSATE SODIUM 100 MG/10 ML UDCUP PO SCH ×2 (09:48→21:35)
[2021-06-19] MEDS: methylPREDNISolone SOD SUC 40 MG/1 ML VIAL IV SCH ×2 (09:48→21:33)
[2021-06-19] MEDS: METOPROLOL TARTRATE 50 MG TABLET PO SCH ×2 (09:48→21:36)
[2021-06-19] MEDS: INSULIN GLARGINE 100 UNIT/ML SUBCUT SCH (09:49)
[2021-06-19] MEDS: FAMOTIDINE 8 MG/ML 50 ML/BOTTLE PEG SCH ×2 (09:50→21:36)
[2021-06-19] MEDS: DIGOXIN 0.125 MG TABLET PO SCH (14:34)
[2021-06-20] MEDS: ALBUTEROL/IPRATROPIUM 3 ML NEB RESP TX SCH ×4 (01:25→19:13)
[2021-06-20] MEDS: HYDROmorphone 2 MG/1 ML VIAL IV PRN ×5 (03:04→21:14)
[2021-06-20 05:33] LABS: Basophils # 0.1 10*3/uL (0.0-0.2); Basophils % 0.7 % (0.0-0.8); Eosinophils % 0.1 % (0.00-10.9); Hematocrit 36.7 VOL% (42.0-52.0); Hemoglobin 11.1 GM/DL (14.0-18.0); Immature Granulocytes % 5.2 %; Immature Granulocytes Absolute 0.64 #; Lymphocytes # 1.7 10*3/uL (1.4-4.0); Lymphocytes % 14.1 % (21.2-54.2); Mean Corpuscular HGB Conc 30.2 GM/DL (32-36); Mean Corpuscular Volume 91.8 FL (87-102); Mean Platelet Volume 9.5 FL (9.6-12.0); Monocytes % 4.3 % (1.7-12.7); Neutrophils % 75.6 % (38.7-73.9); Platelet Count 223 T/CUMM (130-400); Red Cell Distribution Width 14.2 % (9.3-17.3); White Blood Count 12.3 T/CUMM (4-12)
[2021-06-20 05:52] LABS: Calcium 9.2 MG/DL (8.5-10.1); Osmolality,Calculated 285.5 MOS/KG (273-304)
[2021-06-20 06:00] LABS: Hypochromia 1+; Lymphocytes 15 % (20-55); Microcytosis 1+; Platelet Estimate Adequate; Segmented Neutrophils 78 % (50-85); Total Cells Counted 100
[2021-06-20] MEDS: ARFORMOTEROL 15 MCG/2 ML NEB RESP TX SCH ×2 (06:50→19:13)
[2021-06-20] MEDS: BUDESONIDE 0.5 MG/2 ML NEB RESP TX SCH ×2 (06:50→19:13)
[2021-06-20] MEDS: QUEtiapine 25 MG TABLET PER TUBE SCH ×2 (09:54→21:15)
[2021-06-20] MEDS: TAMSULOSIN 0.4 MG CAPSULE PO SCH (09:54)
[2021-06-20] MEDS: METOPROLOL TARTRATE 50 MG TABLET PO SCH ×2 (09:54→21:15)
[2021-06-20] MEDS: CITALOPRAM 20 MG TABLET PO SCH (09:54)
[2021-06-20] MEDS: DOCUSATE SODIUM 100 MG/10 ML UDCUP PO SCH ×2 (09:55→21:15)
[2021-06-20] MEDS: guaiFENesin 200 MG/10 ML UDCUP PO SCH ×3 (09:55→21:15)
[2021-06-20] MEDS: DIAZEPAM 5 MG TABLET PO PRN ×2 (09:55→19:23)
[2021-06-20] MEDS: INSULIN GLARGINE 100 UNIT/ML SUBCUT SCH (09:56)
[2021-06-20] MEDS: methylPREDNISolone SOD SUC 40 MG/1 ML VIAL IV SCH ×2 (09:56→21:12)
[2021-06-20] MEDS: DIGOXIN 0.125 MG TABLET PO SCH (14:31)
[2021-06-20] MEDS: FAMOTIDINE 8 MG/ML 50 ML/BOTTLE PEG SCH ×2 (14:31→21:16)
[2021-06-21] MEDS: ALBUTEROL/IPRATROPIUM 3 ML NEB RESP TX SCH ×4 (00:51→20:46)
[2021-06-21] MEDS: HYDROmorphone 2 MG/1 ML VIAL IV PRN ×5 (01:19→17:30)
[2021-06-21] MEDS: ARFORMOTEROL 15 MCG/2 ML NEB RESP TX SCH ×2 (07:05→20:46)
[2021-06-21] MEDS: BUDESONIDE 0.5 MG/2 ML NEB RESP TX SCH ×2 (07:05→20:46)
[2021-06-21] MEDS: methylPREDNISolone SOD SUC 40 MG/1 ML VIAL IV SCH ×2 (09:05→20:56)
[2021-06-21] MEDS: INSULIN GLARGINE 100 UNIT/ML SUBCUT SCH (09:05)
[2021-06-21] MEDS: TAMSULOSIN 0.4 MG CAPSULE PO SCH (09:07)
[2021-06-21] MEDS: DOCUSATE SODIUM 100 MG/10 ML UDCUP PO SCH ×2 (09:07→20:55)
[2021-06-21] MEDS: guaiFENesin 200 MG/10 ML UDCUP PO SCH ×3 (09:07→20:54)
[2021-06-21] MEDS: QUEtiapine 25 MG TABLET PER TUBE SCH ×2 (09:08→20:55)
[2021-06-21] MEDS: DIAZEPAM 5 MG TABLET PO PRN ×2 (09:08→20:55)
[2021-06-21] MEDS: CITALOPRAM 20 MG TABLET PO SCH (09:08)
[2021-06-21] MEDS: METOPROLOL TARTRATE 50 MG TABLET PO SCH ×2 (09:08→20:55)
[2021-06-21] MEDS: FAMOTIDINE 8 MG/ML 50 ML/BOTTLE PEG SCH ×2 (09:13→20:56)
[2021-06-21 12:05] LABS: Basophils # 0.1 10*3/uL (0.0-0.2); Basophils % 0.7 % (0.0-0.8); Eosinophils % 0.1 % (0.00-10.9); Hematocrit 38.6 VOL% (42.0-52.0); Hemoglobin 11.9 GM/DL (14.0-18.0); Immature Granulocytes % 5.2 %; Immature Granulocytes Absolute 0.78 #; Lymphocytes # 1.6 10*3/uL (1.4-4.0); Lymphocytes % 10.6 % (21.2-54.2); Mean Corpuscular HGB Conc 30.8 GM/DL (32-36); Mean Corpuscular Volume 91.3 FL (87-102); Mean Platelet Volume 9.7 FL (9.6-12.0); Monocytes % 4.5 % (1.7-12.7); NRBC # 0.02 10*3/uL; Neutrophils % 78.9 % (38.7-73.9); Platelet Count 246 T/CUMM (130-400); Red Blood Count 4.23 MC/CUMM (3.8-5.5); Red Cell Distribution Width 14.3 % (9.3-17.3); White Blood Count 14.9 T/CUMM (4-12)
[2021-06-21 12:29] LABS: Band Neutrophils 11 % (0-10); Lymphocytes 15 % (20-55); Nucleated Red Blood Cells 1 (0-5); Platelet Estimate Normal; Total Cells Counted 100
[2021-06-21 12:30] LABS: Anisocytosis 2+; Calcium 9.2 MG/DL (8.5-10.1); Macrocytosis 1+; Osmolality,Calculated 288.3 MOS/KG (273-304); Potassium 4.7 MMOL/L (3.5-5.1); Segmented Neutrophils 71 % (50-85); Tear Drop Cells Few
[2021-06-21] MEDS: DIGOXIN 0.125 MG TABLET PO SCH (12:43)
[2021-06-22] MEDS: ALBUTEROL/IPRATROPIUM 3 ML NEB RESP TX SCH ×4 (01:35→21:00)
[2021-06-22] MEDS: HYDROmorphone 2 MG/1 ML VIAL IV PRN ×5 (02:09→19:21)
[2021-06-22 03:10] LABS: Basophils % 0.2 % (0.0-0.8); Eosinophils % 0.1 % (0.00-10.9); Hematocrit 36.2 VOL% (42.0-52.0); Hemoglobin 11.3 GM/DL (14.0-18.0); Immature Granulocytes % 4.5 %; Immature Granulocytes Absolute 0.55 #; Lymphocytes # 1.6 10*3/uL (1.4-4.0); Mean Corpuscular HGB Conc 31.2 GM/DL (32-36); Mean Corpuscular Volume 90.7 FL (87-102); Mean Platelet Volume 9.6 FL (9.6-12.0); Neutrophils % 79.2 % (38.7-73.9); Platelet Count 204 T/CUMM (130-400); Red Blood Count 3.99 MC/CUMM (3.8-5.5); Red Cell Distribution Width 14.2 % (9.3-17.3); White Blood Count 12.2 T/CUMM (4-12)
[2021-06-22 03:23] LABS: Blood Urea Nitrogen 28 MG/DL (7-18); Calcium 9.3 MG/DL (8.5-10.1); Carbon Dioxide 36 MMOL/L (21-32); Estimated Glom Filtration Rate 190 ML/MIN; Glucose 108 MG/DL (74-106); Osmolality,Calculated 285.4 MOS/KG (273-304); Potassium 3.9 MMOL/L (3.5-5.1); Sodium 140 MMOL/L (136-145)
[2021-06-22 03:44] LABS: Lymphocytes 15 % (20-55); Segmented Neutrophils 81 % (50-85); Total Cells Counted 100
[2021-06-22 03:45] LABS: Platelet Estimate Normal
[2021-06-22] MEDS: BUDESONIDE 0.5 MG/2 ML NEB RESP TX SCH ×2 (07:20→21:00)
[2021-06-22] MEDS: ARFORMOTEROL 15 MCG/2 ML NEB RESP TX SCH ×2 (07:20→21:00)
[2021-06-22] MEDS: DOCUSATE SODIUM 100 MG/10 ML UDCUP PO SCH ×2 (09:41→22:53)
[2021-06-22] MEDS: QUEtiapine 25 MG TABLET PER TUBE SCH ×2 (09:42→22:53)
[2021-06-22] MEDS: TAMSULOSIN 0.4 MG CAPSULE PO SCH (09:42)
[2021-06-22] MEDS: METOPROLOL TARTRATE 50 MG TABLET PO SCH ×2 (09:42→22:53)
[2021-06-22] MEDS: CITALOPRAM 20 MG TABLET PO SCH (09:43)
[2021-06-22] MEDS: guaiFENesin 200 MG/10 ML UDCUP PO SCH ×3 (09:43→22:53)
[2021-06-22] MEDS: DIAZEPAM 5 MG TABLET PO PRN ×2 (09:43→22:53)
[2021-06-22] MEDS: FAMOTIDINE 8 MG/ML 50 ML/BOTTLE PEG SCH ×2 (09:44→22:49)
[2021-06-22] MEDS: methylPREDNISolone SOD SUC 40 MG/1 ML VIAL IV SCH ×2 (10:00→22:49)
[2021-06-22] MEDS: INSULIN GLARGINE 100 UNIT/ML SUBCUT SCH (10:05)
[2021-06-22] MEDS: DIGOXIN 0.125 MG TABLET PO SCH (13:29)
[2021-06-23] MEDS: ALBUTEROL/IPRATROPIUM 3 ML NEB RESP TX SCH ×4 (00:55→19:01)
[2021-06-23] MEDS: HYDROmorphone 2 MG/1 ML VIAL IV PRN ×4 (05:00→18:11)
[2021-06-23 06:08] LABS: Basophils # 0.1 10*3/uL (0.0-0.2); Basophils % 0.4 % (0.0-0.8); Eosinophils % 0.1 % (0.00-10.9); Hematocrit 39.1 VOL% (42.0-52.0); Hemoglobin 12.1 GM/DL (14.0-18.0); Immature Granulocytes % 3.2 %; Immature Granulocytes Absolute 0.45 #; Lymphocytes # 1.9 10*3/uL (1.4-4.0); Lymphocytes % 13.4 % (21.2-54.2); Mean Corpuscular HGB Conc 30.9 GM/DL (32-36); Mean Corpuscular Volume 90.3 FL (87-102); Mean Platelet Volume 9.7 FL (9.6-12.0); Monocytes % 5.1 % (1.7-12.7); Neutrophils % 77.8 % (38.7-73.9); Platelet Count 273 T/CUMM (130-400); Red Blood Count 4.33 MC/CUMM (3.8-5.5); Red Cell Distribution Width 14.4 % (9.3-17.3)
[2021-06-23 06:26] LABS: Calcium 9.3 MG/DL (8.5-10.1); Osmolality,Calculated 279.4 MOS/KG (273-304); Potassium 3.6 MMOL/L (3.5-5.1)
[2021-06-23] MEDS: ARFORMOTEROL 15 MCG/2 ML NEB RESP TX SCH ×2 (08:05→19:01)
[2021-06-23] MEDS: BUDESONIDE 0.5 MG/2 ML NEB RESP TX SCH ×2 (08:05→19:01)
[2021-06-23] MEDS: METOPROLOL TARTRATE 50 MG TABLET PO SCH ×2 (09:27→20:25)
[2021-06-23] MEDS: TAMSULOSIN 0.4 MG CAPSULE PO SCH (09:27)
[2021-06-23] MEDS: DOCUSATE SODIUM 100 MG/10 ML UDCUP PO SCH ×2 (09:28→21:02)
[2021-06-23] MEDS: QUEtiapine 25 MG TABLET PER TUBE SCH ×2 (09:28→21:02)
[2021-06-23] MEDS: guaiFENesin 200 MG/10 ML UDCUP PO SCH ×3 (09:28→21:03)
[2021-06-23] MEDS: CITALOPRAM 20 MG TABLET PO SCH (09:28)
[2021-06-23] MEDS: FAMOTIDINE 8 MG/ML 50 ML/BOTTLE PEG SCH ×2 (09:30→21:07)
[2021-06-23] MEDS: methylPREDNISolone SOD SUC 40 MG/1 ML VIAL IV SCH ×2 (09:40→21:04)
[2021-06-23] MEDS: ONDANSETRON 4 MG/2 ML VIAL IV PRN (09:46)
[2021-06-23] MEDS: DIAZEPAM 5 MG TABLET PO PRN ×3 (09:57→21:02)
[2021-06-23] MEDS: ACETAMINOPHEN 325 MG TABLET PO PRN (11:22)
[2021-06-23] MEDS: INSULIN GLARGINE 100 UNIT/ML SUBCUT SCH (11:48)
[2021-06-23] MEDS: DIGOXIN 0.125 MG TABLET PO SCH (13:01)
[2021-06-24] MEDS: ALBUTEROL/IPRATROPIUM 3 ML NEB RESP TX SCH ×4 (01:46→20:30)
[2021-06-24] MEDS: HYDROmorphone 2 MG/1 ML VIAL IV PRN ×4 (02:17→18:53)
[2021-06-24] MEDS: DIAZEPAM 5 MG TABLET PO PRN ×3 (06:34→21:13)
[2021-06-24] MEDS: ARFORMOTEROL 15 MCG/2 ML NEB RESP TX SCH ×2 (07:16→20:30)
[2021-06-24] MEDS: BUDESONIDE 0.5 MG/2 ML NEB RESP TX SCH ×2 (07:16→20:30)
[2021-06-24 08:53] LABS: Basophils % 0.2 % (0.0-0.8); Eosinophils % 0.2 % (0.00-10.9); Hematocrit 34.5 VOL% (42.0-52.0); Hemoglobin 10.9 GM/DL (14.0-18.0); Immature Granulocytes % 1.8 %; Immature Granulocytes Absolute 0.22 #; Lymphocytes # 2.1 10*3/uL (1.4-4.0); Lymphocytes % 17.6 % (21.2-54.2); Mean Corpuscular HGB Conc 31.6 GM/DL (32-36); Mean Corpuscular Volume 89.4 FL (87-102); Mean Platelet Volume 9.3 FL (9.6-12.0); Monocytes % 5.4 % (1.7-12.7); Neutrophils % 74.8 % (38.7-73.9); Platelet Count 200 T/CUMM (130-400); Red Blood Count 3.86 MC/CUMM (3.8-5.5); Red Cell Distribution Width 14.1 % (9.3-17.3)
[2021-06-24 10:08] LABS: Blood Urea Nitrogen 21 MG/DL (7-18); Calcium 8.7 MG/DL (8.5-10.1); Carbon Dioxide 35 MMOL/L (21-32); Estimated Glom Filtration Rate 192 ML/MIN; Glucose 149 MG/DL (74-106); Osmolality,Calculated 282.5 MOS/KG (273-304); Potassium 3.6 MMOL/L (3.5-5.1); Sodium 139 MMOL/L (136-145)
[2021-06-24] MEDS: METOPROLOL TARTRATE 50 MG TABLET PO SCH ×2 (10:26→21:13)
[2021-06-24] MEDS: CITALOPRAM 20 MG TABLET PO SCH (10:26)
[2021-06-24] MEDS: guaiFENesin 200 MG/10 ML UDCUP PO SCH ×3 (10:27→21:13)
[2021-06-24] MEDS: QUEtiapine 25 MG TABLET PER TUBE SCH ×2 (10:27→21:12)
[2021-06-24] MEDS: TAMSULOSIN 0.4 MG CAPSULE PO SCH (10:27)
[2021-06-24] MEDS: DOCUSATE SODIUM 100 MG/10 ML UDCUP PO SCH ×2 (10:27→21:13)
[2021-06-24] MEDS: FAMOTIDINE 8 MG/ML 50 ML/BOTTLE PEG SCH ×2 (10:30→21:20)
[2021-06-24] MEDS: methylPREDNISolone SOD SUC 40 MG/1 ML VIAL IV SCH ×2 (10:49→21:14)
[2021-06-24] MEDS: INSULIN GLARGINE 100 UNIT/ML SUBCUT SCH (10:50)
[2021-06-24] MEDS: DIGOXIN 0.125 MG TABLET PO SCH (13:56)
[2021-06-25] MEDS: HYDROmorphone 2 MG/1 ML VIAL IV PRN ×4 (01:00→17:45)
[2021-06-25] MEDS: ALBUTEROL/IPRATROPIUM 3 ML NEB RESP TX SCH ×4 (01:15→19:42)
[2021-06-25 06:04] LABS: Basophils % 0.3 % (0.0-0.8); Eosinophils % 0.1 % (0.00-10.9); Hematocrit 33.9 VOL% (42.0-52.0); Hemoglobin 10.5 GM/DL (14.0-18.0); Immature Granulocytes % 2.1 %; Immature Granulocytes Absolute 0.24 #; Lymphocytes # 1.5 10*3/uL (1.4-4.0); Lymphocytes % 13.1 % (21.2-54.2); Mean Corpuscular Volume 90.2 FL (87-102); Mean Platelet Volume 9.2 FL (9.6-12.0); Monocytes % 3.8 % (1.7-12.7); Neutrophils % 80.6 % (38.7-73.9); Platelet Count 227 T/CUMM (130-400); Red Blood Count 3.76 MC/CUMM (3.8-5.5); Red Cell Distribution Width 13.9 % (9.3-17.3); White Blood Count 11.6 T/CUMM (4-12)
[2021-06-25 06:21] LABS: Blood Urea Nitrogen 25 MG/DL (7-18); Carbon Dioxide 35 MMOL/L (21-32); Estimated Glom Filtration Rate 192 ML/MIN; Glucose 133 MG/DL (74-106); Osmolality,Calculated 280.7 MOS/KG (273-304); Potassium 3.9 MMOL/L (3.5-5.1); Sodium 138 MMOL/L (136-145)
[2021-06-25] MEDS: ARFORMOTEROL 15 MCG/2 ML NEB RESP TX SCH ×2 (07:30→19:42)
[2021-06-25] MEDS: BUDESONIDE 0.5 MG/2 ML NEB RESP TX SCH ×2 (07:30→19:42)
[2021-06-25] MEDS: INSULIN GLARGINE 100 UNIT/ML SUBCUT SCH (09:03)
[2021-06-25] MEDS: METOPROLOL TARTRATE 50 MG TABLET PO SCH ×2 (09:04→22:12)
[2021-06-25] MEDS: CITALOPRAM 20 MG TABLET PO SCH (09:04)
[2021-06-25] MEDS: guaiFENesin 200 MG/10 ML UDCUP PO SCH ×3 (09:04→22:09)
[2021-06-25] MEDS: QUEtiapine 25 MG TABLET PER TUBE SCH ×2 (09:04→22:13)
[2021-06-25] MEDS: DOCUSATE SODIUM 100 MG/10 ML UDCUP PO SCH ×2 (09:05→22:09)
[2021-06-25] MEDS: methylPREDNISolone SOD SUC 40 MG/1 ML VIAL IV SCH ×2 (09:06→22:12)
[2021-06-25] MEDS: DIAZEPAM 5 MG TABLET PO PRN ×3 (09:07→22:13)
[2021-06-25] MEDS: TAMSULOSIN 0.4 MG CAPSULE PO SCH (09:07)
[2021-06-25] MEDS: FAMOTIDINE 8 MG/ML 50 ML/BOTTLE PEG SCH ×2 (09:41→22:11)
[2021-06-25] MEDS: DIGOXIN 0.125 MG TABLET PO SCH (12:38)
[2021-06-26] MEDS: HYDROmorphone 2 MG/1 ML VIAL IV PRN ×3 (02:28→18:15)
[2021-06-26] MEDS: ALBUTEROL/IPRATROPIUM 3 ML NEB RESP TX SCH ×4 (07:30→19:11)
[2021-06-26] MEDS: BUDESONIDE 0.5 MG/2 ML NEB RESP TX SCH ×2 (07:30→19:11)
[2021-06-26] MEDS: ARFORMOTEROL 15 MCG/2 ML NEB RESP TX SCH ×2 (07:30→19:11)
[2021-06-26] MEDS: DIAZEPAM 5 MG TABLET PO PRN ×2 (08:14→22:37)
[2021-06-26] MEDS: QUEtiapine 25 MG TABLET PER TUBE SCH ×2 (08:14→22:37)
[2021-06-26] MEDS: CITALOPRAM 20 MG TABLET PO SCH (08:14)
[2021-06-26] MEDS: METOPROLOL TARTRATE 50 MG TABLET PO SCH ×2 (08:14→22:37)
[2021-06-26] MEDS: FAMOTIDINE 8 MG/ML 50 ML/BOTTLE PEG SCH ×2 (08:15→22:37)
[2021-06-26] MEDS: INSULIN GLARGINE 100 UNIT/ML SUBCUT SCH (08:15)
[2021-06-26] MEDS: DOCUSATE SODIUM 100 MG/10 ML UDCUP PO SCH ×2 (08:15→22:36)
[2021-06-26] MEDS: methylPREDNISolone SOD SUC 40 MG/1 ML VIAL IV SCH ×2 (08:15→22:38)
[2021-06-26] MEDS: guaiFENesin 200 MG/10 ML UDCUP PO SCH ×3 (08:15→22:36)
[2021-06-26] MEDS: TAMSULOSIN 0.4 MG CAPSULE PO SCH (08:16)
[2021-06-26] MEDS ORDERED: CEFEPIME 1,000 MG in SODIUM CHLORIDE 0.9% 100 ML IV SCH (12:00)
[2021-06-26] MEDS: DIGOXIN 0.125 MG TABLET PO SCH (13:24)
[2021-06-26] MEDS: VANCOMYCIN INJ 1,000 MG in SODIUM CHLORIDE 0.9% 250 ML IV SCH (13:30)
[2021-06-26] MEDS: CEFEPIME 1,000 MG in SODIUM CHLORIDE 0.9% 100 ML IV SCH ×2 (14:51→22:35)
[2021-06-27] MEDS: ALBUTEROL/IPRATROPIUM 3 ML NEB RESP TX SCH ×4 (00:18→19:50)
[2021-06-27] MEDS: CEFEPIME 1,000 MG in SODIUM CHLORIDE 0.9% 100 ML IV SCH ×4 (03:49→21:34)
[2021-06-27] MEDS: HYDROmorphone 2 MG/1 ML VIAL IV PRN ×5 (03:50→21:28)
[2021-06-27 06:11] LABS: Blood Urea Nitrogen 26 MG/DL (7-18); Calcium 9.1 MG/DL (8.5-10.1); Carbon Dioxide 36 MMOL/L (21-32); Estimated Glom Filtration Rate 186 ML/MIN; Glucose 167 MG/DL (74-106); Osmolality,Calculated 283.7 MOS/KG (273-304); Sodium 138 MMOL/L (136-145)
[2021-06-27 06:16] LABS: Basophils % 0.3 % (0.0-0.8); Eosinophils % 0.1 % (0.00-10.9); Hematocrit 34.1 VOL% (42.0-52.0); Hemoglobin 10.4 GM/DL (14.0-18.0); Immature Granulocytes % 4.2 %; Immature Granulocytes Absolute 0.37 #; Lymphocytes # 1.3 10*3/uL (1.4-4.0); Lymphocytes % 15.1 % (21.2-54.2); Mean Corpuscular HGB Conc 30.5 GM/DL (32-36); Mean Corpuscular Volume 91.4 FL (87-102); Mean Platelet Volume 9.4 FL (9.6-12.0); Monocytes % 3.9 % (1.7-12.7); Neutrophils % 76.4 % (38.7-73.9); Platelet Count 246 T/CUMM (130-400); Red Blood Count 3.73 MC/CUMM (3.8-5.5); Red Cell Distribution Width 13.9 % (9.3-17.3); White Blood Count 8.8 T/CUMM (4-12)
[2021-06-27] MEDS: BUDESONIDE 0.5 MG/2 ML NEB RESP TX SCH ×2 (07:09→19:50)
[2021-06-27] MEDS: ARFORMOTEROL 15 MCG/2 ML NEB RESP TX SCH ×2 (07:09→19:50)
[2021-06-27] MEDS: DOCUSATE SODIUM 100 MG/10 ML UDCUP PO SCH ×2 (10:10→21:36)
[2021-06-27] MEDS: CITALOPRAM 20 MG TABLET PO SCH (10:10)
[2021-06-27] MEDS: METOPROLOL TARTRATE 50 MG TABLET PO SCH ×2 (10:10→21:36)
[2021-06-27] MEDS: guaiFENesin 200 MG/10 ML UDCUP PO SCH ×3 (10:10→21:36)
[2021-06-27] MEDS: TAMSULOSIN 0.4 MG CAPSULE PO SCH (10:10)
[2021-06-27] MEDS: QUEtiapine 25 MG TABLET PER TUBE SCH ×2 (10:10→21:36)
[2021-06-27] MEDS: DIAZEPAM 5 MG TABLET PO PRN ×3 (10:11→21:36)
[2021-06-27] MEDS: FAMOTIDINE 8 MG/ML 50 ML/BOTTLE PEG SCH ×2 (10:12→21:38)
[2021-06-27] MEDS: INSULIN GLARGINE 100 UNIT/ML SUBCUT SCH (10:26)
[2021-06-27] MEDS: methylPREDNISolone SOD SUC 40 MG/1 ML VIAL IV SCH ×2 (10:27→21:32)
[2021-06-27] MEDS: VANCOMYCIN INJ 1,000 MG in SODIUM CHLORIDE 0.9% 250 ML IV SCH (10:28)
[2021-06-27] MEDS: DIGOXIN 0.125 MG TABLET PO SCH (13:03)
[2021-06-28] MEDS: ALBUTEROL/IPRATROPIUM 3 ML NEB RESP TX SCH ×4 (00:35→20:42)
[2021-06-28] MEDS: VANCOMYCIN INJ 1,000 MG in SODIUM CHLORIDE 0.9% 250 ML IV SCH (01:53)
[2021-06-28] MEDS: CEFEPIME 1,000 MG in SODIUM CHLORIDE 0.9% 100 ML IV SCH (02:58)
[2021-06-28] MEDS: HYDROmorphone 2 MG/1 ML VIAL IV PRN ×3 (03:59→17:21)
[2021-06-28] MEDS: ARFORMOTEROL 15 MCG/2 ML NEB RESP TX SCH ×2 (07:10→20:42)
[2021-06-28] MEDS: BUDESONIDE 0.5 MG/2 ML NEB RESP TX SCH ×2 (07:10→20:42)
[2021-06-28] MEDS: guaiFENesin 200 MG/10 ML UDCUP PO SCH ×3 (09:21→21:02)
[2021-06-28] MEDS: CITALOPRAM 20 MG TABLET PO SCH (09:22)
[2021-06-28] MEDS: QUEtiapine 25 MG TABLET PER TUBE SCH ×2 (09:22→21:01)
[2021-06-28] MEDS: METOPROLOL TARTRATE 50 MG TABLET PO SCH ×2 (09:22→21:00)
[2021-06-28] MEDS: TAMSULOSIN 0.4 MG CAPSULE PO SCH (09:22)
[2021-06-28] MEDS: DOCUSATE SODIUM 100 MG/10 ML UDCUP PO SCH ×2 (09:22→21:02)
[2021-06-28] MEDS: DIAZEPAM 5 MG TABLET PO PRN ×3 (09:23→21:01)
[2021-06-28] MEDS: INSULIN GLARGINE 100 UNIT/ML SUBCUT SCH (09:32)
[2021-06-28] MEDS: methylPREDNISolone SOD SUC 40 MG/1 ML VIAL IV SCH ×2 (09:35→21:11)
[2021-06-28] MEDS: FAMOTIDINE 8 MG/ML 50 ML/BOTTLE PEG SCH ×2 (09:36→21:02)
[2021-06-28] MEDS: DIGOXIN 0.125 MG TABLET PO SCH (13:09)
[2021-06-29] MEDS: HYDROmorphone 2 MG/1 ML VIAL IV PRN ×4 (01:37→18:38)
[2021-06-29] MEDS: ALBUTEROL/IPRATROPIUM 3 ML NEB RESP TX SCH ×4 (01:58→19:13)
[2021-06-29 05:05] LABS: Basophils # 0.1 10*3/uL (0.0-0.2); Basophils % 0.8 % (0.0-0.8); Eosinophils % 0.1 % (0.00-10.9); Hematocrit 35.6 VOL% (42.0-52.0); Hemoglobin 11.2 GM/DL (14.0-18.0); Immature Granulocytes Absolute 0.51 #; Lymphocytes # 1.9 10*3/uL (1.4-4.0); Lymphocytes % 18.4 % (21.2-54.2); Mean Corpuscular HGB Conc 31.5 GM/DL (32-36); Mean Corpuscular Volume 89.9 FL (87-102); Mean Platelet Volume 9.1 FL (9.6-12.0); Monocytes % 3.8 % (1.7-12.7); Neutrophils % 71.9 % (38.7-73.9); Platelet Count 273 T/CUMM (130-400); Red Blood Count 3.96 MC/CUMM (3.8-5.5); Red Cell Distribution Width 13.9 % (9.3-17.3); White Blood Count 10.1 T/CUMM (4-12)
[2021-06-29 05:28] LABS: Lymphocytes 15 % (20-55); Platelet Estimate Normal; Segmented Neutrophils 80 % (50-85); Total Cells Counted 100
[2021-06-29 05:39] LABS: Blood Urea Nitrogen 26 MG/DL (7-18); Calcium 9.3 MG/DL (8.5-10.1); Carbon Dioxide 37 MMOL/L (21-32); Estimated Glom Filtration Rate 189 ML/MIN; Glucose 87 MG/DL (74-106); Osmolality,Calculated 278.7 MOS/KG (273-304); Potassium 3.7 MMOL/L (3.5-5.1); Sodium 138 MMOL/L (136-145)
[2021-06-29] MEDS: ARFORMOTEROL 15 MCG/2 ML NEB RESP TX SCH ×2 (07:50→19:13)
[2021-06-29] MEDS: BUDESONIDE 0.5 MG/2 ML NEB RESP TX SCH ×2 (07:50→19:14)
[2021-06-29] MEDS: INSULIN GLARGINE 100 UNIT/ML SUBCUT SCH (08:13)
[2021-06-29] MEDS: methylPREDNISolone SOD SUC 40 MG/1 ML VIAL IV SCH ×2 (08:14→21:14)
[2021-06-29] MEDS: CITALOPRAM 20 MG TABLET PO SCH (08:14)
[2021-06-29] MEDS: METOPROLOL TARTRATE 50 MG TABLET PO SCH ×2 (08:14→21:13)
[2021-06-29] MEDS: QUEtiapine 25 MG TABLET PER TUBE SCH ×2 (08:15→21:12)
[2021-06-29] MEDS: TAMSULOSIN 0.4 MG CAPSULE PO SCH (08:15)
[2021-06-29] MEDS: guaiFENesin 200 MG/10 ML UDCUP PO SCH ×3 (08:16→21:13)
[2021-06-29] MEDS: DOCUSATE SODIUM 100 MG/10 ML UDCUP PO SCH ×2 (08:16→21:13)
[2021-06-29] MEDS: FAMOTIDINE 8 MG/ML 50 ML/BOTTLE PEG SCH ×2 (08:24→21:14)
[2021-06-29] MEDS: DIGOXIN 0.125 MG TABLET PO SCH (13:32)
[2021-06-29] MEDS: DIAZEPAM 5 MG TABLET PO PRN ×2 (15:09→21:13)
[2021-06-30] MEDS: ALBUTEROL/IPRATROPIUM 3 ML NEB RESP TX SCH ×4 (00:59→20:09)
[2021-06-30] MEDS: HYDROmorphone 2 MG/1 ML VIAL IV PRN ×6 (01:23→22:03)
[2021-06-30] MEDS: BUDESONIDE 0.5 MG/2 ML NEB RESP TX SCH ×2 (07:45→20:09)
[2021-06-30] MEDS: ARFORMOTEROL 15 MCG/2 ML NEB RESP TX SCH ×2 (07:45→20:09)
[2021-06-30] MEDS: methylPREDNISolone SOD SUC 40 MG/1 ML VIAL IV SCH ×2 (09:01→21:03)
[2021-06-30] MEDS: METOPROLOL TARTRATE 50 MG TABLET PO SCH ×2 (09:01→21:02)
[2021-06-30] MEDS: DOCUSATE SODIUM 100 MG/10 ML UDCUP PO SCH ×2 (09:01→21:07)
[2021-06-30] MEDS: QUEtiapine 25 MG TABLET PER TUBE SCH ×2 (09:01→21:03)
[2021-06-30] MEDS: TAMSULOSIN 0.4 MG CAPSULE PO SCH (09:01)
[2021-06-30] MEDS: CITALOPRAM 20 MG TABLET PO SCH (09:02)
[2021-06-30] MEDS: guaiFENesin 200 MG/10 ML UDCUP PO SCH ×3 (09:02→21:02)
[2021-06-30] MEDS: FAMOTIDINE 8 MG/ML 50 ML/BOTTLE PEG SCH ×2 (09:02→21:07)
[2021-06-30] MEDS: INSULIN GLARGINE 100 UNIT/ML SUBCUT SCH (09:10)
[2021-06-30] MEDS: DIAZEPAM 5 MG TABLET PO PRN ×2 (09:26→17:54)
[2021-06-30] MEDS: DIGOXIN 0.125 MG TABLET PO SCH (12:54)
[2021-07-01] MEDS: ALBUTEROL/IPRATROPIUM 3 ML NEB RESP TX SCH ×4 (01:29→20:57)
[2021-07-01] MEDS: HYDROmorphone 2 MG/1 ML VIAL IV PRN ×4 (05:45→19:00)
[2021-07-01] MEDS: BUDESONIDE 0.5 MG/2 ML NEB RESP TX SCH ×2 (07:14→20:57)
[2021-07-01] MEDS: ARFORMOTEROL 15 MCG/2 ML NEB RESP TX SCH ×2 (07:14→20:56)
[2021-07-01] MEDS: METOPROLOL TARTRATE 50 MG TABLET PO SCH ×2 (09:19→20:54)
[2021-07-01] MEDS: TAMSULOSIN 0.4 MG CAPSULE PO SCH (09:19)
[2021-07-01] MEDS: INSULIN GLARGINE 100 UNIT/ML SUBCUT SCH (09:20)
[2021-07-01] MEDS: guaiFENesin 200 MG/10 ML UDCUP PO SCH ×3 (09:20→20:53)
[2021-07-01] MEDS: DOCUSATE SODIUM 100 MG/10 ML UDCUP PO SCH ×2 (09:20→20:55)
[2021-07-01] MEDS: DIAZEPAM 5 MG TABLET PO PRN ×3 (09:20→20:54)
[2021-07-01] MEDS: FAMOTIDINE 8 MG/ML 50 ML/BOTTLE PEG SCH ×2 (09:20→20:55)
[2021-07-01] MEDS: methylPREDNISolone SOD SUC 40 MG/1 ML VIAL IV SCH ×2 (09:20→20:53)
[2021-07-01] MEDS: QUEtiapine 25 MG TABLET PER TUBE SCH ×2 (09:20→20:54)
[2021-07-01] MEDS: CITALOPRAM 20 MG TABLET PO SCH (09:20)
[2021-07-01] MEDS: DIGOXIN 0.125 MG TABLET PO SCH (14:38)
[2021-07-02] MEDS: ALBUTEROL/IPRATROPIUM 3 ML NEB RESP TX SCH ×4 (00:14→20:20)
[2021-07-02] MEDS: HYDROmorphone 2 MG/1 ML VIAL IV PRN ×4 (03:30→17:12)
[2021-07-02] MEDS: ARFORMOTEROL 15 MCG/2 ML NEB RESP TX SCH ×2 (07:15→20:20)
[2021-07-02] MEDS: BUDESONIDE 0.5 MG/2 ML NEB RESP TX SCH ×2 (07:15→20:20)
[2021-07-02] MEDS: FAMOTIDINE 8 MG/ML 50 ML/BOTTLE PEG SCH ×2 (09:20→21:01)
[2021-07-02] MEDS: guaiFENesin 200 MG/10 ML UDCUP PO SCH ×3 (09:23→20:56)
[2021-07-02] MEDS: methylPREDNISolone SOD SUC 40 MG/1 ML VIAL IV SCH ×2 (09:23→20:55)
[2021-07-02] MEDS: METOPROLOL TARTRATE 50 MG TABLET PO SCH ×2 (09:24→20:57)
[2021-07-02] MEDS: TAMSULOSIN 0.4 MG CAPSULE PO SCH (09:24)
[2021-07-02] MEDS: QUEtiapine 25 MG TABLET PER TUBE SCH ×2 (09:24→20:57)
[2021-07-02] MEDS: DOCUSATE SODIUM 100 MG/10 ML UDCUP PO SCH ×2 (09:24→20:56)
[2021-07-02] MEDS: DIAZEPAM 5 MG TABLET PO PRN ×3 (09:25→20:57)
[2021-07-02] MEDS: CITALOPRAM 20 MG TABLET PO SCH (09:25)
[2021-07-02] MEDS: INSULIN GLARGINE 100 UNIT/ML SUBCUT SCH (09:50)
[2021-07-02] MEDS: MAGNESIUM HYDROXIDE SUSP 30 ML UDCUP PO PRN (12:20)
[2021-07-02] MEDS: DIGOXIN 0.125 MG TABLET PO SCH (12:21)
[2021-07-03] MEDS: ALBUTEROL/IPRATROPIUM 3 ML NEB RESP TX SCH ×4 (00:55→19:55)
[2021-07-03] MEDS: HYDROmorphone 2 MG/1 ML VIAL IV PRN ×4 (01:07→18:17)
[2021-07-03 06:38] LABS: Basophils # 0.1 10*3/uL (0.0-0.2); Basophils % 0.5 % (0.0-0.8); Eosinophils % 0.1 % (0.00-10.9); Hematocrit 35.9 VOL% (42.0-52.0); Hemoglobin 10.8 GM/DL (14.0-18.0); Immature Granulocytes % 3.9 %; Immature Granulocytes Absolute 0.37 #; Lymphocytes # 1.6 10*3/uL (1.4-4.0); Lymphocytes % 16.4 % (21.2-54.2); Mean Corpuscular HGB Conc 30.1 GM/DL (32-36); Mean Corpuscular Volume 91.8 FL (87-102); Mean Platelet Volume 9.1 FL (9.6-12.0); Monocytes % 3.4 % (1.7-12.7); Neutrophils % 75.7 % (38.7-73.9); Platelet Count 229 T/CUMM (130-400); Red Blood Count 3.91 MC/CUMM (3.8-5.5); Red Cell Distribution Width 14.1 % (9.3-17.3); White Blood Count 9.5 T/CUMM (4-12)
[2021-07-03 07:05] LABS: Osmolality,Calculated 282.4 MOS/KG (273-304); Potassium 3.5 MMOL/L (3.5-5.1)
[2021-07-03] MEDS: BUDESONIDE 0.5 MG/2 ML NEB RESP TX SCH ×2 (07:20→19:55)
[2021-07-03] MEDS: ARFORMOTEROL 15 MCG/2 ML NEB RESP TX SCH ×2 (07:20→19:55)
[2021-07-03] MEDS: DOCUSATE SODIUM 100 MG/10 ML UDCUP PO SCH ×2 (09:44→21:05)
[2021-07-03] MEDS: guaiFENesin 200 MG/10 ML UDCUP PO SCH ×3 (09:44→21:05)
[2021-07-03] MEDS: QUEtiapine 25 MG TABLET PER TUBE SCH ×2 (09:45→21:06)
[2021-07-03] MEDS: CITALOPRAM 20 MG TABLET PO SCH (09:45)
[2021-07-03] MEDS: DIAZEPAM 5 MG TABLET PO PRN ×2 (09:46→21:07)
[2021-07-03] MEDS: TAMSULOSIN 0.4 MG CAPSULE PO SCH (09:46)
[2021-07-03] MEDS: INSULIN GLARGINE 100 UNIT/ML SUBCUT SCH (09:48)
[2021-07-03] MEDS: methylPREDNISolone SOD SUC 40 MG/1 ML VIAL IV SCH ×2 (09:49→21:06)
[2021-07-03] MEDS: METOPROLOL TARTRATE 50 MG TABLET PO SCH ×2 (09:49→21:06)
[2021-07-03] MEDS: FAMOTIDINE 8 MG/ML 50 ML/BOTTLE PEG SCH ×2 (09:49→21:09)
[2021-07-03] MEDS: MAGNESIUM HYDROXIDE SUSP 30 ML UDCUP PO PRN (14:13)
[2021-07-03] MEDS: DIGOXIN 0.125 MG TABLET PO SCH (14:13)
[2021-07-04] MEDS: HYDROmorphone 2 MG/1 ML VIAL IV PRN ×4 (02:26→17:51)
[2021-07-04] MEDS: ALBUTEROL/IPRATROPIUM 3 ML NEB RESP TX SCH ×4 (02:45→20:03)
[2021-07-04] MEDS: BUDESONIDE 0.5 MG/2 ML NEB RESP TX SCH ×2 (07:15→20:03)
[2021-07-04] MEDS: ARFORMOTEROL 15 MCG/2 ML NEB RESP TX SCH ×2 (07:15→20:03)
[2021-07-04] MEDS: DIAZEPAM 5 MG TABLET PO PRN ×3 (09:06→20:35)
[2021-07-04] MEDS: CITALOPRAM 20 MG TABLET PO SCH (09:06)
[2021-07-04] MEDS: METOPROLOL TARTRATE 50 MG TABLET PO SCH ×2 (09:07→20:36)
[2021-07-04] MEDS: DOCUSATE SODIUM 100 MG/10 ML UDCUP PO SCH ×2 (09:07→20:37)
[2021-07-04] MEDS: QUEtiapine 25 MG TABLET PER TUBE SCH ×2 (09:07→20:36)
[2021-07-04] MEDS: TAMSULOSIN 0.4 MG CAPSULE PO SCH (09:07)
[2021-07-04] MEDS: methylPREDNISolone SOD SUC 40 MG/1 ML VIAL IV SCH ×2 (09:08→20:35)
[2021-07-04] MEDS: INSULIN GLARGINE 100 UNIT/ML SUBCUT SCH (09:08)
[2021-07-04] MEDS: FAMOTIDINE 8 MG/ML 50 ML/BOTTLE PEG SCH ×2 (09:09→20:37)
[2021-07-04] MEDS: guaiFENesin 200 MG/10 ML UDCUP PO SCH ×3 (09:16→20:36)
[2021-07-04] MEDS: DIGOXIN 0.125 MG TABLET PO SCH (12:55)
[2021-07-05] MEDS: HYDROmorphone 2 MG/1 ML VIAL IV PRN ×4 (02:09→21:05)
[2021-07-05] MEDS: ALBUTEROL/IPRATROPIUM 3 ML NEB RESP TX SCH ×4 (02:43→19:44)
[2021-07-05 05:30] LABS: Calcium 8.9 MG/DL (8.5-10.1); Potassium 4.1 MMOL/L (3.5-5.1)
[2021-07-05] MEDS: BUDESONIDE 0.5 MG/2 ML NEB RESP TX SCH ×2 (07:20→19:22)
[2021-07-05] MEDS: ARFORMOTEROL 15 MCG/2 ML NEB RESP TX SCH ×2 (07:20→19:18)
[2021-07-05] MEDS: INSULIN GLARGINE 100 UNIT/ML SUBCUT SCH (09:21)
[2021-07-05] MEDS: CITALOPRAM 20 MG TABLET PO SCH (09:22)
[2021-07-05] MEDS: methylPREDNISolone SOD SUC 40 MG/1 ML VIAL IV SCH (09:22)
[2021-07-05] MEDS: TAMSULOSIN 0.4 MG CAPSULE PO SCH (09:23)
[2021-07-05] MEDS: METOPROLOL TARTRATE 50 MG TABLET PO SCH ×2 (09:23→23:00)
[2021-07-05] MEDS: QUEtiapine 25 MG TABLET PER TUBE SCH ×2 (09:23→21:04)
[2021-07-05] MEDS: FAMOTIDINE 8 MG/ML 50 ML/BOTTLE PEG SCH ×2 (09:24→20:30)
[2021-07-05] MEDS: DIAZEPAM 5 MG TABLET PO PRN ×3 (09:24→21:04)
[2021-07-05] MEDS: MAGNESIUM HYDROXIDE SUSP 30 ML UDCUP PO PRN (09:28)
[2021-07-05] MEDS: DOCUSATE SODIUM 100 MG/10 ML UDCUP PO SCH ×2 (09:28→21:03)
[2021-07-05] MEDS: guaiFENesin 200 MG/10 ML UDCUP PO SCH ×3 (09:28→21:03)
[2021-07-05] MEDS: DIGOXIN 0.125 MG TABLET PO SCH (12:27)
[2021-07-06] MEDS: ALBUTEROL/IPRATROPIUM 3 ML NEB RESP TX SCH ×4 (00:56→21:54)
[2021-07-06] MEDS: HYDROmorphone 2 MG/1 ML VIAL IV PRN ×4 (01:37→15:03)
[2021-07-06] MEDS: DIAZEPAM 5 MG TABLET PO PRN ×3 (04:48→21:31)
[2021-07-06 05:27] LABS: Basophils # 0.1 10*3/uL (0.0-0.2); Basophils % 0.4 % (0.0-0.8); Eosinophils # 0.1 10*3/uL (0.0-0.87); Hematocrit 39.4 VOL% (42.0-52.0); Hemoglobin 11.8 GM/DL (14.0-18.0); Immature Granulocytes % 2.4 %; Immature Granulocytes Absolute 0.34 #; Lymphocytes # 2.7 10*3/uL (1.4-4.0); Lymphocytes % 19.1 % (21.2-54.2); Mean Corpuscular HGB Conc 29.9 GM/DL (32-36); Mean Corpuscular Volume 91.8 FL (87-102); Monocytes % 5.4 % (1.7-12.7); Neutrophils % 71.7 % (38.7-73.9); Platelet Count 219 T/CUMM (130-400); Red Blood Count 4.29 MC/CUMM (3.8-5.5); Red Cell Distribution Width 14.3 % (9.3-17.3)
[2021-07-06] MEDS: ARFORMOTEROL 15 MCG/2 ML NEB RESP TX SCH ×2 (07:16→21:54)
[2021-07-06] MEDS: BUDESONIDE 0.5 MG/2 ML NEB RESP TX SCH ×2 (07:16→21:54)
[2021-07-06] MEDS: POLYETHYLENE GLYCOL POWDER 17 GM PACK PO SCH (09:38)
[2021-07-06] MEDS: INSULIN GLARGINE 100 UNIT/ML SUBCUT SCH (09:39)
[2021-07-06] MEDS: DOCUSATE SODIUM 100 MG/10 ML UDCUP PO SCH ×2 (09:40→21:39)
[2021-07-06] MEDS: METOPROLOL TARTRATE 50 MG TABLET PO SCH ×2 (09:40→21:32)
[2021-07-06] MEDS: guaiFENesin 200 MG/10 ML UDCUP PO SCH ×3 (09:40→21:39)
[2021-07-06] MEDS: QUEtiapine 25 MG TABLET PER TUBE SCH ×2 (09:40→21:32)
[2021-07-06] MEDS: CITALOPRAM 20 MG TABLET PO SCH (09:41)
[2021-07-06] MEDS: FAMOTIDINE 8 MG/ML 50 ML/BOTTLE PEG SCH ×2 (09:41→21:40)
[2021-07-06] MEDS: TAMSULOSIN 0.4 MG CAPSULE PO SCH (09:41)
[2021-07-06] MEDS: predniSONE 20 MG TABLET PO SCH (09:43)
[2021-07-06] MEDS: DIGOXIN 0.125 MG TABLET PO SCH (15:02)
[2021-07-06] MEDS: PIPERACILLIN/TAZOBACTAM 3,375 MG in SODIUM CHLORIDE 0.9% 100 ML IV SCH (17:43)
[2021-07-06] MEDS: VANCOMYCIN INJ 1,000 MG in SODIUM CHLORIDE 0.9% 250 ML IV SCH (17:48)
[2021-07-07] MEDS: PIPERACILLIN/TAZOBACTAM 3,375 MG in SODIUM CHLORIDE 0.9% 100 ML IV SCH ×4 (00:22→23:25)
[2021-07-07] MEDS: ALBUTEROL/IPRATROPIUM 3 ML NEB RESP TX SCH ×4 (02:35→20:45)
[2021-07-07] MEDS: HYDROmorphone 2 MG/1 ML VIAL IV PRN ×4 (04:43→20:23)
[2021-07-07] MEDS: VANCOMYCIN INJ 1,000 MG in SODIUM CHLORIDE 0.9% 250 ML IV SCH ×2 (04:46→15:30)
[2021-07-07 06:14] LABS: Basophils # 0.1 10*3/uL (0.0-0.2); Basophils % 0.6 % (0.0-0.8); Eosinophils # 0.1 10*3/uL (0.0-0.87); Eosinophils % 1.5 % (0.00-10.9); Hematocrit 34.2 VOL% (42.0-52.0); Hemoglobin 10.1 GM/DL (14.0-18.0); Immature Granulocytes % 3.2 %; Immature Granulocytes Absolute 0.28 #; Lymphocytes % 23.1 % (21.2-54.2); Mean Corpuscular HGB Conc 29.5 GM/DL (32-36); Mean Corpuscular Volume 92.7 FL (87-102); Mean Platelet Volume 9.3 FL (9.6-12.0); Monocytes % 6.2 % (1.7-12.7); Neutrophils % 65.4 % (38.7-73.9); Platelet Count 195 T/CUMM (130-400); Red Blood Count 3.69 MC/CUMM (3.8-5.5); Red Cell Distribution Width 14.1 % (9.3-17.3); White Blood Count 8.8 T/CUMM (4-12)
[2021-07-07 06:41] LABS: Blood Urea Nitrogen 18 MG/DL (7-18); Calcium 8.6 MG/DL (8.5-10.1); Carbon Dioxide 38 MMOL/L (21-32); Estimated Glom Filtration Rate 192 ML/MIN; Glucose 105 MG/DL (74-106); Osmolality,Calculated 280.4 MOS/KG (273-304); Potassium 3.1 MMOL/L (3.5-5.1); Sodium 140 MMOL/L (136-145)
[2021-07-07] MEDS: ARFORMOTEROL 15 MCG/2 ML NEB RESP TX SCH ×2 (07:00→20:44)
[2021-07-07] MEDS: BUDESONIDE 0.5 MG/2 ML NEB RESP TX SCH ×2 (07:00→20:45)
[2021-07-07] MEDS: DIAZEPAM 5 MG TABLET PO PRN ×3 (07:22→20:25)
[2021-07-07] MEDS: QUEtiapine 25 MG TABLET PER TUBE SCH ×2 (09:18→20:22)
[2021-07-07] MEDS: METOPROLOL TARTRATE 50 MG TABLET PO SCH ×2 (09:18→20:25)
[2021-07-07] MEDS: guaiFENesin 200 MG/10 ML UDCUP PO SCH ×3 (09:18→20:25)
[2021-07-07] MEDS: TAMSULOSIN 0.4 MG CAPSULE PO SCH (09:18)
[2021-07-07] MEDS: CITALOPRAM 20 MG TABLET PO SCH (09:19)
[2021-07-07] MEDS: POLYETHYLENE GLYCOL POWDER 17 GM PACK PO SCH (09:19)
[2021-07-07] MEDS: DOCUSATE SODIUM 100 MG/10 ML UDCUP PO SCH ×2 (09:19→20:25)
[2021-07-07] MEDS: INSULIN GLARGINE 100 UNIT/ML SUBCUT SCH (09:19)
[2021-07-07] MEDS: predniSONE 20 MG TABLET PO SCH (09:19)
[2021-07-07] MEDS: FAMOTIDINE 8 MG/ML 50 ML/BOTTLE PEG SCH ×2 (10:04→22:50)
[2021-07-07] MEDS: DIGOXIN 0.125 MG TABLET PO SCH (13:54)
[2021-07-08] MEDS: ALBUTEROL/IPRATROPIUM 3 ML NEB RESP TX SCH ×4 (01:31→21:22)
[2021-07-08] MEDS: HYDROmorphone 2 MG/1 ML VIAL IV PRN ×4 (02:08→22:25)
[2021-07-08] MEDS: VANCOMYCIN INJ 1,000 MG in SODIUM CHLORIDE 0.9% 250 ML IV SCH ×2 (04:51→17:13)
[2021-07-08 05:59] LABS: Calcium 9.2 MG/DL (8.5-10.1); Osmolality,Calculated 287.1 MOS/KG (273-304); Potassium 3.3 MMOL/L (3.5-5.1)
[2021-07-08 06:13] LABS: Basophils % 0.5 % (0.0-0.8); Eosinophils # 0.1 10*3/uL (0.0-0.87); Eosinophils % 1.5 % (0.00-10.9); Hematocrit 32.4 VOL% (42.0-52.0); Hemoglobin 9.6 GM/DL (14.0-18.0); Immature Granulocytes % 2.5 %; Lymphocytes # 1.6 10*3/uL (1.4-4.0); Lymphocytes % 19.6 % (21.2-54.2); Mean Corpuscular HGB Conc 29.6 GM/DL (32-36); Mean Corpuscular Volume 92.3 FL (87-102); Mean Platelet Volume 9.1 FL (9.6-12.0); Monocytes % 9.1 % (1.7-12.7); Neutrophils % 66.8 % (38.7-73.9); Platelet Count 170 T/CUMM (130-400); Red Blood Count 3.51 MC/CUMM (3.8-5.5); Red Cell Distribution Width 14.1 % (9.3-17.3); White Blood Count 8.1 T/CUMM (4-12)
[2021-07-08] MEDS: BUDESONIDE 0.5 MG/2 ML NEB RESP TX SCH ×2 (07:10→21:22)
[2021-07-08] MEDS: ARFORMOTEROL 15 MCG/2 ML NEB RESP TX SCH ×2 (07:10→21:22)
[2021-07-08] MEDS: DIAZEPAM 5 MG TABLET PO PRN ×2 (11:02→20:52)
[2021-07-08] MEDS: METOPROLOL TARTRATE 50 MG TABLET PO SCH ×2 (11:03→20:52)
[2021-07-08] MEDS: TAMSULOSIN 0.4 MG CAPSULE PO SCH (11:03)
[2021-07-08] MEDS: QUEtiapine 25 MG TABLET PER TUBE SCH ×2 (11:03→20:52)
[2021-07-08] MEDS ORDERED: POTASSIUM CHLORIDE 20 MEQ TABLET PO ONE (11:03)
[2021-07-08] MEDS: PIPERACILLIN/TAZOBACTAM 3,375 MG in SODIUM CHLORIDE 0.9% 100 ML IV SCH ×2 (11:04→17:11)
[2021-07-08] MEDS: CITALOPRAM 20 MG TABLET PO SCH (11:04)
[2021-07-08] MEDS: predniSONE 20 MG TABLET PO SCH (11:04)
[2021-07-08] MEDS: guaiFENesin 200 MG/10 ML UDCUP PO SCH ×3 (11:05→20:51)
[2021-07-08] MEDS: DOCUSATE SODIUM 100 MG/10 ML UDCUP PO SCH ×2 (11:05→20:51)
[2021-07-08] MEDS: POLYETHYLENE GLYCOL POWDER 17 GM PACK PO SCH (11:09)
[2021-07-08] MEDS: INSULIN GLARGINE 100 UNIT/ML SUBCUT SCH (11:09)
[2021-07-08] MEDS: FAMOTIDINE 8 MG/ML 50 ML/BOTTLE PEG SCH ×2 (11:33→20:53)
[2021-07-08] MEDS: DIGOXIN 0.125 MG TABLET PO SCH (15:16)
[2021-07-08] MEDS: POTASSIUM CHLORIDE RIDER 10 MEQ/100 ML PREMIX IV PRN ×2 (17:04→20:53)
[2021-07-09] MEDS: PIPERACILLIN/TAZOBACTAM 3,375 MG in SODIUM CHLORIDE 0.9% 100 ML IV SCH ×3 (00:15→18:51)
[2021-07-09] MEDS: ALBUTEROL/IPRATROPIUM 3 ML NEB RESP TX SCH ×4 (02:22→19:30)
[2021-07-09] MEDS: VANCOMYCIN INJ 1,000 MG in SODIUM CHLORIDE 0.9% 250 ML IV SCH ×2 (04:03→17:13)
[2021-07-09] MEDS: HYDROmorphone 2 MG/1 ML VIAL IV PRN ×4 (04:03→22:08)
[2021-07-09 06:18] LABS: Basophils % 0.3 % (0.0-0.8); Eosinophils # 0.1 10*3/uL (0.0-0.87); Eosinophils % 1.4 % (0.00-10.9); Hematocrit 30.8 VOL% (42.0-52.0); Hemoglobin 9.1 GM/DL (14.0-18.0); Immature Granulocytes % 3.1 %; Lymphocytes # 1.3 10*3/uL (1.4-4.0); Lymphocytes % 20.9 % (21.2-54.2); Mean Corpuscular HGB Conc 29.5 GM/DL (32-36); Mean Corpuscular Volume 94.2 FL (87-102); Mean Platelet Volume 9.4 FL (9.6-12.0); Monocytes % 8.7 % (1.7-12.7); Neutrophils % 65.6 % (38.7-73.9); Platelet Count 179 T/CUMM (130-400); Red Blood Count 3.27 MC/CUMM (3.8-5.5); Red Cell Distribution Width 13.8 % (9.3-17.3); White Blood Count 6.4 T/CUMM (4-12)
[2021-07-09 06:55] LABS: Calcium 9.2 MG/DL (8.5-10.1); Potassium 3.7 MMOL/L (3.5-5.1)
[2021-07-09] MEDS: ARFORMOTEROL 15 MCG/2 ML NEB RESP TX SCH ×2 (07:15→19:30)
[2021-07-09] MEDS: BUDESONIDE 0.5 MG/2 ML NEB RESP TX SCH ×2 (07:15→19:30)
[2021-07-09] MEDS: POLYETHYLENE GLYCOL POWDER 17 GM PACK PO SCH (08:54)
[2021-07-09] MEDS: DOCUSATE SODIUM 100 MG/10 ML UDCUP PO SCH ×2 (08:54→21:46)
[2021-07-09] MEDS: INSULIN GLARGINE 100 UNIT/ML SUBCUT SCH (08:54)
[2021-07-09] MEDS: DIAZEPAM 5 MG TABLET PO PRN ×2 (08:55→21:46)
[2021-07-09] MEDS: TAMSULOSIN 0.4 MG CAPSULE PO SCH (08:55)
[2021-07-09] MEDS: guaiFENesin 200 MG/10 ML UDCUP PO SCH ×3 (08:55→21:46)
[2021-07-09] MEDS: FAMOTIDINE 8 MG/ML 50 ML/BOTTLE PEG SCH ×2 (08:55→21:46)
[2021-07-09] MEDS: METOPROLOL TARTRATE 50 MG TABLET PO SCH ×2 (08:55→21:46)
[2021-07-09] MEDS: QUEtiapine 25 MG TABLET PER TUBE SCH ×2 (08:55→21:46)
[2021-07-09] MEDS: predniSONE 20 MG TABLET PO SCH (08:55)
[2021-07-09] MEDS: CITALOPRAM 20 MG TABLET PO SCH (08:55)
[2021-07-09] MEDS: POTASSIUM CHLORIDE INJ 10 MEQ in SODIUM CHLORIDE 0.9% 100 ML IV SCH (10:03)
[2021-07-09] MEDS ORDERED: SKIN HEALING OINT (AQUAPHOR) 50 GM TUBE TOP PRN (10:41)
[2021-07-09] MEDS: DIGOXIN 0.125 MG TABLET PO SCH (14:13)
[2021-07-09] MEDS ORDERED: FUROSEMIDE 20 MG/2 ML VIAL IV ONE (18:03)
[2021-07-10] MEDS: ALBUTEROL/IPRATROPIUM 3 ML NEB RESP TX SCH ×4 (00:27→20:43)
[2021-07-10] MEDS: PIPERACILLIN/TAZOBACTAM 3,375 MG in SODIUM CHLORIDE 0.9% 100 ML IV SCH ×3 (00:46→17:13)
[2021-07-10] MEDS: HYDROmorphone 2 MG/1 ML VIAL IV PRN ×3 (04:47→19:28)
[2021-07-10] MEDS: VANCOMYCIN INJ 1,000 MG in SODIUM CHLORIDE 0.9% 250 ML IV SCH ×2 (05:51→15:15)
[2021-07-10] MEDS: BUDESONIDE 0.5 MG/2 ML NEB RESP TX SCH ×2 (07:30→20:43)
[2021-07-10] MEDS: ARFORMOTEROL 15 MCG/2 ML NEB RESP TX SCH ×2 (07:30→20:43)
[2021-07-10] MEDS: guaiFENesin 200 MG/10 ML UDCUP PO SCH ×3 (09:21→21:19)
[2021-07-10] MEDS: INSULIN GLARGINE 100 UNIT/ML SUBCUT SCH (09:21)
[2021-07-10] MEDS: FAMOTIDINE 8 MG/ML 50 ML/BOTTLE PEG SCH ×2 (09:21→21:38)
[2021-07-10] MEDS: POLYETHYLENE GLYCOL POWDER 17 GM PACK PO SCH (09:21)
[2021-07-10] MEDS: METOPROLOL TARTRATE 50 MG TABLET PO SCH ×2 (09:21→21:20)
[2021-07-10] MEDS: DIAZEPAM 5 MG TABLET PO PRN ×2 (09:21→21:20)
[2021-07-10] MEDS: TAMSULOSIN 0.4 MG CAPSULE PO SCH (09:21)
[2021-07-10] MEDS: DOCUSATE SODIUM 100 MG/10 ML UDCUP PO SCH ×2 (09:21→21:19)
[2021-07-10] MEDS: predniSONE 20 MG TABLET PO SCH (09:22)
[2021-07-10] MEDS: CITALOPRAM 20 MG TABLET PO SCH (09:22)
[2021-07-10] MEDS: QUEtiapine 25 MG TABLET PER TUBE SCH ×2 (09:22→21:20)
[2021-07-10] MEDS: DIGOXIN 0.125 MG TABLET PO SCH (12:32)
[2021-07-11] MEDS: ALBUTEROL/IPRATROPIUM 3 ML NEB RESP TX SCH ×4 (00:47→20:30)
[2021-07-11] MEDS: PIPERACILLIN/TAZOBACTAM 3,375 MG in SODIUM CHLORIDE 0.9% 100 ML IV SCH ×3 (01:27→16:13)
[2021-07-11] MEDS: HYDROmorphone 2 MG/1 ML VIAL IV PRN ×4 (02:37→18:19)
[2021-07-11] MEDS: VANCOMYCIN INJ 1,000 MG in SODIUM CHLORIDE 0.9% 250 ML IV SCH ×2 (05:55→15:14)
[2021-07-11] MEDS: BUDESONIDE 0.5 MG/2 ML NEB RESP TX SCH ×2 (07:24→20:30)
[2021-07-11] MEDS: ARFORMOTEROL 15 MCG/2 ML NEB RESP TX SCH ×2 (07:24→20:30)
[2021-07-11] MEDS: guaiFENesin 200 MG/10 ML UDCUP PO SCH ×3 (09:37→22:14)
[2021-07-11] MEDS: FAMOTIDINE 8 MG/ML 50 ML/BOTTLE PEG SCH ×2 (09:38→22:16)
[2021-07-11] MEDS: INSULIN GLARGINE 100 UNIT/ML SUBCUT SCH (09:38)
[2021-07-11] MEDS: QUEtiapine 25 MG TABLET PER TUBE SCH ×2 (09:39→22:14)
[2021-07-11] MEDS: CITALOPRAM 20 MG TABLET PO SCH (09:39)
[2021-07-11] MEDS: predniSONE 20 MG TABLET PO SCH (09:39)
[2021-07-11] MEDS: TAMSULOSIN 0.4 MG CAPSULE PO SCH (09:39)
[2021-07-11] MEDS: METOPROLOL TARTRATE 50 MG TABLET PO SCH ×2 (09:39→22:14)
[2021-07-11] MEDS: DIAZEPAM 5 MG TABLET PO PRN ×2 (09:39→22:14)
[2021-07-11 09:42] LABS: Basophils % 0.2 % (0.0-0.8); Eosinophils # 0.2 10*3/uL (0.0-0.87); Eosinophils % 1.9 % (0.00-10.9); Hemoglobin 10.1 GM/DL (14.0-18.0); Immature Granulocytes % 2.4 %; Immature Granulocytes Absolute 0.19 #; Lymphocytes # 1.9 10*3/uL (1.4-4.0); Lymphocytes % 23.1 % (21.2-54.2); Mean Corpuscular HGB Conc 29.7 GM/DL (32-36); Mean Corpuscular Volume 91.2 FL (87-102); Mean Platelet Volume 8.9 FL (9.6-12.0); Monocytes % 9.5 % (1.7-12.7); Neutrophils % 62.9 % (38.7-73.9); Platelet Count 206 T/CUMM (130-400); Red Blood Count 3.73 MC/CUMM (3.8-5.5); Red Cell Distribution Width 13.6 % (9.3-17.3)
[2021-07-11] MEDS: POLYETHYLENE GLYCOL POWDER 17 GM PACK PO SCH (09:59)
[2021-07-11] MEDS: DOCUSATE SODIUM 100 MG/10 ML UDCUP PO SCH ×2 (09:59→22:15)
[2021-07-11 10:13] LABS: Albumin 2.3 G/DL (3.4-5.0); Bilirubin,Total 0.4 MG/DL (0.20-1.00); Calcium 9.2 MG/DL (8.5-10.1); Osmolality,Calculated 298.6 MOS/KG (273-304); Potassium 2.7 MMOL/L (3.5-5.1); Total Protein 5.9 G/DL (6.4-8.2)
[2021-07-11] MEDS: POTASSIUM CHLORIDE RIDER 10 MEQ/100 ML PREMIX IV SCH ×3 (13:02→15:11)
[2021-07-11] MEDS: DIGOXIN 0.125 MG TABLET PO SCH (15:11)
[2021-07-11] MEDS ORDERED: POTASSIUM CHLORIDE 20 MEQ PACK PO SCH (21:00)
[2021-07-12] MEDS: PIPERACILLIN/TAZOBACTAM 3,375 MG in SODIUM CHLORIDE 0.9% 100 ML IV SCH ×2 (00:55→09:06)
[2021-07-12] MEDS: ALBUTEROL/IPRATROPIUM 3 ML NEB RESP TX SCH ×4 (01:00→20:40)
[2021-07-12] MEDS: HYDROmorphone 2 MG/1 ML VIAL IV PRN ×2 (04:28→07:41)
[2021-07-12] MEDS: VANCOMYCIN INJ 1,000 MG in SODIUM CHLORIDE 0.9% 250 ML IV SCH (04:32)
[2021-07-12 05:27] LABS: Basophils # 0.1 10*3/uL (0.0-0.2); Basophils % 0.7 % (0.0-0.8); Eosinophils # 0.1 10*3/uL (0.0-0.87); Eosinophils % 1.7 % (0.00-10.9); Hematocrit 32.8 VOL% (42.0-52.0); Hemoglobin 9.8 GM/DL (14.0-18.0); Immature Granulocytes % 4.2 %; Lymphocytes % 27.4 % (21.2-54.2); Mean Corpuscular HGB Conc 29.9 GM/DL (32-36); Mean Corpuscular Volume 92.7 FL (87-102); Monocytes % 8.7 % (1.7-12.7); Neutrophils % 57.3 % (38.7-73.9); Platelet Count 212 T/CUMM (130-400); Red Blood Count 3.54 MC/CUMM (3.8-5.5); Red Cell Distribution Width 13.6 % (9.3-17.3); White Blood Count 7.2 T/CUMM (4-12)
[2021-07-12 05:49] LABS: Albumin 2.2 G/DL (3.4-5.0); Bilirubin,Total 0.9 MG/DL (0.20-1.00); Osmolality,Calculated 293.7 MOS/KG (273-304); Potassium 3.2 MMOL/L (3.5-5.1); Total Protein 5.5 G/DL (6.4-8.2)
[2021-07-12] MEDS: BUDESONIDE 0.5 MG/2 ML NEB RESP TX SCH ×2 (07:26→20:40)
[2021-07-12] MEDS: ARFORMOTEROL 15 MCG/2 ML NEB RESP TX SCH ×2 (07:26→20:40)
[2021-07-12] MEDS ORDERED: POTASSIUM CHLORIDE 20 MEQ PACK PO SCH (09:00)
[2021-07-12] MEDS: guaiFENesin 200 MG/10 ML UDCUP PO SCH ×3 (09:02→22:29)
[2021-07-12] MEDS: predniSONE 20 MG TABLET PO SCH (09:03)
[2021-07-12] MEDS: CITALOPRAM 20 MG TABLET PO SCH (09:03)
[2021-07-12] MEDS: QUEtiapine 25 MG TABLET PER TUBE SCH ×2 (09:03→22:28)
[2021-07-12] MEDS: METOPROLOL TARTRATE 50 MG TABLET PO SCH ×2 (09:03→22:53)
[2021-07-12] MEDS: TAMSULOSIN 0.4 MG CAPSULE PO SCH (09:03)
[2021-07-12] MEDS: DIAZEPAM 5 MG TABLET PO PRN (09:03)
[2021-07-12] MEDS: POTASSIUM CHLORIDE 20 MEQ PACK PEG SCH ×2 (09:04→22:30)
[2021-07-12] MEDS: DOCUSATE SODIUM 100 MG/10 ML UDCUP PO SCH ×2 (09:05→22:52)
[2021-07-12] MEDS: INSULIN GLARGINE 100 UNIT/ML SUBCUT SCH (09:07)
[2021-07-12] MEDS: FAMOTIDINE 8 MG/ML 50 ML/BOTTLE PEG SCH ×2 (09:08→22:27)
[2021-07-12] MEDS: POLYETHYLENE GLYCOL POWDER 17 GM PACK PO SCH (09:08)
[2021-07-12] MEDS: GABAPENTIN 50 MG/ML 30 ML/BOTTLE PO PRN ×2 (12:42→22:54)
[2021-07-12] MEDS: DIGOXIN 0.125 MG TABLET PO SCH (12:42)
[2021-07-13] MEDS: ALBUTEROL/IPRATROPIUM 3 ML NEB RESP TX SCH ×4 (01:20→20:52)
[2021-07-13 05:38] LABS: Basophils # 0.1 10*3/uL (0.0-0.2); Basophils % 0.7 % (0.0-0.8); Eosinophils # 0.2 10*3/uL (0.0-0.87); Hematocrit 33.4 VOL% (42.0-52.0); Immature Granulocytes % 5.5 %; Immature Granulocytes Absolute 0.44 #; Lymphocytes # 2.4 10*3/uL (1.4-4.0); Mean Corpuscular HGB Conc 29.9 GM/DL (32-36); Mean Corpuscular Volume 91.3 FL (87-102); Monocytes % 7.4 % (1.7-12.7); Neutrophils % 54.4 % (38.7-73.9); Platelet Count 214 T/CUMM (130-400); Red Blood Count 3.66 MC/CUMM (3.8-5.5); Red Cell Distribution Width 13.7 % (9.3-17.3)
[2021-07-13 06:14] LABS: Albumin 2.1 G/DL (3.4-5.0); Bilirubin,Total 0.4 MG/DL (0.20-1.00); Calcium 8.8 MG/DL (8.5-10.1); Osmolality,Calculated 285.1 MOS/KG (273-304); Potassium 4.5 MMOL/L (3.5-5.1); Total Protein 5.5 G/DL (6.4-8.2)
[2021-07-13 06:26] LABS: Band Neutrophils 2 % (0-10); Eosinophils 1 % (0-10); Lymphocytes 32 % (20-55); Metamyelocytes 1 %; Myelocytes 2 %; Platelet Estimate Normal; Segmented Neutrophils 52 % (50-85); Total Cells Counted 100
[2021-07-13 06:27] LABS: Anisocytosis 1+; Atypical Lymphocytes Few; Macrocytosis 1+
[2021-07-13] MEDS: ARFORMOTEROL 15 MCG/2 ML NEB RESP TX SCH ×2 (07:15→20:53)
[2021-07-13] MEDS: BUDESONIDE 0.5 MG/2 ML NEB RESP TX SCH ×2 (07:15→20:53)
[2021-07-13] MEDS: METOPROLOL TARTRATE 50 MG TABLET PO SCH ×2 (10:25→21:45)
[2021-07-13] MEDS: predniSONE 20 MG TABLET PO SCH (10:25)
[2021-07-13] MEDS: QUEtiapine 25 MG TABLET PER TUBE SCH ×2 (10:25→21:45)
[2021-07-13] MEDS: CITALOPRAM 20 MG TABLET PO SCH (10:25)
[2021-07-13] MEDS: TAMSULOSIN 0.4 MG CAPSULE PO SCH (10:25)
[2021-07-13] MEDS: INSULIN GLARGINE 100 UNIT/ML SUBCUT SCH (10:26)
[2021-07-13] MEDS: guaiFENesin 200 MG/10 ML UDCUP PO PRN (10:26)
[2021-07-13] MEDS: DOCUSATE SODIUM 100 MG/10 ML UDCUP PO SCH ×2 (10:27→21:45)
[2021-07-13] MEDS: FAMOTIDINE 8 MG/ML 50 ML/BOTTLE PEG SCH ×2 (10:27→21:45)
[2021-07-13] MEDS: POLYETHYLENE GLYCOL POWDER 17 GM PACK PO SCH (10:27)
[2021-07-13] MEDS: POTASSIUM CHLORIDE 20 MEQ PACK PEG SCH ×2 (10:28→21:45)
[2021-07-13] MEDS: guaiFENesin 200 MG/10 ML UDCUP PO SCH (10:58)
[2021-07-13] MEDS: DIGOXIN 0.125 MG TABLET PO SCH (13:16)
[2021-07-14] MEDS: ALBUTEROL/IPRATROPIUM 3 ML NEB RESP TX SCH ×4 (02:17→21:29)
[2021-07-14] MEDS: GABAPENTIN 50 MG/ML 30 ML/BOTTLE PO PRN ×2 (06:13→17:46)
[2021-07-14] MEDS: guaiFENesin 200 MG/10 ML UDCUP PO PRN ×4 (06:13→21:08)
[2021-07-14] MEDS: ARFORMOTEROL 15 MCG/2 ML NEB RESP TX SCH ×2 (06:55→21:29)
[2021-07-14] MEDS: BUDESONIDE 0.5 MG/2 ML NEB RESP TX SCH ×2 (06:55→21:29)
[2021-07-14 08:29] LABS: Bilirubin,Total 0.4 MG/DL (0.20-1.00); Calcium 9.5 MG/DL (8.5-10.1); Osmolality,Calculated 274.8 MOS/KG (273-304); Total Protein 6.1 G/DL (6.4-8.2)
[2021-07-14 08:29] LABS: Basophils # 0.1 10*3/uL (0.0-0.2); Basophils % 1.2 % (0.0-0.8); Eosinophils # 0.2 10*3/uL (0.0-0.87); Eosinophils % 1.6 % (0.00-10.9); Hematocrit 42.7 VOL% (42.0-52.0); Immature Granulocytes % 4.7 %; Immature Granulocytes Absolute 0.55 #; Lymphocytes # 2.9 10*3/uL (1.4-4.0); Lymphocytes % 24.4 % (21.2-54.2); Mean Corpuscular Volume 94.5 FL (87-102); Mean Platelet Volume 10.3 FL (9.6-12.0); Neutrophils % 61.1 % (38.7-73.9); Platelet Count 208 T/CUMM (130-400); Red Blood Count 4.52 MC/CUMM (3.8-5.5); Red Cell Distribution Width 13.9 % (9.3-17.3); White Blood Count 11.7 T/CUMM (4-12)
[2021-07-14 08:32] LABS: Hemoglobin 12.4 GM/DL (14.0-18.0)
[2021-07-14] MEDS: INSULIN GLARGINE 100 UNIT/ML SUBCUT SCH (09:11)
[2021-07-14] MEDS: POLYETHYLENE GLYCOL POWDER 17 GM PACK PO SCH (09:12)
[2021-07-14] MEDS: METOPROLOL TARTRATE 50 MG TABLET PO SCH ×2 (09:12→21:04)
[2021-07-14] MEDS: predniSONE 20 MG TABLET PO SCH (09:12)
[2021-07-14] MEDS: QUEtiapine 25 MG TABLET PER TUBE SCH (09:12)
[2021-07-14] MEDS: TAMSULOSIN 0.4 MG CAPSULE PO SCH (09:12)
[2021-07-14] MEDS: CITALOPRAM 20 MG TABLET PO SCH (09:12)
[2021-07-14] MEDS: DOCUSATE SODIUM 100 MG/10 ML UDCUP PO SCH ×2 (09:13→21:05)
[2021-07-14] MEDS: FAMOTIDINE 8 MG/ML 50 ML/BOTTLE PEG SCH (09:13)
[2021-07-14] MEDS: POTASSIUM CHLORIDE 20 MEQ PACK PEG SCH (09:13)
[2021-07-14] MEDS: DIGOXIN 0.125 MG TABLET PO SCH (12:23)
[2021-07-14] MEDS: PANTOPRAZOLE 40 MG TABLET PO SCH (12:23)
[2021-07-14] MEDS: DIAZEPAM 2 MG TABLET PO PRN ×2 (12:24→21:05)
[2021-07-14 13:56] LABS: Lymphocytes 21 % (20-55); Segmented Neutrophils 76 % (50-85); Total Cells Counted 100
[2021-07-14 13:57] LABS: Atypical Lymphocytes Few; Hypochromia 2+; Platelet Estimate Normal
[2021-07-14] MEDS: POTASSIUM BICARB EFFERVESCENT 20 MEQ TAB.EFF PEG SCH (21:05)
[2021-07-15] MEDS: ALBUTEROL/IPRATROPIUM 3 ML NEB RESP TX SCH ×4 (00:40→20:02)
[2021-07-15 05:35] LABS: Basophils # 0.1 10*3/uL (0.0-0.2); Basophils % 0.8 % (0.0-0.8); Eosinophils # 0.1 10*3/uL (0.0-0.87); Eosinophils % 1.2 % (0.00-10.9); Hematocrit 35.5 VOL% (42.0-52.0); Hemoglobin 10.6 GM/DL (14.0-18.0); Immature Granulocytes % 5.8 %; Immature Granulocytes Absolute 0.61 #; Lymphocytes # 2.5 10*3/uL (1.4-4.0); Lymphocytes % 23.7 % (21.2-54.2); Mean Corpuscular HGB Conc 29.9 GM/DL (32-36); Mean Corpuscular Volume 90.8 FL (87-102); Monocytes % 6.7 % (1.7-12.7); Neutrophils % 61.8 % (38.7-73.9); Platelet Count 268 T/CUMM (130-400); Red Blood Count 3.91 MC/CUMM (3.8-5.5); Red Cell Distribution Width 13.9 % (9.3-17.3); White Blood Count 10.5 T/CUMM (4-12)
[2021-07-15] MEDS: QUEtiapine 25 MG TABLET PER TUBE SCH ×3 (05:38→20:43)
[2021-07-15 06:12] LABS: Alanine Aminotransferase 15 U/L (16-61); Albumin 2.3 G/DL (3.4-5.0); Alkaline Phosphatase 60 U/L (45-117); Aspartate Amino Transferase 16 U/L (0-37); Bilirubin,Total < 0.39 MG/DL (0.20-1.00); Blood Urea Nitrogen 20 MG/DL (7-18); Carbon Dioxide 36 MMOL/L (21-32); Estimated Glom Filtration Rate 159 ML/MIN; Glucose 73 MG/DL (74-106); Osmolality,Calculated 282.3 MOS/KG (273-304); Potassium 3.7 MMOL/L (3.5-5.1); Sodium 141 MMOL/L (136-145); Total Protein 5.9 G/DL (6.4-8.2)
[2021-07-15] MEDS: ARFORMOTEROL 15 MCG/2 ML NEB RESP TX SCH ×2 (07:10→20:03)
[2021-07-15] MEDS: BUDESONIDE 0.5 MG/2 ML NEB RESP TX SCH ×2 (07:10→20:02)
[2021-07-15] MEDS: METOPROLOL TARTRATE 50 MG TABLET PO SCH ×2 (08:39→20:43)
[2021-07-15] MEDS: guaiFENesin 200 MG/10 ML UDCUP PO PRN ×2 (08:39→20:45)
[2021-07-15] MEDS: DOCUSATE SODIUM 100 MG/10 ML UDCUP PO SCH ×2 (08:39→20:43)
[2021-07-15] MEDS: POTASSIUM BICARB EFFERVESCENT 20 MEQ TAB.EFF PEG SCH ×2 (08:39→20:41)
[2021-07-15] MEDS: DIAZEPAM 2 MG TABLET PO PRN ×2 (08:40→20:43)
[2021-07-15] MEDS: PANTOPRAZOLE 40 MG TABLET PO SCH (08:40)
[2021-07-15] MEDS: INSULIN GLARGINE 100 UNIT/ML SUBCUT SCH (08:40)
[2021-07-15] MEDS: predniSONE 20 MG TABLET PO SCH (08:40)
[2021-07-15] MEDS: POLYETHYLENE GLYCOL POWDER 17 GM PACK PO SCH (08:42)
[2021-07-15] MEDS: CITALOPRAM 20 MG TABLET PO SCH (08:43)
[2021-07-15] MEDS: TAMSULOSIN 0.4 MG CAPSULE PO SCH (08:43)
[2021-07-15 09:04] LABS: Hypochromia Slight; Lymphocytes 20 % (20-55); Metamyelocytes 3 %; Platelet Estimate Normal; Segmented Neutrophils 72 % (50-85); Tear Drop Cells Few; Total Cells Counted 100
[2021-07-15] MEDS: DIGOXIN 0.125 MG TABLET PO SCH (12:10)
[2021-07-15] MEDS: GABAPENTIN 50 MG/ML 30 ML/BOTTLE PO PRN (18:10)
[2021-07-15] MEDS: AMOXICILLIN/CLAV 875 MG TABLET PO SCH (20:42)
[2021-07-16] MEDS: ALBUTEROL/IPRATROPIUM 3 ML NEB RESP TX SCH ×4 (01:24→20:57)
[2021-07-16] MEDS: GABAPENTIN 50 MG/ML 30 ML/BOTTLE PO PRN (03:24)
[2021-07-16 06:20] LABS: Basophils # 0.1 10*3/uL (0.0-0.2); Basophils % 0.8 % (0.0-0.8); Eosinophils # 0.1 10*3/uL (0.0-0.87); Eosinophils % 1.2 % (0.00-10.9); Hematocrit 35.3 VOL% (42.0-52.0); Hemoglobin 10.7 GM/DL (14.0-18.0); Immature Granulocytes % 4.8 %; Immature Granulocytes Absolute 0.57 #; Lymphocytes # 2.6 10*3/uL (1.4-4.0); Lymphocytes % 21.5 % (21.2-54.2); Mean Corpuscular HGB Conc 30.3 GM/DL (32-36); Mean Corpuscular Volume 90.1 FL (87-102); Neutrophils % 65.7 % (38.7-73.9); Platelet Count 289 T/CUMM (130-400); Red Blood Count 3.92 MC/CUMM (3.8-5.5); Red Cell Distribution Width 13.9 % (9.3-17.3); White Blood Count 11.9 T/CUMM (4-12)
[2021-07-16 06:47] LABS: Band Neutrophils 1 % (0-10); Eosinophils 1 % (0-10); Hypochromia 2+; Lymphocytes 23 % (20-55); Myelocytes 1 %; Segmented Neutrophils 69 % (50-85); Total Cells Counted 100
[2021-07-16 06:48] LABS: Microcytosis 1+; Ovalocytes Slight; Tear Drop Cells Slight
[2021-07-16 06:50] LABS: Albumin 2.2 G/DL (3.4-5.0); Bilirubin,Total 0.9 MG/DL (0.20-1.00); Calcium 8.9 MG/DL (8.5-10.1); Osmolality,Calculated 281.3 MOS/KG (273-304); Potassium 4.3 MMOL/L (3.5-5.1)
[2021-07-16] MEDS: ARFORMOTEROL 15 MCG/2 ML NEB RESP TX SCH (07:21)
[2021-07-16] MEDS: BUDESONIDE 0.5 MG/2 ML NEB RESP TX SCH ×2 (07:21→20:57)
[2021-07-16] MEDS: INSULIN GLARGINE 100 UNIT/ML SUBCUT SCH (09:08)
[2021-07-16] MEDS: CITALOPRAM 20 MG TABLET PO SCH (09:09)
[2021-07-16] MEDS: POTASSIUM BICARB EFFERVESCENT 20 MEQ TAB.EFF PEG SCH ×2 (09:09→21:47)
[2021-07-16] MEDS: TAMSULOSIN 0.4 MG CAPSULE PO SCH (09:10)
[2021-07-16] MEDS: AMOXICILLIN/CLAV 875 MG TABLET PO SCH ×2 (09:10→21:49)
[2021-07-16] MEDS: METOPROLOL TARTRATE 50 MG TABLET PO SCH ×2 (09:10→21:49)
[2021-07-16] MEDS: QUEtiapine 25 MG TABLET PER TUBE SCH ×2 (09:10→21:49)
[2021-07-16] MEDS: PANTOPRAZOLE 40 MG TABLET PO SCH (09:11)
[2021-07-16] MEDS: predniSONE 20 MG TABLET PO SCH (09:11)
[2021-07-16] MEDS: DOCUSATE SODIUM 100 MG/10 ML UDCUP PO SCH ×2 (09:12→21:47)
[2021-07-16] MEDS: POLYETHYLENE GLYCOL POWDER 17 GM PACK PO SCH (09:12)
[2021-07-16] MEDS: DIAZEPAM 2 MG TABLET PO PRN (09:17)
[2021-07-16] MEDS: guaiFENesin 200 MG/10 ML UDCUP PO PRN ×2 (09:24→21:51)
[2021-07-16] MEDS: DIGOXIN 0.125 MG TABLET PO SCH (12:08)
[2021-07-16] MEDS: DIAZEPAM 2 MG TABLET PO SCH ×2 (15:26→21:50)
[2021-07-16] MEDS: GABAPENTIN 50 MG/ML 30 ML/BOTTLE PO SCH ×2 (15:30→21:49)
[2021-07-17] MEDS: ALBUTEROL/IPRATROPIUM 3 ML NEB RESP TX SCH ×4 (01:48→21:55)
[2021-07-17 06:41] LABS: Basophils # 0.1 10*3/uL (0.0-0.2); Eosinophils # 0.3 10*3/uL (0.0-0.87); Eosinophils % 2.3 % (0.00-10.9); Hematocrit 36.8 VOL% (42.0-52.0); Hemoglobin 11.3 GM/DL (14.0-18.0); Immature Granulocytes % 5.3 %; Immature Granulocytes Absolute 0.57 #; Lymphocytes # 2.6 10*3/uL (1.4-4.0); Mean Corpuscular HGB Conc 30.7 GM/DL (32-36); Mean Corpuscular Volume 90.6 FL (87-102); Mean Platelet Volume 9.3 FL (9.6-12.0); Monocytes % 7.3 % (1.7-12.7); Neutrophils % 60.1 % (38.7-73.9); Platelet Count 270 T/CUMM (130-400); Red Blood Count 4.06 MC/CUMM (3.8-5.5); White Blood Count 10.7 T/CUMM (4-12)
[2021-07-17 07:04] LABS: Eosinophils 2 % (0-10); Lymphocytes 23 % (20-55); Platelet Estimate Adequate; Segmented Neutrophils 65 % (50-85); Total Cells Counted 100
[2021-07-17 07:05] LABS: Hypochromia Slight; Microcytosis Slight
[2021-07-17 07:06] LABS: Alanine Aminotransferase 16 U/L (16-61); Albumin 2.3 G/DL (3.4-5.0); Alkaline Phosphatase 60 U/L (45-117); Aspartate Amino Transferase 15 U/L (0-37); Bilirubin,Total < 0.39 MG/DL (0.20-1.00); Blood Urea Nitrogen 18 MG/DL (7-18); Carbon Dioxide 35 MMOL/L (21-32); Estimated Glom Filtration Rate 140 ML/MIN; Glucose 63 MG/DL (74-106); Osmolality,Calculated 274.7 MOS/KG (273-304); Sodium 138 MMOL/L (136-145); Total Protein 5.9 G/DL (6.4-8.2)
[2021-07-17] MEDS: BUDESONIDE 0.5 MG/2 ML NEB RESP TX SCH ×2 (07:14→21:55)
[2021-07-17] MEDS: TAMSULOSIN 0.4 MG CAPSULE PO SCH (08:32)
[2021-07-17] MEDS: POTASSIUM BICARB EFFERVESCENT 20 MEQ TAB.EFF PEG SCH ×2 (08:32→21:53)
[2021-07-17] MEDS: CITALOPRAM 20 MG TABLET PO SCH (08:32)
[2021-07-17] MEDS: QUEtiapine 25 MG TABLET PER TUBE SCH ×2 (08:33→21:53)
[2021-07-17] MEDS: AMOXICILLIN/CLAV 875 MG TABLET PO SCH ×2 (08:33→21:53)
[2021-07-17] MEDS: predniSONE 10 MG TABLET PO SCH (08:33)
[2021-07-17] MEDS: DIAZEPAM 2 MG TABLET PO SCH ×3 (08:34→21:53)
[2021-07-17] MEDS: METOPROLOL TARTRATE 50 MG TABLET PO SCH ×2 (08:34→21:53)
[2021-07-17] MEDS: INSULIN GLARGINE 100 UNIT/ML SUBCUT SCH ×2 (08:35→12:10)
[2021-07-17] MEDS: POLYETHYLENE GLYCOL POWDER 17 GM PACK PO SCH (08:35)
[2021-07-17] MEDS: GABAPENTIN 50 MG/ML 30 ML/BOTTLE PO SCH ×3 (08:36→21:55)
[2021-07-17] MEDS: PANTOPRAZOLE 40 MG TABLET PO SCH (08:41)
[2021-07-17] MEDS: guaiFENesin 200 MG/10 ML UDCUP PO PRN ×3 (08:41→21:54)
[2021-07-17] MEDS: DOCUSATE SODIUM 100 MG/10 ML UDCUP PO SCH ×2 (08:41→21:54)
[2021-07-17] MEDS: DIGOXIN 0.125 MG TABLET PO SCH (12:10)
[2021-07-18] MEDS: ALBUTEROL/IPRATROPIUM 3 ML NEB RESP TX SCH ×4 (01:48→19:35)
[2021-07-18] MEDS: BUDESONIDE 0.5 MG/2 ML NEB RESP TX SCH ×2 (07:10→19:35)
[2021-07-18] MEDS: POTASSIUM BICARB EFFERVESCENT 20 MEQ TAB.EFF PEG SCH (10:08)
[2021-07-18] MEDS: DIAZEPAM 2 MG TABLET PO SCH ×3 (10:08→21:31)
[2021-07-18] MEDS: METOPROLOL TARTRATE 50 MG TABLET PO SCH ×2 (10:10→21:31)
[2021-07-18] MEDS: PANTOPRAZOLE 40 MG TABLET PO SCH (10:10)
[2021-07-18] MEDS: CITALOPRAM 20 MG TABLET PO SCH (10:10)
[2021-07-18] MEDS: AMOXICILLIN/CLAV 875 MG TABLET PO SCH ×2 (10:10→21:31)
[2021-07-18] MEDS: TAMSULOSIN 0.4 MG CAPSULE PO SCH (10:10)
[2021-07-18] MEDS: predniSONE 10 MG TABLET PO SCH (10:10)
[2021-07-18] MEDS: guaiFENesin 200 MG/10 ML UDCUP PO PRN (10:11)
[2021-07-18] MEDS: DOCUSATE SODIUM 100 MG/10 ML UDCUP PO SCH ×2 (10:11→21:33)
[2021-07-18] MEDS: POLYETHYLENE GLYCOL POWDER 17 GM PACK PO SCH (10:11)
[2021-07-18] MEDS: QUEtiapine 25 MG TABLET PER TUBE SCH ×2 (10:25→21:31)
[2021-07-18] MEDS: INSULIN GLARGINE 100 UNIT/ML SUBCUT SCH (10:26)
[2021-07-18] MEDS: GABAPENTIN 50 MG/ML 30 ML/BOTTLE PO SCH ×3 (10:29→21:33)
[2021-07-18] MEDS: DIGOXIN 0.125 MG TABLET PO SCH (15:05)
[2021-07-19] MEDS: POTASSIUM BICARB EFFERVESCENT 20 MEQ TAB.EFF PEG SCH ×3 (00:28→21:06)
[2021-07-19] MEDS: ALBUTEROL/IPRATROPIUM 3 ML NEB RESP TX SCH ×4 (00:49→19:45)
[2021-07-19] MEDS: BUDESONIDE 0.5 MG/2 ML NEB RESP TX SCH ×2 (07:20→19:45)
[2021-07-19] MEDS: guaiFENesin 200 MG/10 ML UDCUP PO PRN ×3 (08:53→21:05)
[2021-07-19] MEDS: DOCUSATE SODIUM 100 MG/10 ML UDCUP PO SCH ×2 (08:53→21:05)
[2021-07-19] MEDS: CITALOPRAM 20 MG TABLET PO SCH (08:54)
[2021-07-19] MEDS: PANTOPRAZOLE 40 MG TABLET PO SCH (08:54)
[2021-07-19] MEDS: TAMSULOSIN 0.4 MG CAPSULE PO SCH (08:55)
[2021-07-19] MEDS: QUEtiapine 25 MG TABLET PER TUBE SCH ×2 (08:55→21:05)
[2021-07-19] MEDS: METOPROLOL TARTRATE 50 MG TABLET PO SCH ×2 (08:55→21:06)
[2021-07-19] MEDS: predniSONE 10 MG TABLET PO SCH (08:55)
[2021-07-19] MEDS: AMOXICILLIN/CLAV 875 MG TABLET PO SCH ×2 (08:55→21:05)
[2021-07-19] MEDS: DIAZEPAM 2 MG TABLET PO SCH ×3 (08:55→21:05)
[2021-07-19] MEDS: INSULIN GLARGINE 100 UNIT/ML SUBCUT SCH (08:56)
[2021-07-19] MEDS: POLYETHYLENE GLYCOL POWDER 17 GM PACK PO SCH (08:56)
[2021-07-19] MEDS: GABAPENTIN 50 MG/ML 30 ML/BOTTLE PO SCH ×3 (08:57→21:52)
[2021-07-19] MEDS: DIGOXIN 0.125 MG TABLET PO SCH (16:31)
[2021-07-19] MEDS: ZALEPLON 5 MG CAPSULE PO PRN (23:04)
[2021-07-20] MEDS: ALBUTEROL/IPRATROPIUM 3 ML NEB RESP TX SCH ×4 (00:15→20:15)
[2021-07-20] MEDS: BUDESONIDE 0.5 MG/2 ML NEB RESP TX SCH ×2 (07:21→20:16)
[2021-07-20] MEDS: POTASSIUM BICARB EFFERVESCENT 20 MEQ TAB.EFF PEG SCH ×2 (09:25→20:34)
[2021-07-20] MEDS: guaiFENesin 200 MG/10 ML UDCUP PO PRN ×3 (09:26→20:40)
[2021-07-20] MEDS: QUEtiapine 25 MG TABLET PER TUBE SCH ×2 (09:27→20:33)
[2021-07-20] MEDS: CITALOPRAM 20 MG TABLET PO SCH (09:27)
[2021-07-20] MEDS: PANTOPRAZOLE 40 MG TABLET PO SCH (09:28)
[2021-07-20] MEDS: TAMSULOSIN 0.4 MG CAPSULE PO SCH (09:28)
[2021-07-20] MEDS: METOPROLOL TARTRATE 50 MG TABLET PO SCH ×2 (09:28→20:33)
[2021-07-20] MEDS: ACETAMINOPHEN 325 MG TABLET PO PRN (09:28)
[2021-07-20] MEDS: predniSONE 10 MG TABLET PO SCH (09:29)
[2021-07-20] MEDS: DOCUSATE SODIUM 100 MG/10 ML UDCUP PO SCH ×2 (09:29→20:36)
[2021-07-20] MEDS: AMOXICILLIN/CLAV 875 MG TABLET PO SCH ×2 (09:39→20:33)
[2021-07-20] MEDS: DIAZEPAM 2 MG TABLET PO SCH ×3 (09:39→20:37)
[2021-07-20] MEDS: GABAPENTIN 50 MG/ML 30 ML/BOTTLE PO SCH ×2 (10:04→20:16)
[2021-07-20] MEDS: POLYETHYLENE GLYCOL POWDER 17 GM PACK PO SCH (10:04)
[2021-07-20] MEDS: INSULIN GLARGINE 100 UNIT/ML SUBCUT SCH (10:10)
[2021-07-20] MEDS: DIGOXIN 0.125 MG TABLET PO SCH (13:30)
[2021-07-20] MEDS: ZALEPLON 5 MG CAPSULE PO PRN (20:49)
[2021-07-21] MEDS: ALBUTEROL/IPRATROPIUM 3 ML NEB RESP TX SCH ×4 (01:35→22:09)
[2021-07-21] MEDS: BUDESONIDE 0.5 MG/2 ML NEB RESP TX SCH ×2 (07:25→22:10)
[2021-07-21] MEDS: INSULIN GLARGINE 100 UNIT/ML SUBCUT SCH (08:06)
[2021-07-21] MEDS: QUEtiapine 25 MG TABLET PER TUBE SCH ×2 (10:00→22:21)
[2021-07-21] MEDS: AMOXICILLIN/CLAV 875 MG TABLET PO SCH ×2 (10:00→22:20)
[2021-07-21] MEDS: predniSONE 10 MG TABLET PO SCH (10:00)
[2021-07-21] MEDS: TAMSULOSIN 0.4 MG CAPSULE PO SCH (10:01)
[2021-07-21] MEDS: METOPROLOL TARTRATE 50 MG TABLET PO SCH ×2 (10:02→22:21)
[2021-07-21] MEDS: PANTOPRAZOLE 40 MG TABLET PO SCH (10:02)
[2021-07-21] MEDS: POTASSIUM BICARB EFFERVESCENT 20 MEQ TAB.EFF PEG SCH ×2 (10:02→22:20)
[2021-07-21] MEDS: DOCUSATE SODIUM 100 MG/10 ML UDCUP PO SCH ×2 (10:04→22:21)
[2021-07-21] MEDS: guaiFENesin 200 MG/10 ML UDCUP PO PRN (10:04)
[2021-07-21] MEDS: GABAPENTIN 50 MG/ML 30 ML/BOTTLE PO SCH ×2 (10:05→22:22)
[2021-07-21] MEDS: POLYETHYLENE GLYCOL POWDER 17 GM PACK PO SCH (10:08)
[2021-07-21] MEDS: DIAZEPAM 2 MG TABLET PO SCH ×3 (10:08→22:21)
[2021-07-21] MEDS: CITALOPRAM 20 MG TABLET PO SCH (11:47)
[2021-07-21] MEDS: DIGOXIN 0.125 MG TABLET PO SCH (14:46)
[2021-07-21] MEDS: ZALEPLON 5 MG CAPSULE PO PRN (22:22)
[2021-07-22] MEDS: ALBUTEROL/IPRATROPIUM 3 ML NEB RESP TX SCH ×4 (02:10→20:44)
[2021-07-22] MEDS: BUDESONIDE 0.5 MG/2 ML NEB RESP TX SCH ×2 (07:18→20:44)
[2021-07-22] MEDS: DOCUSATE SODIUM 100 MG/10 ML UDCUP PO SCH ×2 (11:02→23:07)
[2021-07-22] MEDS: guaiFENesin 200 MG/10 ML UDCUP PO PRN (11:02)
[2021-07-22] MEDS: POTASSIUM BICARB EFFERVESCENT 20 MEQ TAB.EFF PEG SCH ×2 (11:02→23:07)
[2021-07-22] MEDS: CITALOPRAM 20 MG TABLET PO SCH (11:03)
[2021-07-22] MEDS: QUEtiapine 25 MG TABLET PER TUBE SCH ×2 (11:03→23:02)
[2021-07-22] MEDS: TAMSULOSIN 0.4 MG CAPSULE PO SCH (11:04)
[2021-07-22] MEDS: PANTOPRAZOLE 40 MG TABLET PO SCH (11:04)
[2021-07-22] MEDS: AMOXICILLIN/CLAV 875 MG TABLET PO SCH ×2 (11:04→23:01)
[2021-07-22] MEDS: METOPROLOL TARTRATE 50 MG TABLET PO SCH ×2 (11:04→23:02)
[2021-07-22] MEDS: DIAZEPAM 2 MG TABLET PO SCH ×3 (11:04→23:02)
[2021-07-22] MEDS: INSULIN GLARGINE 100 UNIT/ML SUBCUT SCH (11:05)
[2021-07-22] MEDS: GABAPENTIN 50 MG/ML 30 ML/BOTTLE PO SCH ×2 (11:05→23:07)
[2021-07-22] MEDS: POLYETHYLENE GLYCOL POWDER 17 GM PACK PO SCH (11:06)
[2021-07-22] MEDS: DIGOXIN 0.125 MG TABLET PO SCH (16:11)
[2021-07-23] MEDS: ALBUTEROL/IPRATROPIUM 3 ML NEB RESP TX SCH ×4 (00:22→19:44)
[2021-07-23 05:57] LABS: Calcium 9.4 MG/DL (8.5-10.1); Osmolality,Calculated 283.3 MOS/KG (273-304); Potassium 4.1 MMOL/L (3.5-5.1)
[2021-07-23] MEDS: BUDESONIDE 0.5 MG/2 ML NEB RESP TX SCH ×2 (07:30→19:45)
[2021-07-23] MEDS: DOCUSATE SODIUM 100 MG/10 ML UDCUP PO SCH ×2 (08:49→22:42)
[2021-07-23] MEDS: QUEtiapine 25 MG TABLET PER TUBE SCH (08:50)
[2021-07-23] MEDS: INSULIN GLARGINE 100 UNIT/ML SUBCUT SCH (08:50)
[2021-07-23] MEDS: POTASSIUM BICARB EFFERVESCENT 20 MEQ TAB.EFF PEG SCH (08:50)
[2021-07-23] MEDS: METOPROLOL TARTRATE 50 MG TABLET PO SCH ×2 (08:50→22:42)
[2021-07-23] MEDS: PANTOPRAZOLE 40 MG TABLET PO SCH (08:51)
[2021-07-23] MEDS: POLYETHYLENE GLYCOL POWDER 17 GM PACK PO SCH (08:51)
[2021-07-23] MEDS: DIAZEPAM 2 MG TABLET PO SCH ×3 (08:51→22:42)
[2021-07-23] MEDS: TAMSULOSIN 0.4 MG CAPSULE PO SCH (08:51)
[2021-07-23] MEDS: CITALOPRAM 20 MG TABLET PO SCH (08:51)
[2021-07-23] MEDS ORDERED: DEXTROSE 50% 25 GM/50 ML VIAL IV PRN (12:40)
[2021-07-23] MEDS ORDERED: GLUCAGON 1 MG VIAL IM PRN (12:40)
[2021-07-23] MEDS: GABAPENTIN 50 MG/ML 30 ML/BOTTLE PO SCH ×2 (13:37→22:44)
[2021-07-23] MEDS: DIGOXIN 0.125 MG TABLET PO SCH ×2 (13:37→14:45)
[2021-07-23] MEDS: INSULIN LISPRO 100 UNIT/ML SUBCUT SCH (16:35)
[2021-07-23] MEDS: guaiFENesin 200 MG/10 ML UDCUP PO PRN (22:42)
[2021-07-23] MEDS: ENOXAPARIN 40 MG/0.4 ML SYRINGE SUBCUT SCH (22:43)
[2021-07-24] MEDS: ALBUTEROL/IPRATROPIUM 3 ML NEB RESP TX SCH ×4 (00:35→19:36)
[2021-07-24] MEDS: BUDESONIDE 0.5 MG/2 ML NEB RESP TX SCH ×2 (07:23→19:36)
[2021-07-24] MEDS: TAMSULOSIN 0.4 MG CAPSULE PO SCH (08:08)
[2021-07-24] MEDS: guaiFENesin 200 MG/10 ML UDCUP PO PRN ×2 (08:08→14:35)
[2021-07-24] MEDS: DIAZEPAM 2 MG TABLET PO SCH ×3 (08:08→22:08)
[2021-07-24] MEDS: DOCUSATE SODIUM 100 MG/10 ML UDCUP PO SCH ×2 (08:08→22:09)
[2021-07-24] MEDS: CITALOPRAM 20 MG TABLET PO SCH (08:08)
[2021-07-24] MEDS: PANTOPRAZOLE 40 MG TABLET PO SCH (08:09)
[2021-07-24] MEDS: METOPROLOL TARTRATE 50 MG TABLET PO SCH ×2 (08:09→22:08)
[2021-07-24] MEDS: GABAPENTIN 50 MG/ML 30 ML/BOTTLE PO SCH (08:11)
[2021-07-24] MEDS: POLYETHYLENE GLYCOL POWDER 17 GM PACK PO SCH (08:14)
[2021-07-24] MEDS: INSULIN LISPRO 100 UNIT/ML SUBCUT SCH ×2 (09:23→16:46)
[2021-07-24] MEDS: DIGOXIN 0.125 MG TABLET PO SCH (14:35)
[2021-07-24] MEDS: ENOXAPARIN 40 MG/0.4 ML SYRINGE SUBCUT SCH (22:08)
[2021-07-25] MEDS: GABAPENTIN 50 MG/ML 30 ML/BOTTLE PO SCH ×3 (00:52→08:26)
[2021-07-25] MEDS: ALBUTEROL/IPRATROPIUM 3 ML NEB RESP TX SCH ×3 (01:05→13:20)
[2021-07-25] MEDS: guaiFENesin 200 MG/10 ML UDCUP PO PRN ×2 (01:20→08:25)
[2021-07-25] MEDS: INSULIN LISPRO 100 UNIT/ML SUBCUT SCH (07:25)
[2021-07-25] MEDS: BUDESONIDE 0.5 MG/2 ML NEB RESP TX SCH (07:30)
[2021-07-25] MEDS: DOCUSATE SODIUM 100 MG/10 ML UDCUP PO SCH (08:25)
[2021-07-25] MEDS: CITALOPRAM 20 MG TABLET PO SCH (08:25)
[2021-07-25] MEDS: DIAZEPAM 2 MG TABLET PO SCH ×2 (08:25→13:33)
[2021-07-25] MEDS: TAMSULOSIN 0.4 MG CAPSULE PO SCH (08:25)
[2021-07-25] MEDS: METOPROLOL TARTRATE 50 MG TABLET PO SCH (08:25)
[2021-07-25] MEDS: PANTOPRAZOLE 40 MG TABLET PO SCH (08:25)
[2021-07-25] MEDS: POLYETHYLENE GLYCOL POWDER 17 GM PACK PO SCH (08:26)
[2021-07-25 12:32] VITALS: BP 113/71
[2021-07-25] MEDS: DIGOXIN 0.125 MG TABLET PO SCH (13:32)
== END 2021-07-25 13:46 | DRG 4 ==
LOC: N.ED 23:58 → N.EDINP 03-11 05:27 → SUATTDRO 03-11 05:27 → N.ICU 03-11 17:04 → N.5E 06-09 12:42
PROVIDERS: ADMIT Internal Medicine; ATTEND Internal Medicine
PROC: EGDWPEG (ICD-10-PCS; 2021-05-15 08:05)